=== PATIENT | male | born 1975 | race Caucasian/White ===

== ENCOUNTER → 2018-08-18 | Outpatient (CLI) | payer OTHER, SELFPAY ==
[2018-08-18 10:22] LABS: Erythrocyte Sedimentation Rate 2 mm/hr (0-15)
== END | disposition home or self-care (01) ==
LOC: LABSPEC 10:08
PROVIDERS: Family Provider Internal Medicine; PCP Internal Medicine; Visit Provider Internal Medicine
DX: R51 Headache (principal)
CPT/HCPCS: 85652

== ENCOUNTER 2022-12-17 05:20 | Day surgery (SDC) | payer BC, SELFPAY ==
[2022-12-17 05:46] VITALS: BP 144/98; PULSE 83; RESP 18; TEMP 36.3; O2SAT 98; BMI 32.2
[2022-12-17] MEDS: Lactated Ringers 1,000 ML 15 ML IV (05:55)
--- NOTE | 2022-12-17 06:30 | COLBX_PTH ---
PATIENT: MEHDI MARK LOC: EN U#:[id number] AGE/SX: 47/M ROOM: RE12/17/[address]: Dr. Leobardo Bowens DO : 1975 BED: DIS: 12/17/2022 SPEC #: [id number] RECD: 12/17/22 09:56 STATUS: CHRISTOPHER YANDEL #: [id number] JAZMYN: 12/17/22 06:[address]: Leobardo Bowens DEPT: SURGICAL PATHOLOGY RECD BY: Izabella Salmon ENTERED: 12/17/22 10:52 SP TYPE: COLON BX ZINA DR: Dr. Shauna Hargrove DO Tissues: A - Cecum, NOS B - Sigmoid colon biopsy Procedures: Surgery Specimen Level IV HEADER OPERATION: Colonoscopy - open access, biopsy PRE-OP DIAGNOSIS: Screening TISSUE SUBMITTED: A - Cecal polyp biopsy, B - Sigmoid polyp biopsy MICROSCOPIC DIAGNOSIS A. Cecal polyp, biopsy: Fragments of hyperplastic polyp. B. Sigmoid polyp, biopsy: Hyperplastic polyp. BRITANY:eugenia 12/18/2022 MICROSCOPIC DESCRIPTION Slides are reviewed. GROSS DESCRIPTION A - Received in fixative is one container labeled with the patient's name and designated cecal polyp biopsy. The specimen consists of two irregular fragments of light ho soft tissue that in aggregate measure 0.5 x 0.3 x 0.1 cm. The specimen is totally submitted in one cassette. B - Received in fixative is one container labeled with the patient's name and designated sigmoid polyp biopsy. The specimen consists of one irregular fragment of light ho soft tissue that measures 0.2 x 0.2 x 0.1 cm. The specimen is totally submitted in one cassette. / BRITANY:eugenia 12/17/2022 TC:1 CPT: 35056 x2
--- NOTE | 2022-12-17 06:31 | HP.PCM_ITS ---
[facility] - General General Date of Admission: 12/17/22 Date of Service: 12/17/22 Chief Complaint: Screening colonoscopy HPI Narrative MEHDI MARK, is a 47 M who presents today for screening colonoscopy. He has a family history of colon polyps in his mother and his sister. There is no family still colon cancer. He he has a past medical history of mild hypertension and seasonal allergies. He has no chest pain no shortness of breath. He denies abdominal pain. Denies any cramping. Denies any change in bowel habits such as lower GI bleeding, constipation or diarrhea. PFSH Medical History Alcohol use Gout Heartburn HTN (hypertension) Hypercholesteremia Non-smoker Home Medications allopurinol 100 mg tablet 100 mg PO BID 10/15/22 [History Last Taken Unknown] lisinopril 20 mg tablet 20 mg PO BID 10/15/22 [History Last Taken 12/17/22 05:00] loratadine 10 mg tablet (Claritin) 10 mg PO DAILY 10/15/22 [History Last Taken Unknown] Allergy/AdvReac Type Severity Reaction Status Date / Time No Known Allergies Allergy Verified 12/17/22 05:42 Family History (Updated 10/15/22 @ 13:29 by Yesi Perales) Mother Colon polyps Sister Colon polyps Father Hypertension Gout Kidney stones Surgical History (Updated 12/15/22 @ 13:30 by Leora Blakely) Hx of adenoidectomy Social History (Updated 10/15/22 @ 13:30 by Yesi Perales) current occupational status: employed current occupation: [employer], Educator Smoking Status: Never smoker ROS Review of Systems ROS Unobtainable: other Constitutional Constitutional: Denies fatigue, fever(s), poor appetite, weight gain or weight loss ENT HEENT: Denies mouth lesions Cardiovascular Cardiovascular: Denies abdominal bloating, abdominal edema or abdominal pain Respiratory/Chest Respiratory/Chest: Denies change in mental status, change in phlegm color, chest congestion or chest tightness Gastrointestinal Gastrointestinal: Denies belching, bloating, change in bowel habits, change in stool character, chewing difficulty, coffee ground emesis, constipation, cramping, diarrhea, dyspepsia, dysphagia, early satiety, excessive flatus, fecal incontinence, heartburn, hematemesis, hematochezia, hemorrhoids, loose stools, melena, nausea, odynophagia, rectal bleeding, tenesmus, vomiting or weight changes Genitourinary Genitourinary: Denies abdominal discomfort, burning urination or itching Musculoskeletal Musculoskeletal: Reports as per HPI; Denies muscle weakness or myalgias Integumentary Integumentary: Denies jaundice Neurologic Neurologic: Denies lack of coordination or weakness Psychiatric Psychiatric: Denies confusion, depression, memory loss, mood swings, paranoia or suicidal ideation Endocrine Endocrinology: Denies systems reviewed and no addt'l complaints, except as documented Hematologic/Lymphatic Hematologic/Lymphatic: Denies anemia, easy bleeding, easy bruising or lymphadenopathy Allergic/Immunologic Allergic/Immunologic: Denies systems reviewed and no addt'l complaints, except as documented Vital Signs Vital Signs Vital Signs: 12/17/22 05:45 12/17/22 05:46 Temperature 97.4 F L Temperature Source Temporal Pulse Rate 83 Respiratory Rate 18 Respiratory Pattern Normal Blood Pressure 144/98 H Blood Pressure Mean 113 Blood Pressure Source Monitor Blood Pressure Position Semi-Fowlers Blood Pressure Location Left Arm Pulse Ox 98 Oxygen Delivery Method Room Air Weight Weight: 212 lb Body Mass Index (BMI) 32.2 Physical Exam Const alert General Appearance: cooperative Orientation / Consciousness: oriented to person HEENT hearing grossly normal bilaterally Head and Scalp: normal to inspection Face and Sinus: face symmetric Nose: external nose normal Mouth: oral and palatal mucosa normal Eyes conjunctivae normal General Eye: normal appearance of both eyes Neck full ROM General: normal visual inspection Lymph Lymphatic: no lymphadenopathy noted Chest inspection of chest normal and palpation of chest normal Chest: symmetrical chest wall rise Resp normal respiratory effort Effort and Inspection: able to speak in complete sentences Cardio regular rate GI non-distended Percussion: normal to percussion Rectal Exam: deferred Neuro Speech: speech normal Gait (Neuro): normal gait Assessment & Plan Assessment/Plan (1) Encounter for screening for malignant neoplasm of colon: PLAN: He was explained alternatives, risk, benefits including outstanding bleeding, infection, sepsis, perforation, need for discharge and . He will have an ASA of 3.
--- NOTE | 2022-12-17 06:54 | OP.CCLET_ITS ---
12/17/2022 Shauna Hargrove [address] [place] [address] Re : Colonoscopy procedure for [place] Dear Dr. Hargorve This procedure was performed on December. My impressions and recommendations are as follows: Impressions : - Diverticulosis in the recto-sigmoid colon and in the sigmoid colon. - Two 1 to 2 mm polyps in the sigmoid colon and in the cecum, removed with a cold snare. Resected and retrieved. Recommendations : - Repeat colonoscopy in 5 years for surveillance. - Continue present medications. My findings are described in the full procedure note, which is enclosed. If I can be of further assistance, please feel free to contact me at . Sincerely, Leobardo Bowens, 12/17/2022 6:53:45 AM This report has been signed electronically.
--- NOTE | 2022-12-17 06:54 | OP.COLON_ITS ---
Patient Name: Woody Stuart Procedure Date: 12/17/2022 6:21 AM Date of : 1975 Age: 47 Procedure: Colonoscopy Indications: Screening for colorectal malignant neoplasm Providers: Leobardo Bowens DO Medicines: Monitored Anesthesia Care Patient Profile: This is a 47 year old male. Refer to note in patient chart for documentation of history and physical. Last Colonoscopy: none. The patient's first colonoscopy is today. Complications: No immediate complications. Procedure: Pre-Anesthesia Assessment: - Prior to the procedure, a History and Physical was performed, and patient medications and allergies were reviewed. The risks and benefits of the procedure and the sedation options and risks were discussed with the patient. All questions were answered and informed consent was obtained. Patient identification and proposed procedure were verified by the physician. Mental Status Examination: normal. Prophylactic Antibiotics: The patient does not require prophylactic antibiotics. Prior Anticoagulants: The patient has taken no anticoagulant or antiplatelet agents. After reviewing the risks and benefits, the patient was deemed in satisfactory condition to undergo the procedure. The anesthesia plan was to use monitored anesthesia care (MAC). Immediately prior to administration of medications, the patient was re-assessed for adequacy to receive sedatives. The heart rate, respiratory rate, oxygen saturations, blood pressure, adequacy of pulmonary ventilation, and response to care were monitored throughout the procedure. The physical status of the patient was re-assessed after the procedure. After I obtained informed consent, the scope was passed under direct vision. Throughout the procedure, the patient's blood pressure, pulse, and oxygen saturations were monitored continuously. The Colonoscope was introduced through the anus and advanced to the cecum, identified by appendiceal orifice and ileocecal valve. The colonoscopy was performed without difficulty. The patient tolerated the procedure well. The quality of the bowel preparation was adequate. The ileocecal valve, appendiceal orifice, and rectum were photographed. Scope In: 6:37:22 AM Scope Withdrawal Time 0 hours 9 minutes 51 seconds Scope Out: 6:49:08 AM Total Procedure Duration Time 0 hours 11 minutes 46 seconds Findings: The perianal and digital rectal examinations were normal. A few small-mouthed diverticula were found in the recto-sigmoid colon and sigmoid colon. Two sessile polyps were found in the sigmoid colon and cecum. The polyps were 1 to 2 mm in size. These polyps were removed with a cold snare. Resection and retrieval were complete. Verification of patient identification for the specimen was done. Estimated blood loss was minimal. Impression: - Diverticulosis in the recto-sigmoid colon and in the sigmoid colon. - Two 1 to 2 mm polyps in the sigmoid colon and in the cecum, removed with a cold snare. Resected and retrieved. Recommendation: - Repeat colonoscopy in 5 years for surveillance. - Continue present medications. Procedure Code(s): --- Professional --- 20638, Colonoscopy, flexible; with removal of tumor(s), polyp(s), or other lesion(s) by snare technique CPT copyright 2021 [employer]. All rights reserved. The codes documented in this report are preliminary and upon card reader review may be revised to meet current compliance requirements. Leobardo Bowens DO 12/17/2022 6:53:45 AM This report has been signed electronically. Number of Addenda: 0 Note Initiated On: 12/17/2022 6:21 AM
[2022-12-17 06:55] VITALS: BP 144/98; BP 90/70; PULSE 76; RESP 16; TEMP 36.3; O2SAT 97
[2022-12-17 07:00] VITALS: BP 144/98; BP 96/62; PULSE 70; RESP 16; O2SAT 96
[2022-12-17 07:05] VITALS: BP 102/72; BP 144/98; PULSE 62; RESP 18; O2SAT 97
[2022-12-17 07:10] VITALS: BP 106/80; BP 144/98; PULSE 63; RESP 18; TEMP 36.4; O2SAT 98
[2022-12-17 07:26] VITALS: BP 144/98
== END 2022-12-17 07:40 | disposition home or self-care (01) ==
LOC: EN 05:21 → AC 05:23
PROVIDERS: PCP Internal Medicine; Referring Provider Internal Medicine; Visit Provider Internal Medicine Gastroenterology
PROC: 0DJD8ZZ Inspection of Lower Intestinal Tract, Via Natural or Artificial Opening Endoscopic (ICD-10-PCS; CPT 45378; principal; 2022-12-17 06:25)
DX: Z12.11 Encounter for screening for malignant neoplasm of colon (principal); K63.5 Polyp of colon; K57.30 Diverticulosis of large intestine without perforation or abscess without bleeding; I10 Essential (primary) hypertension; E78.00 Pure hypercholesterolemia, unspecified; Z83.719 Family history of colon polyps, unspecified; Z79.899 Other long term (current) drug therapy
CPT/HCPCS: 45385; 88305; J7120; J2405

== ENCOUNTER → 2024-04-12 | Outpatient (CLI) | payer BC, SELFPAY ==
--- NOTE | 2024-04-12 12:56 | CT_ITS ---
PROCEDURE: CHEST WITH CONTRAST REASON FOR EXAM: Nodule seen on previous CT scan, January 2024. TECHNIQUE: Chest CT with intravenous contrast and sagittal and coronal reconstructions. CONTRAST: Isovue-300, 91 mL. COMPARISON: None. FINDINGS: CHEST: Lines and tubes: None. Mediastinum: No evidence of mediastinal hemorrhage. Heart: Normal heart size. No pericardial effusion. Thoracic Aorta: No aneurysm. No evidence of acute traumatic injury. Lungs and Airways: The lungs are normally expanded and clear. Pleura: No pleural effusion. No pneumothorax. Bones: Multilevel spondylosis Upper abdomen: Low-attenuation of the hepatic parenchyma. A few small lymph nodes in the arlene hepatis, largest measuring 2.0 x 1.4 cm on axial image 104. Small 0.8 cm splenule, axial image 89. Contracted gallbladder. Diverticulosis. CT/Chest WITH Contrast IMPRESSION: No significant abnormalities are demonstrated in the chest. Steatosis. Diverticulosis. Other nonacute findings detailed above. One or more dose reduction techniques were used (e.g., Automated exposure contr ol, adjustment of the mA and/or kV according to patient size, use of iterative reconstruction technique). Reading Location: [facility]
== END | disposition home or self-care (01) ==
PROVIDERS: PCP Internal Medicine; Referring Provider Internal Medicine; Visit Provider Internal Medicine
DX: R93.89 Abnormal findings on diagnostic imaging of other specified body structures (principal)
CPT/HCPCS: 71260; Q9967

== ENCOUNTER → 2025-02-22 | Outpatient (CLI) | payer BC, SELFPAY ==
[2025-02-22 07:21] LABS: Mucous, Urine 0 SEEN /hpf (<or=2+); Red Blood Cells-Urine 0 SEEN /hpf (0-5); Squamous Epithelial Cells - UA 0 SEEN /hpf (0-5)
--- OUTSIDE RECORDS SUMMARY | 2025-02-22 07:28 | XMS RPT_ITS | CCD ---
Author Organization [facility] Care Team Providers Care Sustainability Purchasing Agent Name Role Phone Shauna Yen Unavailable Jorge Cheri Unavailable Unavailable Unavailable Unavailable Shauna Yen Attending Unavailable Shauna Yen Consulting Unavailable Gravius, Sophia Unavailable Unavailable Gravius, Sophia Unavailable Unavailable Shauna Yen DO Unavailable [phone] Gravius SUPERVISOR DATA PROCESSING, Sophia Unavailable Unavailable Clyde BOOKERN, Michelle Unavailable Unavailable Josephine Head RN Unavailable Unavailable Unavailable Unavailable Nati Braun MA Unavailable Unavailable Slarb MANAGER NEWS, Carleen Unavailable Unavailable Shauna Yen DO Unavailable Robotham, Yuliana Unavailable Hari MANAGER NEWS, Danie Unavailable Unavailable Janet Rico MA Unavailable Unavailable Dr. Shauna Yen Primary Care Provider Yesi Perales Attending Provider Unavailable Dr. Shauna Yen Referring Provider Friend, Dr. Booth Attending Provider FriendDr. Booth Other Provider Shauna Yen DO Primary Care Provider SHAUNA YEN Referring Unavailable SHAUNA YEN Primary Care Unavailable Shauna Yen Referring Unavailable Shauna Yen Attending Unavailable Shauna Yen Primary Care Unavailable Allergies Allergy Classification Reported Allergen(s) Allergy Type Date of Onset Reaction(s) Facility (1 source) ALLERGIES NOT ON FILE; Translations: [ALLERGIES NOT ON FILE] Propensity to adverse reactions (disorder) [facility] 2 Repository Medications Current Medications Medication Drug Class(es) Dates Sig (Normalized) Sig (Original) loratadine 10 mg oral tablet (20 sources) Start: 10-15-2022 take 1 tablet by mouth once daily Loratadine (Claritin) 10 mg tablet Active 10 MG PO DAILY October 15, 2022 12:00am Completed/Discontinued Medications Medication Drug Class(es) Dates Sig (Normalized) Sig (Original) allopurinol 100 mg oral tablet (20 sources) Xanthine Oxidase Inhibitor Start: 10-14-2022 take 1 tablet by mouth twice daily allopurinoL 100 mg oral tablet 1 (one) Tablet BID for 90 days Quantity: 180 {Tablet} Refills: 3 Ordered: 14-Oct-2022 Beena DO, Shauna Beena DO, Shauna Start : 14-Oct-2022 Active Comments: Mail order. Start: 07-15-2022 take 1 tablet by scott twice daily allopurinoL 100 mg oral tablet 1 (one) Tablet BID for 90 days Quantity: 180 {Tablet} Refills: 0 Ordered: 15-Jul-2022 Beena DO, Shauna Beena DO, Shauna Start : 15-Jul-2022 Active Comments: Mail order. will need appt for further refills Start: 08-07-2021 take 1 tablet by scott twice daily Allopurinol 100 MG Oral Tablet 1 (one) Tablet BID for 90 days Quantity: 180 {Tablet} Refills: 3 Ordered: 07-Aug-2021 Beena DO, Shauna Beena DO, Shauna Start : 07-Aug-2021 Active Comments: Mail order. Start: 08-04-2021 take 1 tablet by scott twice daily Allopurinol 100 MG Oral Tablet 1 (one) Tablet BID for 90 days Quantity: 180 {Tablet} Refills: 3 Ordered: 04-Aug-2021 Beena DO, Shauna Beena DO, Shauna Start : 04-Aug-2021 Active Comments: Mail order. Start: 08-01-2020 take 1 tablet by scott twice daily Allopurinol 100 MG Oral Tablet 1 (one) Tablet BID for 90 days Quantity: 180 {Tablet} Refills: 3 Ordered: 01-Aug-2020 Beena DO, Shauna Beena DO, Shauna Start : 01-Aug-2020 Active Comments: Mail order. Start: 08-09-2018 take 1 tablet by scott th twice daily Allopurinol 100 MG Oral Tablet 1 (one) Tablet BID for 90 days Quantity: 180 {Tablet} Refills: 3 Ordered: 09-Aug-2018 Shauna Yen DO, DO, Kathleen Start : 09-Aug-2018 Active Comments: Mail order. Start: 04-29-2017 End: 05-23-2018 take 1 tablet by mouth twice daily Allopurinol 100 MG Oral Tablet 1 (one) Tablet BID for 90 days Quantity: 180 {Tablet} Refills: 0 Ordered: 23-May-2018 Cheri Patel RN Start : 10-May-2018 End : 23-May-2018 Inactive Comments: Mail order. Comment on above: Mail order. Mail order. muna junior appt for further refills amoxicillin 875 mg / clavulanate 125 mg oral tablet (20 sources) Penicillin-class Antibacterial Start: 9 End: 0 take 1 tablet by mouth twice daily Augmentin 875-125 MG Oral Tablet 1 (one) Tablet bid for 0 days Quantity: 20 {Tablet} Refills: 0 Ordered: 18-Aug-2018 Josephine Head RN Start : 18-Aug-2018 End : 03-Jul-2019 Discontinued Comments: This order discontinued per -. Start: 07-17-2009 End: 05-16-2010 take 1 tablet by mouth twice daily AUGMENTIN, 875-125MG (Oral Tablet) 1 (one) Tablet bid for 0 days Quantity: 20 {Tablet} Refills: 0 Ordered: 16-May-2010 Cheri Patel LPN Start : 17-Jul-2009 End : 16-May-2010 Inactive Comment on above: This order discontin ued per -Span. fluticasone furoate 0.0275 mg/actuat metered dose nasal spray (20 sources) Corticosteroid Start: 0 End: 0 VERAMYST, 27.5MCG/SPRAY (Nasal Suspension) 2 (two) Suspension qd for 30 days Quantity: 1 {Suspension} Refills: 0 Ordered: 16-May-2010 Shauna Yen DO, DO, Kathleen Start : 17-Jul-2009 End : 16-Aug-2009 Inactive lisinopril 20 mg oral tablet (20 sources) Angiotensin Converting Enzyme Inhibitor Start: take 1 tablet by mouth twice daily lisinopriL 20 mg oral tablet 1 Tablet BID for 90 days Quantity: 180 {Tablet} Refills: 3 Ordered: 14-Oct-2022 Beena OCONNOR, Shauna Delgado DO Start : 14-Oct-2022 Active Comments: Mail order. Start: 07-15-2022 take 1 tablet by scott th twice daily lisinopriL 20 mg oral tablet 1 Tablet BID for 90 days Quantity: 180 {Tablet} Refills: 0 Ordered: 15-Jul-2022 Beena DO, Ilda Delgado DOhleen Start : 15-Jul-2022 Active Comments: Mail order. Start: 08-07-2021 take 1 tablet by scott th twice daily Lisinopril 20 MG Oral Tablet 1 Tablet BID for 90 days Quantity: 180 {Tablet} Refills: 3 Ordered: 07-Aug-2021 Beena OCONNOR, Shauna Delgado DO Start : 07-Aug-2021 Active Comments: Mail order. Start: 08-04-2021 take 1 tablet by scott th twice daily Lisinopril 20 MG Oral Tablet 1 Tablet BID for 90 days Quantity: 180 {Tablet} Refills: 3 Ordered: 04-Aug-2021 Beena OCONNOR, Shauna Delgado DO Start : 04-Aug-2021 Active Comments: Mail order. Start: 08-01-2020 take 1 tablet by scott th twice daily Lisinopril 20 MG Oral Tablet 1 Tablet BID for 90 days Quantity: 180 {Tablet} Refills: 3 Ordered: 01-Aug-2020 Beena OCONNOR, Shauna eDlgado DO Start : 01-Aug-2020 Active Comments: Mail order. Start: 01-09-2019 take 1 tablet by scott th twice daily Lisinopril 20 MG Oral Tablet 1 Tablet BID for 90 days Quantity: 180 {Tablet} Refills: 0 Ordered: 09-Jan-2019 Jackie Aguiar DO Start : 09-Jan-2019 Active Comments: Mail order. Start: 10-19-2018 take 1 tablet by scott th twice daily Lisinopril 20 MG Oral Tablet 1 Tablet BID for 90 days Quantity: 180 {Tablet} Refills: 0 Ordered: 19-Oct-2018 Shauna Yen DO, DO, Kathleen Start : 19-Oct-2018 Active Comments: Mail order. Start: 08-09-2018 take 1 tablet by scott th twice daily Lisinopril 20 MG Oral Tablet 1 Tablet BID for 90 days Quantity: 180 {Tablet} Refills: 0 Ordered: 09-Aug-2018 Shauna Yen DO, DO, Kathleen Start : 09-Aug-2018 Active Comments: Mail order. Start: 04-29-2017 End: 05-23-2018 take 1 tablet by mouth twice daily Lisinopril 20 MG Oral Tablet 1 Tablet BID for 90 days Quantity: 180 {Tablet} Refills: 3 Ordered: 23-May-2018 Cheri Patel RN Start : 29-Apr-2017 End : 23-May-2018 Inactive Comments: Mail order. Comment on above: Mail order. Problems Active Problems Problem Classification Problem Date Documented Date Episodic/Chronic Administrative/socia l admission (20 sources) Administrative reason for encounter; Translations: [Other general medical examination for administrative purposes] 04-29-2017 Episodic Disorders of lipid metabolism (20 sources) Hypercholesterolemia; Translations: [Hypercholesteremia] Onset: 4 04-29-2017 Chronic Essential hypertension (20 sources) Hypertensive disorder; Translations: [Benign hypertension] Resolved: 1 04-29-2017 Chronic Gout and other crystal arthropathies (20 sources) Gout; Translations: [Gout] 04-29-2017 Chronic Comment on above: stable Headache; including migraine (20 sources) Headache; Translations: [Headache] Resolved: 2 08-18-2018 Episodic Immunizations and screening for infectious disease (20 sources) Need for prophylactic vaccination and inoculation against influenza; Translations: [Encounter for screening for respiratory tuberculosis] 04-29-2017 Episodic Nutritional deficiencies (20 sources) Vitamin D deficiency; Translations: [Vitamin D deficiency] 08-01-2020 Chronic Other ear and sense organ disorders (20 sources) Unspecified hearing loss; Translations: [Hearing loss, unspecified laterality] Resolved: 1 02-01-2015 Chronic Other ear and sense organ disorders (20 sources) Otitis externa; Translations: [Otitis externa] Resolved: 1 05-05-2012 Chronic Other ear and sense organ disorders (20 sources) Otitis externa; Translations: [Otitis externa] Resolved: 1 05-05-2012 Episodic Other ear and sense organ disorders (20 sources) Otalgia; Translations: [Otalgia, unspecified ear] Resolved: 1 01-29-2015 Episodic Other ear and sense organ disorders (16 sources) Pain of ear structure; Translations: [Otalgia, unspecified ear] Resolved: 1 01-29-2015 Episodic Other eye disorders (2 sources) Periorbital and/or eye pain; Translations: [Headache around the eyes] 08-18-2018 Episodic Other nutritional; endocrine; and metabolic disorders (20 sources) Body mass index 30+ - obesity; Translations: [BMI 30.0-30.9,adult] Resolved: 9 05-23-2018 Chronic Other nutritional; endocrine; and metabolic disorders (18 sources) Overweight in adulthood with body mass index of 25 or more but less than 30; Translations: [BMI 28.0-28.9,adult] Resolved: 9 05-30-2018 Episodic Other screening for suspected conditions (not mental disorders or infectious disease) (1 source) Abnormal findings on diagnostic imaging of other specified body structures; Translations: [Abnormal findings on diagnostic imaging of other specified body structures] Onset: 5 Chronic Other screening for suspected conditions (not mental disorders or infectious disease) (20 sources) Screening status; Translations: [Encounter for screening for malignant neoplasm of prostate (Renamed from Screening for prostate cancer)] 08-01-2020 Episodic Other upper respiratory infections (20 sources) Acute sinusitis, unspecified; Translations: [Acute sinusitis] 04-29-2017 Episodic Otitis media and related conditions (20 sources) Serous otitis media; Translations: [Otitis media] Resolved: 1 05-05-2012 Episodic Residual codes; unclassified (20 sources) Family history of diabetes mellitus; Translations: [Family history of diabetes mellitus] Episodic Residual codes; unclassified (11 sources) Needs influenza immunization; Translations: [Need for prophylactic vaccination and inoculation against influenza (Renamed from Need for immunization against influenza)] 04-29-2017 Episodic Residual codes; unclassified (20 sources) FH: Diabetes mellitus; Translations: [Family history of diabetes mellitus] 04-29-2017 Episodic Residual codes; unclassified (20 sources) Non-smoker; Translations: [Non-smoker] 08-01-2020 Episodic Tuberculosis (20 sources) Tuberculosis Unclassified (20 sources) Unclassified (20 sources) Non-smoker; Translations: [Non-smoker] 04-29-2017 Unclassified (20 sources) Hearing loss, unspecified (389.9) Unclassified (20 sources) Otalgia, unspecified (388.70) Unclassified (20 sources) Hypercholesteremia (272.0) Unclassified (20 sources) BMI 28.0-28.9,adult Unclassified (20 sources) Hypertension, benign Unclassified (20 sources) Hypercholesteremia Unclassified (20 sources) BMI 31.0-31.9,adult Unclassified (10 sources) Encounter for screening for malignant neoplasm of prostate (Renamed from Screening for prostate cancer) Unclassified (20 sources) BMI 30.0-30.9,adult Past or Other Problems Problem Classification Problem Date Documented Date Episodic/Chronic Headache; including migraine (20 sources) Headache; including migraine Other nutritional; endocrine; and metabolic disorders (11 sources) Body mass index 25-29 - overweight; Translations: [BMI 28.0-28.9,adult] Resolved: 05-30-2018 04-29-2017 Chronic Other nutritional; endocrine; and metabolic disorders (10 sources) Body mass index 25-29 - overweight; Translations: [BMI 28.0-28.9,adult] Resolved: 05-30-2018 05-30-2018 Episodic Unclassified (20 sources) Other general medical examination for administrative purposes (V70.3) Unclassified (3 sources) Tuberculosis screening status; Translations: [Screening examination for pulmonary tuberculosis] 08-18-2018 Unclassified (10 sources) Sinusitis, acute Unclassified (6 sources) Encntr for general adult medical exam w/o abnormal findings Results Test Name Value Interpretation Reference Range Facility Chest WITH Contraston 2024 Chest WITH Contrast [facility] Imaging Services [address], [place] [id number] Chest WITH Contrast MR#: [id number] Acct: [id number] Name: MEHDI MARK Rep #: [id number] : 1975 M 48 From: Enoch Raza MD PCP: Dr. Shauna Yen DO Status: REG CLI Study: Chest WITH Contrast Date of Exam: 04/12/24 Exam# [id number] Ordering Dr: Shauna Yen DO PROCEDURE: CHEST WITH CONTRAST REASON FOR EXAM: Nodule seen on previous CT scan, January 2024. TECHNIQUE: Chest CT with intravenous contrast and sagittal and coronal reconstructions. CONTRAST: Isovue-300, 91 mL. COMPARISON: None. FINDINGS: CHEST: Lines and tubes: None. Mediastinum: No evidence of mediastinal hemorrhage. Heart: Normal heart size. No pericardial effusion. Thoracic Aorta: No aneurysm. No evidence of acute traumatic injury. Lungs and Airways: The lungs are normally expanded and clear. Pleura: No pleural effusion. No pneumothorax. Bones: Multilevel spondylosis Upper abdomen: Low-attenuation of the hepatic parenchyma. A few small lymph nodes in the arlene hepatis, largest measuring 2.0 x 1.4 cm on axial image 104. Small 0.8 cm splenule, axial image 89. Contracted gallbladder. Diverticulosis. CT/Chest WITH Contrast IMPRESSION: No significant abnormalities are demonstrated in the chest. Steatosis. Diverticulosis. Other nonacute findings detailed above. One or more dose reduction techniques were used (e.g., Automated exposure control, adjustment of the mA and/or kV according to patient size, use of iterative reconstruction technique). Reading Location: [facility] CC: Dr. Shauna Yen DO Paperhanger Apprentice: Signed Normal [facility] CT CARDIAC SCORING WO IV CON TRASTon 01-15-2024 CT CARDIAC SCORING WO IV CONTRAST Interpreted By: Preston Faye, STUDY: CT CARDIAC SCORING WO IV CONTRAST; 01/15/2024 8:20 am INDICATION: Signs/Symptoms:CAD SCREENING HYPERCHOLESTEREMIA. ,E78.00 Pure hypercholesterolemia, unspecified COMPARISON: None. ACCESSION NUMBER(S): [id number] ORDERING CLINICIAN: SHAUNA YEN TECHNIQUE: Using prospective ECG gating, CT scan of the coronary arteries was performed without intravenous contrast. Coronary calcium scoring was performed according to the method of Agatston. FINDINGS: The score and distribution of calcium in the coronary arteries is as follows: LM 0 LAD 0 LCx 0 RCA 0 Total 0 The visualized mid/lower ascending thoracic aorta measures 3.4 cm in diameter. The heart is normal in size. No pericardial effusion is present. No gross evidence of mediastinal or hilar lymphadenopathy or masses is identified. An ill-defined lobulated mass density is seen, right lower lobe in a para spinal location at image 38/44. This is not completely visualized. Follow-up chest CT with contrast is recommended. Decreased density is seen throughout the liver consistent with fatty change. IMPRESSION: 1. Coronary artery calcium score of 0*. *Coronary artery calcium scoring may be helpful in predicting the risk for future coronary heart disease events. According to the [place] [employer] Clinical Expert Consensus Task Force, such testing provides important prognostic information in patients with more than one coronary heart disease risk factor. The coronary artery calcium score correlates with the annual risk of a non-fatal myocardial infarction or coronary heart disease . Coronary artery score Annual Risk 0-99 0.4% 100-399 1.3% >400 2.4% These three breakpoints correspond to lower, intermediate and high risk states for future coronary events. Such information should be used, along with appropriate clinical judgment, to make decisions regarding the intensity of risk factor management strategies to treat blood lipids and to modify other non-lipid coronary risk factors. Reference: [place] P et al. Circulation. 2007; 115:402-426 2. Mass right lower lobe. Incompletely visualized. Follow-up with chest CT with contrast recommended. 3. Hepatic steatosis. MACRO: Critical Finding: See findings. Notification was initiated on 01/18/2024 at 3:01 pm by Preston Faye. (-YCF-) Instructions: Signed by: Preston Faye 01/18/2024 3:03 PM Dictation workstation: [id number] [facility] CALCIFIDIOL ([id number]) VIT D 25 Ordered By: Fil[employer] W[employer] Fabricator on 10-14-2022 25-hydroxyvitamin D [Mass/Vol] 20.6 ng/mL Abnormal 30.0-100.0 [facility]; [facility] Work Phone: Comment on above: Vitamin D deficiency has been defined by the [employer] of[employer] and an Endocrine Society practice guideline as alevel of serum 25-OH vitamin D less than 20 ng/mL (1,2).The Endocrine Society went on to further define vitamin Dinsufficiency as a level between 21 and 29 ng/mL (2).1. IOM ([employer]). 2010. Dietary reference intakes for calcium and D. [place]: The National Academies Press.2. Ericka MF, Margareth BARTHOLOMEW, Bob BORGES, et al. Evaluation, treatment, and prevention of vitamin D deficiency: an Endocrine Society clinical practice guideline. JCEM. 2010; 96(7):1911-30. PATIENT WAS FASTINGP ERFORMED BY: [facility] [id number] [place]ellarD[place] [id number] CBC W/AUTO DIFF WBC ([id number])O rdered By: [employer] Fabricator on 10-14-2022 Basophils (Bld) [#/Vol] 0.1 10*3/uL Normal 0.0-0.2 [facility]; [facility] Work Phone: Comment on above: PATIENT WAS FASTINGP ERFORMED BY: [facility] [address] [place] [id number] Basophils/100 WBC (Bld) 2 % Normal [facility]; [facility] Work Phone: Comment on above: PATIENT WAS FASTINGP ERFORMED BY: [facility] LabCloverhill Enterprisesrp [address] [place] [id number] Eosinophils (Bld) [#/Vol] 0.8 10*3/uL Abnormal 0.0-0.4 [facility]; [facility] Work Phone: Comment on above: PATIENT WAS FASTINGP ERFORMED BY: [facility] [address] [place] [id number] Eosinophils/100 WBC (Bld) 12 % Normal [facility]; [facility] Work Phone: Comment on above: PATIENT WAS FASTINGP ERFORMED BY: [facility] LabMedical Envelope [id number] [place] [id number] Erythrocyte distribution width (RBC) [Ratio] 13.0 % Normal 11.6-15.4 [facility]; [facility] Work Phone: Comment on above: PATIENT WAS FASTINGP ERFORMED BY: [facility] LabBeaumont Hospital6370 [facility] [id number] Hematocrit (Bld) [Volume fraction] 49.5 % Normal 37.5-51.0 [facility]; [facility] Work Phone: Comment on above: PATIENT WAS FASTINGP ERFORMED BY: [facility] Rlromn6045 [facility] [id number] Hemoglobin (Bld) [Mass/Vol] 16.8 g/dL Normal 13.0-17.7 [facility]; [facility] Work Phone: Comment on above: PATIENT WAS FASTINGP ERFORMED BY: [place] [id number] [facility] [id number] Immature granulocytes (Bld) [#/Vol] 0.0 10*3/uL Normal 0.0-0.1 [facility]; [facility] Work Phone: Comment on above: PATIENT WAS FASTINGP ERFORMED BY: [place] [id number] [facility] [id number] Immature granulocytes/100 WBC (Bld) 0 % Normal [facility]; [facility] Work Phone: Comment on above: PATIENT WAS FASTINGP ERFORMED BY: [facility] Fetmcc4472 [facility] [id number] Lymphocytes (Bld) [#/Vol] 2.2 10*3/uL Normal 0.7-3.1 [facility]; [facility] Work Phone: Comment on above: PATIENT WAS FASTINGP ERFORMED BY: [place] [id number] [facility] [id number] Lymphocytes/100 WBC (Bld) 36 % Normal [facility]; [facility] Work Phone: Comment on above: PATIENT WAS FASTINGP ERFORMED BY: [facility] Ukibhy3544 [facility] [id number] MCH (RBC) [Entitic mass] 30.2 pg Normal 26.6-33.0 [facility]; [facility] Work Phone: Comment on above: PATIENT WAS FASTINGP ERFORMED BY: ZITA Chamorro Wahhvg[address] [facility] [place] [id number] MCHC (RBC) [Mass/Vol] 33.9 g/dL Normal 31.5-35.7 [facility]; [facility] Work Phone: Comment on above: PATIENT WAS FASTINGP ERFORMED BY: [facility] [id number] [facility] Hospital[facility] [place] [id number] MCV (RBC) [Entitic vol] 89 fL Normal 79-97 [facility]; [facility] Work Phone: Comment on above: PATIENT WAS FASTINGP ERFORMED BY: [facility] Zcjzlf7110 Loo RoadECU [facility] [id number] Monocytes (Bld) [#/Vol] 0.5 10*3/uL Normal 0.1-0.9 [facility]; [facility] Work Phone: Comment on above: PATIENT WAS FASTINGP ERFORMED BY: [facility] Pczmrs[address] [facility] [place] [id number] Monocytes/100 WBC (Bld) 9 % Normal [facility]; [facility] Work Phone: Comment on above: PATIENT WAS FASTINGP ERFORMED BY: Oriana Ffafwc[address] [facility] [place] [id number] Neutrophils (Bld) [#/Vol] 2.6 10*3/uL Normal 1.4-7.0 [facility]; [facility] Work Phone: Comment on above: PATIENT WAS FASTINGP ERFORMED BY: [facility] Yozika[address]in [place] [id number] Neutrophils/100 WBC (Bld) 41 % Normal [facility]; [facility] Work Phone: Comment on above: PATIENT WAS FASTINGP ERFORMED BY: Lab[facility] Sbewrr76[address] RoadDublin [place] [id number] Platelets (Bld) [#/Vol] 147 10*3/uL Abnormal 150-450 [facility]; [facility] Work Phone: Comment on above: PATIENT WAS FASTINGP ERFORMED BY: ZITA [facility] Usputv7[address]oo RoadDublin [place] [id number] RBC (Bld) [#/Vol] 5.57 10*6/uL Normal 4.14-5.80 [facility]; [facility] Work Phone: Comment on above: PATIENT WAS FASTINGP ERFORMED BY: ZITA [facility] Kiemvf[address] RoadDublin [place] [id number] WBC (Bld) [#/Vol] 6.2 10*3/uL Normal 3.4-10.8 [facility]; [facility] Work Phone: Comment on above: PATIENT WAS FASTINGP ERFORMED BY: ZITA Labaidan HopperGjgkto1753 Loo RoadDublin [place] [id number] LIPID PANEL ([id number])Ordered B y: [employer] Fabricator on 10-14-2022 Cholesterol [Mass/Vol] 238 mg/dL Abnormal 100-199 [facility]; [facility] Work Phone: Comment on above: PATIENT WAS FASTINGP ERFORMED BY: ZITA [facility] Wykgsj01[address] RoadDublin [place] [id number] Cholesterol in HDL [Mass/Vol] 58 mg/dL Normal [facility]; [facility] Work Phone: Comment on above: PATIENT WAS FASTINGP ERFORMED BY: ZITA Labaidan HopperRtltpx9166 [address] RoadDublin [place] [id number] Triglyceride [Mass/Vol] 80 mg/dL Normal 0-149 [facility]; [facility] Work Phone: Comment on above: PATIENT WAS FASTINGP ERFORMED BY: ZITA [facility] Bwnrup[address] RoadDublin [place] [id number] LIPID PANEL (19851) 14 mg/dL Normal 5-40 [facility]; [facility] Work Phone: Comment on above: PATIENT WAS FASTINGP ERFORMED BY: ZITA [facility] Zslnqf4565 [address]oo RoadDublin [place] [id number] LIPID PANEL (35837) 166 mg/dL Abnormal 0-99 Compr ehensive Internal Medicine; [facility] Work Phone: Comment on above: PATIENT WAS FASTINGP ERFORMED BY: ZITA [facility] Ppdmsw9844 [address] RoadDublin [place] [id number] LIPID PANEL (82445) 2.9 {ratio} Normal 0.0-3.6 [facility] Internal Medicine; [facility] Work Phone: Comment on above: LDL/HDL Ratio Men Wo men 1/2 Avg.Risk 1.0 1.5 Avg.Risk 3.6 3.2 2X Avg.Risk 6.2 5.0 3X Avg.Risk 8.0 6.1 PATIENT WAS FASTINGP ERFORMED BY: ZITA [facility] Dbvyis2412 [address] RoadDublin [place] [id number] METABOLIC PANEL, COMPREHENSI VE (36624)Ordered By: [employer] Fabricator on 10-14-2022 Albumin [Mass/Vol] 4.7 g/dL Normal 4.1-5.1 [facility] Internal Medicine; [facility] Work Phone: Comment on above: PATIENT WAS FASTINGP ERFORMED BY: ZITA [facility] Uyjoxi5333 [address] RoadDublin [place] [id number] Albumin/Globulin [Mass ratio] 2.0 {ratio} Normal 1.2-2.2 [facility]; [facility] Work Phone: Comment on above: PATIENT WAS FASTINGP ERFORMED BY: ZITA [facility] Hvxtyr0162 [address] RoadDublin [place] [id number] ALP [Catalytic activity/Vol] 78 U/L Normal 44-121 [facility]; [facility] Work Phone: Comment on above: PATIENT WAS FASTINGP ERFORMED BY: CB [facility] Yfxefr7302 [address] RoadDublin [place] [id number] ALT [Catalytic activity/Vol] 46 U/L Abnormal 0-44 [facility]; [facility] Work Phone: Comment on above: PATIENT WAS FASTINGP ERFORMED BY: CB [facility] Jadncm6963 [address] RoadDublin [place] [id number] AST [Catalytic activity/Vol] 24 U/L Normal 0-40 [facility]; [facility] Work Phone: Comment on above: PATIENT WAS FASTINGP ERFORMED BY: ZITA [facility] Qjccnj4667 [address] RoadDublin [place] [id number] Bilirubin [Mass/Vol] 0.7 mg/dL Normal 0.0-1.2 Comp rehensive Internal Medicine; [facility] Work Phone: Comment on above: PATIENT WAS FASTINGP ERFORMED BY: ZITA [facility] Yboftv1726 [address] RoadDublin [place] [id number] Calcium [Mass/Vol] 9.3 mg/dL Normal 8.7-10.2 [facility]; [facility] Work Phone: Comment on above: PATIENT WAS FASTINGP ERFORMED BY: ZITA [facility] Nimfwp6518 [address] RoadDublin [place] [id number] Chloride [Moles/Vol] 102 mmol/L Normal 96-106 Comp rehensive Internal Medicine; [facility] Work Phone: Comment on above: PATIENT WAS FASTINGP ERFORMED BY: ZITA [facility] Lujagg7178 [address] RoadDublin [place] [id number] CO2 [Moles/Vol] 23 mmol/L Normal 20-[address] [facility]; [facility] Work Phone: Comment on above: PATIENT WAS FASTINGP ERFORMED BY: ZITA [facility] Xqayxy9910 [address] RoadDublin [place] [id number] Creatinine [Mass/Vol] 0.96 mg/dL Normal 0.76-1.27 [facility]; [facility] Work Phone: Comment on above: PATIENT WAS FASTINGP ERFORMED BY: [facility] Srjbet7842 [address] RoadDublin [place] [id number] GFR/1.73 sq M.predicted among non-blacks MDRD (S/P/Bld) [Vol rate/Area] 99 mL/min/{1.73_m2} Normal Comprehensiv e Internal Medicine; [facility] Work Phone: Comment on above: PATIENT WAS FASTINGP ERFORMED BY: [facility]6370 [facility] [id number] Globulin (S) [Mass/Vol] 2.3 g/dL Normal 1.5-4.5 [facility]; [facility] Work Phone: Comment on above: PATIENT WAS FASTINGP ERFORMED BY: ZITA [facility] Srwjix4517 [facility] [id number] Glucose [Mass/Vol] 94 mg/dL Normal 70-99 [facility]; [facility] Work Phone: Comment on above: PATIENT WAS FASTINGP ERFORMED BY: [facility] Euqcpz8872 [facility] [id number] Potassium [Moles/Vol] 4.6 mmol/L Normal 3.5-5.2 [facility]; [facility] Work Phone: Comment on above: PATIENT WAS FASTINGP ERFORMED BY: ZITA [facility] Trtwtm9224 [facility] [id number] Protein [Mass/Vol] 7.0 g/dL Normal 6.0-8.5 [facility]; [facility] Work Phone: Comment on above: PATIENT WAS FASTINGP ERFORMED BY: ZITA [facility] Iggnlh3920 [facility] [id number] Sodium [Moles/Vol] 139 mmol/L Normal 134-144 [facility]; [facility] Work Phone: Comment on above: PATIENT WAS FASTINGP ERFORMED BY: [facility] Tpkino5500 [facility] [id number] Urea nitrogen [Mass/Vol] 14 mg/dL Normal 6-24 [facility]; [facility] Work Phone: Comment on above: PATIENT WAS FASTINGP ERFORMED BY: [facility] Fjwdnz3775 [facility] [id number] Urea nitrogen/Creatinine [Mass ratio] 15 mg/mg Normal 9-20 [facility]; [facility] Work Phone: Comment on above: PATIENT WAS FASTINGP ERFORMED BY: ZITA [facility] Lzpskh3386 [address] RoadDublin [place] [id number] MICROALBUMINOrdered By: [place] Disability Hearing Officer on 10-14-2022 Albumin DL <= 20 mg/L (U) [Mass/Vol] 5.4 ug/mL Normal Comprehensiv e Internal Medicine; [facility] Work Phone: Comment on above: PATIENT WAS FASTINGP ERFORMED BY: ZITA [facility] Cfbgrk5133 [address] RoadDublin [place] [id number] Albumin/Creatinine (U) [Mass ratio] 4 {mg/g_creat} Normal 0-29 [facility]; [facility] Work Phone: Comment on above: Normal: 0 - 29 Moder ately increased: 30 - 300 Severely increased: >300 PATIENT WAS FASTINGP ERFORMED BY: ZITA [facility] Fumuny2526 [address] RoadDublin [place] [id number] Creatinine (U) [Mass/Vol] 137.6 mg/dL Normal [facility]; [facility] Work Phone: Comment on above: PATIENT WAS FASTINGP ERFORMED BY: ZITA [facility] Bkcwwf4858 [address] RoadDublin [place] [id number] TSH ([id number])Ordered By: [place] Disability Hearing Officer on 10-14-2022 TSH Qn 1.990 {uIU/mL} Normal 0.450-4.50 0 [facility]; [facility] Work Phone: Comment on above: PATIENT WAS FASTINGP ERFORMED BY: ZITA [facility] Rcjetv8665 [address] RoadDublin [place] [id number] URINALYSIS, W/ MICRO ([id number]) Ordered By: [employer] Fabricator on 10-14-2022 Appearance (U) Clear Normal Comprehens jeremy Internal Medicine; [facility] Work Phone: Comment on above: PATIENT WAS FASTINGP ERFORMED BY: ZITA [facility] Mdimcc4346 [address] RoadDublin [place] [id number] Bilirubin Ql (U) Negative Normal Comprehe nsive Internal Medicine; [facility] Work Phone: Comment on above: PATIENT WAS FASTINGP ERFORMED BY: ZITA [employer]anksco Puqrtv3732 [address] RoadDublin [place] [id number] Color (U) Yellow Normal [facility]; [facility] Work Phone: Comment on above: PATIENT WAS FASTINGP ERFORMED BY: Lab[facility] Sgffko4706 [address]Dublin [place] [id number] Glucose Ql (U) Negative Normal Comprehens jeremy Internal Medicine; [facility] Work Phone: Comment on above: PATIENT WAS FASTINGP ERFORMED BY: [facility] Rcaseg5819 [address] RoadDublin [place] [id number] Hemoglobin Ql (U) Negative Normal Compreh ensive Internal Medicine; [facility] Work Phone: Comment on above: PATIENT WAS FASTINGP ERFORMED BY: [facility] Hkurbd6020 [address] RoadDublin [place] [id number] Ketones Ql (U) Negative Normal Comprehens jeremy Internal Medicine; [facility] Work Phone: Comment on above: PATIENT WAS FASTINGP ERFORMED BY: [facility] Uvngys6998 [address] RoadDublin [place] [id number] Leukocyte esterase Test strip Ql (U) Negative Normal [facility]; [facility] Work Phone: Comment on above: PATIENT WAS FASTINGP ERFORMED BY: [facility] Ctpbgi6783 L[address] RoadDublin [place] [id number] Microscopic observation LM Nom (Urine sed) MICRON Normal [facility]; [facility] Work Phone: Comment on above: Microscopic follows if indicated. PATIENT WAS FASTINGP ERFORMED BY: [facility] Zqselp3656 [address] RoadDublin [place] [id number] Microscopic observation LM Nom (Urine sed) See below: Normal [facility]; [facility] Work Phone: Comment on above: Microscopic was viviana cated and was performed. PATIENT WAS FASTINGP ERFORMED BY: [facility] Gkjwsc9717 [address] RoadDublin [place] [id number] Nitrite Ql (U) Negative Normal Comprehens jeremy Internal Medicine; [facility] Work Phone: Comment on above: PATIENT WAS FASTINGP ERFORMED BY: ZITA [facility] Lqkcfn5055 [address] RoadDublin [place] [id number] pH (U) 6.0 [pH] Normal 5.0-7.5 [facility]; [facility] Work Phone: Comment on above: PATIENT WAS FASTINGP ERFORMED BY: CB [facility] Ydhuoq9844 [address] RoadDublin [place] [id number] Protein Ql (U) Negative Normal Comprehens jeremy Internal Medicine; [facility] Work Phone: Comment on above: PATIENT WAS FASTINGP ERFORMED BY: ZITA [facility] Zpylpe2987 [address] RoadDublin [place] [id number] Specific gravity (U) [Rel density] 1.021 1 Normal 1.005-1.03 0 [facility]; [facility] Work Phone: Comment on above: PATIENT WAS FASTINGP ERFORMED BY: CB [facility] Mhkkmo4780 [address] RoadDublin [place] [id number] Urobilinogen (U) [Mass/Vol] 0.2 mg/dL Normal 0.2-1.0 [facility]; [facility] Work Phone: Comment on above: PATIENT WAS FASTINGP ERFORMED BY: CB [facility] Iwmghc4073 [address] RoadDublin [place] [id number] CALCIFIDIOL (24831) VIT D 25 Ordered By: [employer] Fabricator on 08-22-2021 25-hydroxyvitamin D [Mass/Vol] 23.0 ng/mL Abnormal 30.0-100.0 [facility]; [facility] Work Phone: Comment on above: Vitamin D deficiency has been defined by the Victor ofMedicine and an Endocrine Society practice guideline as alevel of serum 25-OH vitamin D less than 20 ng/mL (1,2).The Endocrine Society went on to further define vitamin Dinsufficiency as a level between 21 and 29 ng/mL (2).1. IOM (Victor of Medicine). 2010. Dietary reference intakes for calcium and D. [place]: The National Academies Press.2. Ericka MF, Margareth BARTHOLOMEW, Bob BORGES, et al. Evaluation, treatment, and prevention of vitamin D deficiency: an Endocrine Society clinical practice guideline. JCEM. 2010; 96(7):1911-30. PATIENT WAS FASTINGP ERFORMED BY: [facility] Yizdib5044 [address] RoadDublin [place] [id number] CBC W/AUTO DIFF WBC (60279)O rdered By: [employer] Fabricator on 08-22-2021 Basophils (Bld) [#/Vol] 0.1 10*3/uL Normal 0.0-0.2 [facility]; [facility] Work Phone: Comment on above: PATIENT WAS FASTINGP ERFORMED BY: [facility] Wmwckx7290 [address] RoadDublin [place] [id number] Basophils/100 WBC (Bld) 1 % Normal [facility]; [facility] Work Phone: Comment on above: PATIENT WAS FASTINGP ERFORMED BY: [facility] Gpagjp9642 [address] RoadDublin [place] [id number] Eosinophils (Bld) [#/Vol] 0.4 10*3/uL Normal 0.0-0.4 [facility]; [facility] Work Phone: Comment on above: PATIENT WAS FASTINGP ERFORMED BY: [facility] Fdpdos3378 [address] RoadDublin [place] [id number] Eosinophils/100 WBC (Bld) 8 % Normal [facility]; [facility] Work Phone: Comment on above: PATIENT WAS FASTINGP ERFORMED BY: [facility] Ftjulr4024 [address] NanostellarDublin [place] [id number] Erythrocyte distribution width (RBC) [Ratio] 12.8 % Normal 11.6-15.4 [facility]; [facility] Work Phone: Comment on above: PATIENT WAS FASTINGP ERFORMED BY: [facility] Qvbhbg3121 [address] RoadDublin [place] [id number] Hematocrit (Bld) [Volume fraction] 47.2 % Normal 37.5-51.0 [facility]; [facility] Work Phone: Comment on above: PATIENT WAS FASTINGP ERFORMED BY: [facility] Clvoaz9727 Loo RoadAtrium Health [facility] Centerin [place] [id number] Hemoglobin (Bld) [Mass/Vol] 16.5 g/dL Normal 13.0-17.7 [facility]; [facility] Work Phone: Comment on above: PATIENT WAS FASTINGP ERFORMED BY: [facility] Lxcbcy2329 L[address] RoadDublin [place] [id number] Immature granulocytes (Bld) [#/Vol] 0.0 10*3/uL Normal 0.0-0.1 [facility]; [facility] Work Phone: Comment on above: PATIENT WAS FASTINGP ERFORMED BY: [facility] Qhmvjx1992 [address] Roadblin [place] [id number] Immature granulocytes/100 WBC (Bld) 0 % Normal [facility]; [facility] Work Phone: Comment on above: PATIENT WAS FASTINGP ERFORMED BY: [facility]coEng[facility]wood Hospital and Medical CenterAaehcq6061 L[address] [facility]in [place] [id number] Lymphocytes (Bld) [#/Vol] 2.1 10*3/uL Normal 0.7-3.1 [facility]; [facility] Work Phone: Comment on above: PATIENT WAS FASTINGP ERFORMED BY: [facility] Ctzsbc6097 L[address] [facility]in [place] [id number] Lymphocytes/100 WBC (Bld) 37 % Normal [facility]; [facility] Work Phone: Comment on above: PATIENT WAS FASTINGP ERFORMED BY: [facility] Ehdcea0893 [address] [facility]in [place] [id number] MCH (RBC) [Entitic mass] 30.2 pg Normal 26.6-33.0 [facility]; [facility] Work Phone: Comment on above: PATIENT WAS FASTINGP ERFORMED BY: [facility] Fcppjx6862 [address] RoadDublin [place] [id number] MCHC (RBC) [Mass/Vol] 35.0 g/dL Normal 31.5-35.7 [facility]; [facility] Work Phone: Comment on above: PATIENT WAS FASTINGP ERFORMED BY: CB [facility] Syvdal5869 [address] RoadDublin [place] [id number] MCV (RBC) [Entitic vol] 86 fL Normal 79-97 [facility]; [facility] Work Phone: Comment on above: PATIENT WAS FASTINGP ERFORMED BY: CB [facility] Fermml1857 [address] RoadDublin [place] [id number] Monocytes (Bld) [#/Vol] 0.4 10*3/uL Normal 0.1-0.9 [facility]; [facility] Work Phone: Comment on above: PATIENT WAS FASTINGP ERFORMED BY: CB [facility] Maylny7883 [address] RoadDublin [place] [id number] Monocytes/100 WBC (Bld) 8 % Normal [facility]; [facility] Work Phone: Comment on above: PATIENT WAS FASTINGP ERFORMED BY: CB [facility] Qsviwu5399 [address] RoadDublin [place] [id number] Neutrophils (Bld) [#/Vol] 2.6 10*3/uL Normal 1.4-7.0 [facility]; [facility] Work Phone: Comment on above: PATIENT WAS FASTINGP ERFORMED BY: CB [facility] Sviubg2001 [address] RoadDublin [place] [id number] Neutrophils/100 WBC (Bld) 46 % Normal [facility]; [facility] Work Phone: Comment on above: PATIENT WAS FASTINGP ERFORMED BY: CB [facility] Edcpjo6871 [address] RoadDublin [place] [id number] Platelets (Bld) [#/Vol] 170 10*3/uL Normal 150-450 [facility]; [facility] Work Phone: Comment on above: PATIENT WAS FASTINGP ERFORMED BY: CB [facility] Ukckuv8169 [address] RoadDublin [place] [id number] RBC (Bld) [#/Vol] 5.46 10*6/uL Normal 4.14-5.80 [facility]; [facility] Work Phone: Comment on above: PATIENT WAS FASTINGP ERFORMED BY: ZITA Labaidan Overton6370 [address] RoadDublin [place] [id number] WBC (Bld) [#/Vol] 5.6 10*3/uL Normal 3.4-10.8 [facility] Internal Medicine; [facility] Work Phone: Comment on above: PATIENT WAS FASTINGP ERFORMED BY: ZITA Labdariusshrutih Kzzwkq1787 L[address] RoadDublin [place] [id number] LIPID PANEL (21491)Ordered B y: [employer] Fabricator on 08-22-2021 Cholesterol [Mass/Vol] 229 mg/dL Abnormal 100-199 [facility]; [facility] Work Phone: Comment on above: PATIENT WAS FASTINGP ERFORMED BY: ZITA Hopperlin6370 [address] RoadDublin [place] [id number] Cholesterol in HDL [Mass/Vol] 51 mg/dL Normal [facility]; [facility] Work Phone: Comment on above: PATIENT WAS FASTINGP ERFORMED BY: ZITA Hopperlin6370 [address] RoadDublin [place] [id number] Triglyceride [Mass/Vol] 115 mg/dL Normal 0-149 [facility]; [facility] Work Phone: Comment on above: PATIENT WAS FASTINGP ERFORMED BY: ZITA Labaidan HopperHghfla8087 L[address] RoadDublin [place] [id number] LIPID PANEL (20805) 21 mg/dL Normal 5-40 [facility]; [facility] Work Phone: Comment on above: PATIENT WAS FASTINGP ERFORMED BY: ZITA Labaidan Njapyq5526 [address] RoadDublin [place] [id number] LIPID PANEL (40666) 157 mg/dL Abnormal 0-99 [facility]; [facility] Work Phone: Comment on above: PATIENT WAS FASTINGP ERFORMED BY: ZITA Labcoshruthi Equnvi4358 [address] RoadDublin [place] [id number] LIPID PANEL (08579) 3.1 {ratio} Normal 0.0-3.6 [facility] Internal Medicine; [facility] Work Phone: Comment on above: LDL/HDL Ratio Men Wo men 1/2 Avg.Risk 1.0 1.5 Avg.Risk 3.6 3.2 2X Avg.Risk 6.2 5.0 3X Avg.Risk 8.0 6.1 PATIENT WAS FASTINGP ERFORMED BY: ZITA Labaidan HopperCjchqg5465 L[address] [facility] Hospitalbl[facility] [place] [id number] METABOLIC PANEL, COMPREHENSI VE (36071)Ordered By: [employer] Fabricator on 08-22-2021 Albumin [Mass/Vol] 4.4 g/dL Normal 4.0-5.0 [facility] Internal Medicine; [facility] Work Phone: Comment on above: PATIENT WAS FASTINGP ERFORMED BY: ZITA Labaidan HopperVrguhx7046 Loo RoadAtrium Health [facility] Centerin [place] [id number] Albumin/Globulin [Mass ratio] 1.8 {ratio} Normal 1.2-2.2 [facility]; [facility] Work Phone: Comment on above: PATIENT WAS FASTINGP ERFORMED BY: ZITA Labaidan HopperLybndl5041 [address] [facility]in [place] [id number] ALP [Catalytic activity/Vol] 86 U/L Normal 44-121 [facility]; [facility] Work Phone: Comment on above: PATIENT WAS FASTINGP ERFORMED BY: ZITA Labaidan HopperIdsvmi0994 [address] [facility]in [place] [id number] ALT [Catalytic activity/Vol] 26 U/L Normal 0-44 [facility]; [facility] Work Phone: Comment on above: PATIENT WAS FASTINGP ERFORMED BY: ZITA Labcoshruthi Lzjzrh6810 [address] [facility]in [place] [id number] AST [Catalytic activity/Vol] 26 U/L Normal 0-40 [facility]; [facility] Work Phone: Comment on above: PATIENT WAS FASTINGP ERFORMED BY: ZITA Labcoshruthi Edqzyn8355 L[address] [facility] [id number] Bilirubin [Mass/Vol] 0.8 mg/dL Normal 0.0-1.2 Comp rehensive Internal Medicine; [facility] Work Phone: Comment on above: PATIENT WAS FASTINGP ERFORMED BY: ZITA [facility] Ucgnet5447 [address] RoadDublin [place] [id number] Calcium [Mass/Vol] 9.4 mg/dL Normal 8.7-10.2 [facility] Internal Medicine; [facility] Work Phone: Comment on above: PATIENT WAS FASTINGP ERFORMED BY: [facility] Mzwdkq7082 [address] RoadDublin [place] [id number] Chloride [Moles/Vol] 99 mmol/L Normal 96-106 Comp [facility]; [facility] Work Phone: Comment on above: PATIENT WAS FASTINGP ERFORMED BY: [facility] Bxrwxg2592 [address] RoadDublin [place] [id number] CO2 [Moles/Vol] 24 mmol/L Normal 20-[address] [facility]; [facility] Work Phone: Comment on above: PATIENT WAS FASTINGP ERFORMED BY: ZITA [facility] Uvxqqf9660 [address] RoadDublin [place] [id number] Creatinine [Mass/Vol] 0.98 mg/dL Normal 0.76-1.27 [facility]; [facility] Work Phone: Comment on above: PATIENT WAS FASTINGP ERFORMED BY: [facility] Wataej3771 [address] Roadblin [place] [id number] GFR/1.73 sq M.predicted among non-blacks MDRD (S/P/Bld) [Vol rate/Area] 98 mL/min/{1.73_m2} Normal Comprehensiv e Internal Medicine; [facility] Work Phone: Comment on above: PATIENT WAS FASTINGP ERFORMED BY: [facility] Ovidtl3117 [address] RoadDublin [place] [id number] Globulin (S) [Mass/Vol] 2.5 g/dL Normal 1.5-4.5 [facility]; [facility] Work Phone: Comment on above: PATIENT WAS FASTINGP ERFORMED BY: ZITA [facility] Xzcmnd7358 [address] RoadDublin [place] [id number] Glucose [Mass/Vol] 88 mg/dL Normal 65-99 [facility] Internal Medicine; [facility] Work Phone: Comment on above: PATIENT WAS FASTINGP ERFORMED BY: ZITA [facility] Kdtely5602 [address] RoadDublin [place] [id number] Potassium [Moles/Vol] 4.8 mmol/L Normal 3.5-5.2 [facility]; [facility] Work Phone: Comment on above: PATIENT WAS FASTINGP ERFORMED BY: ZITA [facility] Ehqzcx0905 [address] RoadDublin [place] [id number] Protein [Mass/Vol] 6.9 g/dL Normal 6.0-8.5 [facility] Internal [facility]; [facility] Work Phone: Comment on above: PATIENT WAS FASTINGP ERFORMED BY: ZITA [facility] Hdmrtn7151 [address] RoadDublin [place] [id number] Sodium [Moles/Vol] 137 mmol/L Normal 134-144 [facility] Internal [facility]; [facility] Work Phone: Comment on above: PATIENT WAS FASTINGP ERFORMED BY: [facility] Agbqlh4330 [address] RoadDublin [place] [id number] Urea nitrogen [Mass/Vol] 11 mg/dL Normal 6-24 [facility]; [facility] Work Phone: Comment on above: PATIENT WAS FASTINGP ERFORMED BY: [facility] Dtjazv0325 [address] RoadDublin [place] [id number] Urea nitrogen/Creatinine [Mass ratio] 11 mg/mg Normal 9-20 [facility]; [facility] Work Phone: Comment on above: PATIENT WAS FASTINGP ERFORMED BY: CB [facility] Alebbt9674 [address] RoadDublin [place] [id number] MICROALBUMINOrdered By: Syst em Disability Hearing Officer on 08-22-2021 Albumin DL <= 20 mg/L (U) [Mass/Vol] 5.7 ug/mL Normal Comprehensiv e Internal Medicine; [facility] Work Phone: Comment on above: PATIENT WAS FASTINGP ERFORMED BY: Qloo Tfeerg0834 [facility] [id number] Albumin/Creatinine (U) [Mass ratio] 4 {mg/g_creat} Normal 0-29 [facility]; [facility] Work Phone: Comment on above: Normal: 0 - 29 Moder ately increased: 30 - 300 Severely increased: >300 PATIENT WAS FASTINGP ERFORMED BY: QlooEnglewood Hospital and Medical CenterGtfgco2211 [facility] [id number] Creatinine (U) [Mass/Vol] 128.2 mg/dL Normal [facility]; [facility] Work Phone: Comment on above: PATIENT WAS FASTINGP ERFORMED BY: QlooEnglewood Hospital and Medical CenterVrsxby9044 [facility] [id number] TSH ([id number])Ordered By: [employer] Disability Hearing Officer on 08-22-2021 TSH Qn 1.890 {uIU/mL} Normal 0.450-4.50 0 [facility]; [facility] Work Phone: Comment on above: PATIENT WAS FASTINGP ERFORMED BY: Qloo Btylhr0195 [facility] [id number] MUMPS ANTIBODY, IgG [id number] ([id number] 5360)Ordered By: [employer] Fabricator on 11-15-2020 MuV IgG IA Qn (S) 11.6 AU/mL Normal Compreh ensive Internal Medicine; [facility] Work Phone: Comment on above: Negative <9.0 Equivo millicent 9.0 - 10.9 Positive >10.9 A positive result generally indicates past exposure to Mumps virus or previous vaccination. PATIENT WAS FASTINGP ERFORMED BY: MysterioEnglewood Hospital and Medical CenterBdoack8692 [facility] [id number] QuantiFERON-TB Gold Plus (QF T-Plus) (80100)Ordered By: [employer] Fabricator on 11-15-2020 Gamma interferon background IA Qn (Bld) 0.06 {IU/mL} Normal [facility]; [facility] Work Phone: Comment on above: PATIENT WAS FASTINGP ERFORMED BY: ZITA Overton6370 [facility] [id number] M. tuberculosis stim IFN-g by CD4+ CD8+ T-cells corrected for background Qn (Bld) 0.07 {IU/mL} Normal [facility]; [facility] Work Phone: Comment on above: PATIENT WAS FASTINGP ERFORMED BY: ZITA Chamorro Onjvtb2901 [facility] [id number] M. tuberculosis stim IFN-g by CD4+ T-cells corrected for background Qn (Bld) 0.07 [IU]/mL Normal [facility]; [facility] Work Phone: Comment on above: PATIENT WAS FASTINGP ERFORMED BY: [facility] Ybegaw6354 [facility] [id number] M. tuberculosis stim IFN-g Ql (Bld) [Interp] Negative Normal [facility] Internal Medicine; [facility] Work Phone: Comment on above: Chemiluminescence im munoassay methodology PATIENT WAS FASTINGP ERFORMED BY: ZITA Chamorro Qftoel1388 [facility] [id number] Mitogen stimulated gamma interferon Qn (Bld) >10.00 Normal [facility] Internal Medicine; [facility] Work Phone: Comment on above: PATIENT WAS FASTINGP ERFORMED BY: [facility]Barn[facility] Mwbxwu2761 [facility] [id number] Service comment (Unsp spec) [Interp] SPRCS Normal Comprehensi Internal Medicine; [facility] Work Phone: Comment on above: The QuantiFERON-TB G old Plus result is determined by subtractingthe Nil value from either TB antigen (Ag) tube. The mitogen tubeserves as a control for the test. PATIENT WAS FASTINGP ERFORMED BY: [facility]6370 [facility] [id number] QuantiFERON-TB Gold Plus (QFT-Plus) (09889) Incubation performed. Normal Comprehens jeremy Internal Medicine; [facility] Work Phone: Comment on above: PATIENT WAS FASTINGP ERFORMED BY: [employer]70 gaytravel.comECU Health [facility] [id number] RUBELLA IgG (29858)Ordered B y: [employer] Fabricator on 11-15-2020 Rubella virus IgG Qn (S) 8.61 {index} Normal [facility]; [facility] Work Phone: Comment on above: Non-immune <0.90 Equ ivocal 0.90 - 0.99 Immune >0.99 PATIENT WAS FASTINGP ERFORMED BY: [employer] [facility] GlobalSelect [facility] [id number] RUBEOLA IgG (00670)Ordered B y: [employer] Fabricator on 11-15-2020 MeV IgG IA Qn (S) {index_val} Abnormal Compre hensive Internal Medicine; [facility] Work Phone: Comment on above: Negative <13.5 Equiv ocal 13.5 - 16.4 Positive >16.4 Presence of antibodies to Rubeola is presumptive evidence of immunity except when acute infection is suspected. PATIENT WAS FASTINGP ERFORMED BY: [employer] Loo NanostellarECU Health Roanoke-Chowan Hospital [id number] VARICELLA-ZOSTER ANTBODY (90 047)Ordered By: [employer] Fabricator on 11-15-2020 VZV IgG IA Qn (S) 279 {index} Normal Compre [facility] m[facility]ive [facility]; [facility] Work Phone: Comment on above: Negative <135 Equivo millicent 135 - 165 Positive >165 A positive result generally indicates exposure to the pathogen or administration of specific immunoglobulins, but it is not indication of active infection or stage of disease. PATIENT WAS FASTINGP ERFORMED BY: Scanntech6370 Loo NanostellarECU Health Roanoke-Chow[facility] Hospital [id number] CALCIFEDIOL (55551)Ordered B y: [employer] Fabricator on 08-01-2020 25-hydroxyvitamin D [Mass/Vol] 15.6 ng/mL Abnormal 30.0-100.0 [facility]; [facility] Work Phone: Comment on above: Vitamin D deficiency has been defined by the Victor ofMedicine and an Endocrine Society practice guideline as alevel of serum 25-OH vitamin D less than 20 ng/mL (1,2).The Endocrine Society went on to further define vitamin Dinsufficiency as a level between 21 and 29 ng/mL (2).1. IOM (Victor of Medicine). 2010. Dietary reference intakes for calcium and D. [place]: The National Academies Press.2. Ericka MF, Margareth BARTHOLOMEW, Bob BORGES, et al. Evaluation, treatment, and prevention of vitamin D deficiency: an Endocrine Society clinical practice guideline. JCEM. 2010; 96(7):1911-30. PATIENT WAS FASTINGP ERFORMED BY: CB [facility] Plyxer5427 [address]oo RoadDublin [place] [id number] CBC W/AUTO DIFF WBC (43893)O rdered By: [employer] Fabricator on 08-01-2020 Basophils (Bld) [#/Vol] 0.1 10*3/uL Normal 0.0-0.2 [facility]; [facility] Work Phone: Comment on above: PATIENT WAS FASTINGP ERFORMED BY: CB [facility] Mrfiwt6406 [address] RoadDublin [place] [id number] Basophils/100 WBC (Bld) 1 % Normal [facility]; [facility] Work Phone: Comment on above: PATIENT WAS FASTINGP ERFORMED BY: CB [facility] Llajik1898 [address] RoadDublin [place] [id number] Eosinophils (Bld) [#/Vol] 0.4 10*3/uL Normal 0.0-0.4 [facility]; [facility] Work Phone: Comment on above: PATIENT WAS FASTINGP ERFORMED BY: CB [facility] Mzejfu2048 [address] RoadDublin [place] [id number] Eosinophils/100 WBC (Bld) 8 % Normal [facility]; [facility] Work Phone: Comment on above: PATIENT WAS FASTINGP ERFORMED BY: CB [facility] Vechbm6493 [address] RoadDublin [place] [id number] Erythrocyte distribution width (RBC) [Ratio] 12.9 % Normal 11.6-15.4 [facility]; [facility] Work Phone: Comment on above: PATIENT WAS FASTINGP ERFORMED BY: ZITA Overton6[address]in [place] [id number] Hematocrit (Bld) [Volume fraction] 47.1 % Normal 37.5-51.0 [facility]; [facility] Work Phone: Comment on above: PATIENT WAS FASTINGP ERFORMED BY: ZITA EubanksCoshruthi HopperMtgych8518 Loo RoadAtrium Health Wake Forest Baptist Dav[facility] Medical Centerin [place] [id number] Hemoglobin (Bld) [Mass/Vol] 16.3 g/dL Normal 13.0-17.7 [facility]; [facility] Work Phone: Comment on above: PATIENT WAS FASTINGP ERFORMED BY: ZITA Jame Hopperlin6[address] RoadDuin [place] [id number] Immature granulocytes (Bld) [#/Vol] 0.0 10*3/uL Normal 0.0-0.1 [facility]; [facility] Work Phone: Comment on above: PATIENT WAS FASTINGP ERFORMED BY: ZITA Jame Hopperlin6[address]Dublin [place] [id number] Immature granulocytes/100 WBC (Bld) 0 % Normal [facility]; [facility] Work Phone: Comment on above: PATIENT WAS FASTINGP ERFORMED BY: ZITA Lab[facility] Gondel1901 [address] [facility] Hospitalblin [place] [id number] Lymphocytes (Bld) [#/Vol] 1.8 10*3/uL Normal 0.7-3.1 [facility]; [facility] Work Phone: Comment on above: PATIENT WAS FASTINGP ERFORMED BY: ZITA [facility] Bnfkre2557 [address] RoadDublin [place] [id number] Lymphocytes/100 WBC (Bld) 36 % Normal [facility]; [facility] Work Phone: Comment on above: PATIENT WAS FASTINGP ERFORMED BY: ZITA [facility] Jeocke7258 [address] RoadDublin [place] [id number] MCH (RBC) [Entitic mass] 30.4 pg Normal 26.6-33.0 [facility]; [facility] Work Phone: Comment on above: PATIENT WAS FASTINGP ERFORMED BY: ZITA Jame Overton6[address]Dublin [place] [id number] MCHC (RBC) [Mass/Vol] 34.6 g/dL Normal 31.5-35.7 [facility]; [facility] Work Phone: Comment on above: PATIENT WAS FASTINGP ERFORMED BY: ZITA ChaAidan HopperOcelit0381 [address] RoadDublin [place] [id number] MCV (RBC) [Entitic vol] 88 fL Normal 79-97 [facility]; [facility] Work Phone: Comment on above: PATIENT WAS FASTINGP ERFORMED BY: ZITA Hopperlin6370 [address]blin [place] [id number] Monocytes (Bld) [#/Vol] 0.4 10*3/uL Normal 0.1-0.9 [facility]; [facility] Work Phone: Comment on above: PATIENT WAS FASTINGP ERFORMED BY: ZITA Hopperlin6370 [address]Dublin [place] [id number] Monocytes/100 WBC (Bld) 8 % Normal [facility]; [facility] Work Phone: Comment on above: PATIENT WAS FASTINGP ERFORMED BY: ZITA LabDarius Hrwhfo6239 [address] RoadDublin [place] [id number] Neutrophils (Bld) [#/Vol] 2.3 10*3/uL Normal 1.4-7.0 [facility]; [facility] Work Phone: Comment on above: PATIENT WAS FASTINGP ERFORMED BY: ZITA LabCoshruthi Hiiika3382 [address] RoadDublin [place] [id number] Neutrophils/100 WBC (Bld) 47 % Normal [facility]; [facility] Work Phone: Comment on above: PATIENT WAS FASTINGP ERFORMED BY: ZITA [facility] Xqzjua6344 [address] RoadDublin [place] [id number] Platelets (Bld) [#/Vol] 157 10*3/uL Normal 150-450 [facility]; [facility] Work Phone: Comment on above: PATIENT WAS FASTINGP ERFORMED BY: ZITA Jame Overton6370 [address] [facility] Hospitalblin [place] [id number] RBC (Bld) [#/Vol] 5.36 10*6/uL Normal 4.14-5.80 [facility] Internal Medicine; [facility] Work Phone: Comment on above: PATIENT WAS FASTINGP ERFORMED BY: ZITA LabBarnes-[facility] Yhpvin0338 [facility] Centerin [place] [id number] WBC (Bld) [#/Vol] 5.0 10*3/uL Normal 3.4-10.8 [facility] Internal Medicine; [facility] Work Phone: Comment on above: PATIENT WAS FASTINGP ERFORMED BY: ZITA EubanksBarnes-Jewish [facility] Lqaspt4400 [facility] Centerin [place] [id number] LIPID PANEL (60026)Ordered B y: [employer] Fabricator on 08-01-2020 Cholesterol [Mass/Vol] 235 mg/dL Abnormal 100-199 [facility]; [facility] Work Phone: Comment on above: PATIENT WAS FASTINGP ERFORMED BY: ZITA ChaAidan HopperHbigln8526 [facility] Hospitalblin [place] [id number] Cholesterol in HDL [Mass/Vol] 57 mg/dL Normal [facility]; [facility] Work Phone: Comment on above: PATIENT WAS FASTINGP ERFORMED BY: ZITA LabBarnes-[facility] Dezycg5533 [address] [facility] Hospitalblin [place] [id number] Triglyceride [Mass/Vol] 96 mg/dL Normal 0-149 [facility]; [facility] Work Phone: Comment on above: PATIENT WAS FASTINGP ERFORMED BY: ZITA LabBarnes-[facility] Jtkovf4503 [address] City Hospitalblin [place] [id number] LIPID PANEL (56097) 17 mg/dL Normal 5-40 [facility] Hospitalensive [facility]; [facility] Work Phone: Comment on above: PATIENT WAS FASTINGP ERFORMED BY: CB [facility] Zxzalj9700 [address] RoadDublin [place] [id number] LIPID PANEL (61247) 161 mg/dL Abnormal 0-99 [facility] Internal Medicine; [facility] Work Phone: Comment on above: PATIENT WAS FASTINGP ERFORMED BY: CB [facility] Zfifzw0867 [address] RoadDublin [place] [id number] LIPID PANEL (08816) 2.8 {ratio} Normal 0.0-3.6 [facility] Internal Medicine; [facility] Work Phone: Comment on above: LDL/HDL Ratio Men Wo men 1/2 Avg.Risk 1.0 1.5 Avg.Risk 3.6 3.2 2X Avg.Risk 6.2 5.0 3X Avg.Risk 8.0 6.1 PATIENT WAS FASTINGP ERFORMED BY: CB [facility] Knweek7562 [address] RoadDublin [place] [id number] METABOLIC PANEL, COMPREHENSI VE (93417)Ordered By: [employer] Fabricator on 08-01-2020 Albumin [Mass/Vol] 4.6 g/dL Normal 4.0-5.0 [facility] Internal Medicine; [facility] Work Phone: Comment on above: PATIENT WAS FASTINGP ERFORMED BY: CB [facility] Ipjwik6467 [address] RoadDublin [place] [id number] Albumin/Globulin [Mass ratio] 1.9 {ratio} Normal 1.2-2.2 [facility]; [facility] Work Phone: Comment on above: PATIENT WAS FASTINGP ERFORMED BY: CB [facility] Oqxgtj1724 [address] RoadDublin [place] [id number] ALP [Catalytic activity/Vol] 81 U/L Normal 48-121 [facility]; [facility] Work Phone: Comment on above: Please note refere nce interval change PATIENT WAS FASTINGP ERFORMED BY: CB [facility] Fbpeay6106 [address] RoadDublin [place] [id number] ALT [Catalytic activity/Vol] 29 U/L Normal 0-44 [facility]; [facility] Work Phone: Comment on above: PATIENT WAS FASTINGP ERFORMED BY: CB [facility] Hwpezm4023 [address] RoadDublin [place] [id number] AST [Catalytic activity/Vol] 33 U/L Normal 0-40 [facility]; [facility] Work Phone: Comment on above: PATIENT WAS FASTINGP ERFORMED BY: CB [facility] Etvjvm2708 [address] RoadDublin [place] [id number] Bilirubin [Mass/Vol] 0.8 mg/dL Normal 0.0-1.2 [facility]ensive [facility]; [facility] Work Phone: Comment on above: PATIENT WAS FASTINGP ERFORMED BY: CB [facility] Ptdhgn3666 [address] RoadDublin [place] [id number] Calcium [Mass/Vol] 9.2 mg/dL Normal 8.7-10.2 [facility] Internal Medicine; [facility] Work Phone: Comment on above: PATIENT WAS FASTINGP ERFORMED BY: [facility] Xbqmls7053 [address] RoadDublin [place] [id number] Chloride [Moles/Vol] 101 mmol/L Normal 96-106 Comp [facility]ensive [facility]; [facility] Work Phone: Comment on above: PATIENT WAS FASTINGP ERFORMED BY: CB [facility] Aooxzc0022 [address] RoadDublin [place] [id number] CO2 [Moles/Vol] 24 mmol/L Normal 20-29 [facility] Internal Medicine; [facility] Work Phone: Comment on above: PATIENT WAS FASTINGP ERFORMED BY: CB [facility] Ruuolf2351 [address] RoadDublin [place] [id number] Creatinine [Mass/Vol] 0.99 mg/dL Normal 0.76-1.27 [facility]; [facility] Work Phone: Comment on above: PATIENT WAS FASTINGP ERFORMED BY: CB [facility] Duxask9644 [address] RoadDublin [place] [id number] GFR/1.73 sq M.predicted among blacks CKD-EPI (S/P/Bld) [Vol rate/Area] 107 mL/min/1.73 Normal [facility]; [facility] Work Phone: Comment on above: [facility] currently reports eGFR in compliance with the current recommendations of the National Kidney Foundation. [facility] will update reporting as new guidelines are published from the NKF-ASN Task force. PATIENT WAS FASTINGP ERFORMED BY: [facility]6370 [address] RoadAtrium Health [facility] Medical Centerin [place] [id number] GFR/1.73 sq M.predicted among non-blacks CKD-EPI (S/P/Bld) [Vol rate/Area] 93 mL/min/1.73 Normal [facility]; [facility] Work Phone: Comment on above: PATIENT WAS FASTINGP ERFORMED BY: [facility]6370 [facility]in [place] [id number] Globulin (S) [Mass/Vol] 2.4 g/dL Normal 1.5-4.5 [facility]; [facility] Work Phone: Comment on above: PATIENT WAS FASTINGP ERFORMED BY: [facility]6[address] [facility]in [place] [id number] Glucose [Mass/Vol] 94 mg/dL Normal 65-99 [facility] Internal Medicine; [facility] Work Phone: Comment on above: PATIENT WAS FASTINGP ERFORMED BY: [facility] Hospitallin6[address] [facility]in [place] [id number] Potassium [Moles/Vol] 4.5 mmol/L Normal 3.5-5.2 [facility]; [facility] Work Phone: Comment on above: PATIENT WAS FASTINGP ERFORMED BY: [facility] Ekuolv0790 [address] [facility] River HospitalDublin [place] [id number] Protein [Mass/Vol] 7.0 g/dL Normal 6.0-8.5 [facility] Internal Medicine; [facility] Work Phone: Comment on above: PATIENT WAS FASTINGP ERFORMED BY: [facility] [facility]in [place] [id number] Sodium [Moles/Vol] 138 mmol/L Normal 134-144 [facility] Internal Medicine; [facility] Work Phone: Comment on above: PATIENT WAS FASTINGP ERFORMED BY: ZITA LabCoshruthi Wgplww1816 [address] RoadDublin [place] [id number] Urea nitrogen [Mass/Vol] 12 mg/dL Normal 6-24 [facility]; [facility] Work Phone: Comment on above: PATIENT WAS FASTINGP ERFORMED BY: ZITA [facility] Swdtyd9312 [address] RoadDublin [place] [id number] Urea nitrogen/Creatinine [Mass ratio] 12 mg/mg Normal 9-20 [facility]; [facility] Work Phone: Comment on above: PATIENT WAS FASTINGP ERFORMED BY: ZITA [facility] Evzmlc5931 [address] RoadDublin [place] [id number] MICROALBUMINOrdered By: Syst em Disability Hearing Officer on 08-01-2020 Albumin DL <= 20 mg/L (U) [Mass/Vol] 5.6 ug/mL Normal Comprehensiv e Internal Medicine; [facility] Work Phone: Comment on above: PATIENT WAS FASTINGP ERFORMED BY: ZITA LabBarnes-[facility] Evwqux9042 [address] Roadblin [place] [id number] Albumin/Creatinine (U) [Mass ratio] 4 {mg/g_creat} Normal 0-29 [facility]; [facility] Work Phone: Comment on above: Normal: 0 - 29 Moder ately increased: 30 - 300 Severely increased: >300 PATIENT WAS FASTINGP ERFORMED BY: [facility] Elmgru0426 [address] RoadDublin [place] [id number] Creatinine (U) [Mass/Vol] 130.1 mg/dL Normal [facility]; [facility] Work Phone: Comment on above: PATIENT WAS FASTINGP ERFORMED BY: [facility] Wzdwyj0128 [address] RoadDublin [place] [id number] PSA (PROSTATE SPECIFIC ANTIG EN) (V76.44)Ordered By: [employer] Fabricator on 08-01-2020 Prostate specific Ag [Mass/Vol] 0.6 ng/mL Normal 0.0-4.0 [facility]; [facility] Work Phone: Comment on above: [place] ECLIA methodol ogmallory. .According to the [place] [employer], Serum PSA shoulddecrease and remain at undetectable levels after radicalprostatectomy. The AUA defines biochemical recurrence as an initialPSA value 0.2 ng/mL or greater followed by a subsequent confirmatoryPSA value 0.2 ng/mL or greater.Values obtained with different assay methods or kits cannot be usedinterchangeably. Results cannot be interpreted as absolute evidenceof the presence or absence of malignant disease. PATIENT WAS FASTINGP ERFORMED BY: [employer]in [place] [id number] TSH ([id number])Ordered By: [employer] Disability Hearing Officer on 08-01-2020 TSH Qn 1.370 {uIU/mL} Normal 0.450-4.50 0 [facility]; [facility] Work Phone: Comment on above: PATIENT WAS FASTINGP ERFORMED BY: [employer]6370 Cir[employer]ight Globalin [place] [id number] URIC ACID BLOOD ([id number])Order ed By: [employer] Fabricator on 08-01-2020 Urate [Mass/Vol] 4.4 mg/dL Normal 3.8-8.4 Comprehe nsive Internal Medicine; [facility] Work Phone: Comment on above: Therapeutic target f or gout patients: <6.0 PATIENT WAS FASTINGP ERFORMED BY: [employer]tech6370 Ciralight Globalin [place] [id number] URINALYSIS, W/ MICRO (21324) Ordered By: [employer] Fabricator on 08-01-2020 Appearance (U) Clear Normal Comprehens jeremy Internal Medicine; [facility] Work Phone: Comment on above: PATIENT WAS FASTINGP ERFORMED BY: Jovie Lqhufa0690 Ciralight Globalblin [place] [id number] Bilirubin Ql (U) Negative Normal Comprehe nsive Internal Medicine; [facility] Work Phone: Comment on above: PATIENT WAS FASTINGP ERFORMED BY: [employer] TherapeuticsCo Tvcgcg1156 [address] RoadDublin [place] [id number] Color (U) Yellow Normal [facility]; [facility] Work Phone: Comment on above: PATIENT WAS FASTINGP ERFORMED BY: LabDarius Hxusvz5297 [address] RoadDublin [place] [id number] Glucose Ql (U) Negative Normal Comprehens jeremy Internal Medicine; [facility] Work Phone: Comment on above: PATIENT WAS FASTINGP ERFORMED BY: LabBarnes-[facility] Swqrzy0070 [address] RoadDublin [place] [id number] Hemoglobin Ql (U) Negative Normal Compreh ensive Internal Medicine; [facility] Work Phone: Comment on above: PATIENT WAS FASTINGP ERFORMED BY: ChaBarn[facility] Qjvsfw6507 [address] RoadDublin [place] [id number] Ketones Ql (U) Negative Normal Comprehens jeremy Internal Medicine; [facility] Work Phone: Comment on above: PATIENT WAS FASTINGP ERFORMED BY: ChaBarn[facility] Jkpacr0820 [address] RoadDublin [place] [id number] Leukocyte esterase Test strip Ql (U) Negative Normal [facility]; [facility] Work Phone: Comment on above: PATIENT WAS FASTINGP ERFORMED BY: ChaBarn[facility] Ogrkjl9420 [address] RoadDublin [place] [id number] Microscopic observation LM Nom (Urine sed) MICRON Normal [facility]; [facility] Work Phone: Comment on above: Microscopic follows if indicated. PATIENT WAS FASTINGP ERFORMED BY: [facility] Zddusd7414 [address] RoadDublin [place] [id number] Microscopic observation LM Nom (Urine sed) See below: Normal [facility]; [facility] Work Phone: Comment on above: Microscopic was viviana cated and was performed. PATIENT WAS FASTINGP ERFORMED BY: [facility] Nylufl7241 [address] RoadDublin [place] [id number] Nitrite Ql (U) Negative Normal Comprehens jeremy Internal Medicine; [facility] Work Phone: Comment on above: PATIENT WAS FASTINGP ERFORMED BY: ZITA [facility] Kfdrpo3222 [address] RoadDublin [place] [id number] pH (U) 8.0 [pH] Abnormal 5.0-7.5 [facility]; [facility] Work Phone: Comment on above: PATIENT WAS FASTINGP ERFORMED BY: CB [facility] Dfdsnq6687 [address] RoadDublin [place] [id number] Protein Ql (U) Negative Normal Comprehens [facility] Internal Medicine; [facility] Work Phone: Comment on above: PATIENT WAS FASTINGP ERFORMED BY: ZITA [facility] Fewiag9538 [address] RoadDublin [place] [id number] Specific gravity (U) [Rel density] 1.020 1 Normal 1.005-1.03 0 [facility]; [facility] Work Phone: Comment on above: PATIENT WAS FASTINGP ERFORMED BY: CB [facility] Ylnlnp5581 [address] RoadDublin [place] [id number] Urobilinogen (U) [Mass/Vol] 0.2 mg/dL Normal 0.2-1.0 [facility]; [facility] Work Phone: Comment on above: PATIENT WAS FASTINGP ERFORMED BY: ZITA [facility] Xkhfyk[address] [facility]in [place] [id number] Jeff 01-24-2019 ELLIS [facility] Office Visit (UCWSTR ) -- MEHDI MARK ([id number]) 1975 M Date Time Provider Department 01/24/19 1:15 PM CATHI KOHLI [facility] During your visit today, we recorded the following information about you: Temperature Pulse Respiration Blood pressure 98 degrees 80/minute 16/minute 160/100 Weight 90.4 kg Cathi Kohli APRN.[employer] 01/24/2019 1:56 PM Signed SPRAINS / STRAINS GENERAL INFORMATION: A sprain is when the ligaments of a joint are stretched and injured. A strain is when a muscle is overstretched and some fibers are torn. These injuries can take several weeks to heal. INSTRUCTIONS: 1. To minimize swelling, keep the injured limb above the level of your heart as much as possible. If it is your leg that is injured, elevate it on some pillows whenever you are sitting or lying down. 2. Apply ice to the injury for 15 minutes each hour for the first two days. Put the ice in a plastic bag and place a thin towel between the bag of ice and your skin. 3. After the first 1 to 2 days, you may apply heat to the injury to help relieve pain. You may use a warm heating pad, whirlpool bath, or warm moist towels for 15-20 minutes every hour (while awake) for 48 hours. 4. You may use medicines for pain such as acetaminophen, ibuprofen or aspirin (unless otherwise instructed by your physician). 5. If you were given a brace, splint, or elastic bandage, wear it until otherwise instructed by your health care provider. Adjust elastic bandage for comfort. It should be tight enough for support, but not so tight that it causes numbness or tingling. Take it off and rewrap it at least once a day. 6. If you have been told to use crutches, do not bear weight until your health care provider instructs you otherwise. 7. When you are allowed to return to normal activity, warm up before exercise to avoid future muscle strains. CONTACT YOUR DOCTOR OR RETURN TO THE ED IF: 1. You have increased pain or swelling of the affected area. 2. You notice coldness or blue discoloration of the fingers or toes (depending on site of injury). Cathi Kohli APRN.[employer] 01/24/2019 3:38 PM Signed Subjective HPI Pt presents with c/o left wrist pain x several hours. States fell while walking on crosswalk this am d/t snow. Wrist developed swelling within 20 minutes of injury. Has not taken any OTC medications. Applied ice. Denies limited ROM, sensory changes. Review of Systems Constitutional: Negative for chills and fever. Musculoskeletal: Positive for falls and joint pain. Negative for back pain, myalgias and neck pain. Objective Physical Exam Constitutional: He is oriented to person, place, and time and well-developed, well-nourished, and in no distress. No distress. Musculoskeletal: Comments: Full active ROM against resistance. Muscle strength 4/5 Soft, nontender mass to scaphoid area. Moderate edema and faint ecchymosis to general wrist. Sensory intact. Cap refill 2 sec. radial pulses 2+. Neurological: He is alert and oriented to person, place, and time. Skin: Skin is warm and dry. He is not diaphoretic. BP 160/100 Pulse 80 Temp 36.7 ?C (98 ?F) (Axillary) Resp 16 Wt 90.4 kg (199 lb 6.4 oz) .Patient presents with: left wrist pain: fell walking in to work this am No past medical history on file. No past surgical history on file. ALLERGIES Patient has no known allergies. MEDICATIONS allopurinol (ZYLOPRIM) 100 mg tablet Take 100 mg by mouth twice daily. lisinopril (ZESTRIL, PRINIVIL) 20 mg tablet Take 20 mg by mouth twice daily. diclofenac, EC, (VOLTAREN) 50 mg EC tablet Take 1 tablet by mouth three times daily as needed for up to 7 days. No family history on file. Social History Tobacco Use - Smoking status: Never Smoker - Smokeless tobacco: Never Used Substance Use Topics - Alcohol use: Not on file - Drug use: Not on file ASSESSMENT/PLAN: 1. Fall, initial encounter - ICD9: E888.9, ICD10: W19.XXXA (primary diagnosis) - XR WRIST INJURY 4V PA/LAT/OBL/SCAPH LT Encouraged RICE. Wrist splint applied. 2. Left wrist pain - ICD9: 719.43, ICD10: M25.532 - DICLOFENAC SODIUM 50 MG TABLET,DELAYED RELEASE The patient is instructed to return or seek emergency treatment if symptoms become worse or with any acute change in condition. The patient verbalizes understanding and is in agreement with plan of care. Cathi Kohli CNP Referring Provider: SELF [[id number]] Allergies As of Date: 01/24/2019 (No Known Allergies) Date Reviewed: 01/24/2019 Reviewed by: Nancy Han LPN - Fully Assessed Reason for Visit: left wrist pain [Other] Cmt: fell walking in to work this am Primary Visit Diagnosis:Fall, initial encounter [W19.XXXA] Other Visit Diagnosis:Left wrist pain [M25.532] Order(s):XR WRIST INJURY 4V PA/LAT/OBL/SCAPH LT [[id number]] Order #: [id number] FUTURE diclofenac, EC, (VOLTAREN) 50 mg EC tabletTake 1 tablet by mouth three times daily as needed for up to 7 days.Disp: 21 tabletRfl: 0 Prescriptions as of 01/24/2019 Sig: ALLOPURINOL 100 MG TABLET Take 100 mg by mouth twice da* LISINOPRIL 20 MG TABLET Take 20 mg by mouth twice manny* DICLOFENAC SODIUM 50 MG TABLE* Take 1 tablet by mouth three * Problem List As Of Date: 01/24/2019 (None) Other instructions from your clinician: SPRAINS / STRAINS GENERAL INFORMATION: A sprain is when the ligaments of a joint are stretched and injured. A strain is when a muscle is overstretched and some fibers are torn. These injuries can take several weeks to heal. INSTRUCTIONS: 1. To minimize swelling, keep the injured limb above the level of your heart as much as possible. If it is your leg that is injured, elevate it on some pillows whenever you are sitting or lying down. 2. Apply ice to the injury for 15 minutes each hour for the first two days. Put the ice in a plastic bag and place a thin towel between the bag of ice and your skin. 3. After the first 1 to 2 days, you may apply heat to the injury to help relieve pain. You may use a warm heating pad, whirlpool bath, or warm moist towels for 15-20 minutes every hour (while awake) for 48 hours. 4. You may use medicines for pain such as acetaminophen, ibuprofen or aspirin (unless otherwise instructed by your physician). 5. If you were given a brace, splint, or elastic bandage, wear it until otherwise instructed by your health care provider. Adjust elastic bandage for comfort. It should be tight enough for support, but not so tight that it causes numbness or tingling. Take it off and rewrap it at least once a day. 6. If you have been told to use crutches, do not bear weight until your health care provider instructs you otherwise. 7. When you are allowed to return to normal activity, warm up before exercise to avoid future muscle strains. CONTACT YOUR DOCTOR OR RETURN TO THE ED IF: 1. You have increased pain or swelling of the affected area. 2. You notice coldness or blue discoloration of the fingers or toes (depending on site of injury). Prescriptions ordered this encounter Disp Refills Start End DICLOFENAC SODIUM 50 MG TABLET,DELAY* 21 t* 0 01/24/2019 01/31/2019 Route: ORAL Sig: Take 1 tablet by mouth three times daily as needed for up to 7 days. Letter Text Encounter Status:Closed by CATHI KOHLI CNP on 01/24/19 Normal [facility] PROGRESSon 01-24-2019 PROGRESS HNO ID: [id number] Author: Cathi Kohli Service: ? Author Type: Nurse Practitioner Type: Progress Notes Filed: 01/24/2019 3:38 PM Note Text: Subjective HPI Pt presents with c/o left wrist pain x several hours. States fell while walking on crosswalk this am d/t snow. Wrist developed swelling within 20 minutes of injury. Has not taken any OTC medications. Applied ice. Denies limited ROM, sensory changes. Review of Systems Constitutional: Negative for chills and fever. Musculoskeletal: Positive for falls and joint pain. Negative for back pain, myalgias and neck pain. Objective Physical Exam Constitutional: He is oriented to person, place, and time and well-developed, well-nourished, and in no distress. No distress. Musculoskeletal: Comments: Full active ROM against resistance. Muscle strength 4/5 Soft, nontender mass to scaphoid area. Moderate edema and faint ecchymosis to general wrist. Sensory intact. Cap refill 2 sec. radial pulses 2+. Neurological: He is alert and oriented to person, place, and time. Skin: Skin is warm and dry. He is not diaphoretic. BP 160/100 Pulse 80 Temp 36.7 ?C (98 ?F) (Axillary) Resp 16 Wt 90.4 kg (199 lb 6.4 oz) .Patient presents with: left wrist pain: fell walking in to work this am No past medical history on file. No past surgical history on file. ALLERGIES Patient has no known allergies. MEDICATIONS allopurinol (ZYLOPRIM) 100 mg tablet Take 100 mg by mouth twice daily. lisinopril (ZESTRIL, PRINIVIL) 20 mg tablet Take 20 mg by mouth twice daily. diclofenac, EC, (VOLTAREN) 50 mg EC tablet Take 1 tablet by mouth three times daily as needed for up to 7 days. No family history on file. Social History Tobacco Use - Smoking status: Never Smoker - Smokeless tobacco: Never Used Substance Use Topics - Alcohol use: Not on file - Drug use: Not on file ASSESSMENT/PLAN: 1. Fall, initial encounter - ICD9: E888.9, ICD10: W19.XXXA (primary diagnosis) - XR WRIST INJURY 4V PA/LAT/OBL/SCAPH LT Encouraged RICE. Wrist splint applied. 2. Left wrist pain - ICD9: 719.43, ICD10: M25.532 - DICLOFENAC SODIUM 50 MG TABLET,DELAYED RELEASE The patient is instructed to return or seek emergency treatment if symptoms become worse or with any acute change in condition. The patient verbalizes understanding and is in agreement with plan of care. Cathi Kohli CNP Normal [facility] PROGRESS HNO ID: [id number] Author: Musa Rodarte () Staci Lopez Service: ? Author Type: Cardiology Physician Assistant Type: Progress Notes Filed: 01/24/2019 1:29 PM Note Text: Radiology Service Progress Note PATIENT NAME: Mehdi Mark DATE OF SERVICE: January 24, 2019 TIME: 1:21 PM PATIENT IDENTITY VERIFICATION COMPLETED USING TWO (2) METHODS: Name and Date of confirmed by patient verbally. PATIENT GENDER DATA: Male PATIENT RELEVANT IMPLANT DATA REVIEWED: Not Applicable RADIOLOGY DEPARTMENT: General X-ray: Exam(s) Completed: Upper Extremity X-Ray(s): Wrist, left : PERIPHERAL IV DATA: Not applicable SIGNED BY: RT Isak January 24, 2019 1:21 PM [facility] XR WRIST 4V PA/LAT/OBL/SCAPH LTon 01-24-2019 XR WRIST 4V PA/LAT/OBL/SCAPH LT * * *Final Report* * * DATE OF EXAM: Jan 24 2019 1:29PM WOX 5272 - XR WRIST 4V PA/LAT/OBL/SCAPH LT / PROCEDURE REASON: multiple diagnoses * * * * Physician Interpretation * * * * HISTORY: Fall, initial encounter Left wrist pain Pt. states he fell today. Pain posterior Lt wrist. TECHNIQUE: 4 views COMPARISON: None RESULT: There is a small cystic area in the midportion of the scaphoid bone which perhaps is congenital. No acute fracture or dislocation. 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 IMPRESSION: No acute fracture as detailed Paperhanger Apprentice: PSCB Transcribe Date/Time: Jan 24 2019 1:37P Dictated by : ROSENDO REY MD This examination was interpreted and the report reviewed and electronically signed by: ROSENDO REY MD on Jan 24 2019 1:47PM EST [id number] Normal [facility] NMR Profile ([id number])Ordered B y: [employer]ator on 10-06-2018 Cholesterol [Mass/Vol] 218 mg/dL Abnormal 100-199 [facility] Work Phone: Comment on above: do in 09/30; PATIENT WAS FASTINGPERFORMED BY: [facility] [id number] Lipoprotein.alpha [Moles/Vol] 32.7 umol/L Normal [facility] Work Phone: Comment on above: do in 09/30; PATIENT WAS FASTINGPERFORMED BY: [facility] CenterHexagoEssentia Health [id number] Lipoprotein.beta.sub particle [Entitic length] 20.8 nm Normal [facility] Work Phone: Comment on above: INTERPRETATIVE INFORMATION PARTICLE CONCENTRATION AND SIZE <--Lower CVD Risk Higher CVD Risk--> LDL AND HDL PARTICLES Percentile in Reference Population HDL-P (total) High 75th 50th 25th Low >34.9 34.9 30.5 26.7 <26.7 . Small LDL-P Low 25th 50th 75th High <117 117 527 839 >839 . LDL Size <-Large (Pattern A)-> <-Small (Pattern B)-> 23.0 20.6 20.5 19.0 Small LDL-P and LDL Size are associated with CVD risk, but not afterLDL-P is taken into account. .These assays were developed and their performance characteristicsdetermined by [employer]. These assays have not been cleared by [employer] Food and Drug Administration. The clinical utility of theselaboratory values have not been fully established. do in 09/30; PATIENT WAS FASTINGPERFORMED BY: [facility] CenterBolongaro TrevorEssentia Health [id number] Lipoprotein.beta.sub particle [Moles/Vol] 1789 nmol/L Abnormal [facility] Internal Medicine Work Phone: Comment on above: Low < 1000 Moderate 1000 - 1299 Borderline-High 1300 - 1599 High 1600 - 2000 Very High > 2000 do in 09/30; PATIENT WAS FASTINGPERFORMED BY: [facility] [id number] Lipoprotein.beta.sub particle.small [Moles/Vol] 1028 nmol/L Abnormal [facility] Internal Medicine Work Phone: Comment on above: do in 09/30; PATIENT WAS FASTINGPERFORMED BY: [facility] CenterApportableWellmont Health System [id number] Triglyceride [Mass/Vol] 103 mg/dL Normal 0-149 [facility] Work Phone: Comment on above: do in 09/30; PATIENT WAS FASTINGPERFORMED BY: [facility] [place] IndianRootsWell[facility] [id number] NMR Profile ([id number]) 55 mg/dL Normal [facility] Internal Medicine Work Phone: Comment on above: do in 09/30; PATIENT WAS FASTINGPERFORMED BY: [facility] [id number] NMR Profile ([id number]) 142 mg/dL Abnormal 0-99 Compr ehensive Internal Medicine Work Phone: Comment on above: . Optimal < 100 Abov e optimal 100 - 129 Borderline 130 - 159 High 160 - 189 Very high > 189 .LDL-C is inaccurate if patient is non-fasting. do in 09/30; PATIENT WAS FASTINGPERFORMED BY: Mysterio[address] [id number] CBC W/AUTO DIFF WBC ([id number])O rdered By: [employer] Fabricator on 05-23-2018 Basophils #/vol (Bld) 0.0 {x10E3/uL} Normal 0.0-0.2 [facility] Work Phone: Comment on above: PATIENT WAS FASTINGP ERFORMED BY: [address]ster[address] [id number] BY: LabLookStatEnglewood Hospital and Medical CenterXybdyt[address] [place] [address] [id number] Basophils (Bld) [#/Vol] 0.0 10*3/uL Normal 0.0-0.2 [facility]; [facility] Work Phone: Comment on above: PATIENT WAS FASTINGP ERFORMED BY: [address]ster[address] [id number] BY: MysterioEnglewood Hospital and Medical CenterWvvwbx0981 [facility] [id number] Basophils/100 WBC (Bld) 1 % Normal [facility] Work Phone: Comment on above: PATIENT WAS FASTINGP ERFORMED BY: [address]ster[address] [id number] BY: LabLookStatDorothy V[place] [id number] [facility] [id number] Eosinophils #/vol (Bld) 0.3 {x10E3/uL} Normal 0.0-0.4 [facility] Work Phone: Comment on above: PATIENT WAS FASTINGP ERFORMED BY: [address]sterio[address] [id number] BY: OB10[place] [id number] [facility] [place] [id number] Eosinophils (Bld) [#/Vol] 0.3 10*3/uL Normal 0.0-0.4 [facility]; [facility] Work Phone: Comment on above: PATIENT WAS FASTINGP ERFORMED BY: [address] [id number] BY: LabCoEnglewood Hospital and Medical CenterYbqcqd9786 [address] [facility] [id number] Eosinophils/100 WBC (Bld) 6 % Normal [facility] Work Phone: Comment on above: PATIENT WAS FASTINGP ERFORMED BY: Lab[address] [id number] BY: LabJohnny V[place] 0437670 [facility] [id number] Erythrocyte distribution width Ratio (RBC) 13.5 % Normal 12.3-15.4 [facility] Work Phone: Comment on above: PATIENT WAS FASTINGP ERFORMED BY: [address] [id number] BY: LabCoEnglewood Hospital and Medical CenterCotbiv3486 [facility] [id number] Hematocrit Volume Fraction (Bld) 46.6 % Normal 37.5-51.0 [facility] Work Phone: Comment on above: PATIENT WAS FASTINGP ERFORMED BY: Lab[address] [id number] BY: LabJohn[place] 0437670 [facility] [id number] Hemoglobin mass conc (Bld) 15.7 g/dL Normal 13.0-17.7 [facility] Work Phone: Comment on above: PATIENT WAS FASTINGP ERFORMED BY: Lab[address] [id number] BY: LabCoEnglewood Hospital and Medical CenterOqdbrx0058 [address] [facility] [id number] Immature granulocytes #/vol (Bld) 0.0 {x10E3/uL} Normal 0.0-0.1 [facility] Work Phone: Comment on above: PATIENT WAS FASTINGP ERFORMED BY: [address] [id number] BY: LabCo Eueeov4795 Loo RoadDublin [place] [id number] Immature granulocytes (Bld) [#/Vol] 0.0 10*3/uL Normal 0.0-0.1 [facility]; [facility] Work Phone: Comment on above: PATIENT WAS FASTINGP ERFORMED BY: [address] [id number] BY: LabJohnny [place] 0437670 [address]oo RoadAtrium Health Wake Forest Baptist [facility] Medical Centerin [place] [id number] Immature granulocytes/100 WBC (Bld) 0 % Normal [facility] Work Phone: Comment on above: PATIENT WAS FASTINGP ERFORMED BY: [address] [id number] BY: LabJohnny [place] 0437670 Loo RoadECU [facility] [id number] Lymphocytes #/vol (Bld) 2.2 {x10E3/uL} Normal 0.7-3.1 [facility] Work Phone: Comment on above: PATIENT WAS FASTINGP ERFORMED BY: [address] [id number] BY: LabJohn[place] 0437670 [address] [facility] [id number] Lymphocytes (Bld) [#/Vol] 2.2 10*3/uL Normal 0.7-3.1 [facility]; [facility] Work Phone: Comment on above: PATIENT WAS FASTINGP ERFORMED BY: [address] [id number] BY: LabCo Ugjcnj2023 L[address] RoadDublin [place] [id number] Lymphocytes/100 WBC (Bld) 36 % Normal [facility] Work Phone: Comment on above: PATIENT WAS FASTINGP ERFORMED BY: [address] [id number] BY: LabCoEnglewood Hospital and Medical CenterTbcofa0067 [facility] [id number] MCH Entitic mass (RBC) 30.1 pg Normal 26.6-33.0 [facility] Work Phone: Comment on above: PATIENT WAS FASTINGP ERFORMED BY: Lab[address] [id number] BY: LabCoEnglewood Hospital and Medical CenterQqsavc6090 [facility] [id number] MCHC mass conc (RBC) 33.7 g/dL Normal 31.5-35.7 [facility] Internal Medicine Work Phone: Comment on above: PATIENT WAS FASTINGP ERFORMED BY: [address] [id number] BY: LabJohn[place] 0437670 [facility] [id number] MCV Entitic volume (RBC) 89 fL Normal 79-97 [facility] Work Phone: Comment on above: PATIENT WAS FASTINGP ERFORMED BY: [address] [id number] BY: LabOsf Healthcare St. Francis Hospital6370 [facility] [id number] Monocytes #/vol (Bld) 0.5 {x10E3/uL} Normal 0.1-0.9 [facility] Work Phone: Comment on above: PATIENT WAS FASTINGP ERFORMED BY: [address] [id number] BY: LabOsf Healthcare St. Francis Hospital6370 [facility] [id number] Monocytes (Bld) [#/Vol] 0.5 10*3/uL Normal 0.1-0.9 [facility]; [facility] Work Phone: Comment on above: PATIENT WAS FASTINGP ERFORMED BY: Lab[address] [id number] BY: LabCo Gtkmdb6930 Loo RoadDublin [place] [id number] Monocytes/100 WBC (Bld) 8 % Normal [facility] Work Phone: Comment on above: PATIENT WAS FASTINGP ERFORMED BY: Lab[address] [id number] BY: LabCo Rmcobj8730 L[address] RoadDublin [place] [id number] Neutrophils #/vol (Bld) 3.0 {x10E3/uL} Normal 1.4-7.0 [facility] Work Phone: Comment on above: PATIENT WAS FASTINGP ERFORMED BY: [address] [id number] BY: LabBarnes-[facility] Ekwrlb4950 Loo RoadDublin [place] [id number] Neutrophils (Bld) [#/Vol] 3.0 10*3/uL Normal 1.4-7.0 [facility]; [facility] Work Phone: Comment on above: PATIENT WAS FASTINGP ERFORMED BY: [address] [id number] BY: LabCo Iougce9271 Loo RoadDuin [place] [id number] Neutrophils/100 WBC (Bld) 49 % Normal [facility] Work Phone: Comment on above: PATIENT WAS FASTINGP ERFORMED BY: [address] [id number] BY: LabCo Hxahce1938 L[address] RoadDublin [place] [id number] Platelets #/vol (Bld) 157 {x10E3/uL} Normal 150-379 [facility] Work Phone: Comment on above: PATIENT WAS FASTINGP ERFORMED BY: [address] [id number] BY: LabCoEnglewood Hospital and Medical CenterNchajh7996 [address] [facility] [id number] Platelets (Bld) [#/Vol] 157 10*3/uL Normal 150-379 [facility]; [facility] Work Phone: Comment on above: PATIENT WAS FASTINGP ERFORMED BY: [address] [id number] BY: LabJohnny [place] 0437670 [facility] [id number] RBC #/vol (Bld) 5.21 {x10E6/uL} Normal 4.14-5.80 Comp [facility] hospitalensive Internal [facility] Work Phone: Comment on above: PATIENT WAS FASTINGP ERFORMED BY: [address] [id number] BY: [place] [id number] [facility] [id number] RBC (Bld) [#/Vol] 5.21 10*6/uL Normal 4.14-5.80 Compr ensive Internal Medicine; [facility] Work Phone: Comment on above: PATIENT WAS FASTINGP ERFORMED BY: [address] [id number] BY: [facility] CenterCoEnglewood Hospital and Medical CenterMxfjxv0965 [facility] [id number] WBC #/vol (Bld) 6.1 {x10E3/uL} Normal 3.4-10.8 Compr ensive Internal Medicine Work Phone: Comment on above: PATIENT WAS FASTINGP ERFORMED BY: [address] [id number] BY: LabOsf Healthcare St. [facility] Hospital6370 [facility] [id number] WBC (Bld) [#/Vol] 6.1 10*3/uL Normal 3.4-10.[address] [facility] Internal Medicine; [facility] Work Phone: Comment on above: PATIENT WAS FASTINGP ERFORMED BY: BN [facility] Hqhg[address] [id number] BY: CB [facility] Tlrlmx2375 Loo RoadDuin [place] [id number] HgA1C , Office ([id number])Ordere d By: Cheri Patel on 05-23-2018 Hemoglobin A1c/Hemoglobin.total mass fraction (Bld) 5.3 % Normal 4.6 - 7.1 Comprehensiv e Internal Medicine Work Phone: METABOLIC PANEL, COMPREHENSI VE ([id number])Ordered By: [employer] Fabricator on 05-23-2018 Albumin mass conc 4.4 g/dL Normal 3.5-5.5 Compreh ensive Internal Medicine Work Phone: Comment on above: PATIENT WAS FASTINGP ERFORMED BY: BN [facility] [address] [id number] BY: CB [facility] Nxfkpy7614 Loo RoadECU Health Ro[facility] [id number] Albumin/Globulin mass ratio 1.8 {ratio} Normal 1.2-2.2 [facility] Work Phone: Comment on above: PATIENT WAS FASTINGP ERFORMED BY: BN [facility] [address] [id number] BY: CB [facility] Ivckov80[address] [facility] [id number] ALP [Catalytic activity/Vol] 74 U/L Normal 39-117 [facility]; [facility] Work Phone: Comment on above: PATIENT WAS FASTINGP ERFORMED BY: BN [facility] [address] [id number] BY: CB [facility] Mgzlqx7081 Loo RoadDuin [place] [id number] ALP enzyme act/vol 74 [iU]/L Normal 39-117 [facility] Work Phone: Comment on above: PATIENT WAS FASTINGP ERFORMED BY: BN [facility] [address] [id number] BY: CB [facility] Ldzngx7501 Loo Roadblin [place] [id number] ALT [Catalytic activity/Vol] 36 U/L Normal 0-44 [facility]; [facility] Internal Medicine Work Phone: Comment on above: PATIENT WAS FASTINGP ERFORMED BY: Lab[address] [id number] BY: [facility] Xrymop4834 Loo RoadDublin [place] [id number] ALT enzyme act/vol 36 [iU]/L Normal 0-44 [facility] Internal Medicine Work Phone: Comment on above: PATIENT WAS FASTINGP ERFORMED BY: [address] [id number] BY: [facility] Uelnui0841 L[address] RoadDublin [place] [id number] AST [Catalytic activity/Vol] 28 U/L Normal 0-40 [facility] Internal Medicine; [facility] Internal Medicine Work Phone: Comment on above: PATIENT WAS FASTINGP ERFORMED BY: [address] [id number] BY: [facility] Mzjumd4776 Loo RoadDublin [place] [id number] AST enzyme act/vol 28 [iU]/L Normal 0-40 [facility] Internal Medicine Work Phone: Comment on above: PATIENT WAS FASTINGP ERFORMED BY: Lab[address] [id number] BY: [facility] Riehvq0826 L[address] RoadDublin [place] [id number] Bilirubin mass conc 0.8 mg/dL Normal 0.0-1.2 [facility] Internal Medicine Work Phone: Comment on above: PATIENT WAS FASTINGP ERFORMED BY: Lab[address] [id number] BY: [facility] Tzaktv0183 Loo RoadDublin [place] [id number] Calcium mass conc 9.0 mg/dL Normal 8.7-10.2 Compreh ensive Internal Medicine Work Phone: Comment on above: PATIENT WAS FASTINGP ERFORMED BY: BN [facility] [address] [id number] BY: CB [facility] Qjqcji1885 [address] [facility] [id number] Chloride molar conc 101 mmol/L Normal 96-106 Compr ehensive Internal Medicine Work Phone: Comment on above: PATIENT WAS FASTINGP ERFORMED BY: BN [facility] [address] [id number] BY: CB [facility] Potgmh7993 Loo RoadECU [facility] [id number] CO2 molar conc 24 mmol/L Normal 20-29 Comprehens jeremy Internal Medicine Work Phone: Comment on above: PATIENT WAS FASTINGP ERFORMED BY: [facility] [address] [id number] BY: CB [facility] Ydnpuh0538 [facility] [id number] Creatinine mass conc 0.87 mg/dL Normal 0.76-1.27 Comp rehensive Internal Medicine Work Phone: Comment on above: PATIENT WAS FASTINGP ERFORMED BY: [facility] [address] [id number] BY: CB [facility] Raaoui9389 [address] [facility] [id number] GFR/1.73 sq M predicted among blacks CKD-EPI vol rate/area (S/P/Bld) 124 mL/min/1.73 Normal Comprehensiv e Internal Medicine Work Phone: Comment on above: PATIENT WAS FASTINGP ERFORMED BY: [facility] [address] [id number] BY: CB [facility] Wjmush7682 [address] [facility] [id number] GFR/1.73 sq M predicted among non-blacks CKD-EPI vol rate/area (S/P/Bld) 107 mL/min/1.73 Normal [facility] Work Phone: Comment on above: PATIENT WAS FASTINGP ERFORMED BY: Lab[address] [id number] BY: ZITA [facility] Dgtquz9661 [address] [facility] [id number] Globulin mass conc (S) 2.5 g/dL Normal 1.5-4.5 [facility] Work Phone: Comment on above: PATIENT WAS FASTINGP ERFORMED BY: [facility] [address] [id number] BY: ZITA [facility] Zwbfwq2517 [address] [facility] [id number] Glucose mass conc 91 mg/dL Normal 65-99 Compreh ensive Internal Medicine Work Phone: Comment on above: PATIENT WAS FASTINGP ERFORMED BY: Lab[address] [id number] BY: ZITA [facility] Xgqehf3389 [facility] [id number] Potassium molar conc 4.9 mmol/L Normal 3.5-5.2 Comp rehensive Internal Medicine Work Phone: Comment on above: PATIENT WAS FASTINGP ERFORMED BY: Lab[address] [id number] BY: [facility] Hludvq5004 [facility] [id number] Protein mass conc 6.9 g/dL Normal 6.0-8.5 Compreh ensive Internal Medicine Work Phone: Comment on above: PATIENT WAS FASTINGP ERFORMED BY: Lab[address] [id number] BY: [facility] Ismenl7537 [facility] [id number] Sodium molar conc 140 mmol/L Normal 134-144 Compreh ensive Internal Medicine Work Phone: Comment on above: PATIENT WAS FASTINGP ERFORMED BY: Lab[address] [id number] BY: ZITA [facility] Ptahkn2339 Loo RoadAtrium Health [facility] Centerin [place] [id number] Urea nitrogen mass conc 13 mg/dL Normal 6-24 [facility] Work Phone: Comment on above: PATIENT WAS FASTINGP ERFORMED BY: [facility] [address] [id number] BY: ZITA [facility] Azugfo3509 [address] [facility] [id number] Urea nitrogen/Creatinine mass ratio 15 mg/mg Normal 9-20 [facility] Work Phone: Comment on above: PATIENT WAS FASTINGP ERFORMED BY: LabLookStat[address] [id number] BY: ZITA [facility] Kuoqqu5027 [facility] [id number] MICROALBUMINOrdered By: Syst em Disability Hearing Officer on 05-23-2018 Albumin DL <= 20 mg/L mass conc (U) 3.5 ug/mL Normal [facility] Work Phone: Comment on above: PATIENT WAS FASTINGP ERFORMED BY: Mysterio[address] [id number] BY: [facility] Istvwc0069 [facility] [id number] Albumin/Creatinine mass ratio (U) 2.6 {mg/g_creat} Normal 0.0-30.0 [facility] Work Phone: Comment on above: Normal: 0.0 - 30.0 A lbuminuria: 31.0 - 300.0 Clinical albuminuria: >300.0 PATIENT WAS FASTINGP ERFORMED BY: Mysterio[address] [id number] BY: [facility] Oehyoy0455 [facility] [id number] Creatinine mass conc (U) 134.6 mg/dL Normal [facility] Work Phone: Comment on above: PATIENT WAS FASTINGP ERFORMED BY: Mysterio[address] [id number] BY: ZITA [facility] Gxrvel9915 L[address] RoadDublin [place] [id number] Microscopic ExaminationOrder ed By: [employer] Fabricator on 05-23-2018 Bacteria LM.HPF #/area (Urine sed) None seen Normal [facility] Work Phone: Comment on above: PATIENT WAS FASTINGP ERFORMED BY: LabCo[address] [id number] BY: [facility] Sdvonv2502 L[address] RoadDublin [place] [id number] Epithelial cells LM.HPF #/area (Urine sed) None seen Normal 0 - 10 [facility] Work Phone: Comment on above: PATIENT WAS FASTINGP ERFORMED BY: LabCo[address] [id number] BY: ZITA [facility] Kuynpf4357 L[address] RoadDublin [place] [id number] RBC LM.HPF #/area (Urine sed) 0-2 Normal 0 - 2 [facility] Work Phone: Comment on above: PATIENT WAS FASTINGP ERFORMED BY: Lab[address] [id number] BY: ZITA [facility] Oxutvw2042 [address] RoadDublin [place] [id number] WBC LM.HPF #/area (Urine sed) 0-5 Normal 0 - 5 [facility] Work Phone: Comment on above: PATIENT WAS FASTINGP ERFORMED BY: Lab[address] [id number] BY: [facility] Nkxwba1032 L[address] [facility] Hospitalblin [place] [id number] NMR Profile ([id number])Ordered B y: [employer] Fabricator on 05-23-2018 Cholesterol mass conc 236 mg/dL Abnormal 100-199 [facility] Work Phone: Comment on above: PATIENT WAS FASTINGP ERFORMED BY: Lab[address] [id number] BY: Bee WareEnglewood Hospital and Medical CenterXivtyz4267 [facility] [id number] Lipoprotein.alpha molar conc 35.5 umol/L Normal [facility] Work Phone: Comment on above: PATIENT WAS FASTINGP ERFORMED BY: [employer] [address] [id number] BY: Mysterio Odtyes2745 [facility] [id number] Lipoprotein.beta.sub particle Entitic length 21.1 nm Normal [facility] Work Phone: Comment on above: INTERPRETATIVE INFORMATION PARTICLE CONCENTRATION AND SIZE <--Lower CVD Risk Higher CVD Risk--> LDL AND HDL PARTICLES Percentile in Reference Population HDL-P (total) High 75th 50th 25th Low >34.9 34.9 30.5 26.7 <26.7 . Small LDL-P Low 25th 50th 75th High <117 117 527 839 >839 . LDL Size <-Large (Pattern A)-> <-Small (Pattern B)-> 23.0 20.6 20.5 19.0 Small LDL-P and LDL Size are associated with CVD risk, but not afterLDL-P is taken into account. .These assays were developed and their performance characteristicsdetermined by [employer]. These assays have not been cleared by [employer] Food and Drug Administration. The clinical utility of theselaboratory values have not been fully established. PATIENT WAS FASTINGP ERFORMED BY: [employer] [id number] BY: Mysterio Vhymnc6032 [facility] [id number] Lipoprotein.beta.sub particle molar conc 1790 nmol/L Abnormal Comprehensiv e Internal Medicine Work Phone: Comment on above: Low < 1000 Moderate 1000 - 1299 Borderline-High 1300 - 1599 High 1600 - 2000 Very High > 2000 PATIENT WAS FASTINGP ERFORMED BY: Mysteriorp [address] [id number] BY: [facility] Fvofrq9693 [address] Roadblin [place] [id number] Lipoprotein.beta.sub particle.small molar conc 820 nmol/L Abnormal [facility] Work Phone: Comment on above: PATIENT WAS FASTINGP ERFORMED BY: CoreDialrp [address] [id number] BY: [facility] Qjutos5787 Loo RoadECU Health [facility] [id number] Triglyceride mass conc 129 mg/dL Normal 0-149 [facility] Work Phone: Comment on above: PATIENT WAS FASTINGP ERFORMED BY: Mysterio[address] [id number] BY: [facility] Tirzdu5872 [address] [facility] [id number] NMR Profile (85094) 158 mg/dL Abnormal 0-99 Compr ensive Internal Medicine Work Phone: Comment on above: . Optimal < 100 Abov e optimal 100 - 129 Borderline 130 - 159 High 160 - 189 Very high > 189 .LDL-C is inaccurate if patient is non-fasting. PATIENT WAS FASTINGP ERFORMED BY: Mysterio[address] [id number] BY: [facility] Weibdl4087 [address] [facility] [id number] NMR Profile (85451) 52 mg/dL Normal Compr ensive Internal Medicine Work Phone: Comment on above: PATIENT WAS FASTINGP ERFORMED BY: Mysterio[address] [id number] BY: [facility] Gfonox6534 L[address] RoadDublin [place] [id number] TSH ([id number])Ordered By: Ajungoe m Disability Hearing Officer on 05-23-2018 Thyrotropin Qn 2.160 {uIU/mL} Normal 0.450-4.50 0 [facility] Work Phone: Comment on above: PATIENT WAS FASTINGP ERFORMED BY: [address] [id number] BY: [facility] Mfwbrp3963 L[address] RoadDublin [place] [id number] URINALYSIS, W/ MICRO ([id number]) Ordered By: [employer] Fabricator on 05-23-2018 Appearance Nom (U) Clear Normal Compre hensive Internal Medicine Work Phone: Comment on above: PATIENT WAS FASTINGP ERFORMED BY: [address] [id number] BY: ZITA [facility] Faysua7216 [address] RoadDublin [place] [id number] Bilirubin Ql (U) Negative Normal Comprehe nsive Internal Medicine Work Phone: Comment on above: PATIENT WAS FASTINGP ERFORMED BY: [address] [id number] BY: [facility] Qikfln6258 [address] RoadDublin [place] [id number] Bilirubin Ql (U) Negative Normal Comprehe nsive Internal Medicine; [facility] Work Phone: Comment on above: PATIENT WAS FASTINGP ERFORMED BY: Lab[address] [id number] BY: [facility] Shcnuu5020 [address] RoadDublin [place] [id number] Color Nom (U) Yellow Normal Comprehensi ve Internal Medicine Work Phone: Comment on above: PATIENT WAS FASTINGP ERFORMED BY: [address] [id number] BY: [facility] Fdsbwd7323 [address] RoadDublin [place] [id number] Glucose Ql (U) Negative Normal Comprehens jeremy Internal Medicine Work Phone: Comment on above: PATIENT WAS FASTINGP ERFORMED BY: [facility] [address] [id number] BY: ZITA [facility] Xasvpi9833 [address] RoadDublin [place] [id number] Glucose Ql (U) Negative Normal Comprehens jeremy Internal Medicine; [facility] Work Phone: Comment on above: PATIENT WAS FASTINGP ERFORMED BY: [facility] [address] [id number] BY: CB [facility] Itjseq5099 [address] RoadDublin [place] [id number] Hemoglobin Ql (U) Negative Normal Compreh ensive Internal Medicine Work Phone: Comment on above: PATIENT WAS FASTINGP ERFORMED BY: [facility] [address] [id number] BY: ZITA [facility] Lzzcmk2414 [address] RoadDublin [place] [id number] Hemoglobin Ql (U) Negative Normal Compreh ensive Internal Medicine; [facility] Work Phone: Comment on above: PATIENT WAS FASTINGP ERFORMED BY: [facility] [address] [id number] BY: ZITA [facility] Dspurx8596 [address] RoadDublin [place] [id number] Ketones Ql (U) Negative Normal Comprehens jeremy Internal Medicine Work Phone: Comment on above: PATIENT WAS FASTINGP ERFORMED BY: [facility] [address] [id number] BY: CB [facility] Dnbjan6860 [address] RoadDublin [place] [id number] Ketones Ql (U) Negative Normal Comprehens jeremy Internal Medicine; [facility] Work Phone: Comment on above: PATIENT WAS FASTINGP ERFORMED BY: [facility] [address] [id number] BY: CB [facility] Mnhvon4130 [address] RoadDublin [place] [id number] Leukocyte esterase Test strip Ql (U) Negative Normal [facility] Work Phone: Comment on above: PATIENT WAS FASTINGP ERFORMED BY: [address] [id number] BY: [facility] Jhtmtj9379 [address] RoadDublin [place] [id number] Leukocyte esterase Test strip Ql (U) Negative Normal [facility]; [facility] Work Phone: Comment on above: PATIENT WAS FASTINGP ERFORMED BY: [address] [id number] BY: [facility] Iobkdg0504 [address] [facility] [id number] Microscopic observation LM Nom (Urine sed) MICRON Normal [facility] Work Phone: Comment on above: Microscopic follows if indicated. PATIENT WAS FASTINGP ERFORMED BY: [address] [id number] BY: [facility]6[address] [facility] [id number] Microscopic observation LM Nom (Urine sed) See below: Normal [facility] Work Phone: Comment on above: Microscopic was viviana cated and was performed. PATIENT WAS FASTINGP ERFORMED BY: [address] [id number] BY: Lab[facility] Pjoxmh3353 Loo RoadAtrium Health [facility] Centerin [place] [id number] Nitrite Ql (U) Negative Normal Comprehens jeremy Internal Medicine Work Phone: Comment on above: PATIENT WAS FASTINGP ERFORMED BY: [address] [id number] BY: [facility] Ajyzgo7575 [address] RoadDublin [place] [id number] Nitrite Ql (U) Negative Normal Comprehens jeremy Internal Medicine; [facility] Work Phone: Comment on above: PATIENT WAS FASTINGP ERFORMED BY: [address] [id number] BY: ZITA [facility] Szumqr3377 [address] RoadDublin [place] [id number] pH (U) 6.5 [pH] Normal 5.0-7.5 [facility] Work Phone: Comment on above: PATIENT WAS FASTINGP ERFORMED BY: [address] [id number] BY: ZITA [facility] Yymggk0917 [address] RoadDublin [place] [id number] Protein Ql (U) Negative Normal Comprehens jeremy Internal Medicine Work Phone: Comment on above: PATIENT WAS FASTINGP ERFORMED BY: [address] [id number] BY: ZITA [facility] Dhhfmk6719 L[address] RoadDublin [place] [id number] Protein Ql (U) Negative Normal Comprehens jeremy Internal Medicine; [facility] Work Phone: Comment on above: PATIENT WAS FASTINGP ERFORMED BY: [address] [id number] BY: [facility] Psflss4369 [address]oo [facility]in [place] [id number] Specific gravity Relative Density (U) 1.022 1 Normal 1.005-1.03 0 [facility] Work Phone: Comment on above: PATIENT WAS FASTINGP ERFORMED BY: [address] [id number] BY: [facility] Tinpon6668 [address] RoadDublin [place] [id number] Urobilinogen (U) [Mass/Vol] 0.2 mg/dL Normal 0.2-1.0 [facility]; [facility] Work Phone: Comment on above: PATIENT WAS FASTINGP ERFORMED BY: [address] [id number] BY: LabCoEnglewood Hospital and Medical CenterSazmtl4007 [facility] [id number] Urobilinogen Test strip mass conc (U) 0.2 mg/dL Normal 0.2-1.0 Comprehensiv e Internal Medicine Work Phone: Comment on above: PATIENT WAS FASTINGP ERFORMED BY: [place] 252247 [facility] [id number] BY: [place] [id number] [facility] [id number] CBC W/AUTO DIFF WBC ([id number])O rdered By: [employer] Fabricator on 04-29-2017 Basophils #/vol (Bld) 0.1 {x10E3/uL} Normal 0.0-0.2 [facility] Work Phone: Comment on above: PATIENT WAS FASTINGP ERFORMED BY: [place] [id number] [facility] [id number] Basophils (Bld) [#/Vol] 0.1 10*3/uL Normal 0.0-0.2 [facility]; [facility] Work Phone: Comment on above: PATIENT WAS FASTINGP ERFORMED BY: [place] [id number] [facility] [id number] Basophils/100 WBC (Bld) 1 % Normal [facility] Work Phone: Comment on above: PATIENT WAS FASTINGP ERFORMED BY: [facility]6370 [facility] [id number] Eosinophils #/vol (Bld) 0.3 {x10E3/uL} Normal 0.0-0.4 [facility] Work Phone: Comment on above: PATIENT WAS FASTINGP ERFORMED BY: [facility]6370 [facility] [id number] Eosinophils (Bld) [#/Vol] 0.3 10*3/uL Normal 0.0-0.4 [facility]; [facility] Work Phone: Comment on above: PATIENT WAS FASTINGP ERFORMED BY: [place] [id number] [facility] [id number] Eosinophils/100 WBC (Bld) 5 % Normal [facility] Work Phone: Comment on above: PATIENT WAS FASTINGP ERFORMED BY: ZITA [place]6370 [facility] [id number] Erythrocyte distribution width Ratio (RBC) 13.9 % Normal 12.3-15.4 [facility] Work Phone: Comment on above: PATIENT WAS FASTINGP ERFORMED BY: [place] [id number] [facility] [id number] Hematocrit Volume Fraction (Bld) 44.5 % Normal 37.5-51.0 [facility] Work Phone: Comment on above: PATIENT WAS FASTINGP ERFORMED BY: Cha[address] [id number] Hemoglobin mass conc (Bld) 14.9 g/dL Normal 13.0-17.7 [facility] Work Phone: Comment on above: PATIENT WAS FASTINGP ERFORMED BY: [place] [id number] [facility] [id number] Immature granulocytes #/vol (Bld) 0.0 {x10E3/uL} Normal 0.0-0.1 [facility] Work Phone: Comment on above: PATIENT WAS FASTINGP ERFORMED BY: [address] [id number] Immature granulocytes (Bld) [#/Vol] 0.0 10*3/uL Normal 0.0-0.1 [facility]; [facility] Work Phone: Comment on above: PATIENT WAS FASTINGP ERFORMED BY: [place] [id number] [facility] [id number] Immature granulocytes/100 WBC (Bld) 0 % Normal [facility] Work Phone: Comment on above: PATIENT WAS FASTINGP ERFORMED BY: [place] [id number] [facility] [id number] Lymphocytes #/vol (Bld) 2.2 {x10E3/uL} Normal 0.7-3.1 [facility] Work Phone: Comment on above: PATIENT WAS FASTINGP ERFORMED BY: [facility] Nbnvwz9126 [address] RoadDublin [place] [id number] Lymphocytes (Bld) [#/Vol] 2.2 10*3/uL Normal 0.7-3.1 [facility]; [facility] Work Phone: Comment on above: PATIENT WAS FASTINGP ERFORMED BY: [facility] Naauzc6501 [address] Roadblin [place] [id number] Lymphocytes/100 WBC (Bld) 39 % Normal [facility] Work Phone: Comment on above: PATIENT WAS FASTINGP ERFORMED BY: [facility] Ibmctj3967 [address] RoadDublin [place] [id number] MCH Entitic mass (RBC) 29.8 pg Normal 26.6-33.0 [facility] Work Phone: Comment on above: PATIENT WAS FASTINGP ERFORMED BY: [facility] Yjlijt2648 [address] Roadblin [place] [id number] MCHC mass conc (RBC) 33.5 g/dL Normal 31.5-35.7 [facility] Internal Medicine Work Phone: Comment on above: PATIENT WAS FASTINGP ERFORMED BY: [facility] Jphzna7072 [address] RoadDublin [place] [id number] MCV Entitic volume (RBC) 89 fL Normal 79-97 [facility] Work Phone: Comment on above: PATIENT WAS FASTINGP ERFORMED BY: [facility] Fsotcd5972 [address] RoadDublin [place] [id number] Monocytes #/vol (Bld) 0.4 {x10E3/uL} Normal 0.1-0.9 [facility] Work Phone: Comment on above: PATIENT WAS FASTINGP ERFORMED BY: [facility] Rlkyie3519 [address] RoadDublin [place] [id number] Monocytes (Bld) [#/Vol] 0.4 10*3/uL Normal 0.1-0.9 [facility]; [facility] Work Phone: Comment on above: PATIENT WAS FASTINGP ERFORMED BY: ZTIA LabCoshruthi OvertonFzoehq8566 L[address] RoadDublin [place] [id number] Monocytes/100 WBC (Bld) 8 % Normal [facility] Work Phone: Comment on above: PATIENT WAS FASTINGP ERFORMED BY: ZITA [facility] Jdaxzy4191 [address] RoadDublin [place] [id number] Neutrophils #/vol (Bld) 2.5 {x10E3/uL} Normal 1.4-7.0 [facility] Work Phone: Comment on above: PATIENT WAS FASTINGP ERFORMED BY: ZITA LabCoshruthi HopperMjxkin8723 [address] RoadDublin [place] [id number] Neutrophils (Bld) [#/Vol] 2.5 10*3/uL Normal 1.4-7.0 [facility]; [facility] Work Phone: Comment on above: PATIENT WAS FASTINGP ERFORMED BY: ZITA LabCoshruthi HopperEkpirk1739 [address] RoadDublin [place] [id number] Neutrophils/100 WBC (Bld) 47 % Normal [facility] Work Phone: Comment on above: PATIENT WAS FASTINGP ERFORMED BY: ZITA LabCoshruthi HopperIcjhuu2216 [address] RoadDublin [place] [id number] Platelets #/vol (Bld) 160 {x10E3/uL} Normal 150-379 [facility] Work Phone: Comment on above: PATIENT WAS FASTINGP ERFORMED BY: ZITA [facility] Xwqcqc0298 [address] RoadDublin [place] [id number] Platelets (Bld) [#/Vol] 160 10*3/uL Normal 150-379 [facility]; [facility] Work Phone: Comment on above: PATIENT WAS FASTINGP ERFORMED BY: ZITA [facility] Euelwk2847 [address] RoadDublin [place] [id number] RBC #/vol (Bld) 5.00 {x10E6/uL} Normal 4.14-5.80 [facility] Work Phone: Comment on above: PATIENT WAS FASTINGP ERFORMED BY: ZITA [facility] Pcywcs8996 [address] [facility] HospitalDublin [place] [id number] RBC (Bld) [#/Vol] 5.00 10*6/uL Normal 4.14-5.80 [facility] Internal Medicine; [facility] Work Phone: Comment on above: PATIENT WAS FASTINGP ERFORMED BY: CB [facility] Unmzrv9094 [address] [facility] Hospitalblin [place] [id number] WBC #/vol (Bld) 5.5 {x10E3/uL} Normal 3.4-10.8 [facility] Internal Medicine Work Phone: Comment on above: PATIENT WAS FASTINGP ERFORMED BY: CB [facility] Icoosx7511 [address]oo RoadDublin [place] [id number] WBC (Bld) [#/Vol] 5.5 10*3/uL Normal 3.4-10.8 [facility]; [facility] Work Phone: Comment on above: PATIENT WAS FASTINGP ERFORMED BY: ZITA [facility] Ytiaig6978 [address] [facility] [place] [id number] LIPID PANEL ([id number])Ordered B y: [employer] Fabricator on 04-29-2017 Cholesterol in HDL mass conc 57 mg/dL Normal [facility] Work Phone: Comment on above: PATIENT WAS FASTINGP ERFORMED BY: CB [facility] Acdhox7390 [address] [facility] [place] [id number] Cholesterol in LDL mass conc 133 mg/dL Abnormal 0-99 [facility] Work Phone: Comment on above: PATIENT WAS FASTINGP ERFORMED BY: CB [facility] Cfytoo1127 [address] [facility] [place] [id number] Cholesterol in LDL/Cholesterol in HDL mass ratio 2.3 {ratio_units} Normal 0.0-3.6 [facility] Work Phone: Comment on above: LDL/HDL Ratio Men Wo men 1/2 Avg.Risk 1.0 1.5 Avg.Risk 3.6 3.2 2X Avg.Risk 6.2 5.0 3X Avg.Risk 8.0 6.1 PATIENT WAS FASTINGP ERFORMED BY: ZITA ChaAidan HopperRxsprk60[address] Nanostellarblin [place] [id number] Cholesterol in VLDL mass conc 18 mg/dL Normal 5-40 [facility] Work Phone: Comment on above: PATIENT WAS FASTINGP ERFORMED BY: ZITA Hopperlin6[address]ostellarbl[address] [place] [id number] Cholesterol mass conc 208 mg/dL Abnormal 100-199 [facility] Work Phone: Comment on above: PATIENT WAS FASTINGP ERFORMED BY: ZITA Hopperlin6370 [address] [facility]ostellarAtrium [facility] Centerin [place] [id number] Triglyceride mass conc 89 mg/dL Normal 0-149 [facility] Work Phone: Comment on above: PATIENT WAS FASTINGP ERFORMED BY: ZITA Hopperlin6370 [facility] [id number] METABOLIC PANEL, COMPREHENSI VE ([id number])Ordered By: [employer] Fabricator on 04-29-2017 Albumin mass conc 4.5 g/dL Normal 3.5-5.5 Compreh ensive Internal Medicine Work Phone: Comment on above: PATIENT WAS FASTINGP ERFORMED BY: ZITA ChaAdian HopperXtslkm3949 [address] [facility] Hospitalbl[facility] [place] [id number] Albumin/Globulin mass ratio 2.0 {ratio} Normal 1.2-2.2 [facility] Work Phone: Comment on above: PATIENT WAS FASTINGP ERFORMED BY: ZITA ChaAidan HopperEylljk4089 [address] [facility] Hospitalblin [place] [id number] ALP [Catalytic activity/Vol] 64 U/L Normal 39-117 [facility]; [facility] Work Phone: Comment on above: PATIENT WAS FASTINGP ERFORMED BY: ZITA Hopperlin6370 [address] [facility] HospitalDublin [place] [id number] ALP enzyme act/vol 64 [iU]/L Normal 39-117 Compre hensive Internal Medicine Work Phone: Comment on above: PATIENT WAS FASTINGP ERFORMED BY: ZITA [facility] Vesonx2406 [address] RoadDublin [place] [id number] ALT [Catalytic activity/Vol] 17 U/L Normal 0-44 [facility]; [facility] Work Phone: Comment on above: PATIENT WAS FASTINGP ERFORMED BY: ZITA [facility] Gcxhxn6751 [address] RoadDublin [place] [id number] ALT enzyme act/vol 17 [iU]/L Normal 0-44 [facility] Internal Medicine Work Phone: Comment on above: PATIENT WAS FASTINGP ERFORMED BY: ZITA [facility] Kqhjxu9348 L[address] RoadDublin [place] [id number] AST [Catalytic activity/Vol] 24 U/L Normal 0-40 [facility]; [facility] Internal Medicine Work Phone: Comment on above: PATIENT WAS FASTINGP ERFORMED BY: ZITA Hopperlin6370 [address] RoadDublin [place] [id number] AST enzyme act/vol 24 [iU]/L Normal 0-40 [facility] Internal Medicine Work Phone: Comment on above: PATIENT WAS FASTINGP ERFORMED BY: ZITA LabAidan HopperBtkvnl5453 Loo RoadDublin [place] [id number] Bilirubin mass conc 0.9 mg/dL Normal 0.0-1.2 [facility] Internal Medicine Work Phone: Comment on above: PATIENT WAS FASTINGP ERFORMED BY: ZITA LabCoshruthi HopperZracgo4319 L[address] RoadDublin [place] [id number] Calcium mass conc 8.9 mg/dL Normal 8.7-10.2 [facility] Internal Medicine Work Phone: Comment on above: PATIENT WAS FASTINGP ERFORMED BY: ZITA [facility] Widhlt6598 [address] RoadDublin [place] [id number] Chloride molar conc 100 mmol/L Normal 96-106 [facility] Internal Medicine Work Phone: Comment on above: PATIENT WAS FASTINGP ERFORMED BY: ZITA [facility] Swgetd9339 [address] RoadDublin [place] [id number] CO2 molar conc 24 mmol/L Normal 18-29 Comprehens jeremy Internal Medicine Work Phone: Comment on above: PATIENT WAS FASTINGP ERFORMED BY: ZITA ChaAidan HopperXjbcpn5532 [address] [facility] [id number] Creatinine mass conc 0.86 mg/dL Normal 0.76-1.27 Comp rehensive Internal Medicine Work Phone: Comment on above: PATIENT WAS FASTINGP ERFORMED BY: ZITA Overton6370 [address] [facility] [id number] GFR/1.73 sq M predicted among blacks CKD-EPI vol rate/area (S/P/Bld) 125 mL/min/1.73 Normal Comprehensiv e Internal Medicine Work Phone: Comment on above: PATIENT WAS FASTINGP ERFORMED BY: ZITA Overton6370 [address] [facility] [id number] GFR/1.73 sq M predicted among non-blacks CKD-EPI vol rate/area (S/P/Bld) 108 mL/min/1.73 Normal [facility] Work Phone: Comment on above: PATIENT WAS FASTINGP ERFORMED BY: ZITA Hopperlin6370 [address] [facility] [id number] Globulin mass conc (S) 2.3 g/dL Normal 1.5-4.5 [facility] Work Phone: Comment on above: PATIENT WAS FASTINGP ERFORMED BY: ZITA Hopperlin6370 [address] [facility] [id number] Glucose mass conc 87 mg/dL Normal 65-99 Compreh ensive Internal Medicine Work Phone: Comment on above: PATIENT WAS FASTINGP ERFORMED BY: ZITA LabAidan HopperCwpwtq8448 [address] [facility] [id number] Potassium molar conc 4.4 mmol/L Normal 3.5-5.2 Comp rehensive Internal Medicine Work Phone: Comment on above: PATIENT WAS FASTINGP ERFORMED BY: ZITA Hopperlin6370 [address] [facility] [id number] Protein mass conc 6.8 g/dL Normal 6.0-8.5 Compreh ensive Internal Medicine Work Phone: Comment on above: PATIENT WAS FASTINGP ERFORMED BY: ZITA LabAidan HopperAroqsf9129 [facility] [id number] Sodium molar conc 139 mmol/L Normal 134-144 Compreh ensive Internal Medicine Work Phone: Comment on above: PATIENT WAS FASTINGP ERFORMED BY: ZITA LabAidan HopperGgzsjm2614 [facility] [id number] Urea nitrogen mass conc 13 mg/dL Normal 6-24 [facility] Work Phone: Comment on above: PATIENT WAS FASTINGP ERFORMED BY: ZITA Hopperlin6370 [facility] [id number] Urea nitrogen/Creatinine mass ratio 15 mg/mg Normal 9-20 [facility] Work Phone: Comment on above: PATIENT WAS FASTINGP ERFORMED BY: ZITA Hopperlin6370 [facility] [id number] MICROALBUMINOrdered By: Syst em Disability Hearing Officer on 04-29-2017 Albumin DL <= 20 mg/L mass conc (U) 4.0 ug/mL Normal [facility] Work Phone: Comment on above: PATIENT WAS FASTINGP ERFORMED BY: ZITA LabAidan HopperRdamde8622 [facility] [id number] Albumin/Creatinine mass ratio (U) 2.6 {mg/g_creat} Normal 0.0-30.0 [facility] Work Phone: Comment on above: PATIENT WAS FASTINGP ERFORMED BY: ZITA LabCoshruthi Kivpxk1041 [facility] [id number] Creatinine mass conc (U) 152.8 mg/dL Normal [facility] Work Phone: Comment on above: PATIENT WAS FASTINGP ERFORMED BY: ZITA LabAidan Vqdamz3862 [facility] [id number] Microscopic ExaminationOrder ed By: [employer] Fabricator on 04-29-2017 Bacteria LM.HPF #/area (Urine sed) Few Normal [facility] Work Phone: Comment on above: PATIENT WAS FASTINGP ERFORMED BY: ZITA [facility] Gcctcx7252 [address] [facility]in [place] [id number] Crystals LM Nom (Urine sed) Amorphous Sediment Normal [facility] Work Phone: Comment on above: PATIENT WAS FASTINGP ERFORMED BY: ZITA [facility] Zmoatx5905 [facility] [id number] Epithelial cells LM.HPF #/area (Urine sed) None seen Normal 0 - 10 [facility] Work Phone: Comment on above: PATIENT WAS FASTINGP ERFORMED BY: ZITA LabCoshruthi HopperJghwce1926 [address] [facility] [id number] Mucus Ql (Urine sed) Present Normal Comp rehensive Internal Medicine Work Phone: Comment on above: PATIENT WAS FASTINGP ERFORMED BY: ZITA [facility] Kzreqw4387 [facility] [id number] RBC LM.HPF #/area (Urine sed) 0-2 Normal 0 - 2 [facility] Work Phone: Comment on above: PATIENT WAS FASTINGP ERFORMED BY: ZITA LabCoshruthi HopperQzkant4986 [facility] [place] [id number] Unidentified crystals LM Ql (Urine sed) Present Abnormal [facility] Work Phone: Comment on above: PATIENT WAS FASTINGP ERFORMED BY: ZITA [facility] Vpwymm9042 [facility] [id number] WBC LM.HPF #/area (Urine sed) 0-5 Normal 0 - 5 [facility] Work Phone: Comment on above: PATIENT WAS FASTINGP ERFORMED BY: ZITA [facility] Xavloz3750 [facility] [id number] TSH ([id number])Ordered By: Darwin vega Disability Hearing Officer on 04-29-2017 Thyrotropin Qn 1.800 {uIU/mL} Normal 0.450-4.50 0 [facility] Work Phone: Comment on above: PATIENT WAS FASTINGP ERFORMED BY: CB [facility] Qfmjwg4784 [address] RoadDublin [place] [id number] URINALYSIS, W/ MICRO (00123) Ordered By: [employer] Fabricator on 04-29-2017 Appearance Nom (U) Cloudy Abnormal Compre hensive Internal Medicine Work Phone: Comment on above: PATIENT WAS FASTINGP ERFORMED BY: ZITA [facility] Eyhpfn4298 [address] RoadDublin [place] [id number] Bilirubin Ql (U) Negative Normal Comprehe nsive Internal Medicine Work Phone: Comment on above: PATIENT WAS FASTINGP ERFORMED BY: ZITA [facility] Pktijl4347 [address] RoadDublin [place] [id number] Bilirubin Ql (U) Negative Normal Comprehe nsive Internal Medicine; [facility] Work Phone: Comment on above: PATIENT WAS FASTINGP ERFORMED BY: ZITA [facility] Jcdmel6689 [address] RoadDublin [place] [id number] Color Nom (U) Yellow Normal Comprehensi ve Internal Medicine Work Phone: Comment on above: PATIENT WAS FASTINGP ERFORMED BY: ZITA [facility] Zzppwi0791 [address] RoadDublin [place] [id number] Glucose Ql (U) Negative Normal Comprehens jeremy Internal Medicine Work Phone: Comment on above: PATIENT WAS FASTINGP ERFORMED BY: ZITA [facility] Jedwqe2114 [address] RoadDublin [place] [id number] Glucose Ql (U) Negative Normal Comprehens jeremy Internal Medicine; [facility] Work Phone: Comment on above: PATIENT WAS FASTINGP ERFORMED BY: [facility] Csptxf3229 [address] RoadDublin [place] [id number] Hemoglobin Ql (U) Negative Normal Compreh ensive Internal Medicine Work Phone: Comment on above: PATIENT WAS FASTINGP ERFORMED BY: [facility] Zxdfxp9858 [address] RoadDublin [place] [id number] Hemoglobin Ql (U) Negative Normal Compreh ensive Internal Medicine; [facility] Work Phone: Comment on above: PATIENT WAS FASTINGP ERFORMED BY: ZITA [facility] Itjzzh6086 [address] RoadDublin [place] [id number] Ketones Ql (U) Negative Normal Comprehens jeremy Internal Medicine Work Phone: Comment on above: PATIENT WAS FASTINGP ERFORMED BY: [facility] Khwnge8564 [address] RoadDublin [place] [id number] Ketones Ql (U) Negative Normal Comprehens jeremy Internal Medicine; [facility] Work Phone: Comment on above: PATIENT WAS FASTINGP ERFORMED BY: [facility] Grfmhs8604 [address] RoadDublin [place] [id number] Leukocyte esterase Test strip Ql (U) Negative Normal [facility] Work Phone: Comment on above: PATIENT WAS FASTINGP ERFORMED BY: [facility] Hpsbdx7701 [address] RoadDublin [place] [id number] Leukocyte esterase Test strip Ql (U) Negative Normal [facility]; [facility] Work Phone: Comment on above: PATIENT WAS FASTINGP ERFORMED BY: [facility] Kkpdex1007 [address] RoadDublin [place] [id number] Microscopic observation LM Nom (Urine sed) See below: Normal [facility] Work Phone: Comment on above: Microscopic was viviana cated and was performed. PATIENT WAS FASTINGP ERFORMED BY: [facility] Goutva3450 [address] RoadDublin [place] [id number] Microscopic observation LM Nom (Urine sed) MICRON Normal [facility] Work Phone: Comment on above: Microscopic follows if indicated. PATIENT WAS FASTINGP ERFORMED BY: [facility] Yncjmb8945 [address] RoadDublin [place] [id number] Nitrite Ql (U) Negative Normal Comprehens jeremy Internal Medicine Work Phone: Comment on above: PATIENT WAS FASTINGP ERFORMED BY: [facility] Moegrx0111 [address] RoadDublin [place] [id number] Nitrite Ql (U) Negative Normal Comprehens jeremy Internal Medicine; [facility] Work Phone: Comment on above: PATIENT WAS FASTINGP ERFORMED BY: ZITA [facility] Vecxrc9601 [address] [facility] [place] [id number] pH (U) 8.0 [pH] Abnormal 5.0-7.5 [facility] Work Phone: Comment on above: PATIENT WAS FASTINGP ERFORMED BY: ZITA LabDarius Kauomy4767 [address] [facility] [place] [id number] Protein Ql (U) Trace Normal Comprehens jeremy Internal Medicine Work Phone: Comment on above: PATIENT WAS FASTINGP ERFORMED BY: ZITA [facility]Barn[facility] Jceojb3869 [facility] [id number] Specific gravity Relative Density (U) 1.023 1 Normal 1.005-1.03 0 [facility] Work Phone: Comment on above: PATIENT WAS FASTINGP ERFORMED BY: ZITA [facility] Iaektr1988 [facility] [id number] Urobilinogen (U) [Mass/Vol] 1.0 mg/dL Normal 0.2-1.0 [facility]; [facility] Work Phone: Comment on above: PATIENT WAS FASTINGP ERFORMED BY: ZITA [facility]Barn[facility] Xrchcm1303 [facility] [id number] Urobilinogen Test strip mass conc (U) 1.0 mg/dL Normal 0.2-1.0 Comprehensiv e Internal Medicine Work Phone: Comment on above: PATIENT WAS FASTINGP ERFORMED BY: [facility]Barn[facility] Xgrlzd3715 [address] [facility]in [place] [id number] CBC, Platelets & Auto Diff ( [id number])Ordered By: [employer] Fabricator on 05-10-2015 Basophils #/vol (Bld) 0.1 {x10E3/uL} Normal 0.0-0.2 [facility] Work Phone: Comment on above: PATIENT WAS FASTINGP ERFORMED BY: ZITA LabCo Huldaf6257 [address] [facility] [id number] Information: [id number] Basophils (Bld) [#/Vol] 0.1 10*3/uL Normal 0.0-0.2 [facility]; [facility] Work Phone: Comment on above: PATIENT WAS FASTINGP ERFORMED BY: ZITA Overton6370 [facility] [id number] Information: [id number] Basophils/100 WBC (Bld) 1 % Normal [facility] Work Phone: Comment on above: PATIENT WAS FASTINGP ERFORMED BY: [address] [id number] Information: [id number] Eosinophils #/vol (Bld) 0.2 {x10E3/uL} Normal 0.0-0.4 [facility] Work Phone: Comment on above: PATIENT WAS FASTINGP ERFORMED BY: [address] [id number] Information: [id number] Eosinophils (Bld) [#/Vol] 0.2 10*3/uL Normal 0.0-0.4 [facility]; [facility] Work Phone: Comment on above: PATIENT WAS FASTINGP ERFORMED BY: [facility] Yjtvdq15[address] [id number] Information: [id number] Eosinophils/100 WBC (Bld) 4 % Normal [facility] Work Phone: Comment on above: PATIENT WAS FASTINGP ERFORMED BY: [address] [id number] Information: [id number] Erythrocyte distribution width Ratio (RBC) 13.3 % Normal 12.3-15.4 [facility] Work Phone: Comment on above: PATIENT WAS FASTINGP ERFORMED BY: [address] [id number] Information: [id number] Hematocrit Volume Fraction (Bld) 44.2 % Normal 37.5-51.0 [facility] Work Phone: Comment on above: PATIENT WAS FASTINGP ERFORMED BY: [place] [id number] [facility] [id number] Information: [id number] Hemoglobin mass conc (Bld) 14.9 g/dL Normal 12.6-17.7 [facility] Work Phone: Comment on above: PATIENT WAS FASTINGP ERFORMED BY: [address] [id number] Information: [id number] Immature granulocytes #/vol (Bld) 0.0 {x10E3/uL} Normal 0.0-0.1 [facility] Work Phone: Comment on above: PATIENT WAS FASTINGP ERFORMED BY: [address] [id number] Information: [id number] Immature granulocytes (Bld) [#/Vol] 0.0 10*3/uL Normal 0.0-0.1 [facility]; [facility] Work Phone: Comment on above: PATIENT WAS FASTINGP ERFORMED BY: [address] [id number] Information: [id number] Immature granulocytes/100 WBC (Bld) 0 % Normal [facility] Work Phone: Comment on above: PATIENT WAS FASTINGP ERFORMED BY: [address] [id number] Information: [id number] Lymphocytes #/vol (Bld) 1.7 {x10E3/uL} Normal 0.7-3.1 [facility] Work Phone: Comment on above: PATIENT WAS FASTINGP ERFORMED BY: [place] [id number] [facility] [id number] Information: [id number] Lymphocytes (Bld) [#/Vol] 1.7 10*3/uL Normal 0.7-3.1 [facility]; [facility] Work Phone: Comment on above: PATIENT WAS FASTINGP ERFORMED BY: ZITA Eubanks[address] [id number] Information: [id number] Lymphocytes/100 WBC (Bld) 24 % Normal [facility] Work Phone: Comment on above: PATIENT WAS FASTINGP ERFORMED BY: [address] [id number] Information: [id number],[id number] MCH Entitic mass (RBC) 29.9 pg Normal 26.6-33.0 [facility] Work Phone: Comment on above: PATIENT WAS FASTINGP ERFORMED BY: [address] [id number] Information: [id number] MCHC mass conc (RBC) 33.7 g/dL Normal 31.5-35.7 [facility] Internal Medicine Work Phone: Comment on above: PATIENT WAS FASTINGP ERFORMED BY: [address] [id number] Information: [id number] MCV Entitic volume (RBC) 89 fL Normal 79-97 [facility] Work Phone: Comment on above: PATIENT WAS FASTINGP ERFORMED BY: [address] [id number] Information: [id number] Monocytes #/vol (Bld) 0.7 {x10E3/uL} Normal 0.1-0.9 [facility] Work Phone: Comment on above: PATIENT WAS FASTINGP ERFORMED BY: [address] [id number] Information: [id number] Monocytes (Bld) [#/Vol] 0.7 10*3/uL Normal 0.1-0.9 [facility]; [facility] Work Phone: Comment on above: PATIENT WAS FASTINGP ERFORMED BY: ZITA [facility] [id number] Information: [id number] Monocytes/100 WBC (Bld) 10 % Normal [facility] Work Phone: Comment on above: PATIENT WAS FASTINGP ERFORMED BY: ZITA Howe [facility] [id number] Information: [id number] Neutrophils #/vol (Bld) 4.2 {x10E3/uL} Normal 1.4-7.0 [facility] Work Phone: Comment on above: PATIENT WAS FASTINGP ERFORMED BY: ZITA Overton6370 [facility] [id number] Information: [id number] Neutrophils (Bld) [#/Vol] 4.2 10*3/uL Normal 1.4-7.0 [facility]; [facility] Work Phone: Comment on above: PATIENT WAS FASTINGP ERFORMED BY: ZITA Howe [facility] [id number] Information: [id number] Neutrophils/100 WBC (Bld) 61 % Normal [facility] Work Phone: Comment on above: PATIENT WAS FASTINGP ERFORMED BY: ZITA Hopperlin6370 [facility] [id number] Information: [id number] Platelets #/vol (Bld) 179 {x10E3/uL} Normal 150-379 [facility] Work Phone: Comment on above: PATIENT WAS FASTINGP ERFORMED BY: ZITA Hopperlin6370 [facility] [id number] Information: [id number] Platelets (Bld) [#/Vol] 179 10*3/uL Normal 150-379 [facility]; [facility] Work Phone: Comment on above: PATIENT WAS FASTINGP ERFORMED BY: ZITA Chamorro Nutqua9726 [facility] [id number] Information: [id number] RBC #/vol (Bld) 4.99 {x10E6/uL} Normal 4.14-5.80 [facility] Internal Medicine Work Phone: Comment on above: PATIENT WAS FASTINGP ERFORMED BY: [facility] Vxxfyn118[address] [id number] Information: [id number] RBC (Bld) [#/Vol] 4.99 10*6/uL Normal 4.14-5.80 Compr [facility] Internal Medicine; [facility] Work Phone: Comment on above: PATIENT WAS FASTINGP ERFORMED BY: [facility] Vwxomp9[address] [id number] Information: [id number] WBC #/vol (Bld) 6.8 {x10E3/uL} Normal 3.4-10.8 [facility] Internal Medicine Work Phone: Comment on above: PATIENT WAS FASTINGP ERFORMED BY: ZITA [facility] Oaxqjo5217 [facility] [id number] Information: [id number] WBC (Bld) [#/Vol] 6.8 10*3/uL Normal 3.4-10.8 [facility]; [facility] Work Phone: Comment on above: PATIENT WAS FASTINGP ERFORMED BY: [facility]6370 [facility] [id number] Information: [id number] Lipid Panel (14195)Ordered B y: [employer] Fabricator on 05-10-2015 Cholesterol in HDL mass conc 51 mg/dL Normal [facility] Work Phone: Comment on above: According to ATP-III Guidelines, HDL-C >59 mg/dL is considered anegative risk factor for CHD. PATIENT WAS FASTINGP ERFORMED BY: [facility] [facility] [place] [id number] Cholesterol in LDL mass conc 127 mg/dL Abnormal 0-99 [facility] Work Phone: Comment on above: PATIENT WAS FASTINGP ERFORMED BY: ZITA Oriana Exxwtx9064 [facility] [place] [id number] Cholesterol in LDL/Cholesterol in HDL mass ratio 2.5 {ratio_units} Normal 0.0-3.6 [facility] Work Phone: Comment on above: LDL/HDL Ratio Men Wo men 1/2 Avg.Risk 1.0 1.5 Avg.Risk 3.6 3.2 2X Avg.Risk 6.2 5.0 3X Avg.Risk 8.0 6.1 PATIENT WAS FASTINGP ERFORMED BY: ZITA [facility] Qqrcfs5305 [facility] [id number] Cholesterol in VLDL mass conc 16 mg/dL Normal 5-40 [facility] Work Phone: Comment on above: PATIENT WAS FASTINGP ERFORMED BY: ZITA [facility]6370 [facility] [id number] Cholesterol mass conc 194 mg/dL Normal 100-199 [facility] Work Phone: Comment on above: PATIENT WAS FASTINGP ERFORMED BY: ZITA [facility]6370 [facility] [id number] Triglyceride mass conc 80 mg/dL Normal 0-149 [facility] Work Phone: Comment on above: PATIENT WAS FASTINGP ERFORMED BY: [facility]6370 [facility] [id number] MICROALBUMINOrdered By: Syst em Disability Hearing Officer on 05-10-2015 Albumin DL <= 20 mg/L mass conc (U) 11.3 ug/mL Normal 0.0-17.0 [facility] Work Phone: Comment on above: PATIENT WAS FASTINGP ERFORMED BY: ZITA [facility] Tahokx5[address] [facility] [id number] Albumin/Creatinine mass ratio (U) 4.1 {mg/g_creat} Normal 0.0-30.0 [facility] Work Phone: Comment on above: PATIENT WAS FASTINGP ERFORMED BY: ZITA Oriana Cqbjqa9133 [facility] [id number] Creatinine mass conc (U) 272.3 mg/dL Normal 24.0-392.0 [facility] Work Phone: Comment on above: PATIENT WAS FASTINGP ERFORMED BY: ZITA Mysterio Pudwly3792 [facility] [id number] MUMPS IgG ([id number])Ordered By: [employer] Fabricator on 05-10-2015 MuV IgG IA Qn (S) <9.0 Abnormal Compreh ensive Internal Medicine Work Phone: Comment on above: Negative <9.0 Equivo millicent 9.0 - 10.9 Positive >10.9 A positive result generally indicates past exposure to Mumps virus or previous vaccination. PATIENT WAS FASTINGP ERFORMED BY: ZITA Mysterio Samppa4594 [facility] [id number] Metabolic Panel, Comprehensi ve ([id number])Ordered By: [employer] Fabricator on 05-10-2015 Albumin mass conc 4.4 g/dL Normal 3.5-5.5 Compreh ensive Internal Medicine Work Phone: Comment on above: PATIENT WAS FASTINGP ERFORMED BY: ZITA Mysterio Zxknkj8330 [facility] [id number] Albumin/Globulin mass ratio 1.6 {ratio} Normal 1.1-2.5 [facility] Work Phone: Comment on above: PATIENT WAS FASTINGP ERFORMED BY: MysterioEnglewood Hospital and Medical CenterBmqbta4231 [facility] [id number] ALP [Catalytic activity/Vol] 76 U/L Normal 39-117 [facility]; [facility] Work Phone: Comment on above: PATIENT WAS FASTINGP ERFORMED BY: ZITA Mysterio Xuhkdk2277 [facility] [id number] ALP enzyme act/vol 76 [iU]/L Normal 39-117 Compre hensive Internal Medicine Work Phone: Comment on above: PATIENT WAS FASTINGP ERFORMED BY: ZITA [facility] Fqkxqm5106 Loo RoadDublin [place] [id number] ALT [Catalytic activity/Vol] 9 U/L Normal 0-44 [facility]; [facility] Internal Medicine Work Phone: Comment on above: PATIENT WAS FASTINGP ERFORMED BY: ZITA [facility] Zdfnto0324 Loo RoadDublin [place] [id number] ALT enzyme act/vol 9 [iU]/L Normal 0-44 [facility] Internal Medicine Work Phone: Comment on above: PATIENT WAS FASTINGP ERFORMED BY: ZITA LabCoshruthi HopperIskrjl6213 Loo RoadDublin [place] [id number] AST [Catalytic activity/Vol] 14 U/L Normal 0-40 [facility]; [facility] Internal Medicine Work Phone: Comment on above: PATIENT WAS FASTINGP ERFORMED BY: ZITA LabAidan HopperSkbsdt9157 Loo RoadDublin [place] [id number] AST enzyme act/vol 14 [iU]/L Normal 0-40 [facility] Internal Medicine Work Phone: Comment on above: PATIENT WAS FASTINGP ERFORMED BY: ZITA LabCoshruthi HopperXeqtbx3668 L[address] RoadDublin [place] [id number] Bilirubin mass conc 0.4 mg/dL Normal 0.0-1.2 [facility] Internal Medicine Work Phone: Comment on above: PATIENT WAS FASTINGP ERFORMED BY: ZITA [facility] Steqqf7591 Loo RoadDublin [place] [id number] Calcium mass conc 9.3 mg/dL Normal 8.7-10.2 [facility] Internal Medicine Work Phone: Comment on above: PATIENT WAS FASTINGP ERFORMED BY: ZITA [facility] Tnkyfr9774 Loo RoadDublin [place] [id number] Chloride molar conc 99 mmol/L Normal 97-108 [facility] Internal Medicine Work Phone: Comment on above: PATIENT WAS FASTINGP ERFORMED BY: ZITA LabCoshruthi Gkbbtv4003 [address] RoadDublin [place] [id number] CO2 molar conc 24 mmol/L Normal 18-29 Comprehens jeremy Internal Medicine Work Phone: Comment on above: PATIENT WAS FASTINGP ERFORMED BY: ZITA ChaAidan HopperYskfpm8844 [facility] [id number] Creatinine mass conc 0.80 mg/dL Normal 0.76-1.27 Comp rehensive Internal Medicine Work Phone: Comment on above: PATIENT WAS FASTINGP ERFORMED BY: ZITA Hopperlin6370 [facility] [id number] GFR/1.73 sq M predicted among blacks CKD-EPI vol rate/area (S/P/Bld) 131 mL/min/1.73 Normal Comprehensiv e Internal Medicine Work Phone: Comment on above: PATIENT WAS FASTINGP ERFORMED BY: ZITA Hopperlin6370 [facility] [id number] GFR/1.73 sq M predicted among non-blacks CKD-EPI vol rate/area (S/P/Bld) 113 mL/min/1.73 Normal [facility] Work Phone: Comment on above: PATIENT WAS FASTINGP ERFORMED BY: ZITA Hopperlin6370 [facility] [id number] Globulin mass conc (S) 2.7 g/dL Normal 1.5-4.5 [facility] Work Phone: Comment on above: PATIENT WAS FASTINGP ERFORMED BY: ZITA Overton6370 [facility] [id number] Glucose mass conc 89 mg/dL Normal 65-99 Compreh ensive Internal Medicine Work Phone: Comment on above: PATIENT WAS FASTINGP ERFORMED BY: ZITA ChaAidan HopperUirotm4834 [facility] [id number] Potassium molar conc 4.4 mmol/L Normal 3.5-5.2 Comp rehensive Internal Medicine Work Phone: Comment on above: PATIENT WAS FASTINGP ERFORMED BY: ZITA Hopperlin6370 [facility] [id number] Protein mass conc 7.1 g/dL Normal 6.0-8.5 Compreh ensive Internal Medicine Work Phone: Comment on above: PATIENT WAS FASTINGP ERFORMED BY: LabCo Rzvufp5216 [facility] [id number] Sodium molar conc 141 mmol/L Normal 134-144 Compreh ensive Internal Medicine Work Phone: Comment on above: PATIENT WAS FASTINGP ERFORMED BY: LabCoEnglewood Hospital and Medical CenterBoxwth8482 [facility] [id number] Urea nitrogen mass conc 10 mg/dL Normal 6-20 [facility] Work Phone: Comment on above: PATIENT WAS FASTINGP ERFORMED BY: [facility]6370 [facility] [id number] Urea nitrogen/Creatinine mass ratio 13 mg/mg Normal 8-19 [facility] Work Phone: Comment on above: PATIENT WAS FASTINGP ERFORMED BY: LabO[facility]6370 [facility] [id number] Microscopic ExaminationOrder ed By: [employer] Fabricator on 05-10-2015 Bacteria LM.HPF #/area (Urine sed) Few Normal [facility] Work Phone: Comment on above: PATIENT WAS FASTINGP ERFORMED BY: [facility] Zsxoki8257 [facility] [id number] Epithelial cells LM.HPF #/area (Urine sed) 0-10 Normal 0 - 10 [facility] Work Phone: Comment on above: PATIENT WAS FASTINGP ERFORMED BY: LabCo Jcwtsm6970 [facility] [id number] Mucus Ql (Urine sed) Present Normal Comp rehensive Internal Medicine Work Phone: Comment on above: PATIENT WAS FASTINGP ERFORMED BY: [facility] Stfvha4784 [facility] [id number] RBC LM.HPF #/area (Urine sed) None seen Normal 0 - 2 [facility] Work Phone: Comment on above: PATIENT WAS FASTINGP ERFORMED BY: OB10[facility]6370 [facility] [id number] WBC LM.HPF #/area (Urine sed) 0-5 Normal 0 - 5 [facility] Work Phone: Comment on above: PATIENT WAS FASTINGP ERFORMED BY: [facility]6370 [facility] [id number] RUBELLA IgG ([id number])Ordered B y: [employer] Fabricator on 05-10-2015 Rubella virus IgG Qn (S) 1.85 {index} Normal [facility] Work Phone: Comment on above: Non-immune <0.90 Equ ivocal 0.90 - 0.99 Immune >0.99 PATIENT WAS FASTINGP ERFORMED BY: OB10[facility]6370 [facility] [id number] RUBEOLA IgG ([id number])Ordered B y: [employer] Fabricator on 05-10-2015 MeV IgG IA Qn (S) {index_val} Abnormal [facility] Internal Medicine Work Phone: Comment on above: Negative <25.0 Equiv ocal 25.0 - 29.9 Positive >29.9 Presence of antibodies to Rubeola is presumptive evidence of immunity except when acute infection is suspected. PATIENT WAS FASTINGP ERFORMED BY: OB10[facility]6370 [facility] [id number] MeV IgG IA Qn (S) {index_val} Abnormal [facility]ere [facility] Internal Medicine; [facility] Work Phone: Comment on above: Negative <25.0 Equiv ocal 25.0 - 29.9 Positive >29.9 Presence of antibodies to Rubeola is presumptive evidence of immunity except when acute infection is suspected. PATIENT WAS FASTINGP ERFORMED BY: [place] [id number] [facility] [id number] TSH ([id number])Ordered By: Ajungoe m Disability Hearing Officer on 05-10-2015 Thyrotropin Qn 1.680 {uIU/mL} Normal 0.450-4.50 0 [facility] Work Phone: Comment on above: PATIENT WAS FASTINGP ERFORMED BY: ZITA [facility] Xglerj9825 L[address] RoadDublin [place] [id number] URINALYSIS ([id number])Ordered By : [employer] Fabricator on 05-10-2015 Appearance Nom (U) Clear Normal Compre hensive Internal Medicine Work Phone: Comment on above: PATIENT WAS FASTINGP ERFORMED BY: ZITA [facility] Qwcslh1304 Loo RoadDublin [place] [id number] Bilirubin Ql (U) Negative Normal Comprehe nsive Internal Medicine Work Phone: Comment on above: PATIENT WAS FASTINGP ERFORMED BY: ZITA [facility] Tyjblt1514 [address] RoadDublin [place] [id number] Bilirubin Ql (U) Negative Normal Comprehe nsive Internal Medicine; [facility] Work Phone: Comment on above: PATIENT WAS FASTINGP ERFORMED BY: ZITA [facility] Zceyte2943 [address] RoadDublin [place] [id number] Color Nom (U) Yellow Normal Comprehensi ve Internal Medicine Work Phone: Comment on above: PATIENT WAS FASTINGP ERFORMED BY: ZITA [facility] Wjcexs0025 [address] RoadDublin [place] [id number] Glucose Ql (U) Negative Normal Comprehens jeremy Internal Medicine Work Phone: Comment on above: PATIENT WAS FASTINGP ERFORMED BY: ZITA [facility] Qicvdi6630 [address] RoadDublin [place] [id number] Glucose Ql (U) Negative Normal Comprehens jeremy Internal Medicine; [facility] Work Phone: Comment on above: PATIENT WAS FASTINGP ERFORMED BY: ZITA [facility] Oeadmw4146 [address] RoadDublin [place] [id number] Hemoglobin Ql (U) Negative Normal Compreh ensive Internal Medicine Work Phone: Comment on above: PATIENT WAS FASTINGP ERFORMED BY: ZITA [facility] Qfllef0745 [address] RoadDublin [place] [id number] Hemoglobin Ql (U) Negative Normal Compreh ensive Internal Medicine; [facility] Work Phone: Comment on above: PATIENT WAS FASTINGP ERFORMED BY: ZITA [facility] Ussctz0210 [address] RoadDublin [place] [id number] Ketones Ql (U) Negative Normal Comprehens jeremy Internal Medicine Work Phone: Comment on above: PATIENT WAS FASTINGP ERFORMED BY: ZITA [facility] Ijjpio8235 [address] RoadDublin [place] [id number] Ketones Ql (U) Negative Normal Comprehens jeremy Internal Medicine; [facility] Work Phone: Comment on above: PATIENT WAS FASTINGP ERFORMED BY: ZITA [facility] Cjiczt3435 [address] RoadDublin [place] [id number] Leukocyte esterase Test strip Ql (U) Negative Normal [facility] Work Phone: Comment on above: PATIENT WAS FASTINGP ERFORMED BY: ZITA [facility] Kteluo0928 [address] RoadDublin [place] [id number] Leukocyte esterase Test strip Ql (U) Negative Normal [facility]; [facility] Work Phone: Comment on above: PATIENT WAS FASTINGP ERFORMED BY: ZITA [facility] Nrlgdx2401 [address] RoadDublin [place] [id number] Microscopic observation LM Nom (Urine sed) See below: Normal [facility] Work Phone: Comment on above: Microscopic was viviana cated and was performed. PATIENT WAS FASTINGP ERFORMED BY: ZITA [facility] Woxfbq2899 [address] RoadDublin [place] [id number] Nitrite Ql (U) Negative Normal Comprehens jeremy Internal Medicine Work Phone: Comment on above: PATIENT WAS FASTINGP ERFORMED BY: ZITA [facility] Bpmkxd5134 [address] RoadDublin [place] [id number] Nitrite Ql (U) Negative Normal Comprehens jeremy Internal Medicine; [facility] Work Phone: Comment on above: PATIENT WAS FASTINGP ERFORMED BY: ZITA [facility] Pczpcu0500 [address] RoadDublin [place] [id number] pH (U) 7.0 [pH] Normal 5.0-7.5 [facility] Work Phone: Comment on above: PATIENT WAS FASTINGP ERFORMED BY: OB10[facility] Toqorx2751 [address] [facility] [id number] Protein Ql (U) 1+ Abnormal Comprehens jeremy Internal Medicine Work Phone: Comment on above: PATIENT WAS FASTINGP ERFORMED BY: OB10[facility] Abbzbo0268 [facility] [id number] Specific gravity Relative Density (U) 1.028 1 Normal 1.005-1.03 0 [facility] Work Phone: Comment on above: PATIENT WAS FASTINGP ERFORMED BY: LabBarnes-[facility] Njjxrs6609 [facility] [id number] Urobilinogen (U) [Mass/Vol] 0.2 mg/dL Normal 0.2-1.0 [facility]; [facility] Work Phone: Comment on above: PATIENT WAS FASTINGP ERFORMED BY: OB10[facility] Fjmquk9461 [address] [facility] [id number] Urobilinogen Test strip mass conc (U) 0.2 mg/dL Normal 0.2-1.0 Comprehensiv e Internal Medicine Work Phone: Comment on above: PATIENT WAS FASTINGP ERFORMED BY: OB10[facility] Rbhrpb9230 [facility]in [place] [id number] VARICELLA-ZOSTER ANTBODY ([id number] [id number])Ordered By: [employer] Fabricator on 05-10-2015 VZV IgG IA Qn (S) 310 {index} Normal Compre [facility]st. [facility] Internal Medicine Work Phone: Comment on above: Negative <135 Equivo millicent 135 - 165 Positive >165 A positive result generally indicates exposure to the pathogen or administration of specific immunoglobulins, but it is not indication of active infection or stage of disease. PATIENT WAS FASTINGP ERFORMED BY: LabCo Ifznwp5308 [address] [facility] Hospitalblin [place] [id number] PPD (62304)Ordered By: Josephine Head on 05-07-2015 PPD (43702) Negative Normal [facility] Work Phone: Comment on above: Lot:[id number]:Dose:0.1mgRoute:idSite:l forearmGiven By:CHI signed PPD (11614) Negative Normal [facility]; [facility] Work Phone: Comment on above: Lot:[id number]:Dose:0.1mgRoute:idSite:casi forearmGiven By:CHI signed CBC with auto diff ([id number])Or dered By: [employer] Fabricator on 05-23-2014 Basophils #/vol (Bld) 0.1 {x10E3/uL} Normal 0.0-0.2 [facility] Work Phone: Comment on above: PATIENT WAS FASTINGP ERFORMED BY: [facility] Tvpmzw5612 [facility] [id number] Information: [id number] Basophils (Bld) [#/Vol] 0.1 10*3/uL Normal 0.0-0.2 [facility]; [facility] Work Phone: Comment on above: PATIENT WAS FASTINGP ERFORMED BY: CB [facility] Wcudrp9291 [address] [facility]ostellarECU [facility] [id number] Information: [id number] Basophils/100 WBC (Bld) 1 % Normal [facility] Work Phone: Comment on above: PATIENT WAS FASTINGP ERFORMED BY: [facility] Nynxoj8590 [facility] [id number] Information: [id number] Eosinophils #/vol (Bld) 0.3 {x10E3/uL} Normal 0.0-0.4 [facility] Work Phone: Comment on above: PATIENT WAS FASTINGP ERFORMED BY: [facility] Uiwhtm1188 [facility] [id number] Information: [id number] Eosinophils (Bld) [#/Vol] 0.3 10*3/uL Normal 0.0-0.4 [facility]; [facility] Work Phone: Comment on above: PATIENT WAS FASTINGP ERFORMED BY: [facility]6370 [facility] [id number] Information: [id number] Eosinophils/100 WBC (Bld) 5 % Normal [facility] Work Phone: Comment on above: PATIENT WAS FASTINGP ERFORMED BY: [address] [id number] Information: [id number] Erythrocyte distribution width Ratio (RBC) 13.6 % Normal 12.3-15.4 [facility] Work Phone: Comment on above: PATIENT WAS FASTINGP ERFORMED BY: [address] [id number] Information: [id number] Hematocrit Volume Fraction (Bld) 43.9 % Normal 37.5-51.0 [facility] Work Phone: Comment on above: PATIENT WAS FASTINGP ERFORMED BY: [address] [id number] Information: [id number] Hemoglobin mass conc (Bld) 14.8 g/dL Normal 12.6-17.7 [facility] Work Phone: Comment on above: PATIENT WAS FASTINGP ERFORMED BY: [address] [id number] Information: [id number] Immature granulocytes #/vol (Bld) 0.0 {x10E3/uL} Normal 0.0-0.1 [facility] Work Phone: Comment on above: PATIENT WAS FASTINGP ERFORMED BY: [address] [id number] Information: [id number] Immature granulocytes (Bld) [#/Vol] 0.0 10*3/uL Normal 0.0-0.1 [facility]; [facility] Work Phone: Comment on above: PATIENT WAS FASTINGP ERFORMED BY: ZITA LabBarnes[facility] Jrrpnn9513 [facility] [id number] Information: [id number] Immature granulocytes/100 WBC (Bld) 0 % Normal [facility] Work Phone: Comment on above: PATIENT WAS FASTINGP ERFORMED BY: ZITA [facility]6370 [facility] [id number] Information: [id number] Lymphocytes #/vol (Bld) 1.9 {x10E3/uL} Normal 0.7-3.1 [facility] Work Phone: Comment on above: PATIENT WAS FASTINGP ERFORMED BY: ZITA [facility]6370 [facility] [id number] Information: [id number] Lymphocytes (Bld) [#/Vol] 1.9 10*3/uL Normal 0.7-3.1 [facility]; [facility] Work Phone: Comment on above: PATIENT WAS FASTINGP ERFORMED BY: ZITA [facility]ubanksOsf [facility]6370 [facility] [id number] Information: [id number] Lymphocytes/100 WBC (Bld) 38 % Normal [facility] Work Phone: Comment on above: PATIENT WAS FASTINGP ERFORMED BY: ZITA [facility]6370 [facility] [id number] Information: [id number] MCH Entitic mass (RBC) 29.4 pg Normal 26.6-33.0 [facility] Work Phone: Comment on above: PATIENT WAS FASTINGP ERFORMED BY: ZITA [facility]6370 [facility] [id number] Information: [id number] MCHC mass conc (RBC) 33.7 g/dL Normal 31.5-35.7 Comp [facility] Internal Medicine Work Phone: Comment on above: PATIENT WAS FASTINGP ERFORMED BY: LabJohnny Ville 0437670 [facility] [id number] Information: [id number] MCV Entitic volume (RBC) 87 fL Normal 79-97 [facility] Work Phone: Comment on above: PATIENT WAS FASTINGP ERFORMED BY: [address] [id number] Information: [id number] Monocytes #/vol (Bld) 0.3 {x10E3/uL} Normal 0.1-0.9 [facility] Work Phone: Comment on above: PATIENT WAS FASTINGP ERFORMED BY: [address] [id number] Information: [id number] Monocytes (Bld) [#/Vol] 0.3 10*3/uL Normal 0.1-0.9 [facility]; [facility] Work Phone: Comment on above: PATIENT WAS FASTINGP ERFORMED BY: [place] [id number] [facility] [id number] Information: [id number] Monocytes/100 WBC (Bld) 7 % Normal [facility] Work Phone: Comment on above: PATIENT WAS FASTINGP ERFORMED BY: [address] [id number] Information: [id number] Neutrophils #/vol (Bld) 2.5 {x10E3/uL} Normal 1.4-7.0 [facility] Work Phone: Comment on above: PATIENT WAS FASTINGP ERFORMED BY: [facility]6370 [facility] [id number] Information: [id number] Neutrophils (Bld) [#/Vol] 2.5 10*3/uL Normal 1.4-7.0 [facility]; [facility] Work Phone: Comment on above: PATIENT WAS FASTINGP ERFORMED BY: [address] [place] [id number] Information: [id number] Neutrophils/100 WBC (Bld) 49 % Normal [facility] Work Phone: Comment on above: PATIENT WAS FASTINGP ERFORMED BY: ZITA Oriana Excdfe4565 [facility] [id number] Information: [id number] Platelets #/vol (Bld) 166 {x10E3/uL} Normal 150-379 [facility] Work Phone: Comment on above: PATIENT WAS FASTINGP ERFORMED BY: [address] [id number] Information: [id number] Platelets (Bld) [#/Vol] 166 10*3/uL Normal 150-379 [facility]; [facility] Work Phone: Comment on above: PATIENT WAS FASTINGP ERFORMED BY: ZITA ChaBarn[facility] Ahhxff2833 [facility] [id number] Information: [id number] RBC #/vol (Bld) 5.04 {x10E6/uL} Normal 4.14-5.80 Comp [facility] Internal [facility] Work Phone: Comment on above: PATIENT WAS FASTINGP ERFORMED BY: ZITA EubanksBarnes-[facility] Mxgmkn0232 [facility] [id number] Information: [id number] RBC (Bld) [#/Vol] 5.04 10*6/uL Normal 4.14-5.80 Compr ensive Internal Medicine; [facility] Work Phone: Comment on above: PATIENT WAS FASTINGP ERFORMED BY: ChaBarn[facility] Bustkw6412 [facility] [id number] Information: [id number] WBC #/vol (Bld) 5.0 {x10E3/uL} Normal 3.4-10.8 Compr ensive Internal Medicine Work Phone: Comment on above: PATIENT WAS FASTINGP ERFORMED BY: ZITA EubanksCo Zipxrs3682 [facility] [id number] Information: [id number] WBC (Bld) [#/Vol] 5.0 10*3/uL Normal 3.4-10.8 [facility] Internal Medicine; [facility] Work Phone: Comment on above: PATIENT WAS FASTINGP ERFORMED BY: ZITA Oriana Kjplva0996 [facility] [id number] Information: [id number] LIPID PANEL ([id number])Ordered B y: [employer] Fabricator on 05-23-2014 Cholesterol in HDL mass conc 49 mg/dL Normal [facility] Work Phone: Comment on above: According to ATP-III Guidelines, HDL-C >59 mg/dL is considered anegative risk factor for CHD. PATIENT WAS FASTINGP ERFORMED BY: ZITA ChaBarn[facility] Vfzwgm2914 [facility] [id number] Cholesterol in LDL mass conc 130 mg/dL Abnormal 0-99 [facility] Work Phone: Comment on above: PATIENT WAS FASTINGP ERFORMED BY: ZITA [facility] Mwcyze8874 [facility] [id number] Cholesterol in LDL/Cholesterol in HDL mass ratio 2.7 {ratio_units} Normal 0.0-3.6 [facility] Work Phone: Comment on above: LDL/HDL Ratio Men Wo men 1/2 Avg.Risk 1.0 1.5 Avg.Risk 3.6 3.2 2X Avg.Risk 6.2 5.0 3X Avg.Risk 8.0 6.1 PATIENT WAS FASTINGP ERFORMED BY: ZITA [facility]6370 [facility] [id number] Cholesterol in VLDL mass conc 20 mg/dL Normal 5-40 [facility] Internal Medicine Work Phone: Comment on above: PATIENT WAS FASTINGP ERFORMED BY: ZITA [facility] Xsvmwr6681 [facility] [id number] Cholesterol mass conc 199 mg/dL Normal 100-199 [facility] Work Phone: Comment on above: PATIENT WAS FASTINGP ERFORMED BY: ZITA [facility] Lrswxo8337 [address]oo RoadDublin [place] [id number] Triglyceride mass conc 101 mg/dL Normal 0-149 [facility] Work Phone: Comment on above: PATIENT WAS FASTINGP ERFORMED BY: CB [facility] Cokcev3599 [address] Roadblin [place] [id number] METABOLIC PANEL, COMPREHENSI VE ([id number])Ordered By: [employer] Fabricator on 05-23-2014 Albumin mass conc 4.5 g/dL Normal 3.5-5.5 Compreh ensive Internal Medicine Work Phone: Comment on above: PATIENT WAS FASTINGP ERFORMED BY: ZITA [facility] Ogwgas22[address] Roadblin [place] [id number] Albumin/Globulin mass ratio 2.1 {ratio} Normal 1.1-2.5 [facility] Work Phone: Comment on above: PATIENT WAS FASTINGP ERFORMED BY: [facility] Ptcuzm7200 [address] [facility] [place] [id number] ALP [Catalytic activity/Vol] 61 U/L Normal 39-117 [facility]; [facility] Work Phone: Comment on above: PATIENT WAS FASTINGP ERFORMED BY: [facility] Puddek9727 [address] [facility] Hospitalbl[facility] [place] [id number] ALP enzyme act/vol 61 [iU]/L Normal 39-117 [facility] Internal Medicine Work Phone: Comment on above: PATIENT WAS FASTINGP ERFORMED BY: [facility] Xpzgas3703 [address] RoadDublin [place] [id number] ALT [Catalytic activity/Vol] 16 U/L Normal 0-44 [facility]; [facility] Work Phone: Comment on above: PATIENT WAS FASTINGP ERFORMED BY: [facility] Srmbub1784 [address] RoadDublin [place] [id number] ALT enzyme act/vol 16 [iU]/L Normal 0-44 [facility] Internal Medicine Work Phone: Comment on above: PATIENT WAS FASTINGP ERFORMED BY: ZITA [facility] Khlyvp3133 [address] RoadDublin [place] [id number] AST [Catalytic activity/Vol] 22 U/L Normal 0-40 [facility]; [facility] Work Phone: Comment on above: PATIENT WAS FASTINGP ERFORMED BY: ZITA LabDariusrp Jzdzfh2435 [address] RoadDublin [place] [id number] AST enzyme act/vol 22 [iU]/L Normal 0-[address] [facility] Internal Medicine Work Phone: Comment on above: PATIENT WAS FASTINGP ERFORMED BY: ZITA [facility] Hoaayo3705 [address] RoadDublin [place] [id number] Bilirubin mass conc 0.6 mg/dL Normal 0.0-1.2 Compr ensive Internal Medicine Work Phone: Comment on above: PATIENT WAS FASTINGP ERFORMED BY: ZITA Overton[address]Dublin [place] [id number] Calcium mass conc 9.2 mg/dL Normal 8.7-10.2 Compreh [facility] Work Phone: Comment on above: PATIENT WAS FASTINGP ERFORMED BY: IZTA Overton[address]ublin [place] [id number] Chloride molar conc 99 mmol/L Normal 97-108 Compr [facility] Internal Medicine Work Phone: Comment on above: PATIENT WAS FASTINGP ERFORMED BY: ZITA LabAidan HopperWasegm6818 [address] RoadDublin [place] [id number] CO2 molar conc 23 mmol/L Normal 18-29 Comprehens jeremy Internal Medicine Work Phone: Comment on above: PATIENT WAS FASTINGP ERFORMED BY: ZITA LabCoshruthi HopperBjlppt8293 [address] RoadDublin [place] [id number] Creatinine mass conc 0.86 mg/dL Normal 0.76-1.27 Comp [facility]ensive [facility] Medicine Work Phone: Comment on above: PATIENT WAS FASTINGP ERFORMED BY: ZITA LabAidan HopperDjgebf0159 [address] RoadDublin [place] [id number] GFR/1.73 sq M predicted among blacks CKD-EPI vol rate/area (S/P/Bld) 128 mL/min/1.73 Normal Comprehensiv e Internal Medicine Work Phone: Comment on above: PATIENT WAS FASTINGP ERFORMED BY: ZITA LabCoshruthi HopperEncjpr7945 [address] [facility] Hospitalblin [place] [id number] GFR/1.73 sq M predicted among non-blacks CKD-EPI vol rate/area (S/P/Bld) 111 mL/min/1.73 Normal [facility] Work Phone: Comment on above: PATIENT WAS FASTINGP ERFORMED BY: ZITA [facility] Oftfgp5231 L[address] RoadAtrium Health [facility] Centerin [place] [id number] Globulin mass conc (S) 2.1 g/dL Normal 1.5-4.5 [facility] Work Phone: Comment on above: PATIENT WAS FASTINGP ERFORMED BY: ZITA LabCoshruthi HopperLlhnwf8208 [address] [facility] [id number] Glucose mass conc 91 mg/dL Normal 65-99 Compreh ensive Internal Medicine Work Phone: Comment on above: PATIENT WAS FASTINGP ERFORMED BY: ZITA LabCoshruthi Enwfta[address]22 [address] [facility]in [place] [id number] Potassium molar conc 4.5 mmol/L Normal 3.5-5.2 Comp rehensive Internal Medicine Work Phone: Comment on above: PATIENT WAS FASTINGP ERFORMED BY: ZITA [facility] Qdiiny5183 [address] [facility] [id number] Protein mass conc 6.6 g/dL Normal 6.0-8.5 Compreh ensive Internal Medicine Work Phone: Comment on above: PATIENT WAS FASTINGP ERFORMED BY: ZITA [facility] Ecbvfd9307 [address] [facility]in [place] [id number] Sodium molar conc 138 mmol/L Normal 134-144 Compreh ensive Internal Medicine Work Phone: Comment on above: PATIENT WAS FASTINGP ERFORMED BY: ZITA [facility] Ejgwhr9051 [address] [facility] [id number] Urea nitrogen mass conc 10 mg/dL Normal 6-20 [facility] Work Phone: Comment on above: PATIENT WAS FASTINGP ERFORMED BY: ZITA Overton[address]Dublin [place] [id number] Urea nitrogen/Creatinine mass ratio 12 mg/mg Normal 8-19 [facility] Work Phone: Comment on above: PATIENT WAS FASTINGP ERFORMED BY: ZITA Overton[address]Dublin [place] [id number] MICROALBUMINOrdered By: Syst em Disability Hearing Officer on 05-23-2014 Albumin DL <= 20 mg/L (U) [Mass/Vol] mg/dL Normal 0.0-17.0 Comprehensiv e Internal Medicine; [facility] Work Phone: Comment on above: PATIENT WAS FASTINGP ERFORMED BY: ZITA Hopperlin6370 [address] RoadDublin [place] [id number] Albumin DL <= 20 mg/L mass conc (U) mg/dL Normal 0.0-17.0 [facility] Work Phone: Comment on above: PATIENT WAS FASTINGP ERFORMED BY: ZITA Hopperlin6[address]Dublin [place] [id number] Albumin/Creatinine mass ratio (U) <2.9 Normal 0.0-30.0 [facility] Work Phone: Comment on above: PATIENT WAS FASTINGP ERFORMED BY: ZITA Hopperlin6370 [address]Dublin [place] [id number] Creatinine mass conc (U) 102.3 mg/dL Normal 24.0-392.0 [facility] Work Phone: Comment on above: PATIENT WAS FASTINGP ERFORMED BY: ZITA Hopperlin6[address]Dublin [place] [id number] Microscopic ExaminationOrder ed By: [employer] Fabricator on 05-23-2014 Bacteria LM.HPF #/area (Urine sed) None seen Normal [facility] Work Phone: Comment on above: PATIENT WAS FASTINGP ERFORMED BY: ZITA LabAidan HopperPdwfbm7251 [address] RoadDublin [place] [id number] Epithelial cells LM.HPF #/area (Urine sed) None seen Normal 0 - 10 [facility] Work Phone: Comment on above: PATIENT WAS FASTINGP ERFORMED BY: ZITA [facility] Xpvdek9781 [address] RoadDublin [place] [id number] Mucus Ql (Urine sed) Present Normal Comp rehensive Internal Medicine Work Phone: Comment on above: PATIENT WAS FASTINGP ERFORMED BY: ZITA [facility] Iyobqj8143 [address] RoadDublin [place] [id number] RBC LM.HPF #/area (Urine sed) None seen Normal 0 - 2 [facility] Work Phone: Comment on above: PATIENT WAS FASTINGP ERFORMED BY: ZITA [facility] Heyhsr5878 [address] RoadDublin [place] [id number] WBC LM.HPF #/area (Urine sed) 0-5 Normal 0 - 5 [facility] Work Phone: Comment on above: PATIENT WAS FASTINGP ERFORMED BY: [facility]Barn[facility] Tjxnbq3053 [address] [facility] Hospitalblin [place] [id number] TSH ([id number])Ordered By: Ajungoe m Disability Hearing Officer on 05-23-2014 Thyrotropin Qn 2.000 {uIU/mL} Normal 0.450-4.50 0 [facility] Work Phone: Comment on above: PATIENT WAS FASTINGP ERFORMED BY: [facility] Jnscgf7896 [address] [facility] Hospitalblin [place] [id number] URINALYSIS, W/ MICRO ([id number]) Ordered By: [employer] Fabricator on 05-23-2014 Appearance Nom (U) Clear Normal Compre hensive Internal Medicine Work Phone: Comment on above: PATIENT WAS FASTINGP ERFORMED BY: [facility] Elcwbu4063 [address] RoadDublin [place] [id number] Bilirubin Ql (U) Negative Normal Comprehe nsive Internal Medicine Work Phone: Comment on above: PATIENT WAS FASTINGP ERFORMED BY: [facility] Jsvhcg2512 [address] RoadDublin [place] [id number] Bilirubin Ql (U) Negative Normal Comprehe nsive Internal Medicine; [facility] Work Phone: Comment on above: PATIENT WAS FASTINGP ERFORMED BY: ZITA Overton[address]Dublin [place] [id number] Color Nom (U) Yellow Normal Comprehensi ve Internal Medicine Work Phone: Comment on above: PATIENT WAS FASTINGP ERFORMED BY: ZITA Overton6[address]Dublin [place] [id number] Glucose Ql (U) Negative Normal Comprehens jeremy Internal Medicine Work Phone: Comment on above: PATIENT WAS FASTINGP ERFORMED BY: ZITA Overton[address]Dublin [place] [id number] Glucose Ql (U) Negative Normal Comprehens jeremy Internal Medicine; [facility] Work Phone: Comment on above: PATIENT WAS FASTINGP ERFORMED BY: ZITA Overton[address]Dublin [place] [id number] Hemoglobin Ql (U) Negative Normal Compreh ensive Internal Medicine Work Phone: Comment on above: PATIENT WAS FASTINGP ERFORMED BY: ZITA Overton[address] [place] [id number] Hemoglobin Ql (U) Negative Normal Compreh ensive Internal Medicine; [facility] Work Phone: Comment on above: PATIENT WAS FASTINGP ERFORMED BY: ZITA Overton6[address] [place] [id number] Ketones Ql (U) Negative Normal Comprehens jeremy Internal Medicine Work Phone: Comment on above: PATIENT WAS FASTINGP ERFORMED BY: ZITA LabAidan HopperEehews0935 [address] RoadDublin [place] [id number] Ketones Ql (U) Negative Normal Comprehens jeremy Internal Medicine; [facility] Work Phone: Comment on above: PATIENT WAS FASTINGP ERFORMED BY: ZITA Hopperlin6[address]Dublin [place] [id number] Leukocyte esterase Test strip Ql (U) Negative Normal [facility] Work Phone: Comment on above: PATIENT WAS FASTINGP ERFORMED BY: ZITA LabAidan HopperSpfjai7397 [address] RoadDublin [place] [id number] Leukocyte esterase Test strip Ql (U) Negative Normal [facility]; [facility] Work Phone: Comment on above: PATIENT WAS FASTINGP ERFORMED BY: ZITA Overton[address]Dublin [place] [id number] Microscopic observation LM Nom (Urine sed) MICRON Normal [facility] Work Phone: Comment on above: Microscopic follows if indicated. PATIENT WAS FASTINGP ERFORMED BY: ZITA LabAidan HopperZnshhm5802 [address] RoadDublin [place] [id number] Microscopic observation LM Nom (Urine sed) See below: Normal [facility] Work Phone: Comment on above: Microscopic was viviana cated and was performed. PATIENT WAS FASTINGP ERFORMED BY: ZITA Hopperlin6[address]Dublin [place] [id number] Nitrite Ql (U) Negative Normal Comprehens jeremy Internal Medicine Work Phone: Comment on above: PATIENT WAS FASTINGP ERFORMED BY: ZITA Hopperlin6[address]Dublin [place] [id number] Nitrite Ql (U) Negative Normal Comprehens jeremy Internal Medicine; [facility] Work Phone: Comment on above: PATIENT WAS FASTINGP ERFORMED BY: ZITA Hopperlin6[address] [place] [id number] pH (U) 8.0 [pH] Abnormal 5.0-7.5 [facility] Work Phone: Comment on above: PATIENT WAS FASTINGP ERFORMED BY: ZITA LabCoshruthi HopperBkiwai7567 [address] RoadDublin [place] [id number] Protein Ql (U) Trace Normal Comprehens jeremy Internal Medicine Work Phone: Comment on above: PATIENT WAS FASTINGP ERFORMED BY: ZITA LabCoshruthi HopperEomuea0926 [address]Dublin [place] [id number] Specific gravity Relative Density (U) 1.019 1 Normal 1.005-1.03 0 [facility] Work Phone: Comment on above: PATIENT WAS FASTINGP ERFORMED BY: ZITA [facility] Khiyjf1702 [address] [facility]in [place] [id number] Urobilinogen (U) [Mass/Vol] 0.2 mg/dL Normal 0.0-1.9 [facility]; [facility] Work Phone: Comment on above: PATIENT WAS FASTINGP ERFORMED BY: ZITA [facility] Vhztxu0815 [address] Roadblin [place] [id number] Urobilinogen Test strip mass conc (U) 0.2 mg/dL Normal 0.0-1.9 Comprehens e Internal Medicine Work Phone: Comment on above: PATIENT WAS FASTINGP ERFORMED BY: ZIAT [facility] Dfxvff9239 LooCoxHealth [id number] CBC WITH MANUAL DIFF (03078) Ordered By: [employer] Fabricator on 05-02-2012 Basophils #/vol (Bld) 0.0 {x10E3/uL} Normal 0.0-0.2 [facility] Work Phone: Comment on above: PATIENT WAS FASTINGP ERFORMED BY: S7 [employer] Orc4398 [facility] [id number] BY: ZITA [facility] Rpceiv5739 [facility] [id number] Basophils (Bld) [#/Vol] 0.0 10*3/uL Normal 0.0-0.2 [facility]; [facility] Work Phone: Comment on above: PATIENT WAS FASTINGP ERFORMED BY: S7 [employer] Xeh6591 [facility] [id number] BY: [facility] Sztakj1107 [facility] [id number] Basophils/100 WBC (Bld) 1 % Normal 0-3 [facility] Work Phone: Comment on above: PATIENT WAS FASTINGP ERFORMED BY: S7 [employer] Ygc0906 [facility] [id number] BY: ZITA LabAidan HopperNjedav5874 [address] RoadDublin [place] [id number] Eosinophils #/vol (Bld) 0.2 {x10E3/uL} Normal 0.0-0.4 [facility] Work Phone: Comment on above: PATIENT WAS FASTINGP ERFORMED BY: S7 [employer] Lii6050 [facility] [id number] BY: ZITA LabCoshruthi HopperAjhnlc[address]Dublin [place] [id number] Eosinophils (Bld) [#/Vol] 0.2 10*3/uL Normal 0.0-0.4 [facility]; [facility] Work Phone: Comment on above: PATIENT WAS FASTINGP ERFORMED BY: S7 [employer] Vcl9409 [facility] [id number] BY: ZITA LabAidan HopperYojegd2888 [address] RoadDublin [place] [id number] Eosinophils/100 WBC (Bld) 4 % Normal 0-7 [facility] Work Phone: Comment on above: PATIENT WAS FASTINGP ERFORMED BY: S7 [employer] Jve3622 [facility] [id number] BY: ZITA LabAidan HopperNcumqe0593 [address] RoadDuin [place] [id number] Erythrocyte distribution width Ratio (RBC) 13.8 % Normal 12.3-15.4 [facility] Work Phone: Comment on above: PATIENT WAS FASTINGP ERFORMED BY: S7 [employer] Uxh8382 [facility] [id number] BY: ZITA [facility] Jrzbon4978 [address] RoadDublin [place] [id number] Hematocrit Volume Fraction (Bld) 42.2 % Normal 37.5-51.0 [facility] Work Phone: Comment on above: PATIENT WAS FASTINGP ERFORMED BY: [employer] Sva9557 [facility] [id number] BY: ZITA LabCoshruthi HopperAcxkfd9243 [address] [facility] [id number] Hemoglobin mass conc (Bld) 14.8 g/dL Normal 12.6-17.7 [facility] Work Phone: Comment on above: PATIENT WAS FASTINGP ERFORMED BY: [employer] Zfb2148 [facility] [id number] BY: ZITA Overton6[address]Duin [place] [id number] Immature granulocytes #/vol (Bld) 0.0 {x10E3/uL} Normal 0.0-0.1 [facility] Work Phone: Comment on above: PATIENT WAS FASTINGP ERFORMED BY: [employer] Tip0860 [facility] [id number] BY: ZITA LabAidan HopperMuezda0595 [address] [facility] [id number] Immature granulocytes (Bld) [#/Vol] 0.0 10*3/uL Normal 0.0-0.1 [facility]; [facility] Work Phone: Comment on above: PATIENT WAS FASTINGP ERFORMED BY: [employer] Ehs9005 [facility] [id number] BY: ZITA Hopperlin[address] [facility] [id number] Immature granulocytes/100 WBC (Bld) 0 % Normal 0-2 [facility] Work Phone: Comment on above: PATIENT WAS FASTINGP ERFORMED BY: [employer] Get5040 [facility] [id number] BY: ZITA LabCoshruthi HopperWcdofr2581 [address] [facility] [id number] Lymphocytes #/vol (Bld) 1.7 {x10E3/uL} Normal 0.7-4.5 [facility] Work Phone: Comment on above: PATIENT WAS FASTINGP ERFORMED BY: [employer] Wbe1190 [facility] [id number] BY: ZITA Hopperlin6[address] RoadAtrium [facility] Centerin [place] [id number] Lymphocytes (Bld) [#/Vol] 1.7 10*3/uL Normal 0.7-4.5 [facility]; [facility] Work Phone: Comment on above: PATIENT WAS FASTINGP ERFORMED BY: S7 [employer] Lru5613 [facility] [id number] BY: ZITA [facility] Kbzvso9096 [address] [facility]in [place] [id number] Lymphocytes/100 WBC (Bld) 33 % Normal 14-46 [facility] Work Phone: Comment on above: PATIENT WAS FASTINGP ERFORMED BY: S7 [employer] Nar3172 [facility] [id number] BY: ZITA LabCoshruthi HopperMzqsmo4388 [address] RoadAtrium Health [facility] Centerin [place] [id number] MCH Entitic mass (RBC) 30.0 pg Normal 26.6-33.0 [facility] Work Phone: Comment on above: PATIENT WAS FASTINGP ERFORMED BY: S7 [employer] Ail5464 [facility] [id number] BY: ZITA LabCoshruthi HopperXknyew2930 [facility] [id number] MCHC mass conc (RBC) 35.1 g/dL Normal 31.5-35.7 [facility] Internal Medicine Work Phone: Comment on above: PATIENT WAS FASTINGP ERFORMED BY: S7 [employer] Vna9450 [facility] [id number] BY: ZITA [facility] Htwywk0262 [facility]oo[facility] [id number] MCV Entitic volume (RBC) 86 fL Normal 79-97 [facility] Work Phone: Comment on above: PATIENT WAS FASTINGP ERFORMED BY: [employer] Tpo4854 [facility] [id number] BY: ZITA LabAidan HopperBegjxj3004 [address] [facility] HospitalDuin [place] [id number] Monocytes #/vol (Bld) 0.4 {x10E3/uL} Normal 0.1-1.0 [facility] Work Phone: Comment on above: PATIENT WAS FASTINGP ERFORMED BY: [employer] Oef9690 [facility] [id number] BY: ZITA LabCoshruthi Zwiptl8773 [address] RoadDublin [place] [id number] Monocytes (Bld) [#/Vol] 0.4 10*3/uL Normal 0.1-1.0 [facility]; [facility] Work Phone: Comment on above: PATIENT WAS FASTINGP ERFORMED BY: [employer] Ffe4444 [facility] [id number] BY: ZITA LabCoshruthi HopperNuimgp0589 [address] RoadDublin [place] [id number] Monocytes/100 WBC (Bld) 8 % Normal 4-13 [facility] Work Phone: Comment on above: PATIENT WAS FASTINGP ERFORMED BY: [employer] Cqu2457 [facility] [id number] BY: IZTA LabCoshruthi HopperGmqmii5320 [address] RoadDublin [place] [id number] Neutrophils #/vol (Bld) 2.8 {x10E3/uL} Normal 1.8-7.8 [facility] Work Phone: Comment on above: PATIENT WAS FASTINGP ERFORMED BY: [employer] Jru0044 [facility] [id number] BY: ZITA [facility] Qbwmtc7102 [address] RoadDublin [place] [id number] Neutrophils (Bld) [#/Vol] 2.8 10*3/uL Normal 1.8-7.8 [facility]; [facility] Work Phone: Comment on above: PATIENT WAS FASTINGP ERFORMED BY: [employer] Esy3375 [facility] [id number] BY: ZITA [facility] Bsydpt5597 [address] RoadDublin [place] [id number] Neutrophils/100 WBC (Bld) 54 % Normal 40-74 [facility] Work Phone: Comment on above: PATIENT WAS FASTINGP ERFORMED BY: S7 [employer] Sdx3335 [facility] CenternettieRoane [facility] Hospital [id number] BY: ZITA [facility] Uztine7790 [address] RoadDublin [place] [id number] Platelets #/vol (Bld) 155 {x10E3/uL} Normal 140-415 [facility] Work Phone: Comment on above: PATIENT WAS FASTINGP ERFORMED BY: S7 [employer] Mwp6742 [facility] [id number] BY: ZITA [facility] Ulyokn3550 [address] RoadDublin [place] [id number] Platelets (Bld) [#/Vol] 155 10*3/uL Normal 140-415 [facility]; [facility] Work Phone: Comment on above: PATIENT WAS FASTINGP ERFORMED BY: S7 [employer] Zto6187 [facility] [id number] BY: ZITA [facility] Pxgrzh1984 [address] RoadDublin [place] [id number] RBC #/vol (Bld) 4.93 {x10E6/uL} Normal 4.14-5.80 [facility] Internal Medicine Work Phone: Comment on above: PATIENT WAS FASTINGP ERFORMED BY: S7 [employer] Ldk5168 [facility] [id number] BY: ZITA [facility] Mdzbyl3333 [address] RoadDublin [place] [id number] RBC (Bld) [#/Vol] 4.93 10*6/uL Normal 4.14-5.80 [facility]; [facility] Internal Medicine Work Phone: Comment on above: PATIENT WAS FASTINGP ERFORMED BY: S7 [employer] Ujk3025 [facility] [id number] BY: CB [facility] Zazwft2259 [address] RoadDublin [place] [id number] WBC #/vol (Bld) 5.3 {x10E3/uL} Normal 4.0-10.5 Compr [facility] Internal Medicine Work Phone: Comment on above: PATIENT WAS FASTINGP ERFORMED BY: S7 [employer] Lvx5400 [place] [facility]tieRo[facility] [id number] BY: ZITA [facility] Gwwgjx2742 [facility]in [place] [id number] WBC (Bld) [#/Vol] 5.3 10*3/uL Normal 4.0-10.5 [facility]; [facility] Work Phone: Comment on above: PATIENT WAS FASTINGP ERFORMED BY: S7 [employer] Lhd2955 [facility] [id number] BY: ZITA LabCoshruthi HopperGwuzrl0302 [facility] [id number] LIPOPROTEIN, BLD, BY NMR (72 814)Ordered By: Fil[employer] W[employer] Parts Fabricator on 05-02-2012 Cholesterol in HDL mass conc 62 mg/dL Normal [facility] Work Phone: Comment on above: PATIENT WAS FASTINGP ERFORMED BY: S7 [employer] Wxn4300 [facility] [id number] BY: ZITA [facility] Syntog6366 [facility] [id number] Information: [id number] Cholesterol in LDL mass conc 105 mg/dL Abnormal [facility] Work Phone: Comment on above: . Optimal < 100 Abov e optimal 100 - 129 Borderline 130 - 159 High 160 - 189 Very high > 189 . PATIENT WAS FASTINGP ERFORMED BY: S7 [employer] Eac1785 [facility] [id number] BY: ZITA [facility] Jgqptd3195 [facility] [id number] Information: [id number] Cholesterol mass conc 182 mg/dL Normal [facility] Work Phone: Comment on above: PATIENT WAS FASTINGP ERFORMED BY: S7 [employer] Arj3463 [facility] Hospitalgh [place] [id number] BY: [facility] CenterLookStatRoosevelt General HospitalRvornq4022 [facility] [id number] Information: [id number] Lipoprotein.alpha molar conc 38.9 umol/L Normal [facility] Work Phone: Comment on above: PATIENT WAS FASTINGP ERFORMED BY: S7 [facility] [address] [place] [address] [id number] BY: [facility] Medical CenterLookStat Hgajyg1443 [facility] [id number] Information: [id number],L64582 Lipoprotein.beta.sub particle Entitic length 21.1 nm Normal [facility] Work Phone: Comment on above: INTERPRETATIVE INFORMATION PARTICLE CONCENTRATION AND SIZE <--Lower CVD Risk Higher CVD Risk--> LDL AND HDL PARTICLES Percentile in Reference Population HDL-P (total) High 75th 50th 25th Low >34.9 34.9 30.5 26.7 <26.7 . Small LDL-P Low 25th 50th 75th High <117 117 527 839 >839 . LDL Size <-Large (Pattern A)-> <-Small (Pattern B)-> 23.0 20.6 20.5 19.0 PATIENT WAS FASTINGP ERFORMED BY: S[address] [id number] BY: [facility]6370 [facility] [id number] Information: 308945,E85502 Lipoprotein.beta.sub particle molar conc 1476 nmol/L Abnormal Comprehensiv e Internal Medicine Work Phone: Comment on above: Low < 1000 Moderate 1000 - 1299 Borderline-High 1300 - 1599 High 1600 - 2000 Very High > 2000 PATIENT WAS FASTINGP ERFORMED BY: S7 [employer] Hvw2669 [facility] [id number] BY: ZITA [facility] Ljpggl9000 [address] [facility]in [place] [id number] Information: 862585,T25236 Lipoprotein.beta.sub particle.small molar conc 495 nmol/L Normal [facility] Work Phone: Comment on above: PATIENT WAS FASTINGP ERFORMED BY: Uma [employer] Eat5076 [facility] [id number] BY: ZITA [facility] Rkatkn1170 [facility] [id number] Information: 805725,E17973 Triglyceride mass conc 74 mg/dL Normal [facility] Work Phone: Comment on above: PATIENT WAS FASTINGP ERFORMED BY: S7 [employer] Wsz7975 [facility] [id number] BY: ZITA LabAidan Kofstl9570 [facility] [id number] Information: 845634,P46903 METABOLIC PANEL, COMPREHENSI VE (28151)Ordered By: [employer] Fabricator on 05-02-2012 Albumin mass conc 4.5 g/dL Normal 3.5-5.5 Compreh ensive Internal Medicine Work Phone: Comment on above: PATIENT WAS FASTINGP ERFORMED BY: S7 [employer] Mad2071 [facility] [id number] BY: ZITA [facility] Dihpqa8263 [facility] [id number] Albumin/Globulin mass ratio 2.0 {ratio} Normal 1.1-2.5 [facility] Work Phone: Comment on above: PATIENT WAS FASTINGP ERFORMED BY: S7 [employer] Axw2183 [facility] [id number] BY: ZITA Hopperlin6370 [address] RoadDublin [place] [id number] ALP [Catalytic activity/Vol] 57 U/L Normal 25-150 [facility] Internal Medicine; [facility] Internal Medicine Work Phone: Comment on above: PATIENT WAS FASTINGP ERFORMED BY: S7 [employer] Xxt8305 [facility] [id number] BY: ZITA Hopperlin6[address] RoadDublin [place] [id number] ALP enzyme act/vol 57 [iU]/L Normal 25-150 [facility] Internal Medicine Work Phone: Comment on above: PATIENT WAS FASTINGP ERFORMED BY: [employer] Cjr8038 [facility] [id number] BY: ZITA Hopperlin6[address] RoadDublin [place] [id number] ALT [Catalytic activity/Vol] 10 U/L Normal 0-44 [facility] Internal Medicine; [facility] Internal Medicine Work Phone: Comment on above: PATIENT WAS FASTINGP ERFORMED BY: [employer] Afb4758 [facility] [id number] BY: ZITA Overton6[address] RoadDublin [place] [id number] ALT enzyme act/vol 10 [iU]/L Normal 0-44 [facility] Internal Medicine Work Phone: Comment on above: PATIENT WAS FASTINGP ERFORMED BY: [employer] Uec2115 [facility] [id number] BY: ZITA LabCoshruthi HopperVuczqb8854 L[address] RoadDublin [place] [id number] AST [Catalytic activity/Vol] 17 U/L Normal 0-40 [facility] MedicineUn[facility] Work Phone: Comment on above: PATIENT WAS FASTINGP ERFORMED BY: [employer] Wdi4436 [facility] [id number] BY: ZITA LabAidan HopperVtuduh01[address] RoadDublin [place] [id number] AST enzyme act/vol 17 [iU]/L Normal 0-40 Compre hensive Internal Medicine Work Phone: Comment on above: PATIENT WAS FASTINGP ERFORMED BY: S7 [employer] Maj0006 [facility]ernettieRo[facility] [id number] BY: ZITA [facility] Qkzbyw8455 [address] RoadDublin [place] [id number] Bilirubin mass conc 1.0 mg/dL Normal 0.0-1.2 Compr ehensive Internal Medicine Work Phone: Comment on above: PATIENT WAS FASTINGP ERFORMED BY: S7 [employer] Jth9894 [facility] [id number] BY: ZITA [facility] Vzqicy2976 [address] RoadDublin [place] [id number] Calcium mass conc 9.2 mg/dL Normal 8.7-10.2 Compreh [facility] hospitalive Internal Medicine Work Phone: Comment on above: PATIENT WAS FASTINGP ERFORMED BY: S7 [employer] Zhh8890 [facility] [id number] BY: ZITA [facility] Rmuoag4068 [address] RoadDublin [place] [id number] Chloride molar conc 102 mmol/L Normal 97-108 Compr ensive Internal Medicine Work Phone: Comment on above: PATIENT WAS FASTINGP ERFORMED BY: S7 [employer] Tao3599 [facility] [id number] BY: ZITA [facility] Wzyndu4403 [address] RoadDublin [place] [id number] CO2 molar conc 23 mmol/L Normal 20-32 Comprehens jeremy Internal Medicine Work Phone: Comment on above: PATIENT WAS FASTINGP ERFORMED BY: S7 [employer] Hvl1386 [facility] [id number] BY: ZITA [facility] Rekoah2276 [address] RoadDublin [place] [id number] Creatinine mass conc 0.81 mg/dL Normal 0.76-1.27 Comp [facility] hospitalensive Internal Medicine Work Phone: Comment on above: PATIENT WAS FASTINGP ERFORMED BY: S7 [employer] Rao2413 [facility] [id number] BY: ZITA [facility] Pueyzd6424 [address] RoadAtrium Health [facility] Centerin [place] [id number] GFR/1.73 sq M predicted among blacks CKD-EPI vol rate/area (S/P/Bld) 133 mL/min/1.73 Normal Comprehensiv e Internal Medicine Work Phone: Comment on above: PATIENT WAS FASTINGP ERFORMED BY: S7 [employer] Lxi9472 [facility] [id number] BY: ZITA [facility] Vszqfm0162 [address] [facility]in [place] [id number] GFR/1.73 sq M predicted among non-blacks CKD-EPI vol rate/area (S/P/Bld) 115 mL/min/1.73 Normal [facility] Work Phone: Comment on above: PATIENT WAS FASTINGP ERFORMED BY: S7 [employer] Eod8861 [facility] [id number] BY: ZITA [facility] Seclmt1403 [address] [facility] [id number] Globulin mass conc (S) 2.2 g/dL Normal 1.5-4.5 [facility] Work Phone: Comment on above: PATIENT WAS FASTINGP ERFORMED BY: S7 [employer] Eva3578 [facility] [id number] BY: ZITA [facility] Otlfvm8377 [address] [facility]in [place] [id number] Glucose mass conc 97 mg/dL Normal 65-99 Compreh ensive Internal Medicine Work Phone: Comment on above: PATIENT WAS FASTINGP ERFORMED BY: S7 [employer] Ckw7282 [facility] [id number] BY: ZITA [facility] Mlxsas4831 [address] [facility]in [place] [id number] Potassium molar conc 4.6 mmol/L Normal 3.5-5.2 Comp rehensive Internal Medicine Work Phone: Comment on above: PATIENT WAS FASTINGP ERFORMED BY: S7 [employer] Ibj4701 [facility] [id number] BY: ZITA [facility] Nkwxoe2470 [address] RoadDublin [place] [id number] Protein mass conc 6.7 g/dL Normal 6.0-8.5 Compreh ensive Internal Medicine Work Phone: Comment on above: PATIENT WAS FASTINGP ERFORMED BY: S7 [employer] Imz3564 [facility] [id number] BY: ZITA [facility] Hygsyo9647 [address] RoadDublin [place] [id number] Sodium molar conc 137 mmol/L Normal 134-144 Compreh ensive Internal Medicine Work Phone: Comment on above: PATIENT WAS FASTINGP ERFORMED BY: S7 [employer] Gii1767 [facility] [id number] BY: ZITA [facility] Brsgjt3995 [address] RoadDublin [place] [id number] Urea nitrogen mass conc 14 mg/dL Normal 6-20 [facility] Work Phone: Comment on above: PATIENT WAS FASTINGP ERFORMED BY: S7 [employer] Lpt0018 [facility] [id number] BY: ZITA [facility] Cxvmai8001 [address] RoadDublin [place] [id number] Urea nitrogen/Creatinine mass ratio 17 mg/mg Normal 8-19 [facility] Work Phone: Comment on above: PATIENT WAS FASTINGP ERFORMED BY: S7 [employer] Ulj2655 [facility] [id number] BY: ZITA [facility] Zvmfem9942 [address] RoadDublin [place] [id number] MICROALBUMIN URINE QUANT (82 043)Ordered By: [employer] Fabricator on 05-02-2012 Albumin DL <= 20 mg/L mass conc (U) 1.1 ug/mL Normal 0.0-17.0 [facility] Work Phone: Comment on above: PATIENT WAS FASTINGP ERFORMED BY: S7 [employer] Yuo2237 [facility] [id number] BY: ZITA [facility] Qlfsmn4492 [address] RoadDublin [place] [id number] Albumin/Creatinine mass ratio (U) 2.1 {mg/g_creat} Normal 0.0-30.0 [facility] Work Phone: Comment on above: PATIENT WAS FASTINGP ERFORMED BY: S7 [employer] Gll4115 [facility] [id number] BY: ZITA [facility] Eochws6[address] RoadDublin [place] [id number] Creatinine mass conc (U) 51.5 mg/dL Normal 24.0-392.0 [facility] Work Phone: Comment on above: PATIENT WAS FASTINGP ERFORMED BY: S7 [employer] Rgr6800 [facility] [id number] BY: ZITA [facility] Ormhua0404 [address] RoadAtrium Health [facility] Centerin [place] [id number] Microscopic ExaminationOrder ed By: [employer] Fabricator on 05-02-2012 Bacteria LM.HPF #/area (Urine sed) None seen Normal [facility] Work Phone: Comment on above: PATIENT WAS FASTINGP ERFORMED BY: S7 [employer] Vnp8131 [facility] [id number] BY: ZITA [facility] Ccxtog9121 [address] RoadDublin [place] [id number] Epithelial cells LM.HPF #/area (Urine sed) None seen Normal 0 - 10 [facility] Work Phone: Comment on above: PATIENT WAS FASTINGP ERFORMED BY: S7 [employer] Wrb8599 [facility] [id number] BY: ZITA [facility] Hwwgrh9465 [address] RoadDublin [place] [id number] RBC LM.HPF #/area (Urine sed) None seen Normal 0 - 3 [facility] Work Phone: Comment on above: PATIENT WAS FASTINGP ERFORMED BY: [employer] Qcf0624 [facility] [id number] BY: ZITA LabBarn[facility] Lnpjwb1410 [facility] [id number] WBC LM.HPF #/area (Urine sed) 0-5 Normal 0 - 5 [facility] Work Phone: Comment on above: PATIENT WAS FASTINGP ERFORMED BY: S7 [employer] Mxq7607 [facility] [id number] BY: LabBarn[facility] Ijpjem6854 [facility] [id number] TSH (55413)Ordered By: Ajungoe m Disability Hearing Officer on 05-02-2012 Thyrotropin Qn 1.840 {uIU/mL} Normal 0.450-4.50 0 [facility] Work Phone: Comment on above: PATIENT WAS FASTINGP ERFORMED BY: S7 [employer] Jsf2900 [facility] [id number] BY: LabMissouri Baptist Medical CenterLrajvh9327 [facility] [id number] URINALYSIS, W/ MICRO (13722) Ordered By: [employer] Fabricator on 05-02-2012 Appearance Nom (U) Clear Normal Compre hensive Internal Medicine Work Phone: Comment on above: PATIENT WAS FASTINGP ERFORMED BY: S7 [employer] Htm8754 [facility] [id number] BY: ZITA LabBarn[facility] Lfyqpy7859 [address] [facility] [id number] Bilirubin Ql (U) Negative Normal Comprehe nsive Internal Medicine Work Phone: Comment on above: PATIENT WAS FASTINGP ERFORMED BY: S7 [employer] Ksi0063 [facility] [id number] BY: LabBarn[facility] Lzovuy3530 [address] [facility] [id number] Bilirubin Ql (U) Negative Normal Comprehe nsive Internal Medicine; [facility] Work Phone: Comment on above: PATIENT WAS FASTINGP ERFORMED BY: S7 [employer] Wpa5872 [facility] [id number] BY: ZITA EubanksCoshruthi HopperYjssvg5047 [address] RoadDublin [place] [id number] Color Nom (U) Yellow Normal Comprehensi ve Internal Medicine Work Phone: Comment on above: PATIENT WAS FASTINGP ERFORMED BY: S7 [employer] Eta5581 [facility] [id number] BY: ZITA LabAidan HopperRpnhlq3450 [address] RoadDublin [place] [id number] Glucose Ql (U) Negative Normal Comprehens jeremy Internal Medicine Work Phone: Comment on above: PATIENT WAS FASTINGP ERFORMED BY: [employer] Yub1200 [facility] [id number] BY: ZITA [facility] Tuzfpw7711 [address] RoadDublin [place] [id number] Glucose Ql (U) Negative Normal Comprehens jeremy Internal Medicine; [facility] Work Phone: Comment on above: PATIENT WAS FASTINGP ERFORMED BY: [employer] Apu0245 [facility] [id number] BY: ZITA LabAidan HopperAzmmyj4363 [address] RoadDublin [place] [id number] Hemoglobin Ql (U) Negative Normal Compreh ensive Internal Medicine Work Phone: Comment on above: PATIENT WAS FASTINGP ERFORMED BY: [employer] Mia4669 [facility] [id number] BY: ZITA LabAidan HopperLeivbr4176 [address] RoadDublin [place] [id number] Hemoglobin Ql (U) Negative Normal Compreh ensive Internal Medicine; [facility] Work Phone: Comment on above: PATIENT WAS FASTINGP ERFORMED BY: [employer] Ucf0952 [facility] [id number] BY: ZITA LabCoshruthi HopperOukmrh1242 L[address] RoadDublin [place] [id number] Ketones Ql (U) Negative Normal Comprehens jeremy Internal Medicine Work Phone: Comment on above: PATIENT WAS FASTINGP ERFORMED BY: S7 [employer] Ghn5063 [facility] [id number] BY: ZITA [facility] Fsyvgr3126 [address] RoadDublin [place] [id number] Ketones Ql (U) Negative Normal Comprehens jeremy Internal Medicine; [facility] Work Phone: Comment on above: PATIENT WAS FASTINGP ERFORMED BY: S7 [employer] Owo7076 [facility] [id number] BY: CB [facility] Zaojod5775 [address] RoadDublin [place] [id number] Leukocyte esterase Test strip Ql (U) Negative Normal [facility] Work Phone: Comment on above: PATIENT WAS FASTINGP ERFORMED BY: S7 [employer] Yix0201 [facility] [id number] BY: ZITA [facility] Tdogux2063 [address] RoadDublin [place] [id number] Leukocyte esterase Test strip Ql (U) Negative Normal [facility]; [facility] Work Phone: Comment on above: PATIENT WAS FASTINGP ERFORMED BY: S7 [employer] Won6830 [facility] [id number] BY: ZITA [facility] Kcjilq5792 [address] RoadDublin [place] [id number] Microscopic observation LM Nom (Urine sed) See below: Normal [facility] Work Phone: Comment on above: PATIENT WAS FASTINGP ERFORMED BY: S7 [employer] Gmf3952 [facility] [id number] BY: CB [facility] Bspmuq2760 [address] RoadDublin [place] [id number] Microscopic observation LM Nom (Urine sed) MICRON Normal [facility] Work Phone: Comment on above: Microscopic follows if indicated. PATIENT WAS FASTINGP ERFORMED BY: S7 [employer] Gro6961 [facility] [id number] BY: CB [facility] Wmwfun5902 [address] RoadDublin [place] [id number] Nitrite Ql (U) Negative Normal Comprehens jeremy Internal Medicine Work Phone: Comment on above: PATIENT WAS FASTINGP ERFORMED BY: S7 [employer] Hgz5442 [facility] [id number] BY: ZITA [facility] Bkbdxr8195 [address] RoadDublin [place] [id number] Nitrite Ql (U) Negative Normal Comprehens jeremy Internal Medicine; [facility] Work Phone: Comment on above: PATIENT WAS FASTINGP ERFORMED BY: S7 [employer] Qjv5169 [facility] [id number] BY: ZITA LabAidan Overton6[address] RoadDublin [place] [id number] pH (U) 7.0 [pH] Normal 5.0-7.5 [facility] Work Phone: Comment on above: PATIENT WAS FASTINGP ERFORMED BY: S7 [employer] Xof8849 [facility] [id number] BY: ZITA LabAidan HopperDytkuy9108 [address] RoadDublin [place] [id number] Protein Ql (U) Negative Normal Comprehens jeremy Internal Medicine Work Phone: Comment on above: PATIENT WAS FASTINGP ERFORMED BY: S7 [employer] Sdk6861 [facility] [id number] BY: ZITA LabAidan HopperPdsctl3032 [address] RoadDublin [place] [id number] Protein Ql (U) Negative Normal Comprehens jeremy Internal Medicine; [facility] Work Phone: Comment on above: PATIENT WAS FASTINGP ERFORMED BY: [employer] Ynr8186 [facility] [id number] BY: ZITA [facility] Bdakbh2652 [address] RoadDublin [place] [id number] Specific gravity Relative Density (U) 1.012 1 Normal 1.005-1.03 0 [facility] Work Phone: Comment on above: PATIENT WAS FASTINGP ERFORMED BY: S7 [employer] Mid5587 [facility] [id number] BY: ZITA LabCo Aiftzv7095 [facility] [id number] Urobilinogen (U) [Mass/Vol] 0.2 mg/dL Normal 0.0-1.9 [facility]; [facility] Work Phone: Comment on above: PATIENT WAS FASTINGP ERFORMED BY: [employer] Fgd0596 [facility] [id number] BY: ZITA LabCoRoosevelt General HospitalVzcdoe1639 [facility] [id number] Urobilinogen Test strip mass conc (U) 0.2 mg/dL Normal 0.0-1.[address] [facility] Internal [facility] Work Phone: Comment on above: PATIENT WAS FASTINGP ERFORMED BY: [employer] Jjw3692 [facility] [id number] BY: ZITA EubanksBarnes-[facility] Asiles8827 [facility] [id number] Uric Acid Blood (31671)Order ed By: [employer] Fabricator on 05-02-2012 Urate mass conc 4.5 mg/dL Normal 3.7-8.6 [facility] Internal Medicine Work Phone: Comment on above: Therapeutic target f or gout patients: <6.0 PATIENT WAS FASTINGP ERFORMED BY: [employer] Nfa3883 [facility] [id number] BY: ZITA LabBarnes[facility] Iohkvi9569 [facility] [id number] CBC WITH MANUAL DIFF (93353) Ordered By: [employer] Fabricator on 10-27-2010 Basophils #/vol (Bld) 0.1 {x10E3/uL} Normal 0.0-0.2 [facility] Work Phone: Comment on above: PATIENT WAS FASTINGP ERFORMED BY: ZITA LabDarius Fsunap0691 [facility] [id number] Information: [id number],X12875 Basophils (Bld) [#/Vol] 0.1 10*3/uL Normal 0.0-0.2 [facility]; [facility] Work Phone: Comment on above: PATIENT WAS FASTINGP ERFORMED BY: ZITA Overton6370 [facility] [id number] Information: 218252,B78574 Basophils/100 WBC (Bld) 1 % Normal 0-3 [facility] Work Phone: Comment on above: PATIENT WAS FASTINGP ERFORMED BY: Oriana[address] [id number] Information: 532547,B80479 Eosinophils #/vol (Bld) 0.3 {x10E3/uL} Normal 0.0-0.4 [facility] Work Phone: Comment on above: PATIENT WAS FASTINGP ERFORMED BY: [address] [id number] Information: 035747,K59838 Eosinophils (Bld) [#/Vol] 0.3 10*3/uL Normal 0.0-0.4 [facility]; [facility] Work Phone: Comment on above: PATIENT WAS FASTINGP ERFORMED BY: ZITA Chamorro Rfdrdk3850 [facility] [id number] Information: 263791,A89116 Eosinophils/100 WBC (Bld) 5 % Normal 0-7 [facility] Work Phone: Comment on above: PATIENT WAS FASTINGP ERFORMED BY: [address] [id number] Information: 976879,G94076 Erythrocyte distribution width Ratio (RBC) 13.2 % Normal 11.7-15.0 [facility] Work Phone: Comment on above: PATIENT WAS FASTINGP ERFORMED BY: [place] 6960770 [facility] [id number] Information: 818743,J16768 Hematocrit Volume Fraction (Bld) 44.4 % Normal 36.0-50.0 [facility] Work Phone: Comment on above: PATIENT WAS FASTINGP ERFORMED BY: ZITA EubanksBarnes-Jewish [facility] Jdysxy5636 [facility] [id number] Information: 145764,J25381 Hemoglobin mass conc (Bld) 15.3 g/dL Normal 12.5-17.0 [facility] Work Phone: Comment on above: PATIENT WAS FASTINGP ERFORMED BY: [address] [id number] Information: 692720,Q15796 Immature granulocytes #/vol (Bld) 0.0 {x10E3/uL} Normal 0.0-0.1 [facility] Work Phone: Comment on above: PATIENT WAS FASTINGP ERFORMED BY: [address] [id number] Information: 889063,K83502 Immature granulocytes (Bld) [#/Vol] 0.0 10*3/uL Normal 0.0-0.1 [facility]; [facility] Work Phone: Comment on above: PATIENT WAS FASTINGP ERFORMED BY: ChaJohnny [place] 0437670 [facility] [id number] Information: 004369,D22335 Immature granulocytes/100 WBC (Bld) 0 % Normal 0-2 [facility] Work Phone: Comment on above: Please note refere nce interval change PATIENT WAS FASTINGP ERFORMED BY: [facility]6370 [facility] [id number] Information: 104412,K22941 Lymphocytes #/vol (Bld) 1.7 {x10E3/uL} Normal 0.7-4.5 [facility] Work Phone: Comment on above: PATIENT WAS FASTINGP ERFORMED BY: [place] [id number] [facility] [id number] Information: 256579,L61529 Lymphocytes (Bld) [#/Vol] 1.7 10*3/uL Normal 0.7-4.5 [facility]; [facility] Work Phone: Comment on above: PATIENT WAS FASTINGP ERFORMED BY: [facility]6370 [facility] [id number] Information: 534368,J82151 Lymphocytes/100 WBC (Bld) 33 % Normal 14-46 [facility] Work Phone: Comment on above: PATIENT WAS FASTINGP ERFORMED BY: Lab[address] [id number] Information: 711603,E22528 MCH Entitic mass (RBC) 30.4 pg Normal 27.0-34.0 [facility] Work Phone: Comment on above: PATIENT WAS FASTINGP ERFORMED BY: [address] [id number] Information: 701468,Z69349 MCHC mass conc (RBC) 34.5 g/dL Normal 32.0-36.0 [facility] Internal Medicine Work Phone: Comment on above: PATIENT WAS FASTINGP ERFORMED BY: [facility]6370 [facility] [id number] Information: [id number] MCV Entitic volume (RBC) 88 fL Normal 80-98 [facility] Work Phone: Comment on above: PATIENT WAS FASTINGP ERFORMED BY: LabJohnny Ville [id number] [facility] [id number] Information: [id number] Monocytes #/vol (Bld) 0.4 {x10E3/uL} Normal 0.1-1.0 [facility] Work Phone: Comment on above: PATIENT WAS FASTINGP ERFORMED BY: [facility]6370 [facility] [id number] Information: [id number] Monocytes (Bld) [#/Vol] 0.4 10*3/uL Normal 0.1-1.0 [facility]; [facility] Work Phone: Comment on above: PATIENT WAS FASTINGP ERFORMED BY: ZITA [place]6370 [facility] [id number] Information: [id number] Monocytes/100 WBC (Bld) 8 % Normal 4-13 [facility] Work Phone: Comment on above: PATIENT WAS FASTINGP ERFORMED BY: LabCoDorothy Ville [id number] [facility] [id number] Information: [id number] Neutrophils #/vol (Bld) 2.6 {x10E3/uL} Normal 1.8-7.8 [facility] Work Phone: Comment on above: PATIENT WAS FASTINGP ERFORMED BY: [facility] Sdjcza4946 [facility] [id number] Information: [id number] Neutrophils (Bld) [#/Vol] 2.6 10*3/uL Normal 1.8-7.8 [facility]; [facility] Work Phone: Comment on above: PATIENT WAS FASTINGP ERFORMED BY: ZITA Chamorro Ajgymr7407 [facility] [id number] Information: [id number] Neutrophils/100 WBC (Bld) 53 % Normal 40-74 [facility] Work Phone: Comment on above: PATIENT WAS FASTINGP ERFORMED BY: LabCoEnglewood Hospital and Medical CenterLpracd9034 [facility] [id number] Information: [id number] Platelets #/vol (Bld) 156 {x10E3/uL} Normal 140-415 [facility] Work Phone: Comment on above: PATIENT WAS FASTINGP ERFORMED BY: [facility]6370 [facility] [id number] Information: [id number] Platelets (Bld) [#/Vol] 156 10*3/uL Normal 140-415 [facility]; [facility] Work Phone: Comment on above: PATIENT WAS FASTINGP ERFORMED BY: ZITA Jame [place]6370 [facility] [id number] Information: [id number] RBC #/vol (Bld) 5.04 {x10E6/uL} Normal 4.10-5.60 Comp [facility] Work Phone: Comment on above: PATIENT WAS FASTINGP ERFORMED BY: ZITA LabCo Jclrrq9672 [facility] [id number] Information: [id number] RBC (Bld) [#/Vol] 5.04 10*6/uL Normal 4.10-5.60 Compr [facility] Internal Medicine; [facility] Work Phone: Comment on above: PATIENT WAS FASTINGP ERFORMED BY: ZITA [facility]Barn[facility] Nfvtje8272 [facility] [id number] Information: [id number] WBC #/vol (Bld) 5.0 {x10E3/uL} Normal 4.0-10.5 [facility] Internal Medicine Work Phone: Comment on above: PATIENT WAS FASTINGP ERFORMED BY: ZITA ChaBarn[facility] Otmqup3963 [facility] [id number] Information: [id number] WBC (Bld) [#/Vol] 5.0 10*3/uL Normal 4.0-10.5 [facility]; [facility] Work Phone: Comment on above: PATIENT WAS FASTINGP ERFORMED BY: ZITA [facility]6370 [facility] [id number] Information: [id number] LIPID PANEL ([id number])Ordered B y: [employer] Fabricator on 10-27-2010 Cholesterol in HDL mass conc 52 mg/dL Normal [facility] Work Phone: Comment on above: According to ATP-III Guidelines, HDL-C >59 mg/dL is considered anegative risk factor for CHD. PATIENT WAS FASTINGP ERFORMED BY: CB [facility] Ekddmk8543 [address]oo RoadDublin [place] [id number]; appt 10/29/10 Cholesterol in LDL mass conc 122 mg/dL Abnormal 0-99 [facility] Work Phone: Comment on above: PATIENT WAS FASTINGP ERFORMED BY: CB [facility] Xgyurj9507 [address] RoadDublin [place] [id number]; appt 10/29/10 Cholesterol in LDL/Cholesterol in HDL mass ratio 2.3 {ratio_units} Normal 0.0-3.6 [facility] Work Phone: Comment on above: PATIENT WAS FASTINGP ERFORMED BY: CB [facility] Qdbhjj8562 [address] RoadDublin [place] [id number]; appt 10/29/10 Cholesterol in VLDL mass conc 18 mg/dL Normal 5-40 [facility] Work Phone: Comment on above: PATIENT WAS FASTINGP ERFORMED BY: CB [facility] Vzdrft6331 [address] RoadDublin [place] [id number]; appt 10/29/10 Cholesterol mass conc 192 mg/dL Normal 100-199 [facility] Work Phone: Comment on above: PATIENT WAS FASTINGP ERFORMED BY: CB [facility] Jedcxp[address] [facility] [place] [id number]; appt 10/29/10 Triglyceride mass conc 88 mg/dL Normal 0-149 [facility] Work Phone: Comment on above: PATIENT WAS FASTINGP ERFORMED BY: CB [facility] Qqmsxd4[address] [facility] [place] [id number]; appt 10/29/10 METABOLIC PANEL, COMPREHENSI VE ([id number])Ordered By: [employer] Fabricator on 10-27-2010 Albumin mass conc 4.6 g/dL Normal 3.5-5.5 Compreh ensive Internal Medicine Work Phone: Comment on above: PATIENT WAS FASTINGP ERFORMED BY: CB [facility] Ipnehn0633 [address] RoadDublin [place] [id number] Albumin/Globulin mass ratio 2.0 {ratio} Normal 1.1-2.5 [facility] Internal Medicine Work Phone: Comment on above: PATIENT WAS FASTINGP ERFORMED BY: CB [facility] Yijtsg6372 [address] RoadDublin [place] [id number] ALP [Catalytic activity/Vol] 65 U/L Normal 25-150 [facility] Internal Medicine; [facility] Internal Medicine Work Phone: Comment on above: PATIENT WAS FASTINGP ERFORMED BY: CB [facility] Zrjaph2165 [address] RoadDublin [place] [id number] ALP enzyme act/vol 65 [iU]/L Normal 25-150 [facility] Internal Medicine Work Phone: Comment on above: PATIENT WAS FASTINGP ERFORMED BY: CB [facility] Btpptt9578 [address] RoadDublin [place] [id number] ALT [Catalytic activity/Vol] 13 U/L Normal 0-55 [facility] Internal Medicine; [facility] Internal Medicine Work Phone: Comment on above: PATIENT WAS FASTINGP ERFORMED BY: [facility] Krqikr5743 [address] RoadDublin [place] [id number] ALT enzyme act/vol 13 [iU]/L Normal 0-55 [facility] Internal Medicine Work Phone: Comment on above: PATIENT WAS FASTINGP ERFORMED BY: [facility] Vmiano3168 [address] RoadDublin [place] [id number] AST [Catalytic activity/Vol] 21 U/L Normal 0-40 [facility] Internal Medicine; [facility] Internal Medicine Work Phone: Comment on above: PATIENT WAS FASTINGP ERFORMED BY: CB [facility] Wvfsjq9210 [address] RoadDublin [place] [id number] AST enzyme act/vol 21 [iU]/L Normal 0-40 [facility] Internal Medicine Work Phone: Comment on above: PATIENT WAS FASTINGP ERFORMED BY: CB [facility] Xxvoci6036 [address] RoadDublin [place] [id number] Bilirubin mass conc 1.0 mg/dL Normal 0.0-1.2 Compr ehensive Internal Medicine Work Phone: Comment on above: PATIENT WAS FASTINGP ERFORMED BY: CB [facility] Ybkfvg[address] [facility] [place] [id number] Calcium mass conc 9.2 mg/dL Normal 8.7-10.2 Compreh ensive Internal Medicine Work Phone: Comment on above: PATIENT WAS FASTINGP ERFORMED BY: CB [facility] Rokehb[address] [facility] [id number] Chloride molar conc 101 mmol/L Normal 97-108 Compr ensive Internal Medicine Work Phone: Comment on above: PATIENT WAS FASTINGP ERFORMED BY: CB [facility] Crnzsi2605 [address] [facility] [id number] CO2 molar conc 25 mmol/L Normal 20-32 Comprehens jeremy Internal Medicine Work Phone: Comment on above: PATIENT WAS FASTINGP ERFORMED BY: CB [facility] Jafrav3055 [facility] [id number] Creatinine mass conc 0.78 mg/dL Normal 0.76-1.27 Comp [facility] Internal Medicine Work Phone: Comment on above: PATIENT WAS FASTINGP ERFORMED BY: CB [facility] Qlfcra3566 [facility] [id number] GFR/1.73 sq M predicted among blacks MDRD vol rate/area (S/P/Bld) 137 mL/min/{1.73_m2} Normal Compreh [facility] Work Phone: Comment on above: Note: A persistent e GFR <60 mL/min/1.73 m2 (3 months or more) mayindicate chronic kidney disease. An eGFR >59 mL/min/1.73 m2 with anelevated urine protein also may indicate chronic kidney disease.Calculated using CKD-EPI formula. PATIENT WAS FASTINGP ERFORMED BY: CB [facility] Zbleka[address] [facility] [id number] GFR/1.73 sq M predicted among non-blacks CKD-EPI vol rate/area (S/P/Bld) 119 mL/min/1.73 Normal [facility] Work Phone: Comment on above: PATIENT WAS FASTINGP ERFORMED BY: ZITA [facility] Pvipnn7456 [address] RoadDublin [place] [id number] Globulin mass conc (S) 2.3 g/dL Normal 1.5-4.5 [facility] Work Phone: Comment on above: PATIENT WAS FASTINGP ERFORMED BY: ZITA [facility] Athkze3329 [address] RoadDublin [place] [id number] Glucose mass conc 85 mg/dL Normal 65-99 Compreh ensive Internal Medicine Work Phone: Comment on above: PATIENT WAS FASTINGP ERFORMED BY: ZITA [facility] Sqkytk1219 [address] RoadDublin [place] [id number] Potassium molar conc 4.4 mmol/L Normal 3.5-5.2 Comp rehensive Internal Medicine Work Phone: Comment on above: PATIENT WAS FASTINGP ERFORMED BY: ZITA LabCoshruthi HopperOcppxm6796 L[address] Roadblin [place] [id number] Protein mass conc 6.9 g/dL Normal 6.0-8.5 Compreh ensive Internal Medicine Work Phone: Comment on above: PATIENT WAS FASTINGP ERFORMED BY: ZITA LabCoshruthi Ijvzpp40[address] [facility]in [place] [id number] Sodium molar conc 139 mmol/L Normal 135-145 Compreh ensive Internal Medicine Work Phone: Comment on above: PATIENT WAS FASTINGP ERFORMED BY: ZITA [facility] Zujcyj[address] [facility] [id number] Urea nitrogen mass conc 10 mg/dL Normal 6-20 [facility] Work Phone: Comment on above: PATIENT WAS FASTINGP ERFORMED BY: ZITA [facility] Rfwrgj1035 [address] RoadDublin [place] [id number] Urea nitrogen/Creatinine mass ratio 13 mg/mg Normal 8-19 [facility] Work Phone: Comment on above: PATIENT WAS FASTINGP ERFORMED BY: ZITA [facility] Qbvtaq8738 [address] RoadDublin [place] [id number] MICROALBUMINOrdered By: Syst em Disability Hearing Officer on 10-27-2010 Albumin DL <= 20 mg/L mass conc (U) 1.1 ug/mL Normal 0.0-17.0 [facility] Work Phone: Comment on above: PATIENT WAS FASTINGP ERFORMED BY: ZITA Mysterio Aauykw5549 [facility] [id number] Albumin/Creatinine mass ratio (U) 0.9 {mg/g_creat} Normal 0.0-30.0 [facility] Work Phone: Comment on above: PATIENT WAS FASTINGP ERFORMED BY: ZITA LabCo Ehvgap0098 [address] [facility] [id number] Creatinine mass conc (U) 124.6 mg/dL Normal 24.0-392.0 [facility] Work Phone: Comment on above: PATIENT WAS FASTINGP ERFORMED BY: ZITA LabCo Ofmkmr9631 [facility] [id number] TSH ([id number])Ordered By: Darwin vega Disability Hearing Officer on 10-27-2010 Thyrotropin Qn 2.130 {uIU/mL} Normal 0.450-4.50 0 [facility] Work Phone: Comment on above: PATIENT WAS FASTINGP ERFORMED BY: ZITA LabCoshruthi Nwtxak2276 [facility] [id number] PPD ([id number])Ordered By: Cheri Patel on 07-17-2010 PPD ([id number]) Negative Normal [facility] Work Phone: Comment on above: Lot #[id number] ite- l forearmDose 0.1mlgiven by:YENNY PPD ([id number]) Negative Normal [facility]; [facility] Work Phone: Comment on above: Lot #[id number] ite- l forearmDose 0.1mlgiven by:YENNY CBCD,SMEAR DIFFOrdered By: Cady ystem Disability Hearing Officer on 07-17-2009 Eosinophils/100 WBC (Bld) 3 % Normal 0-5 [facility] Work Phone: Erythrocyte distribution width Ratio (RBC) 12.8 % Normal 11.6-14.6 [facility] Work Phone: Hematocrit Volume Fraction (Bld) 45.1 % Normal 40-54 [facility] Work Phone: Hemoglobin mass conc (Bld) 15.2 g/dL Normal 14.0-18.0 [facility] Work Phone: Lymphocytes/100 WBC (Bld) 21 % Normal 19-41 [facility] Work Phone: MCH Entitic mass (RBC) 29.7 pg Normal 27.0-32.0 [facility] Work Phone: MCHC mass conc (RBC) 33.7 g/dL Normal 32-36 Comp rehensive Internal Medicine Work Phone: MCV Entitic volume (RBC) 88.2 fL Normal 80-94 [facility] Internal Medicine Work Phone: Monocytes/100 WBC (Bld) 4 % Normal 0-10 [facility] Work Phone: Neutrophils #/vol (Bld) 5.5 3/uL Normal 2.0-7.7 [facility] Work Phone: Platelets #/vol (Bld) 218 10*3/uL Normal 150-450 [facility] Internal Medicine Work Phone: Platelets #/vol (Bld) SeeNote Normal [facility] Internal Medicine Work Phone: Comment on above: Result: ADEQUATE RBC #/vol (Bld) 5.11 {M/mm3} Normal 4.6-6.2 Compreh ensive Internal Medicine Work Phone: WBC #/vol (Bld) 8.0 10*3/uL Normal 4.4-11.0 Comprehe nsive Internal Medicine Work Phone: CBCD,SMEAR DIFF 100 1 Normal Comprehen [facility] Internal Medicine Work Phone: CBCD,SMEAR DIFF 72 % Abnormal 47-70 Comprehen [facility] Internal Medicine Work Phone: COMP METABOLICOrdered By: Richard stem Disability Hearing Officer on 07-17-2009 Albumin mass conc 4.1 g/dL Normal 3.4-5.0 [facility] Internal Medicine Work Phone: Albumin/Globulin mass ratio 1.1 {RATIO} Normal 0.9-2.4 [facility] Internal Medicine Work Phone: ALP enzyme act/vol 79 U/L Normal 50-136 [facility] Internal Medicine Work Phone: ALT enzyme act/vol 32 U/L Normal 12-78 [facility] Internal Medicine Work Phone: Anion gap molar conc 9 mmol/L Normal 5-15 [facility] Internal Medicine Work Phone: AST enzyme act/vol 26 U/L Normal 15-37 [facility] Internal Medicine Work Phone: Bilirubin mass conc 0.60 mg/dL Normal 0.00-1.00 [facility] Internal Medicine Work Phone: Calcium mass conc 8.9 mg/dL Normal 8.5-10.1 [facility] Internal Medicine Work Phone: Chloride molar conc 101 mmol/L Normal 98-107 [facility] Internal Medicine Work Phone: CO2 molar conc 29.0 mmol/L Normal 21.0-32.0 [facility] Internal Medicine Work Phone: Creatinine mass conc 0.8 mg/dL Normal 0.8-1.3 [facility] Internal Medicine Work Phone: GFR/1.73 sq M predicted among blacks MDRD vol rate/area (S/P/Bld) 144 mL/min/{1.73_m2} Normal [facility] Work Phone: GFR/1.73 sq M.predicted MDRD (S/P/Bld) [Vol rate/Area] 119 mL/min/{1.73_m2} Normal [facility] ve Internal Medicine Work Phone: GFR/1.73 sq M.predicted MDRD vol rate/area 119 mL/min/{1.73_m2} Normal [facility] ve Internal Medicine Work Phone: Globulin mass conc (S) 3.6 g/dL Normal 2.7-4.2 [facility] Work Phone: Glucose mass conc 82 mg/dL Normal 70-110 Compreh ensive Internal Medicine Work Phone: Potassium molar conc 4.7 mmol/L Normal 3.5-5.1 Comp rehensive Internal Medicine Work Phone: Protein mass conc 7.7 g/dL Normal 6.4-8.2 Compreh ensive Internal Medicine Work Phone: Sodium molar conc 139 mmol/L Normal 136-145 Compreh ensive Internal Medicine Work Phone: Urea nitrogen mass conc 13 mg/dL Normal 7-18 [facility] Work Phone: Urea nitrogen/Creatinine mass ratio 16.3 {RATIO} Normal 10-20 [facility] Work Phone: COMPLETE UAOrdered By: Darwin vega Disability Hearing Officer on 07-17-2009 Bacteria LM.HPF #/area (Urine sed) 0 SEEN Normal [facility] Work Phone: Clarity Nom (U) CLEAR Normal Comprehen sive Internal Medicine Work Phone: Color Nom (U) YELLOW Normal Comprehensi ve Internal Medicine Work Phone: Glucose mass conc SeeNote Normal Compreh ensive Internal Medicine Work Phone: Comment on above: Result: NEGATIVE Protein mass conc SeeNote Normal Compreh ensive Internal Medicine Work Phone: Comment on above: Result: NEGATIVE RBC #/vol (U) 0 SEEN Normal 0-5 Comprehensi ve Internal Medicine Work Phone: WBC #/vol (Bld) 0 SEEN Normal 0-5 Comprehen sive Internal Medicine Work Phone: COMPLETE UA 0.2 EU/dl Normal 0.2 - 1.0 [facility] Work Phone: COMPLETE UA SeeNote Normal [facility] Work Phone: Comment on above: Result: NEGATIVE Result: NORM C+C COMPLETE UA 0 SEEN Normal 0-5 [facility] Work Phone: COMPLETE UA 1.010 1 Normal 1.002-1.03 0 [facility] Work Phone: COMPLETE UA 6.0 1 Normal 5.0-8.0 [facility] Work Phone: LIPIDOrdered By: La quinonez on 07-17-2009 Cholesterol in HDL mass conc 49 mg/dL Normal [facility] Work Phone: Comment on above: Reference RangeHDL < 40 mg/dL Low HDL CholesterolHDL >or= 60 mg/dL High HDL Cholesterol Cholesterol in LDL mass conc 134 mg/dL Abnormal 0-130 [facility] Work Phone: Cholesterol in VLDL mass conc 19 mg/dL Normal 5-40 [facility] Work Phone: Cholesterol mass conc 202 mg/dL Abnormal [facility] Work Phone: Comment on above: <200 mg/dL Desirable 200-240 mg/dL Borderline>240 mg/dL High Risk Triglyceride mass conc 96 mg/dL Normal [facility] Work Phone: Comment on above: Serum Triglycerides Reference IntervalNormal <150 mg/dLBorderline high 150 - 199 mg/dLHigh 200 - 499 mg/dLVery High > or = 500 mg/dL MICROALBOrdered By: La rai on 07-17-2009 Creatinine mass conc 4.5 {mg/g_CRE} Normal [facility] Work Phone: Creatinine mass conc 115.6 mg/dL Normal Com prehensive Internal Medicine Work Phone: MICROALB 5.3 mg/L Normal [facility] Work Phone: TSHOrdered By: System Manage r on 07-17-2009 Thyrotropin Qn 1.06 {uIU/mL} Normal 0.358-3.74 Compreh ensive Internal Medicine Work Phone: Glucose, Two-Hour Postprandi alOrdered By: [employer] Fabricator on 05-24-2008 Glucose 2 hours p meal mass conc 90 mg/dL Normal 65-139 [facility] Work Phone: Comment on above: PERFORMED BY: Qurater Ivziku8025 [facility] [id number] CBC WITH MANUAL DIFF ([id number]) Ordered By: Shauna Yen on 05-22-2008 Basophils #/vol (Bld) 0.0 {x10E3/uL} Normal 0.0-0.2 [facility] Work Phone: Comment on above: PATIENT WAS FASTINGC linical Information: ADD DRAW FEE [id number] ADD J [id number] PERFORMED BY: LabCoEnglewood Hospital and Medical CenterIijprw5661 [facility] [id number] Basophils (Bld) [#/Vol] 0.0 10*3/uL Normal 0.0-0.2 [facility]; [facility] Work Phone: Comment on above: PATIENT WAS FASTINGC linical Information: ADD DRAW FEE [id number] ADD J 58516 PERFORMED BY: [facility]6370 [facility] [id number] Basophils/100 WBC (Bld) 1 % Normal 0-3 [facility] Work Phone: Comment on above: PATIENT WAS FASTINGC linical Information: ADD DRAW FEE [id number] ADD J 14054 PERFORMED BY: LabCo Vhnzam8127 [facility] [id number] Eosinophils #/vol (Bld) 0.2 {x10E3/uL} Normal 0.0-0.4 [facility] Work Phone: Comment on above: PATIENT WAS FASTINGC linical Information: ADD DRAW FEE [id number] [place] 62002 PERFORMED BY: Lab[address] [id number] Eosinophils (Bld) [#/Vol] 0.2 10*3/uL Normal 0.0-0.4 [facility]; [facility] Work Phone: Comment on above: PATIENT WAS FASTINGC linical Information: ADD DRAW FEE [id number] ADD J 03602 PERFORMED BY: LabJohnny V[place] [id number] [facility] [id number] Eosinophils/100 WBC (Bld) 6 % Normal 0-7 [facility] Work Phone: Comment on above: PATIENT WAS FASTINGC linical Information: ADD DRAW FEE [id number] ADD J 19532 PERFORMED BY: [place] [id number] [facility] [id number] Erythrocyte distribution width Ratio (RBC) 12.9 % Normal 11.7-15.0 [facility] Work Phone: Comment on above: PATIENT WAS FASTINGC linical Information: ADD DRAW FEE [id number] ADD J PERFORMED BY: ZITA [address] [id number] Hematocrit Volume Fraction (Bld) 41.4 % Normal 36.0-50.0 [facility] Work Phone: Comment on above: PATIENT WAS FASTINGC linical Information: ADD DRAW FEE [id number] ADD J PERFORMED BY: ZITA [address] [id number] Hemoglobin mass conc (Bld) 14.4 g/dL Normal 12.5-17.0 [facility] Work Phone: Comment on above: PATIENT WAS FASTINGC linical Information: ADD DRAW FEE [id number] ADD J PERFORMED BY: ZITA [address] [id number] Lymphocytes #/vol (Bld) 1.5 {x10E3/uL} Normal 0.7-4.5 [facility] Work Phone: Comment on above: PATIENT WAS FASTINGC linical Information: ADD DRAW FEE [id number] ADD J 96356 PERFORMED BY: [address] [id number] Lymphocytes (Bld) [#/Vol] 1.5 10*3/uL Normal 0.7-4.5 [facility]; [facility] Work Phone: Comment on above: PATIENT WAS FASTINGC linical Information: ADD DRAW FEE [id number] ADD J 95404 PERFORMED BY: [address] [id number] Lymphocytes/100 WBC (Bld) 35 % Normal 14-46 [facility] Work Phone: Comment on above: PATIENT WAS FASTINGC linical Information: ADD DRAW FEE 088868 ADD J 12605 PERFORMED BY: ZITA [facility]6370 [facility] [id number] MCH Entitic mass (RBC) 29.9 pg Normal 27.0-34.0 [facility] Work Phone: Comment on above: PATIENT WAS FASTINGC linical Information: ADD DRAW FEE [id number] ADD J 44439 PERFORMED BY: [address] [id number] MCHC mass conc (RBC) 34.8 g/dL Normal 32.0-36.0 [facility] Internal Medicine Work Phone: Comment on above: PATIENT WAS FASTINGC linical Information: ADD DRAW FEE [id number] ADD J PERFORMED BY: [address] [id number] MCV Entitic volume (RBC) 86 fL Normal 80-98 [facility] Work Phone: Comment on above: PATIENT WAS FASTINGC linical Information: ADD DRAW FEE [id number] ADD J 53754 PERFORMED BY: ZITA [place] [id number] [facility] [id number] Monocytes #/vol (Bld) 0.3 {x10E3/uL} Normal 0.1-1.0 [facility] Work Phone: Comment on above: PATIENT WAS FASTINGC linical Information: ADD DRAW FEE 855212 ADD J 89513 PERFORMED BY: [address] [id number] Monocytes (Bld) [#/Vol] 0.3 10*3/uL Normal 0.1-1.0 [facility]; [facility] Work Phone: Comment on above: PATIENT WAS FASTINGC linical Information: ADD DRAW FEE 141529 ADD J 56005 PERFORMED BY: [place] [id number] [facility] [id number] Monocytes/100 WBC (Bld) 7 % Normal 4-13 [facility] Work Phone: Comment on above: PATIENT WAS FASTINGC linical Information: ADD DRAW FEE [id number] ADD J 77195 PERFORMED BY: ZITA LabBarn[facility] Tqohuw9181 [facility] [id number] Neutrophils #/vol (Bld) 2.2 {x10E3/uL} Normal 1.8-7.8 [facility] Work Phone: Comment on above: PATIENT WAS FASTINGC linical Information: ADD DRAW FEE 207815 ADD J PERFORMED BY: ZITA LabBarn[facility] Rslfpg24[address] [id number] Neutrophils (Bld) [#/Vol] 2.2 10*3/uL Normal 1.8-7.8 [facility]; [facility] Work Phone: Comment on above: PATIENT WAS FASTINGC linical Information: ADD DRAW FEE [id number] ADD J PERFORMED BY: ZITA [address] [id number] Neutrophils/100 WBC (Bld) 51 % Normal 40-74 [facility] Work Phone: Comment on above: PATIENT WAS FASTINGC linical Information: ADD DRAW FEE [id number] ADD J PERFORMED BY: ZITA EubanksWvshruthi HopperArwsot2489 [facility] [id number] Platelets #/vol (Bld) 144 {x10E3/uL} Normal 140-415 [facility] Work Phone: Comment on above: PATIENT WAS FASTINGC linical Information: ADD DRAW FEE [id number] ADD J PERFORMED BY: ZITA Lab[facility] Ymcgzu[address] [id number] Platelets (Bld) [#/Vol] 144 10*3/uL Normal 140-415 [facility]; [facility] Work Phone: Comment on above: PATIENT WAS FASTINGC linical Information: ADD DRAW FEE [id number] ADD J PERFORMED BY: ZITA LabCo Ribaww8997 [facility] [id number] RBC #/vol (Bld) 4.83 {x10E6/uL} Normal 4.10-5.60 Comp [facility] Internal Medicine Work Phone: Comment on above: PATIENT WAS FASTINGC linical Information: ADD DRAW FEE [id number] ADD J [id number] PERFORMED BY: ZITA LabBarn[facility] Dryorf2655 [facility] [id number] RBC (Bld) [#/Vol] 4.83 10*6/uL Normal 4.10-5.60 Compr ensive [facility]; [facility] Work Phone: Comment on above: PATIENT WAS FASTINGC linical Information: ADD DRAW FEE [id number] ADD J [id number] PERFORMED BY: LabO[facility]6370 [facility] [id number] WBC #/vol (Bld) 4.2 {x10E3/uL} Normal 4.0-10.5 Compr [facility] Internal Medicine Work Phone: Comment on above: PATIENT WAS FASTINGC linical Information: ADD DRAW FEE [id number] ADD J [id number] PERFORMED BY: ZITA [facility] Lwpvxu2865 [facility] [id number] WBC (Bld) [#/Vol] 4.2 10*3/uL Normal 4.0-10.[address] [facility] Internal Medicine; [facility] Work Phone: Comment on above: PATIENT WAS FASTINGC linical Information: ADD DRAW FEE [id number] ADD J [id number] PERFORMED BY: ZITA OB10[facility]6370 [facility] [id number] LIPID PANEL ([id number])Ordered B y: Shauna Yen on 05-22-2008 Cholesterol in HDL mass conc 52 mg/dL Normal [facility] Work Phone: Comment on above: According to ATP-III Guidelines, HDL-C >59 mg/dL is considered anegative risk factor for CHD. PATIENT WAS FASTINGP ERFORMED BY: LabCoEnglewood Hospital and Medical CenterQltqvy4553 [facility] [id number] Cholesterol in LDL mass conc 119 mg/dL Abnormal 0-99 [facility] Work Phone: Comment on above: PATIENT WAS FASTINGP ERFORMED BY: ZITA [facility]6370 [facility] [id number] Cholesterol in LDL/Cholesterol in HDL mass ratio SPRCS Normal [facility] Work Phone: Comment on above: If initial LDL-bhupinder sterol result is >100 mg/dL, assess forrisk factors. PATIENT WAS FASTINGP ERFORMED BY: ZITA [facility] Axacxk3605 [address] RoadDublin [place] [id number] Cholesterol in LDL/Cholesterol in HDL mass ratio 2.3 {ratio_units} Normal 0.0-3.6 [facility] Work Phone: Comment on above: PATIENT WAS FASTINGP ERFORMED BY: CB [facility] Wasdke7368 [address]oo RoadDublin [place] [id number] Cholesterol in VLDL mass conc 15 mg/dL Normal 5-40 [facility] Work Phone: Comment on above: PATIENT WAS FASTINGP ERFORMED BY: ZITA [facility] Vaknhq1558 [address] RoadDuin [place] [id number] Cholesterol mass conc 186 mg/dL Normal 100-199 [facility] Work Phone: Comment on above: PATIENT WAS FASTINGP ERFORMED BY: CB [facility] Zdlbju5[address] [facility] [place] [id number] Triglyceride mass conc 73 mg/dL Normal 0-149 [facility] Work Phone: Comment on above: PATIENT WAS FASTINGP ERFORMED BY: ZITA [facility] Ilojvz9506 [address] [facility]in [place] [id number] METABOLIC PANEL, COMPREHENSI VE ([id number])Ordered By: Shauna Yen on 05-22-2008 Albumin mass conc 4.3 g/dL Normal 3.5-5.5 Compreh ensive Internal Medicine Work Phone: Comment on above: PATIENT WAS FASTINGP ERFORMED BY: CB [facility] Ukgyey7894 [address] RoadDublin [place] [id number] Albumin/Globulin mass ratio 1.7 {ratio} Normal 1.1-2.5 [facility] Work Phone: Comment on above: PATIENT WAS FASTINGP ERFORMED BY: CB [facility] Mggtrf3944 [address] RoadDublin [place] [id number] ALP [Catalytic activity/Vol] 76 U/L Normal 25-150 [facility]; [facility] Internal Medicine Work Phone: Comment on above: PATIENT WAS FASTINGP ERFORMED BY: [facility] Cfuvkh3500 [address]blin [place] [id number] ALP enzyme act/vol 76 [iU]/L Normal 25-150 [facility] Internal Medicine Work Phone: Comment on above: PATIENT WAS FASTINGP ERFORMED BY: LabCoEnglewood Hospital and Medical CenterKwhful2034 [address] RoadAtrium Health [facility] Centerin [place] [id number] ALT [Catalytic activity/Vol] 11 U/L Normal 0-55 [facility]; [facility] Internal Medicine Work Phone: Comment on above: PATIENT WAS FASTINGP ERFORMED BY: LabOsf [facility] RoadAtrium Health [facility] Centerin [place] [id number] ALT enzyme act/vol 11 [iU]/L Normal 0-55 [facility] Internal Medicine Work Phone: Comment on above: PATIENT WAS FASTINGP ERFORMED BY: LabO[facility]6[address] RoadECU [facility] [id number] AST [Catalytic activity/Vol] 18 U/L Normal 0-40 [facility] Internal Medicine; [facility] Internal Medicine Work Phone: Comment on above: PATIENT WAS FASTINGP ERFORMED BY: LabCoEnglewood Hospital and Medical CenterSpkujf9[address] [facility] [id number] AST enzyme act/vol 18 [iU]/L Normal 0-40 [facility] Internal Medicine Work Phone: Comment on above: PATIENT WAS FASTINGP ERFORMED BY: LabCo Bttqlp0946 [address] [facility] [id number] Bilirubin mass conc 0.9 mg/dL Normal 0.1-1.2 [facility] Internal Medicine Work Phone: Comment on above: PATIENT WAS FASTINGP ERFORMED BY: [facility] Tupfyv7573 [address] RoadAtrium Health [facility] Centerin [place] [id number] Calcium mass conc 9.1 mg/dL Normal 8.5-10.6 [facility] Internal Medicine Work Phone: Comment on above: PATIENT WAS FASTINGP ERFORMED BY: CB [facility] Cufoys[address] [facility]in [place] [id number] Chloride molar conc 104 mmol/L Normal 97-108 Compr ehensive Internal Medicine Work Phone: Comment on above: PATIENT WAS FASTINGP ERFORMED BY: CB [facility] Fohqeo7841 [address] RoadAtrium Health [facility] Centerin [place] [id number] CO2 molar conc 25 mmol/L Normal 20-32 Comprehens jeremy Internal Medicine Work Phone: Comment on above: PATIENT WAS FASTINGP ERFORMED BY: CB [facility] Eqdojc7[address] [facility] [id number] Creatinine mass conc 0.85 mg/dL Normal 0.76-1.27 Comp [facility] hospitalensive Internal Medicine Work Phone: Comment on above: PATIENT WAS FASTINGP ERFORMED BY: LabCo Csymea0382 [address] [facility] [id number] GFR/1.73 sq M predicted among blacks MDRD vol rate/area (S/P/Bld) mL/min/{1.73_m2} Normal Comprehensi Internal Medicine Work Phone: Comment on above: Note: Persistent red uction for 3 months or more in an eGFR<60 mL/min/1.73 m2 defines CKD. Patients with eGFR values>/=60 mL/min/1.73 m2 may also have CKD if evidence of persistentproteinuria is present. Additional information may be found [email or web address]. PATIENT WAS FASTINGP ERFORMED BY: CB [facility] Mlqboy9486 [address] [facility] [id number] GFR/1.73 sq M.predicted MDRD (S/P/Bld) [Vol rate/Area] mL/min/{1.73_m2} Normal [facility] Work Phone: Comment on above: PATIENT WAS FASTINGP ERFORMED BY: CB [facility] Rpxofc8146 [address] [facility] [id number] GFR/1.73 sq M.predicted MDRD vol rate/area mL/min/{1.73_m2} Normal [facility] Work Phone: Comment on above: PATIENT WAS FASTINGP ERFORMED BY: ZITA Jame Overton6370 [facility] [id number] Globulin mass conc (S) 2.6 g/dL Normal 1.5-4.5 [facility] Work Phone: Comment on above: PATIENT WAS FASTINGP ERFORMED BY: ZITA Jame Overton6370 [facility] [id number] Glucose mass conc 92 mg/dL Normal 65-99 Compreh ensive Internal Medicine Work Phone: Comment on above: PATIENT WAS FASTINGP ERFORMED BY: ZITA Jame Overton6370 [facility] [id number] Potassium molar conc 4.2 mmol/L Normal 3.5-5.2 Comp rehensive Internal Medicine Work Phone: Comment on above: PATIENT WAS FASTINGP ERFORMED BY: ZITA Orianashruthi HopperIynnlj4659 [facility] [id number] Protein mass conc 6.9 g/dL Normal 6.0-8.5 Compreh ensive Internal Medicine Work Phone: Comment on above: PATIENT WAS FASTINGP ERFORMED BY: ZITA Jame Overton6370 [facility] [id number] Sodium molar conc 141 mmol/L Normal 135-145 Compreh ensive Internal Medicine Work Phone: Comment on above: PATIENT WAS FASTINGP ERFORMED BY: ZITA Orianashruthi HopperEdnpwp1411 [facility] [id number] Urea nitrogen mass conc 14 mg/dL Normal 5-26 [facility] Work Phone: Comment on above: PATIENT WAS FASTINGP ERFORMED BY: ZITA Jame Overton6370 [facility] [id number] Urea nitrogen/Creatinine mass ratio 16 mg/mg Normal 8-27 [facility] Work Phone: Comment on above: PATIENT WAS FASTINGP ERFORMED BY: ZITA Jame Hopperlin6370 [facility] [id number] MICROALBUMINOrdered By: Hui Yen on 05-22-2008 Albumin DL <= 20 mg/L mass conc (U) 2.7 ug/mL Normal 0.0-17.0 [facility] Work Phone: Comment on above: PATIENT WAS FASTINGP ERFORMED BY: CB [facility] Ivkqbi9800 [address] RoadAtrium Health [facility] Centerin [place] [id number] Albumin/Creatinine DL <= 20 mg/L mass ratio (U) 1.7 {ug/mg_creat} Normal 0.0-30.0 [facility] Work Phone: Comment on above: PATIENT WAS FASTINGP ERFORMED BY: CB [facility] Fxzphi2708 Loo RoadECU [facility] [id number] Creatinine mass conc (U) 161.3 mg/dL Normal 24.0-392.0 [facility] Work Phone: Comment on above: PATIENT WAS FASTINGP ERFORMED BY: CB [facility] Hontnq4697 [address] [facility] [id number] TSH ([id number])Ordered By: Pallavi Yen on 05-22-2008 Thyrotropin Qn 1.426 {uIU/mL} Normal 0.450-4.50 0 [facility] Work Phone: Comment on above: PATIENT WAS FASTINGP ERFORMED BY: CB [facility] Hbnuih2883 [address] [facility] [id number] URINALYSIS W/O MICRO ([id number]) Ordered By: Shauna Yen on 05-22-2008 Appearance Nom (U) Clear Normal Compre hensive Internal Medicine Work Phone: Comment on above: PATIENT WAS FASTINGP ERFORMED BY: CB [facility] Tjzqxl4584 [address] Roadblin [place] [id number] Bilirubin Ql (U) Negative Normal Comprehe nsive Internal Medicine Work Phone: Comment on above: PATIENT WAS FASTINGP ERFORMED BY: CB [facility] Kmager1601 [address] RoadDublin [place] [id number] Bilirubin Ql (U) Negative Normal Comprehe nsive Internal Medicine; [facility] Work Phone: Comment on above: PATIENT WAS FASTINGP ERFORMED BY: ZITA [facility] Ldoovz9449 [address] RoadDublin [place] [id number] Color Nom (U) Yellow Normal Comprehensi ve Internal Medicine Work Phone: Comment on above: PATIENT WAS FASTINGP ERFORMED BY: ZITA LabCoshruthi HopperFkktep6736 Loo RoadDublin [place] [id number] Glucose Ql (U) Negative Normal Comprehens jeremy Internal Medicine Work Phone: Comment on above: PATIENT WAS FASTINGP ERFORMED BY: ZITA [facility] Hyegjd6539 [address] RoadDublin [place] [id number] Glucose Ql (U) Negative Normal Comprehens jeremy Internal Medicine; [facility] Work Phone: Comment on above: PATIENT WAS FASTINGP ERFORMED BY: ZITA Hopperlin6370 [address] RoadDuin [place] [id number] Hemoglobin Ql (U) Negative Normal Compreh ensive Internal Medicine Work Phone: Comment on above: PATIENT WAS FASTINGP ERFORMED BY: ZITA LabCoshruthi HopeprOkhave4746 [address] RoadDublin [place] [id number] Hemoglobin Ql (U) Negative Normal Compreh ensive Internal Medicine; [facility] Work Phone: Comment on above: PATIENT WAS FASTINGP ERFORMED BY: ZITA Hopperlin6370 [address] RoadDuin [place] [id number] Ketones Ql (U) Negative Normal Comprehens jeremy Internal Medicine Work Phone: Comment on above: PATIENT WAS FASTINGP ERFORMED BY: ZITA [facility] Tlvloh9402 [address] RoadDublin [place] [id number] Ketones Ql (U) Negative Normal Comprehens jeremy Internal Medicine; [facility] Work Phone: Comment on above: PATIENT WAS FASTINGP ERFORMED BY: ZITA [facility] Adasui8535 [address] RoadDublin [place] [id number] Leukocyte esterase Test strip Ql (U) Negative Normal [facility] Work Phone: Comment on above: PATIENT WAS FASTINGP ERFORMED BY: ZITA [facility] Ajqgji8993 [address] RoadDublin [place] [id number] Leukocyte esterase Test strip Ql (U) Negative Normal [facility]; [facility] Work Phone: Comment on above: PATIENT WAS FASTINGP ERFORMED BY: ZITA LabAidan HopperOvsqnf1351 [address] RoadDublin [place] [id number] Microscopic observation LM Nom (Urine sed) MICRON Normal [facility] Work Phone: Comment on above: Microscopic follows if indicated. PATIENT WAS FASTINGP ERFORMED BY: ZITA LabCoshruthi HopperClbvmr2297 L[address] RoadDublin [place] [id number] Nitrite Ql (U) Negative Normal Comprehens jeremy Internal Medicine Work Phone: Comment on above: PATIENT WAS FASTINGP ERFORMED BY: ZITA Hopperlin6370 [address] RoadDublin [place] [id number] Nitrite Ql (U) Negative Normal Comprehens jeremy Internal Medicine; [facility] Work Phone: Comment on above: PATIENT WAS FASTINGP ERFORMED BY: ZITA LabCoshruthi HopperSkimuh7665 [address] RoadDublin [place] [id number] pH (U) 7.5 [pH] Normal 5.0-7.5 [facility] Work Phone: Comment on above: PATIENT WAS FASTINGP ERFORMED BY: ZITA EubanksCoshruthi HopperQzhhtf8039 [address] RoadDublin [place] [id number] Protein Ql (U) Negative Normal Comprehens jeremy Internal Medicine Work Phone: Comment on above: PATIENT WAS FASTINGP ERFORMED BY: ZITA [facility] Cunzsa6799 [address] RoadDublin [place] [id number] Protein Ql (U) Negative Normal Comprehens jeremy Internal Medicine; [facility] Work Phone: Comment on above: PATIENT WAS FASTINGP ERFORMED BY: ZITA LabDariusrp Bvzpqg0889 [address] RoadDublin [place] [id number] Specific gravity Relative Density (U) 1.018 1 Normal 1.005-1.03 0 [facility] Work Phone: Comment on above: PATIENT WAS FASTINGP ERFORMED BY: [facility] Gbfetm4758 [address] RoadDublin [place] [id number] Urobilinogen (U) [Mass/Vol] 0.2 mg/dL Normal 0.0-1.9 [facility]; [facility] Work Phone: Comment on above: PATIENT WAS FASTINGP ERFORMED BY: CB [facility] Wqpkcd8209 [address] RoadDublin [place] [id number] Urobilinogen Test strip mass conc (U) 0.2 mg/dL Normal 0.0-1.9 Comprehensiv e Internal Medicine Work Phone: Comment on above: PATIENT WAS FASTINGP ERFORMED BY: [facility] Txkyaz[address]ackupbl[address] [place] [id number] Vital Signs Date Time Vital Sign Value Performing Clinician Facility 12-17-2022 07:10-0400 Body temperature 97.5 [degF] Dr. Shauna Yen Work Phone: [facility] 12-17-2022 07:10-0400 Diastolic blood pressure 80 mm[Hg] Dr. Shauna Yen Work Phone: [facility] 12-17-2022 07:10-0400 Heart rate 63 /min Dr. Shauna Yen Work Phone: [facility] 12-17-2022 07:10-0400 Respiratory rate 18 /min Dr. Shauna Yen Work Phone: [facility] 12-17-2022 07:10-0400 SaO2% (BldA) [Mass fraction] 98 % Dr. Shauna Yen Work Phone: [facility] 12-17-2022 07:10-0400 Systolic blood pressure 106 mm[Hg] Dr. Shauna Yen Work Phone: [facility] 12-17-2022 05:46-0400 Body height 172.[address] Shauna Yen Work Phone: [facility] 12-17-2022 05:46-0400 Body mass index (BMI) [Ratio] 32.2 kg/m2 Dr. Shauna Yen Work Phone: [facility] 12-17-2022 05:46-0400 Body weight 96.[address] Shauna Yen Work Phone: [facility] 10-15-2022 13:34-0400 Body mass index (BMI) [Ratio] 31.1 kg/m2 Dr. Shauna Yen Work Phone: [facility] 10-15-2022 13:34-0400 Body weight 92.[address] Shauna Yen Work Phone: [facility] 10-14-2022 08:17-0400 Body height 172.72 cm Janet Rico MA [facility]; [facility] Work Phone: 10-14-2022 08:17-0400 Body mass index (BMI) [Ratio] 31.32 kg/m2 Janet Rico MA [facility]; [facility] Work Phone: 10-14-2022 08:17-0400 Body surface area Derived from formula 2.07 m2 Janet Rico MA [facility]; [facility] Work Phone: 10-14-2022 08:17-0400 Body temperature 95.8 [degF] Janet Rico MA [facility]; [facility] Work Phone: 10-14-2022 08:17-0400 Body weight 93.44 kg Janet Rico MA [facility]; [facility] Work Phone: 10-14-2022 08:17-0400 Diastolic blood pressure 70 mm[Hg] Janet Rico MA [facility]; [facility] Work Phone: Comment on above: Patient Position: Sitting; Cuff Location : Left Arm; Cuff Size: Standard 10-14-2022 08:17-0400 Heart rate 73 /min Janet Rico MA [facility]; [facility] Work Phone: Comment on above: Pattern: Regular 10-14-2022 08:17-0400 SaO2% (BldA) [Mass fraction] 97 % Janet Rico MA [facility]; [facility] Work Phone: Comment on above: Room air 10-14-2022 08:17-0400 Systolic blood pressure 100 mm[Hg] Janet Rico MA [facility]; [facility] Work Phone: Comment on above: Patient Position: Sitting; Cuff Location : Left Arm; Cuff Size: Standard 08-22-2021 08:06-0400 Body height 172.72 cm Sophia Godwin [facility]; [facility] Work Phone: 08-22-2021 08:06-0400 Body mass index (BMI) [Ratio] 31.32 kg/m2 Sophia Godwin [facility]; [facility] Work Phone: 08-22-2021 08:06-0400 Body surface area Derived from formula 2.07 m2 Sophia Godwin [facility]; [facility] Work Phone: 08-22-2021 08:06-0400 Body temperature 97.3 [degF] Sophia Godwin [facility]; [facility] Work Phone: Comment on above: Method: Infrared 08-22-2021 08:06-0400 Body weight 93.44 kg Sophia Godwin [facility]; [facility] Work Phone: 08-22-2021 08:06-0400 Diastolic blood pressure 82 mm[Hg] Sophia Godwin [facility]; [facility] Work Phone: Comment on above: Patient Position: Sitting; Cuff Location : Left Arm; Cuff Size: Standard 08-22-2021 08:06-0400 Heart rate 76 /min Sophia Bowieius [facility]; [facility] Work Phone: Comment on above: Pattern: Regular 08-22-2021 08:06-0400 Respiratory rate 16 /min Sophia Jamirius [facility]; [facility] Work Phone: Comment on above: Pattern: Unlabored 08-22-2021 08:06-0400 SaO2% (BldA) [Mass fraction] 98 % Sophia Godwin [employer] [facility]; [facility] Work Phone: Comment on above: Room air 08-22-2021 08:06-0400 Systolic blood pressure 126 mm[Hg] Sophia Godwin CMA [facility]; [facility] Work Phone: Comment on above: Patient Position: Sitting; Cuff Location : Left Arm; Cuff Size: Standard 11-15-2020 08:51-0400 Body height 172.72 cm Nati Braun MA [facility]; [facility] Work Phone: 11-15-2020 08:51-0400 Body mass index (BMI) [Ratio] 31.47 kg/m2 Nati Braun MA [facility]; [facility] Work Phone: 11-15-2020 08:51-0400 Body surface area Derived from formula 2.07 m2 Nati Braun MA [facility]; [facility] Work Phone: 11-15-2020 08:51-0400 Body temperature 97.1 [degF] Nati Braun MA [facility]; [facility] Work Phone: 11-15-2020 08:51-0400 Body weight 93.9 kg Nati Braun MA [facility]; [facility] Work Phone: 11-15-2020 08:51-0400 Diastolic blood pressure 82 mm[Hg] Nati Braun MA [facility]; [facility] Work Phone: Comment on above: Patient Position: Sitting; Cuff Location : Left Arm; Cuff Size: Standard 11-15-2020 08:51-0400 Heart rate 78 /min Nati Braun MA [facility]; [facility] Work Phone: Comment on above: Pattern: Regular 11-15-2020 08:51-0400 SaO2% (BldA) [Mass fraction] 98 % Nati Braun MA [facility]; [facility] Work Phone: Comment on above: Room air 11-15-2020 08:51-0400 Systolic blood pressure 132 mm[Hg] Nati Braun MA [facility]; [facility] Work Phone: Comment on above: Patient Position: Sitting; Cuff Location : Left Arm; Cuff Size: Standard 08-01-2020 07:16-0400 Body height 172.72 cm [facility]; [facility] Work Phone: 08-01-2020 07:16-0400 Body mass index (BMI) [Ratio] 31.32 kg/m2 [facility]; [facility] Work Phone: 08-01-2020 07:16-0400 Body surface area Derived from formula 2.[address] [facility]; [facility] Work Phone: 08-01-2020 07:16-0400 Body temperature 97.2 [degF] [facility]; [facility] Work Phone: Comment on above: Method: Thermal Scan 08-01-2020 07:16-0400 Body weight 93.[address] [facility]; [facility] Work Phone: 08-01-2020 07:16-0400 Diastolic blood pressure 94 mm[Hg] [facility]; [facility] Work Phone: Comment on above: Patient Position: Sitting; Cuff Location : Left Arm; Cuff Size: Standard 08-01-2020 07:16-0400 Heart rate 97 /min [facility]; [facility] Work Phone: Comment on above: Pattern: Regular 08-01-2020 07:16-0400 Respiratory rate 16 /min [facility]; [facility] Work Phone: Comment on above: Pattern: Unlabored 08-01-2020 07:16-0400 SaO2% (BldA) [Mass fraction] 97 % [facility]; [facility] Work Phone: Comment on above: Room air 08-01-2020 07:16-0400 Systolic blood pressure 138 mm[Hg] Michelle Tang LPN [facility]; [facility] Work Phone: Comment on above: Patient Position: Sitting; Cuff Location : Left Arm; Cuff Size: Standard 07-03-2019 10:23-0400 Body height 172.72 cm Shauna Beena DO Work Phone: [facility] Work Phone: Comment on above: pt just ordered cuff from [employer]-- so wi ll call with reading 07-03-2019 10:23-0400 Body mass index (BMI) [Ratio] 30.56 kg/m2 Shauna Beena DO Work Phone: [facility]; [facility] Work Phone: Comment on above: pt just ordered cuff from [employer]-- so wi ll call with reading 07-03-2019 10:23-0400 Body surface area Derived from formula 2.05 m2 Shauna Beena DO Work Phone: [facility]; [facility] Work Phone: Comment on above: pt just ordered cuff from [employer]-- so wi ll call with reading 07-03-2019 10:23-0400 Body temperature 98.6 [degF] Shauna Beena DO Work Phone: [facility]; [facility] Work Phone: Comment on above: Method: Temporal pt just ordered cuff from [employer]-- so will call with reading 07-03-2019 10:23-0400 Body weight 91.17 kg Shauna Beena DO Work Phone: [facility]; [facility] Work Phone: Comment on above: pt just ordered cuff from [employer]-- so wi ll call with reading 08-18-2018 08:37-0400 BMI (Body Mass Index) 30.56 kg/m2 Sophia Godwin [facility] Work Phone: 08-18-2018 08:37-0400 Body Temperature 96 [degF] Sophia Gravius [facility] Work Phone: Comment on above: Method: Temporal 08-18-2018 08:37-0400 Body weight 91.17 kg Sophia Godwin [facility] Work Phone: 08-18-2018 08:37-0400 BP Diastolic 78 mm[Hg] Sophia Godwin [facility] Work Phone: Comment on above: Patient Position: Sitting; Cuff Location : Left Arm; Cuff Size: Standard 08-18-2018 08:37-0400 BP Systolic 118 mm[Hg] Sophia Godwin [facility] Work Phone: Comment on above: Patient Position: Sitting; Cuff Location : Left Arm; Cuff Size: Standard 08-18-2018 08:37-0400 BSA (Body Surface Area) 2.05 m2 Sophia Godwin [facility] Internal Medicine Work Phone: 08-18-2018 08:37-0400 Height 172.72 cm Sophia Godwin [facility] Work Phone: 08-18-2018 08:37-0400 Pulse (Heart Rate) 92 /min Sophia Godwin [facility] Work Phone: Comment on above: Pattern: Regular 08-18-2018 08:37-0400 Pulse Oximetry 96 % Shauna Yen [facility] Internal Medicine Work Phone: Comment on above: Room air 08-18-2018 08:37-0400 SaO2% (BldA) [Mass fraction] 96 % Sophia Godwin [facility]; [facility] Work Phone: Comment on above: Room air 08-18-2018 08:37-0400 Weight 91.17 kg Shauna Yen [facility] Work Phone: 05-30-2018 12:11-0400 BMI (Body Mass Index) 31.02 kg/m2 Cheri Patel RN [facility] Work Phone: 05-30-2018 12:11-0400 Body weight 92.53 kg Cheri Patel RN [facility] Work Phone: 05-30-2018 12:11-0400 BP Diastolic 80 mm[Hg] Cheri Patel RN [facility] Work Phone: Comment on above: Patient Position: Sitting; Cuff Location : Left Arm; Cuff Size: Standard 05-30-2018 12:11-0400 BP Systolic 120 mm[Hg] Cheri Patel RN [facility] Work Phone: Comment on above: Patient Position: Sitting; Cuff Location : Left Arm; Cuff Size: Standard 05-30-2018 12:11-0400 BSA (Body Surface Area) 2.06 m2 Cheri Patel RN [facility] Work Phone: 05-30-2018 12:11-0400 Height 172.72 cm Cheri Patel RN [facility] Work Phone: 05-30-2018 12:11-0400 Pulse (Heart Rate) 77 /min Cheri Patel RN [facility] Work Phone: Comment on above: Pattern: Regular 05-30-2018 12:11-0400 Pulse Oximetry 96 % Shauna Yen [facility] Work Phone: Comment on above: Room air 05-30-2018 12:11-0400 Respiratory Rate 18 /min Cheri Patel RN [facility] Work Phone: Comment on above: Pattern: Unlabored 05-30-2018 12:11-0400 SaO2% (BldA) [Mass fraction] 96 % Cheri Patel RN [facility]; [facility] Work Phone: Comment on above: Room air 05-30-2018 12:11-0400 Weight 92.53 kg Shauna Yen [facility] Work Phone: 05-23-2018 07:34-0400 BMI (Body Mass Index) 31.02 kg/m2 Cheri Patel RN [facility] Work Phone: 05-23-2018 07:34-0400 Body Temperature 96.7 [degF] Cheri Patel RN [facility] Work Phone: Comment on above: Method: Temporal 05-23-2018 07:34-0400 Body weight 92.53 kg Cheri Patel RN [facility] Work Phone: 05-23-2018 07:34-0400 BP Diastolic 79 mm[Hg] Cheri Patel RN [facility] Work Phone: Comment on above: Patient Position: Sitting; Cuff Location : Left Arm; Cuff Size: Large 05-23-2018 07:34-0400 BP Systolic 118 mm[Hg] Cheri Patel RN [facility] Work Phone: Comment on above: Patient Position: Sitting; Cuff Location : Left Arm; Cuff Size: Large 05-23-2018 07:34-0400 BSA (Body Surface Area) 2.06 m2 Cheri Patel RN [facility] Work Phone: 05-23-2018 07:34-0400 Height 172.72 cm Cheri Patel RN [facility] Work Phone: 05-23-2018 07:34-0400 Pulse (Heart Rate) 76 /min Cheri Patel RN [facility] Work Phone: Comment on above: Pattern: Regular 05-23-2018 07:34-0400 Pulse Oximetry 97 % Shauna Yen [facility] Work Phone: Comment on above: Room air 05-23-2018 07:34-0400 Respiratory Rate 18 /min Cheri Patel RN [facility] Work Phone: Comment on above: Pattern: Unlabored 05-23-2018 07:34-0400 SaO2% (BldA) [Mass fraction] 97 % Cheri Patel RN [facility]; [facility] Work Phone: Comment on above: Room air 05-23-2018 07:34-0400 Weight 92.53 kg Shauna Yen [facility] Work Phone: 04-29-2017 07:17-0500 BMI (Body Mass Index) 28.97 kg/m2 Cheri Patel RN [facility] Work Phone: 04-29-2017 07:17-0500 Body weight 86.41 kg Cheri Patel RN [facility] Work Phone: 04-29-2017 07:17-0500 BP Diastolic 78 mm[Hg] Cheri Patel RN [facility] Work Phone: Comment on above: Patient Position: Sitting; Cuff Location : Left Arm; Cuff Size: Large 04-29-2017 07:17-0500 BP Systolic 120 mm[Hg] Cheri Patel RN [facility] Work Phone: Comment on above: Patient Position: Sitting; Cuff Location : Left Arm; Cuff Size: Large 04-29-2017 07:17-0500 BSA (Body Surface Area) 2 m2 Cheri Patel RN [facility] Work Phone: 04-29-2017 07:17-0500 Height 172.72 cm Cheri Patel RN [facility] Work Phone: 04-29-2017 07:17-0500 Pulse (Heart Rate) 67 /min Cheri Patel RN [facility] Work Phone: Comment on above: Pattern: Regular 04-29-2017 07:17-0500 Pulse Oximetry 98 % Shauna Yen [facility] Work Phone: Comment on above: Room air 04-29-2017 07:17-0500 Respiratory Rate 18 /min Cheri Patel RN [facility] Work Phone: Comment on above: Pattern: Unlabored 04-29-2017 07:17-0500 SaO2% (BldA) [Mass fraction] 98 % Cheri Patel RN [facility]; [facility] Work Phone: Comment on above: Room air 04-29-2017 07:17-0500 Weight 86.41 kg Shauna Yen [facility] Work Phone: 05-07-2015 15:30-0500 BMI (Body Mass Index) 29.08 kg/m2 Craleen Slarb AIDAN [facility] Work Phone: 05-07-2015 15:30-0500 Body Temperature 97.8 [degF] Carleen Slarb AIDAN [facility] Work Phone: 05-07-2015 15:30-0500 Body weight 86.75 kg Carleen Slarb AIDAN [facility] Work Phone: 05-07-2015 15:30-0500 BP Diastolic 72 mm[Hg] Carleen Slarb MANAGER NEWS [facility] Work Phone: Comment on above: Patient Position: Sitting; Cuff Location : Left Arm; Cuff Size: Standard 05-07-2015 15:30-0500 BP Systolic 116 mm[Hg] Carleen Slarb MANAGER NEWS [facility] Work Phone: Comment on above: Patient Position: Sitting; Cuff Location : Left Arm; Cuff Size: Standard 05-07-2015 15:30-0500 BSA (Body Surface Area) 2.01 m2 Carleen Slarb MANAGER NEWS [facility] Work Phone: 05-07-2015 15:30-0500 Height 172.72 cm Carleen Slarb MANAGER NEWS [facility] Work Phone: 05-07-2015 15:30-0500 Pulse (Heart Rate) 94 /min Carleen Shanarb MANAGER NEWS [facility] Work Phone: Comment on above: Pattern: Regular 05-07-2015 15:30-0500 Pulse Oximetry 98 % Shauna Yen [facility] Work Phone: Comment on above: Room air 05-07-2015 15:30-0500 Respiratory Rate 16 /min Carleen Shanarb MANAGER NEWS [facility] Work Phone: Comment on above: Pattern: Unlabored 05-07-2015 15:30-0500 SaO2% (BldA) [Mass fraction] 98 % Carleen Slarb MANAGER NEWS [facility]; [facility] Work Phone: Comment on above: Room air 05-07-2015 15:30-0500 Weight 86.75 kg Shauna Milleron [facility] Work Phone: 05-21-2014 14:50-0400 BMI (Body Mass Index) 28.66 kg/m2 Cheri Patel RN [facility] Work Phone: 05-21-2014 14:50-0400 Body weight 85.5 kg Cheri Patel RN [facility] Work Phone: 05-21-2014 14:50-0400 BP Diastolic 78 mm[Hg] Cheri Patel RN [facility] Work Phone: Comment on above: Patient Position: Sitting; Cuff Location : Left Arm; Cuff Size: Large 05-21-2014 14:50-0400 BP Systolic 118 mm[Hg] Cheri Patel RN [facility] Work Phone: Comment on above: Patient Position: Sitting; Cuff Location : Left Arm; Cuff Size: Large 05-21-2014 14:50-0400 BSA (Body Surface Area) 1.99 m2 Cheri Patel RN [facility] Work Phone: 05-21-2014 14:50-0400 Height 172.72 cm Cheri Patel RN [facility] Work Phone: 05-21-2014 14:50-0400 Pulse (Heart Rate) 73 /min Cheri Patel RN [facility] Work Phone: Comment on above: Pattern: Regular 05-21-2014 14:50-0400 Pulse Oximetry 98 % Shauna Yen [facility] Work Phone: Comment on above: Room air 05-21-2014 14:50-0400 Respiratory Rate 18 /min Cheri Patel RN [facility] Work Phone: Comment on above: Pattern: Unlabored 05-21-2014 14:50-0400 SaO2% (BldA) [Mass fraction] 98 % Cheri Patel RN [facility]; [facility] Work Phone: Comment on above: Room air 05-21-2014 14:50-0400 Weight 85.5 kg Shauna Yen [facility] Work Phone: 05-01-2013 16:08-0500 BMI (Body Mass Index) 27.25 kg/m2 Lydia Soria LPN [facility] Work Phone: 05-01-2013 16:08-0500 Body Temperature 98.6 [degF] Lydia Soria LPN [facility] Work Phone: Comment on above: Method: Oral 05-01-2013 16:08-0500 Body weight 81.31 kg Lydia Soria LPN [facility] Work Phone: 05-01-2013 16:08-0500 BP Diastolic 70 mm[Hg] Lydia Soria LPN [facility] Work Phone: Comment on above: Patient Position: Sitting; Cuff Location : Left Arm; Cuff Size: Standard 05-01-2013 16:08-0500 BP Systolic 118 mm[Hg] Lydia Soria LPN [facility] Work Phone: Comment on above: Patient Position: Sitting; Cuff Location : Left Arm; Cuff Size: Standard 05-01-2013 16:08-0500 BSA (Body Surface Area) 1.95 m2 Lydia Soria LPN [facility] Work Phone: 05-01-2013 16:08-0500 Height 172.72 cm Lydia Soria LPN [facility] Work Phone: 05-01-2013 16:08-0500 Pulse (Heart Rate) 80 /min Lydia Soria LPN [facility] Work Phone: Comment on above: Pattern: Regular 05-01-2013 16:08-0500 Pulse Oximetry 98 % Shauna Yen [facility] Work Phone: Comment on above: Room air 05-01-2013 16:08-0500 Respiratory Rate 16 /min Lydia Soria LPN [facility] Work Phone: 05-01-2013 16:08-0500 SaO2% (BldA) [Mass fraction] 98 % Lydia Soria LPN [facility]; [facility] Work Phone: Comment on above: Room air 05-01-2013 16:08-0500 Weight 81.31 kg Shauna Yen [facility] Work Phone: 05-05-2012 11:03-0500 BMI (Body Mass Index) 27.25 kg/m2 Cheri Patel RN [facility] Work Phone: 05-05-2012 11:03-0500 Body Temperature 96.2 [degF] Cheri Patel RN [facility] Work Phone: Comment on above: Method: Oral 05-05-2012 11:03-0500 Body weight 81.31 kg Cheri Patel RN [facility] Work Phone: 05-05-2012 11:03-0500 BP Diastolic 70 mm[Hg] Cheri Patel RN [facility] Work Phone: Comment on above: Patient Position: Sitting; Cuff Location : Right Arm; Cuff Size: Large 05-05-2012 11:03-0500 BP Systolic 120 mm[Hg] Cheri Patel RN [facility] Work Phone: Comment on above: Patient Position: Sitting; Cuff Location : Right Arm; Cuff Size: Large 05-05-2012 11:03-0500 BSA (Body Surface Area) 1.95 m2 Cheri Patel RN [facility] Work Phone: 05-05-2012 11:03-0500 Height 172.72 cm Cheri Patel RN [facility] Work Phone: 05-05-2012 11:03-0500 Pulse (Heart Rate) 64 /min Cheri Patel RN [facility] Work Phone: Comment on above: Pattern: Regular 05-05-2012 11:03-0500 Respiratory Rate 18 /min Cheri Patel RN [facility] Work Phone: Comment on above: Pattern: Unlabored 05-05-2012 11:03-0500 Weight 81.31 kg Shauna Yen [facility] Work Phone: 04-28-2011 09:22-0500 BMI (Body Mass Index) 26.82 kg/m2 Lydia Soria LPN [facility] Work Phone: 04-28-2011 09:22-0500 Body Temperature 96.7 [degF] Lydia Soria LPN [facility] Work Phone: Comment on above: Method: Oral 04-28-2011 09:22-0500 Body weight 80 kg Lydia Yang BERMUDEZ [facility] Work Phone: 04-28-2011 09:22-0500 BP Diastolic 78 mm[Hg] Lydia Soria LPN [facility] Work Phone: Comment on above: Patient Position: Sitting; Cuff Location : Left Arm; Cuff Size: Standard 04-28-2011 09:22-0500 BP Systolic 134 mm[Hg] Lydia Soria LPN [facility] Work Phone: Comment on above: Patient Position: Sitting; Cuff Location : Left Arm; Cuff Size: Standard 04-28-2011 09:22-0500 BSA (Body Surface Area) 1.94 m2 Lydia Soria LPN [facility] Work Phone: 04-28-2011 09:22-0500 Height 172.72 cm Lydia Soria LPN [facility] Work Phone: 04-28-2011 09:22-0500 Pulse (Heart Rate) 68 /min Lydia Soria LPN [facility] Work Phone: Comment on above: Pattern: Regular 04-28-2011 09:22-0500 Weight 80 kg Shauna Yen [facility] Work Phone: 10-29-2010 10:27-0400 BMI (Body Mass Index) 26.83 kg/m2 Lydia Soria MANAGER NEWS [facility] Internal [facility] Work Phone: 10-29-2010 10:27-0400 Body Temperature 97.1 [degF] Lydia Soria LPN [facility] Work Phone: Comment on above: Method: Oral 10-29-2010 10:27-0400 Body weight 80.03 kg Lydia Soria MANAGER NEWS [facility] Work Phone: 10-29-2010 10:27-0400 BP Diastolic 74 mm[Hg] Lydia Soria LPN [facility] Work Phone: Comment on above: Patient Position: Sitting; Cuff Location : Left Arm; Cuff Size: Standard 10-29-2010 10:27-0400 BP Systolic 144 mm[Hg] Lydia Soria LPN [facility] Work Phone: Comment on above: Patient Position: Sitting; Cuff Location : Left Arm; Cuff Size: Standard 10-29-2010 10:27-0400 BSA (Body Surface Area) 1.94 m2 Lydai Soria MANAGER NEWS [facility] Internal [facility] Work Phone: 10-29-2010 10:27-0400 Height 172.72 cm Lydia Soria LPN [facility] Work Phone: 10-29-2010 10:27-0400 Pulse (Heart Rate) 62 /min Lydia Soria LPN [facility] Work Phone: Comment on above: Pattern: Regular 10-29-2010 10:27-0400 Respiratory Rate 17 /min Lydia Soria LPN [facility] Work Phone: Comment on above: Pattern: Unlabored 10-29-2010 10:27-0400 Weight 80.03 kg Shauna Yen [facility] Work Phone: 07-17-2010 08:42-0400 BMI (Body Mass Index) 27.61 kg/m2 Cheri Patel RN [facility] Work Phone: 07-17-2010 08:42-0400 Body weight 82.36 kg Cheri Patel RN [facility] Work Phone: 07-17-2010 08:42-0400 BP Diastolic 62 mm[Hg] Cheri Patel RN [facility] Work Phone: Comment on above: Patient Position: Sitting; Cuff Location : Left Arm; Cuff Size: Large 07-17-2010 08:42-0400 BP Systolic 122 mm[Hg] Cheri Patel RN [facility] Work Phone: Comment on above: Patient Position: Sitting; Cuff Location : Left Arm; Cuff Size: Large 07-17-2010 08:42-0400 BSA (Body Surface Area) 1.96 m2 Cheri Patel RN [facility] Work Phone: 07-17-2010 08:42-0400 Height 172.72 cm Cheri Patel RN [facility] Work Phone: 07-17-2010 08:42-0400 Pulse (Heart Rate) 60 /min Cheri Patel RN [facility] Work Phone: Comment on above: Pattern: Regular 07-17-2010 08:42-0400 Respiratory Rate 20 /min Cheri Patel RN [facility] Work Phone: Comment on above: Pattern: Unlabored 07-17-2010 08:42-0400 Weight 82.36 kg Shauna Yen [facility] Work Phone: 05-16-2010 09:40-0500 BMI (Body Mass Index) 27.7 kg/m2 Cheri Patel RN [facility] Work Phone: 05-16-2010 09:40-0500 Body Temperature 96.5 [degF] Cheri Patel RN [facility] Work Phone: Comment on above: Method: Oral 05-16-2010 09:40-0500 Body weight 82.64 kg Cheri Patel RN [facility] Work Phone: 05-16-2010 09:40-0500 BP Diastolic 82 mm[Hg] Cheri Patel RN [facility] Work Phone: Comment on above: Patient Position: Sitting; Cuff Location : Left Arm; Cuff Size: Large 05-16-2010 09:40-0500 BP Systolic 136 mm[Hg] Cheri Patel RN [facility] Work Phone: Comment on above: Patient Position: Sitting; Cuff Location : Left Arm; Cuff Size: Large 05-16-2010 09:40-0500 BSA (Body Surface Area) 1.96 m2 Cheri Patel RN [facility] Work Phone: 05-16-2010 09:40-0500 Height 172.72 cm hCeri Patel RN [facility] Work Phone: 05-16-2010 09:40-0500 Pulse (Heart Rate) 60 /min Cheri Patel RN [facility] Work Phone: Comment on above: Pattern: Regular 05-16-2010 09:40-0500 Respiratory Rate 18 /min Cheri Patel RN [facility] Work Phone: Comment on above: Pattern: Unlabored 05-16-2010 09:40-0500 Weight 82.64 kg Shauna Yen [facility] Work Phone: 07-17-2009 08:17-0400 BMI (Body Mass Index) 28.01 kg/m2 Cheri Patel RN [facility] Work Phone: 07-17-2009 08:17-0400 Body weight 83.58 kg Cheri Patel RN [facility] Work Phone: 07-17-2009 08:17-0400 BP Diastolic 84 mm[Hg] Cheri Patel RN [facility] Work Phone: Comment on above: Patient Position: Sitting; Cuff Location : Left Arm; Cuff Size: Large 07-17-2009 08:17-0400 BP Systolic 118 mm[Hg] Cheri Patel RN [facility] Work Phone: Comment on above: Patient Position: Sitting; Cuff Location : Left Arm; Cuff Size: Large 07-17-2009 08:17-0400 BSA (Body Surface Area) 1.97 m2 Cheri Patel RN [facility] Work Phone: 07-17-2009 08:17-0400 Height 172.72 cm Cheri Patel RN [facility] Work Phone: 07-17-2009 08:17-0400 Pulse (Heart Rate) 68 /min Cheri Patel RN [facility] Work Phone: Comment on above: Pattern: Regular 07-17-2009 08:17-0400 Respiratory Rate 20 /min Cheri Patel RN [facility] Work Phone: Comment on above: Pattern: Unlabored 07-17-2009 08:17-0400 Weight 83.58 kg Shauna Yen [facility] Work Phone: 01-04-2009 08:23-0400 BMI (Body Mass Index) 27.41 kg/m2 Cheri Patel RN [facility] Work Phone: 01-04-2009 08:23-0400 Body weight 81.76 kg Cheri Patel RN [facility] Work Phone: 01-04-2009 08:23-0400 BP Diastolic 82 mm[Hg] Cheri Patel RN [facility] Work Phone: Comment on above: Patient Position: Sitting; Cuff Location : Right Arm; Cuff Size: Standard 01-04-2009 08:23-0400 BP Systolic 140 mm[Hg] Cheri Patel RN [facility] Work Phone: Comment on above: Patient Position: Sitting; Cuff Location : Right Arm; Cuff Size: Standard 01-04-2009 08:23-0400 BSA (Body Surface Area) 1.96 m2 Cheri Patel RN [facility] Work Phone: 01-04-2009 08:23-0400 Head Circumference 0 cm Shauna Yen [facility] Work Phone: 01-04-2009 08:23-0400 Head Occipital-frontal circumference 0 cm Cheri Patel RN [facility]; [facility] Work Phone: 01-04-2009 08:23-0400 Height 172.72 cm Cheri Patel RN [facility] Work Phone: 01-04-2009 08:23-0400 Pulse (Heart Rate) 60 /min Cheri Patel RN [facility] Work Phone: Comment on above: Pattern: Regular 01-04-2009 08:23-0400 Respiratory Rate 16 /min Cheri Patel RN [facility] Work Phone: Comment on above: Pattern: Unlabored 01-04-2009 08:23-0400 Weight 81.76 kg Shauna Yen [facility] Work Phone: 06-29-2008 07:48-0400 BMI (Body Mass Index) 26.85 kg/m2 Cheri Patel RN [facility] Work Phone: 06-29-2008 07:48-0400 Body weight 80.09 kg Cheri Patel RN [facility] Work Phone: 06-29-2008 07:48-0400 BP Diastolic 68 mm[Hg] Cheri Patel RN [facility] Work Phone: Comment on above: Patient Position: Sitting; Cuff Location : Left Arm; Cuff Size: Large 06-29-2008 07:48-0400 BP Systolic 122 mm[Hg] Cheri Patel RN [facility] Work Phone: Comment on above: Patient Position: Sitting; Cuff Location : Left Arm; Cuff Size: Large 06-29-2008 07:48-0400 BSA (Body Surface Area) 1.94 m2 Cheri Patel RN [facility] Work Phone: 06-29-2008 07:48-0400 Head Circumference 0 cm Shauna Yen [facility] Work Phone: 06-29-2008 07:48-0400 Head Occipital-frontal circumference 0 cm Cheri Patel RN [facility]; [facility] Work Phone: 06-29-2008 07:48-0400 Height 172.72 cm Cheri Patel RN [facility] Work Phone: 06-29-2008 07:48-0400 Pulse (Heart Rate) 80 /min Cheri Patel RN [facility] Work Phone: Comment on above: Pattern: Regular 06-29-2008 07:48-0400 Respiratory Rate 20 /min Cheri Patel RN [facility] Work Phone: Comment on above: Pattern: Unlabored 06-29-2008 07:48-0400 Weight 80.09 kg Shauna Yen [facility] Work Phone: 12-29-2007 15:15-0400 BMI (Body Mass Index) 27.07 kg/m2 LINN Treviño LPN [facility] Work Phone: 12-29-2007 15:15-0400 Body Temperature 97.6 [degF] LINN Treviño LPN [facility] Work Phone: Comment on above: Method: Oral 12-29-2007 15:15-0400 Body weight 80.75 kg LINN Treviño LPN [facility] Work Phone: 12-29-2007 15:15-0400 BP Diastolic 78 mm[Hg] LINN Treviño LPN [facility] Work Phone: Comment on above: Patient Position: Sitting; Cuff Location : Left Arm; Cuff Size: Standard 12-29-2007 15:15-0400 BP Systolic 120 mm[Hg] LINN Treviño LPN [facility] Work Phone: Comment on above: Patient Position: Sitting; Cuff Location : Left Arm; Cuff Size: Standard 12-29-2007 15:15-0400 BSA (Body Surface Area) 1.95 m2 LINN Treviño LPN [facility] Work Phone: 12-29-2007 15:15-0400 Head Circumference 0 cm Shauna Yen [facility] Work Phone: 12-29-2007 15:15-0400 Head Occipital-frontal circumference 0 cm LINN Treviño AIDAN [facility]; [facility] Work Phone: 12-29-2007 15:15-0400 Height 172.72 cm LINN Treviño AIDAN [facility] Work Phone: 12-29-2007 15:15-0400 Pulse (Heart Rate) 64 /min LINN Treviño AIDAN [facility] Work Phone: Comment on above: Pattern: Regular 12-29-2007 15:15-0400 Respiratory Rate 16 /min LINN Treviño AIDAN [facility] Work Phone: Comment on above: Pattern: Unlabored 12-29-2007 15:15-0400 Weight 80.75 kg Shauna Yen [facility] Work Phone: Encounters Encounter Date Encounter Type Care Provider Facility Start: 04-12-2024 End: 04-12-2024 ambulatory Shauna Yen Facility:[facility] Start: 01-15-2024 End: 01-15-2024 Subsequent hospital visit by physician Jonathon Solares [facility] Comment on above: Pure hypercholestero lemia, unspecified Start: 01-15-2024 End: 01-15-2024 ambulatory SHAUNA YEN [facility] Start: 12-17-2022 End: 12-17-2022 Annotation/Addendum Shauna Yen DO Work Phone: [facility] Start: 12-17-2022 Non-patient / Non-visit Dr. Jonas Yen Work Phone: [facility] Start: 12-17-2022 End: 12-17-2022 Admission to same day surgery center Dr. Shauna Yen Work Phone: [facility] Work Phone: Start: 12-17-2022 End: 12-17-[address] Shauna Yen Work Phone: [facility] Work Phone: Start: 10-27-2022 End: 10-27-2022 Annotation/Addendum Shauna Beena DO Work Phone: [facility] Start: 10-15-2022 Non-patient / Non-visit Dr. Jonas Yen Work Phone: [facility] Work Phone: Start: 10-14-2022 End: 10-14-2022 Office outpatient visit 15 minutes Shauna Beena DO Work Phone: [facility] Start: 10-14-2022 Review Shauna Fearo n DO Work Phone: [facility] Start: 08-22-2021 End: 08-22-2021 Office outpatient visit 25 minutes Shuana Beena DO Work Phone: [facility] Start: 08-22-2021 Review Shauna Fearo n DO Work Phone: [facility] Start: 11-22-2020 End: 11-22-2020 Office outpatient visit 5 minutes Shauna Beena DO Work Phone: [facility] Start: 11-15-2020 End: 11-15-2020 Patient encounter status Shauna Beena DO Work Phone: [facility]; [facility] Work Phone: Start: 11-15-2020 End: 11-15-2020 Periodic preventive med est patient 40-64yrs Shauna Beena DO Work Phone: [facility] Start: 08-01-2020 End: 08-02-2020 Office outpatient visit 25 minutes Shauna Beena DO Work Phone: [facility] Start: 08-01-2020 Review Shauna Fearo n DO Work Phone: [facility] Start: 07-03-2019 End: 07-03-2019 Office outpatient visit 15 minutes Shauna Beena DO Work Phone: [facility] Start: 08-18-2018 End: 08-18-2018 Office outpatient visit 15 minutes Shauna Beena [facility] Start: 08-18-2018 Review Shauna [facility]on [facility] Start: 05-30-2018 End: 05-30-2018 Office outpatient visit 15 minutes Shauna Beena [facility] Start: 05-30-2018 Review Shauna Milleron [facility] Start: 05-26-2018 Patient encounter procedure Shauna Yen [facility] Start: 05-23-2018 End: 05-23-2018 Office outpatient visit 25 minutes Shauna [facility] Start: 05-23-2018 Review Shauna Milleron [facility] Start: 04-29-2017 End: 04-29-2017 Office outpatient visit 15 minutes Shauna Yen [facility] Start: 05-10-2015 End: 05-13-2015 Office outpatient visit 5 minutes Shauna Yen [facility] Start: 05-07-2015 End: 05-07-2015 Office outpatient visit 15 minutes Shauna Yen [facility] Start: 05-21-2014 End: 05-21-2014 Office outpatient visit 15 minutes Shauna Yen [facility] Start: 05-01-2013 End: 05-01-2013 Office outpatient visit 25 minutes Shauna Yen [facility] Start: 05-05-2012 End: 05-05-2012 Patient encounter procedure Shauna Yen [facility] Start: 04-28-2011 End: 04-28-2011 Office outpatient visit 25 minutes Shauna Yen [facility] Start: 10-29-2010 End: 10-29-2010 Office outpatient visit 25 minutes Shauna Yen [facility] Start: 07-17-2010 End: 07-17-2010 Patient encounter procedure Shauna [facility] Start: 05-16-2010 End: 05-19-2010 Patient encounter procedure Shauna Yen [facility] Start: 07-17-2009 End: 07-17-2009 Patient encounter procedure Shauna Yen [facility] Start: 01-04-2009 End: 01-04-2009 Patient encounter procedure Shauna Yen [facility] Start: 12-21-2008 End: 12-24-2008 Error Encounter Shauna Beena [facility] Start: 06-29-2008 End: 06-29-2008 Patient encounter procedure Shauna Yen [facility] Start: 12-29-2007 End: 12-29-2007 Patient encounter procedure Shauna Yen [facility] Patient encounter status Sophia Godwin CMA [facility]; [facility] Work Phone: Patient encounter status Janet Rico MA [facility]; [facility] Work Phone: Procedures Date Procedure Procedure Detail Performing Clinician Start: 12-17-2022 End: 12-17-2022 Colonoscopy Report Procedure Note: See Note; NOTES: [facility] Medical Records Department [address] [place] [id number] Colonoscopy Report MR#: [id number] Acct: [id number] Name: MEHDI MARK Rep #: [id number] : 1975 47 From: Leobardo Bowens DO PCP: Dr. Shauna Yen DO Status:[facility] Patient Name: Mehdi Mark Procedure Date: 12/17/2022 6:21 AM Date of : 1975 Age: 47 Procedure: Colonoscopy Indications: Screening for colorectal malignant neoplasm Providers: Leobardo Bowens DO Medicines: Monitored Anesthesia Care Patient Profile: This is a 47 year old male. Refer to note in patient chart for documentation of history and physical. Last Colonoscopy: none. The patient's first colonoscopy is today. Complications: No immediate complications. Procedure: Pre-Anesthesia Assessment: - Prior to the procedure, a History and Physical was performed, and patient medications and allergies were reviewed. The risks and benefits of the procedure and the sedation options and risks were discussed with the patient. All questions were answered and informed consent was obtained. Patient identification and proposed procedure were verified by the physician. Mental Status Examination: normal. Prophylactic Antibiotics: The patient does not require prophylactic antibiotics. Prior Anticoagulants: The patient has taken no anticoagulant or antiplatelet agents. After reviewing the risks and benefits, the patient was deemed in satisfactory condition to undergo the procedure. The anesthesia plan was to use monitored anesthesia care (MAC). Immediately prior to administration of medications, the patient was re-assessed for adequacy to receive sedatives. The heart rate, respiratory rate, oxygen saturations, blood pressure, adequacy of pulmonary ventilation, and response to care were monitored throughout the procedure. The physical status of the patient was re-assessed after the procedure. After I obtained informed consent, the scope was passed under direct vision. Throughout the procedure, the patient's blood pressure, pulse, and oxygen saturations were monitored continuously. The Colonoscope was introduced through the anus and advanced to the cecum, identified by appendiceal orifice and ileocecal valve. The colonoscopy was performed without difficulty. The patient tolerated the procedure well. The quality of the bowel preparation was adequate. The ileocecal valve, appendiceal orifice, and rectum were photographed. Scope In: 6:37:22 AM Scope Withdrawal Time 0 hours 9 minutes 51 seconds Scope Out: 6:49:08 AM Total Procedure Duration Time 0 hours 11 minutes 46 seconds Findings: The perianal and digital rectal examinations were normal. A few small-mouthed diverticula were found in the recto-sigmoid colon and sigmoid colon. Two sessile polyps were found in the sigmoid colon and cecum. The polyps were 1 to 2 mm in size. These polyps were removed with a cold snare. Resection and retrieval were complete. Verification of patient identification for the specimen was done. Estimated blood loss was minimal. Impression: - Diverticulosis in the recto-sigmoid colon and in the sigmoid colon. - Two 1 to 2 mm polyps in the sigmoid colon and in the cecum, removed with a cold snare. Resected and retrieved. Recommendation: - Repeat colonoscopy in 5 years for surveillance. - Continue present medications. Procedure Code(s): --- Professional --- 52341, Colonoscopy, flexible; with removal of tumor(s), polyp(s), or other lesion(s) by snare technique CPT copyright 2021 [employer]. All rights reserved. The codes documented in this report are preliminary and upon dealer account manager review may be revised to meet current compliance requirements. Leobardo Bowens DO 12/17/2022 6:53:45 AM This report has been signed electronically. Number of Addenda: 0 Note Initiated On: 12/17/2022 6:21 AM 12/17/22 0654 Date Leobardo Bowens DO Cosigner Signature: Date (if indicated) CC: Dr. Shauna Yen DO; Leobardo Bowens DO Date Dictated: 12/17/22620 Date Transcribed: Paperhanger Apprentice: SHAHBAZ Signed Shauna Yen DO Work Phone: Start: 12-17-2022 End: 12-17-2022 History and Physical Exam Procedure Note: See Note; NOTES: [facility] Medical Records Department [address] [place] [id number] History Physical Exam 12/17/22630 MR#: [id number] Acct: [id number] Name: MEHDI MARK Rep #: [id number] : 1975 47 From: Leobardo Bowesn DO PCP: Dr. Shauna Yen DO Status:[facility] Location: [place] [address] HPI - General General Date of Admission: 12/17/22 Date of Service: 12/17/22 Chief Complaint: Screening colonoscopy HPI Narrative MEHDI MARK, is a 47 M who presents today for screening colonoscopy. He has a family history of colon polyps in his mother and his sister. There is no family still colon cancer. He he has a past medical history of mild hypertension and seasonal allergies. He has no chest pain no shortness of breath. He denies abdominal pain. Denies any cramping. Denies any change in bowel habits such as lower GI bleeding, constipation or diarrhea. PFSH Medical History Alcohol use Gout Heartburn HTN (hypertension) Hypercholesteremia Non-smoker Home Medications allopurinol 100 mg tablet 100 mg PO BID 10/15/22 [History Last Taken Unknown] lisinopril 20 mg tablet 20 mg PO BID 10/15/22 [History Last Taken 12/17/22 05:00] loratadine 10 mg tablet (Claritin) 10 mg PO DAILY 10/15/22 [History Last Taken Unknown] Allergy/AdvReac Type Severity Reaction Status Date / Time No Known Allergies Allergy Verified 12/17/22 05:42 Family History (Updated 10/15/22 @ 13:29 by Yesi Diaz) Mother Colon polyps Sister Colon polyps Father Hypertension Gout Kidney stones Surgical History (Updated 12/15/22 @ 13:30 by Leora Blakely) Hx of adenoidectomy Social History (Updated 10/15/22 @ 13:30 by Yesi Perales) current occupational status: employed current occupation: [employer], Educator Smoking Status: Never smoker ROS Review of Systems ROS Unobtainable: other Constitutional Constitutional: Denies fatigue, fever(s), poor appetite, weight gain or weight loss ENT HEENT: Denies mouth lesions Cardiovascular Cardiovascular: Denies abdominal bloating, abdominal edema or abdominal pain Respiratory/Chest Respiratory/Chest: Denies change in mental status, change in phlegm color, chest congestion or chest tightness Gastrointestinal Gastrointestinal: Denies belching, bloating, change in bowel habits, change in stool character, chewing difficulty, coffee ground emesis, constipation, cramping, diarrhea, dyspepsia, dysphagia, early satiety, excessive flatus, fecal incontinence, heartburn, hematemesis, hematochezia, hemorrhoids, loose stools, melena, nausea, odynophagia, rectal bleeding, tenesmus, vomiting or weight changes Genitourinary Genitourinary: Denies abdominal discomfort, burning urination or itching Musculoskeletal Musculoskeletal: Reports as per HPI; Denies muscle weakness or myalgias Integumentary Integumentary: Denies jaundice Neurologic Neurologic: Denies lack of coordination or weakness Psychiatric Psychiatric: Denies confusion, depression, memory loss, mood swings, paranoia or suicidal ideation Endocrine Endocrinology: Denies systems reviewed and no addt'l complaints, except as documented Hematologic/Lymphatic Hematologic/Lymphatic: Denies anemia, easy bleeding, easy bruising or lymphadenopathy Allergic/Immunologic Allergic/Immunologic: Denies systems reviewed and no addt'l complaints, except as documented Vital Signs Vital Signs Vital Signs: 12/17/22 05:45 12/17/22 05:46 Temperature 97.4 F L Temperature Source Temporal Pulse Rate 83 Respiratory Rate 18 Respiratory Pattern Normal Blood Pressure 144/98 H Blood Pressure Mean 113 Blood Pressure Source Monitor Blood Pressure Position Semi-Fowlers Blood Pressure Location Left Arm Pulse Ox 98 Oxygen Delivery Method Room Air Weight Weight: 212 lb Body Mass Index (BMI) 32.2 Physical Exam Const alert General Appearance: cooperative Orientation / Consciousness: oriented to person HEENT hearing grossly normal bilaterally Head and Scalp: normal to inspection Face and Sinus: face symmetric Nose: external nose normal Mouth: oral and palatal mucosa normal Eyes conjunctivae normal General Eye: normal appearance of both eyes Neck full ROM General: normal visual inspection Lymph Lymphatic: no lymphadenopathy noted Chest inspection of chest normal and palpation of chest normal Chest: symmetrical chest wall rise Resp normal respiratory effort Effort and Inspection: able to speak in complete sentences Cardio regular rate GI non-distended Percussion: normal to percussion Rectal Exam: deferred Neuro Speech: speech normal Gait (Neuro): normal gait Assessment Plan Assessment/Plan (1) Encounter for screening for malignant neoplasm of colon: PLAN: He was explained alternatives, risk, benefits including outstanding bleeding, infection, sepsis, perforation, need for discharge and . He will have an ASA of 3. 12/17/22 0632 <Electronically signed by Leobardo Bowens DO> Cosigner Signature (if applicable): CC: Dr. Shauna Yen DO; Leobardo Bowens DO Signed Shauna Yen DO Work Phone: Start: 12-17-2022 End: 12-17-[address] Shauna Yen Work Phone: Plan of Treatment Date Care Activity Detail Author Start: 12-17-2032 Screening for malign ant neoplasm of colon [facility] Start: 11-15-2030 DTaP/Tdap/Td Vaccine s (2 - Td or Tdap) DTaP/Tdap/Td Vaccines (2 - Td or Tdap) [facility] Start: 2026 Zoster Vaccines (1 o f 2) Zoster Vaccines (1 of 2) [facility] Start: 11-14-2023 Influenza vaccination Influenza Vacc ine (#1) [facility] Start: 12-17-2022 Patient discharge [facility] Start: 10-27-2022 Lipid panel LIPID PANEL (31796) [facility]; [facility] Work Phone: Comment on above: recheck in 6m Start: 10-14-2022 Procedure Education Eprescribe d prescriptions (G8553) [facility]; [facility] Work Phone: Start: 10-14-2022 Provider Instruction s for Treatment [facility]; [facility] Work Phone: Start: 10-14-2022 25 hydroxy includes fractions if performed CALCIFIDIOL (23208) VIT D 25 [facility]; [facility] Work Phone: Start: 10-14-2022 Assay of thyroid stimulating hormone tsh TSH (12723) [facility]; [facility] Work Phone: Start: 10-14-2022 Urnls dip stick/tabl et reagent auto microscopy URINALYSIS, W/ MICRO (77331) [facility]; [facility] Work Phone: Start: 10-14-2022 Urine albumin quantitative MICROALBUMIN: CREATININE RATIO (81668) AND (22701) [facility]; [facility] Work Phone: Start: 10-14-2022 Comprehensive metabo lic panel METABOLIC PANEL, COMPREHENSIVE (36914) [facility]; [facility] Work Phone: Start: 10-14-2022 Lipid panel LIPID PANEL (53153) [facility]; [facility] Work Phone: Start: 10-14-2022 Blood count complete auto&auto difrntl wbc CBC W/AUTO DIFF WBC (42758) [facility]; [facility] Work Phone: Start: 08-22-2021 Procedure Education Eprescribe d prescriptions (G8553) [facility]; [facility] Work Phone: Start: 08-22-2021 Provider Instruction s for Treatment [facility]; [facility] Work Phone: Start: 08-22-2021 25 hydroxy includes fractions if performed CALCIFIDIOL (69059) VIT D 25 [facility]; [facility] Work Phone: Start: 08-22-2021 Lipid panel LIPID PANEL (03921) [facility]; [facility] Work Phone: Start: 08-22-2021 Assay of thyroid stimulating hormone tsh TSH (39946) [facility]; [facility] Work Phone: Start: 08-22-2021 Urine albumin quantitative MICROALBUMIN: CREATININE RATIO (55798) AND (28515) [facility]; [facility] Work Phone: Start: 08-22-2021 Comprehensive metabo lic panel METABOLIC PANEL, COMPREHENSIVE (20632) [facility]; [facility] Work Phone: Start: 08-22-2021 Blood count complete auto&auto difrntl wbc CBC W/AUTO DIFF WBC (30143) [facility]; [facility] Work Phone: Start: 11-15-2020 Procedure Education Eprescribe d prescriptions (G8553) [facility]; [facility] Work Phone: Start: 08-01-2020 Procedure Education Eprescribe d prescriptions (G8553) [facility]; [facility] Work Phone: Start: 08-01-2020 Provider Instruction s for Treatment [facility]; [facility] Work Phone: Start: 08-01-2020 25 hydroxy includes fractions if performed CALCIFEDIOL (39108) [facility]; [facility] Work Phone: Start: 08-01-2020 Assay of prostate specific antigen total PSA (PROSTATE SPECIFIC ANTIGEN) (V76.44) [facility]; [facility] Work Phone: Start: 08-01-2020 Assay of blood/uric acid URIC ACID BLOOD (30352) [facility]; [facility] Work Phone: Start: 08-01-2020 Assay of thyroid stimulating hormone tsh TSH (55830) [facility]; [facility] Work Phone: Start: 08-01-2020 Urnls dip stick/tabl et reagent auto microscopy URINALYSIS, W/ MICRO (25673) [facility]; [facility] Work Phone: Start: 08-01-2020 Urine albumin quantitative MICROALBUMIN: CREATININE RATIO (31337) AND (92579) [facility]; [facility] Work Phone: Start: 08-01-2020 Comprehensive metabo lic panel METABOLIC PANEL, COMPREHENSIVE (50650) [facility]; [facility] Work Phone: Start: 08-01-2020 Blood count complete auto&auto difrntl wbc CBC W/AUTO DIFF WBC (63141) [facility]; [facility] Work Phone: Start: 08-01-2020 Lipid panel LIPID PANEL (87657) [facility]; [facility] Work Phone: Start: 07-03-2019 Procedure Education Eprescribe d prescriptions (G8553) [facility]; [facility] Work Phone: Start: 07-03-2019 Provider Instruction s for Treatment [facility]; [facility] Work Phone: Start: 07-03-2019 Assay of blood/uric acid URIC ACID BLOOD (49495) [facility]; [facility] Work Phone: Start: 07-03-2019 Assay of thyroid stimulating hormone tsh TSH (37613) [facility]; [facility] Work Phone: Start: 07-03-2019 Urnls dip stick/tabl et reagent auto microscopy URINALYSIS, W/ MICRO (36098) [facility]; [facility] Work Phone: Start: 07-03-2019 Urine albumin quantitative MICROALBUMIN: CREATININE RATIO (52998) AND (67486) [facility]; [facility] Work Phone: Start: 07-03-2019 Comprehensive metabo lic panel METABOLIC PANEL, COMPREHENSIVE (15253) [facility]; [facility] Work Phone: Start: 07-03-2019 Lipid panel LIPID PANEL (28812) [facility]; [facility] Work Phone: Start: 07-03-2019 Blood count complete auto&auto difrntl wbc CBC W/AUTO DIFF WBC (80840) [facility]; [facility] Work Phone: Start: 08-18-2018 Procedure Education Eprescribe d prescriptions (G8553) [facility] Work Phone: Start: 08-18-2018 Provider Instruction s for Treatment Continue Current Prescription(s) [facility] Work Phone: Start: 08-18-2018 Sedimentation rate r bc non-automated ESR-F (SED RATE ERYTHROCYTE - MALE) (46004) [facility] Work Phone: Start: 05-30-2018 Provider Instruction s for Treatment Reviewed Lab [facility] Work Phone: Start: 05-30-2018 Protein mass conc NMR Profile (27063 ) [facility] Work Phone: Comment on above: do in 09/30 Start: 05-23-2018 Provider Instruction s for Treatment HTN/CAD Red Flags [facility] Work Phone: Start: 05-23-2018 Lipoprotein blood qu an numbers & subclasses NMR Profile (60564) [facility] Work Phone: Start: 05-23-2018 Protein mass conc NMR Profile (69295 ) [facility] Work Phone: Start: 05-23-2018 Thyrotropin Qn TSH (54251) [facility] Work Phone: Start: 05-23-2018 Urnls dip stick/tabl et reagent auto microscopy URINALYSIS, W/ MICRO (24769) [facility] Work Phone: Start: 05-23-2018 Urine albumin quantitative MICROALBUMIN: CREATININE RATIO (12143) AND (66664) [facility] Work Phone: Start: 05-23-2018 Comprehensive metabo lic panel METABOLIC PANEL, COMPREHENSIVE (80760) [facility] Work Phone: Start: 05-23-2018 Blood count complete auto&auto difrntl wbc CBC W/AUTO DIFF WBC (09297) [facility] Work Phone: Start: 04-29-2017 Procedure Education Eprescribe d prescriptions (G8553) [facility] Work Phone: Start: 04-29-2017 Provider Instruction s for Treatment [facility] Work Phone: Start: 05-07-2015 Provider Instruction s for Treatment Follow up in 2 days for TB test to be read and labs fasting. [facility] Work Phone: Start: 05-21-2014 Procedure Education Eprescribe d prescriptions (G8553) [facility] Work Phone: Start: 05-21-2014 Provider Instruction s for Treatment Follow up in 6 months [facility] Work Phone: Start: 05-01-2013 25 hydroxy includes fractions if performed CALCIFEDIOL (22946) [facility] Work Phone: Start: 05-01-2013 Assay of blood/uric acid URIC ACID BLOOD (60343) [facility] Work Phone: Start: 05-01-2013 Assay of thyroid stimulating hormone tsh TSH (18194) [facility]; [facility] Work Phone: Start: 05-01-2013 Thyrotropin Qn TSH (62367) [facility] Work Phone: Start: 05-01-2013 Urnls dip stick/tabl et rgnt non-auto w/o micrscp Urinalysis, Office (74035) [facility] Work Phone: Start: 05-01-2013 Urine albumin quantitative MICROALBUMIN: CREATININE RATIO (84237) AND (91823) [facility] Work Phone: Start: 05-01-2013 Lipid panel LIPID PANEL (09010) [facility] Work Phone: Start: 05-01-2013 Comprehensive metabo lic panel METABOLIC PANEL, COMPREHENSIVE (53241) [facility] Work Phone: Start: 05-01-2013 Lipoprotein blood qu an numbers & subclasses LIPOPROTEIN, BLD, BY NMR (49757) [facility]; [facility] Work Phone: Start: 05-01-2013 Protein mass conc LIPOPROTEIN, BLD, BY NMR (29135) [facility] Work Phone: Start: 05-01-2013 Blood count manual c ell count each CBC WITH MANUAL DIFF (58598) [facility] Work Phone: Start: 05-01-2013 Provider Instruction s for Treatment [facility] Work Phone: Start: 05-05-2012 Provider Instruction s for Treatment [facility] Work Phone: Start: 05-02-2012 Creatinine other source CREATI NINE, URINE (99580) [facility] Work Phone: Start: 05-02-2012 Lipid panel LIPID PANEL (24224) [facility] Work Phone: Start: 05-02-2012 Urine albumin quantitative MICROALBUMIN: CREATININE RATIO (76003) AND (56610) [facility] Work Phone: Start: 04-28-2011 Provider Instruction s for Treatment Follow up in 6 months [facility] Work Phone: Start: 10-29-2010 Provider Instruction s for Treatment [facility] Work Phone: Start: 05-16-2010 Provider Instruction s for Treatment [facility] Work Phone: Start: 07-17-2009 Assay of thyroid stimulating hormone tsh TSH (36890) [facility]; [facility] Work Phone: Start: 07-17-2009 Thyrotropin Qn TSH (67701) [facility] Work Phone: Start: 07-17-2009 Urine albumin quantitative MICROALBUMIN: CREATININE RATIO (38842) AND (24144) [facility] Work Phone: Start: 07-17-2009 Urnls dip stick/tabl et reagent auto microscopy URINALYSIS, W/ MICRO (14147) [facility] Work Phone: Start: 07-17-2009 Comprehensive metabo lic panel METABOLIC PANEL, COMPREHENSIVE (34764) [facility] Work Phone: Start: 07-17-2009 Lipid panel LIPID PANEL (23324) [facility] Work Phone: Start: 07-17-2009 Blood count manual c ell count each CBC WITH MANUAL DIFF (35092) [facility] Work Phone: Start: 01-04-2009 Provider Instruction s for Treatment [facility] Work Phone: Start: 06-29-2008 Provider Instruction s for Treatment [facility] Work Phone: Start: 12-29-2007 Glucose mass conc Glucose, PP/ 2 Hour (31887) [facility] Work Phone: Start: 12-29-2007 Glucose quantitative blood xcpt reagent strip Glucose, PP/2 Hour (48783) [facility]; [facility] Work Phone: Start: 12-29-2007 Provider Instruction s for Treatment [facility] Work Phone: Start: 1994 Hepatitis C screening Hepatitis C [facility] Start: 1976 HIV screening HIV Screening [facility] Start: 1976 Lipid panel Lipid Panel [facility] Start: 1976 Screening for malign ant neoplasm of colon [facility] Start: 1976 Yearly Adult Physical Yearly Adult [facility] Colonoscopy [facility] End: 01-15-2024 CT for calcium scoring WO contrast and CTA W contrast IV Heart and coronary arteries [facility] Service Area Work Phone: Comment on above: Once for 1 Occurrenc es starting 01/15/2024 until 01/15/2024 Patient referral [facility] Work Phone: [facility] Work Phone: [facility] Work Phone: [facility] Work Phone: [facility] Work Phone: [facility] Work Phone: [facility] Work Phone: [facility] Work Phone: [facility] Work Phone: [facility] Work Phone[facility] Work Phone: [facility] Work Phone: [facility] Work Phone[facility] Work Phone: [facility] Work Phone: [facility] Work Phone: [facility]; [facility] Work Phone: [facility]; [facility] Work Phone: [facility]; [facility] Work Phone: [facility]; [facility] Work Phone: Immunizations Immunization Date Immunization Notes Care Provider [facility] 12-05-2022 influenza virus vaccine, unspecified formulation [address] Work Phone: 11-15-2020 tetanus toxoid, reduced diphtheria toxoid, and acellular pertussis vaccine, adsorbed Shauna Yen DO Work Phone: [facility]; [facility] Work Phone: Comment on above: Site: Left Deltoid Lot: [id number]: [id number] Location: L deltoidroute: IMamount: pre filled radhaRANDY 06-24-2020 COVID-19 (Pfizer) Shauna spain DO Work Phone: [facility]; [facility] Work Phone: 06-03-2020 COVID-19 (Pfizer) Shauna spian DO Work Phone: [facility]; [facility] Work Phone: Payers Date Payer Category Payer Self-pay [id number] 2021 Blue Cross Blue Shie [facility] [id number] 2021 Unknown [id number] 2018 Private Health Insurance [id number] 1975 Unknown [id number] 1975 Unknown [id number] Private Health Insurance [employer] 2 [id number] Unknown Unknown [id number] Unknown [id number] Social History Date Type Detail Facility Alcohol Use [facility] Work Phone: Comment on above: Occasional alcohol u se 3 cups coffee qd Full-time,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, Lives alone Start: 12-15-2022 [facility] Start: 1975 Sex Assigned At Male [facility] Start: 1975 Sex assigned at Not on file [facility] Work Phone: Gender identity Not on file [facility] Work Phone: Start: 01-05-2024 End: 01-15-2024 Exposure to SARS-CoV-2 (event) Not sure [facility] Goals Date Patient Goal Desired Activity /State Functional Status Date Assessment Result Facility 10-06-2018 LP-IR Score LP-IR Score 54 [facility] Work Phone: Comment on above: INSULIN RESISTANCE Mark FIGUEROA <--Insulin Sensitive Insulin Resistant--> Percentile in Reference PopulationInsulin Resistance ScoreLP-IR Score Low 25th 50th 75th High <27 27 45 63 >63LP-IR Score is inaccurate if patient is non-fasting. .The LP-IR score is a laboratory developed index that has beenassociated with insulin resistance and diabetes risk and should beused as one component of a physician's clinical assessment. TheLP-IR score listed above has not been cleared by the [place] Food andDrug Administration. do in 09/30; PATIENT WAS FASTINGPERFORMED BY: [email or web address] [facility] [id number] 05-23-2018 LP-IR Score LP-IR Score 62 [facility] Work Phone: Comment on above: INSULIN RESISTANCE M HENRY <--Insulin Sensitive Insulin Resistant--> Percentile in Reference PopulationInsulin Resistance ScoreLP-IR Score Low 25th 50th 75th High <27 27 45 63 >63LP-IR Score is inaccurate if patient is non-fasting. .The LP-IR score is a laboratory developed index that has beenassociated with insulin resistance and diabetes risk and should beused as one component of a physician's clinical assessment. TheLP-IR score listed above has not been cleared by the [place] Food andDrug Administration. PATIENT WAS FASTINGP ERFORMED BY: [email or web address] [facility] [id number] BY: Mysterio [email or web address] [facility] [id number] 05-02-2012 LP-IR Score LP-IR Score 53 [facility] Work Phone: Comment on above: The LP-IR Score comb ivet information from lipoproteinparticle concentration and size to give improvedassessment of insulin resistance and diabetes risk.Small LDL-P, LDL Particle Size, HDL-Particle, andLP-IR Score have been validated by [employer]but not cleared by US FDA; the clinical utilityof these test results has not been fully established.INSULIN RESISTANCE MARKER <--Insulin Sensitive Insulin Resistant--> Percentile in Reference PopulationInsulin Resistance ScoreLP-IR Score Low 25th 50th 75th High <27 27 45 63 >63 PATIENT WAS FASTINGP ERFORMED BY: Uma [employer] [email or web address] [facility] [id number] BY: ZITA [facility] [id number] [place] [id number] Information: [id number] Mental Status Date Assessment Result Facility 12-17-2022 Cognitive function Voice/Name [facility] Work Phone: Clinical Notes 08-22-2021 to 12-17-2022 Note Date & Type Note Facility 12-17-2022 Procedure note [facility] 12-17-2022 Procedure note [facility] 08-22-2021 Instructions Name Patient Instructions Start: 2 Instruction Type:Provider Instructions for Treatment How to Access Health Information Online using Patient Portal and 3rd [employer] Apps Start: 2 Instruction Type:Patient Education Patient Instructions Start:15-Nov-2020 Instruction Type:Provider Instructions for Treatment How to Access Health Information Online using Patient Portal and 3rd [employer] Apps Start:15-Nov-2020 Instruction Type:Patient Education How to Access Health Information Online using Patient Portal and 3rd [employer] Apps Start: Instruction Type:Patient Education Patient Instructions Start: Instruction Type:Provider Instructions for Treatment How to access health information online Start: 0 Instruction Type:Patient Education How to access health information online - Detail Start: 0 Instruction Type:Patient Education Patient Instructions Start: 0 Instruction Type:Provider Instructions for Treatment How to access health information online Start:18-Aug-2018 Instruction Type:Patient Education How to access health information online - Detail Start:18-Aug-2018 Instruction Type:Patient Education Patient Instructions Start:18-Aug-2018 Instruction Type:Provider Instructions for Treatment How to access health information online Start: Instruction Type:Patient Education How to access health information online - Detail Start: Instruction Type:Patient Education Patient Instructions Start: 9 Instruction Type:Provider Instructions for Treatment How to access health information online Indication:BMI 31.0-31.9,adult Start: 9 Instruction Type:Patient Education How to access health information online - Detail Indication:BMI 31.0-31.9,adult Start: 9 Instruction Type:Patient Education Patient Instructions Indication:BMI 31.0-31.9,adult Start: 9 Instruction Type:Provider Instructions for Treatment How to access health information online Start: 8 Instruction Type:Patient Education How to access health information online - Detail Start: 8 Instruction Type:Patient Education Patient Instructions Start: 8 Instruction Type:Provider Instructions for Treatment How to access health information online Indication:Hypertension, benign Start:21-May-2014 Instruction Type:Patient Education How to access health information online - Detail Indication:Hypertension, benign Start:21-May-2014 Instruction Type:Patient Education Patient Instructions Indication:Hypertension, benign Start:21-May-2014 Instruction Type:Provider Instructions for Treatment Patient Instructions Indication:Gout Start: 4 Instruction Type:Provider Instructions for Treatment [facility]; [facility] Work Phone: Evaluation note* Diagnosis Onset Date Resolution Status Encounter for screening for malignant neoplasm of colo n acute [facility] Work Phone: Evaluation note* Diagnosis Pure hypercholesterolemia, unspecified documented in this encounter [facility] Work Phone: History and physical note Author Leobardo Bowens [facility] December 17, 2022 6:32am Note Date/Time December 17, 2022 6: 32am [facility] Medical Records Department [address] [place] [id number] History & Physical Exam 12/17/22 0631 MR#: [id number] Acct: [id number] Name: MHEDI MARK Rep #:[id number] : 1975 47 From: Leobardo Bowens DO PCP: Dr. Shauna Yen DO Status:[facility] Location: [place] [address] HPI - General General Date of Admission: 12/17/22 Date of Service: 12/17/22 Chief Complaint: Screening colonoscopy HPI Narrative MEHDI MARK, is a 47 M who presents today for screening colonoscopy. He has a family history of colon polyps in his mother and his sister. There is no familystill colon cancer. He he has a past medical history of mild hypertension and seasonal allergies. He has no chest pain no shortness of breath. He denies abdominal pain. Denies any cramping. Denies any change in bowel habits such aslower GI bleeding, constipation or diarrhea. PFSH Medical History Alcohol use Gout Heartburn HTN (hypertension) Hypercholesteremia Non-smoker Home Medications allopurinol 100 mg tablet 100 mg PO BID 10/15/22 [History Last Taken Unknown] lisinopril 20 mg tablet 20 mg PO BID 10/15/22 [History Last Taken 12/17/22 05:00] loratadine 10 mg tablet (Claritin) 10 mg PO DAILY 10/15/22 [History Last Taken Unknown] Allergy/AdvReac Type Severity Reaction Status Date / Time No Known Allergies Allergy Verified 12/17/22 05:42 Family History (Updated 10/15/22 @ 13:29 by Yesi Perales) Mother Colon polyps Sister Colon polyps Father Hypertension Gout Kidney stones Surgical History (Updated 12/15/22 @ 13:30 by Leora Blakely) Hx of adenoidectomy Social History (Updated 10/15/22 @ 13:30 by Yesi Perales) current occupational status: employed current occupation: [employer], Educator Smoking Status: Never smoker ROS Review of Systems ROS Unobtainable: other Constitutional Constitutional: Denies fatigue, fever(s), poor appetite, weight gain or weight loss ENT HEENT: Denies mouth lesions Cardiovascular Cardiovascular: Denies abdominal bloating, abdominal edema or abdominal pain Respiratory/Chest Respiratory/Chest: Denies change in mental status, change in phlegm color, chestcongestion or chest tightness Gastrointestinal Gastrointestinal: Denies belching, bloating, change in bowel habits, change in stool character, chewing difficulty, coffee ground emesis, constipation, cramping, diarrhea, dyspepsia, dysphagia, early satiety, excessive flatus, fecalincontinence, heartburn, hematemesis, hematochezia, hemorrhoids, loose stools, melena, nausea, odynophagia, rectal bleeding, tenesmus, vomiting or weight changes Genitourinary Genitourinary: Denies abdominal discomfort, burning urination or itching Musculoskeletal Musculoskeletal: Reports as per HPI; Denies muscle weakness or myalgias Integumentary Integumentary: Denies jaundice Neurologic Neurologic: Denies lack of coordination or weakness Psychiatric Psychiatric: Denies confusion, depression, memory loss, mood swings, paranoia orsuicidal ideation Endocrine Endocrinology: Denies systems reviewed and no addt'l complaints, except as documented Hematologic/Lymphatic Hematologic/Lymphatic: Denies anemia, easy bleeding, easy bruising or lymphadenopathy Allergic/Immunologic Allergic/Immunologic: Denies systems reviewed and no addt'l complaints, except as documented Vital Signs Vital Signs Vital Signs: 12/17/22 05:45 12/17/22 05:46 Temperature 97.4 F L Temperature Source Temporal Pulse Rate 83 Respiratory Rate 18 Respiratory Pattern Normal Blood Pressure 144/98 H Blood Pressure Mean 113 Blood Pressure Source Monitor Blood Pressure Position Semi-Fowlers Blood Pressure Location Left Arm Pulse Ox 98 Oxygen Delivery Method Room Air Weight Weight: 212 lb Body Mass Index (BMI) 32.2 Physical Exam Const alert General Appearance: cooperative Orientation / Consciousness: oriented to person HEENT hearing grossly normal bilaterally Head and Scalp: normal to inspection Face and Sinus: face symmetric Nose: external nose normal Mouth: oral and palatal mucosa normal Eyes conjunctivae normal General Eye: normal appearance of both eyes Neck full ROM General: normal visual inspection Lymph Lymphatic: no lymphadenopathy noted Chest inspection of chest normal and palpation of chest normal Chest: symmetrical chest wall rise Resp normal respiratory effort Effort and Inspection: able to speak in complete sentences Cardio regular rate GI non-distended Percussion: normal to percussion Rectal Exam: deferred Neuro Speech: speech normal Gait (Neuro): normal gait Assessment & Plan Assessment/Plan (1) Encounter for screening for malignant neoplasm of colon: PLAN: He was explained alternatives, risk, benefits including outstanding bleeding, infection, sepsis, perforation, need for discharge and . He willhave an ASA of 3. 12/17/22 0632 <Electronically signed by Leobardo Bowesn DO> Cosigner Signature (if applicable): CC: Dr. Shauna Yen DO; Leobardo Bowens DO~ Signed [facility] Work Phone: Instructions* Name Dates Details How to Access [place] tion Online using Patient Portal and 3rd [employer] Party Apps Indication:Non-smoker Start:01-Aug-2020 Instruction Type:Patient Education Patient Instructions Indication:Non-smoker Start:01-Aug-2020 Instruction Type:Provider Instructions for Treatment How to access health informa tion online Indication:Non-smoker Start:03-Jul-2019 Instruction Type:Patient Education How to access health informa tion online - Detail Indication:Non-smoker Start:03-Jul-2019 Instruction Type:Patient Education Patient Instructions Indication:Non-smoker Start:03-Jul-2019 Instruction Type:Provider Instructions for Treatment How to access health informa tion online Indication:Non-smoker Start:18-Aug-2018 Instruction Type:Patient Education How to access health informa tion online - Detail Indication:Non-smoker Start:18-Aug-2018 Instruction Type:Patient Education Patient Instructions Indication:Non-smoker Start:18-Aug-2018 Instruction Type:Provider Instructions for Treatment How to access health informa tion online Indication:Non-smoker Start:30-May-2018 Instruction Type:Patient Education How to access health informa tion online - Detail Indication:Non-smoker Start:30-May-2018 Instruction Type:Patient Education Patient Instructions Indication:Non-smoker Start:30-May-2018 Instruction Type:Provider Instructions for Treatment How to access health informa tion online Indication:BMI 31.0-31.9,adult Start:23-May-2018 Instruction Type:Patient Education How to access health informa tion online - Detail Indication:BMI 31.0-31.9,adult Start:23-May-2018 Instruction Type:Patient Education Patient Instructions Indication:BMI 31.0-31.9,adult Start:23-May-2018 Instruction Type:Provider Instructions for Treatment How to access health informa tion online Indication:Non-smoker Start:29-Apr-2017 Instruction Type:Patient Education How to access health informa tion online - Detail Indication:Non-smoker Start:29-Apr-2017 Instruction Type:Patient Education Patient Instructions Indication:Non-smoker Start:29-Apr-2017 Instruction Type:Provider Instructions for Treatment How to access health informa tion online Indication:Hypertension, benign Start:21-May-2014 Instruction Type:Patient Education How to access health informa tion online - Detail Indication:Hypertension, benign Start:21-May-2014 Instruction Type:Patient Education Patient Instructions Indication:Hypertension, benign Start:21-May-2014 Instruction Type:Provider Instructions for Treatment Patient Instructions Indication:Gout Start:01-May-2013 Instruction Type:Provider Instructions for Treatment [facility]; [facility] Work Phone: Instructions* Name Dates Details How to Access Health Informa tion Online using Patient Portal and [employer] Party Apps Indication:Non-smoker Start:01-Aug-2020 Instruction Type:Patient Education Patient Instructions Indication:Non-smoker Start:01-Aug-2020 Instruction Type:Provider Instructions for Treatment How to access health informa tion online Indication:Non-smoker Start:03-Jul-2019 Instruction Type:Patient Education How to access health informa tion online - Detail Indication:Non-smoker Start:03-Jul-2019 Instruction Type:Patient Education Patient Instructions Indication:Non-smoker Start:03-Jul-2019 Instruction Type:Provider Instructions for Treatment How to access health informa tion online Indication:Non-smoker Start:18-Aug-2018 Instruction Type:Patient Education How to access health informa tion online - Detail Indication:Non-smoker Start:18-Aug-2018 Instruction Type:Patient Education Patient Instructions Indication:Non-smoker Start:18-Aug-2018 Instruction Type:Provider Instructions for Treatment How to access health informa tion online Indication:Non-smoker Start:30-May-2018 Instruction Type:Patient Education How to access health informa tion online - Detail Indication:Non-smoker Start:30-May-2018 Instruction Type:Patient Education Patient Instructions Indication:Non-smoker Start:30-May-2018 Instruction Type:Provider Instructions for Treatment How to access health informa tion online Indication:BMI 31.0-31.9,adult Start:23-May-2018 Instruction Type:Patient Education How to access health informa tion online - Detail Indication:BMI 31.0-31.9,adult Start:23-May-2018 Instruction Type:Patient Education Patient Instructions Indication:BMI 31.0-31.9,adult Start:23-May-2018 Instruction Type:Provider Instructions for Treatment How to access health informa tion online Indication:Non-smoker Start:29-Apr-2017 Instruction Type:Patient Education How to access health informa tion online - Detail Indication:Non-smoker Start:29-Apr-2017 Instruction Type:Patient Education Patient Instructions Indication:Non-smoker Start:29-Apr-2017 Instruction Type:Provider Instructions for Treatment How to access health informa tion online Indication:Hypertension, benign Start:21-May-2014 Instruction Type:Patient Education How to access health informa tion online - Detail Indication:Hypertension, benign Start:21-May-2014 Instruction Type:Patient Education Patient Instructions Indication:Hypertension, benign Start:21-May-2014 Instruction Type:Provider Instructions for Treatment Patient Instructions Indication:Gout Start:01-May-2013 Instruction Type:Provider Instructions for Treatment [facility]; [facility] Work Phone: Instructions* Name Dates Details Patient Instructions Indication:Non-smoker Start:15-Nov-2020 Instruction Type:Provider Instructions for Treatment How to Access Health Informa tion Online using Patient Portal and [employer]rd [employer] Apps Indication:Non-smoker Start:15-Nov-2020 Instruction Type:Patient Education How to Access Health Informa tion Online using Patient Portal and [employer]rd [employer] Apps Indication:Non-smoker Start:01-Aug-2020 Instruction Type:Patient Education Patient Instructions Indication:Non-smoker Start:01-Aug-2020 Instruction Type:Provider Instructions for Treatment How to access health informa tion online Indication:Non-smoker Start:03-Jul-2019 Instruction Type:Patient Education How to access health informa tion online - Detail Indication:Non-smoker Start:03-Jul-2019 Instruction Type:Patient Education Patient Instructions Indication:Non-smoker Start:03-Jul-2019 Instruction Type:Provider Instructions for Treatment How to access health informa tion online Indication:Non-smoker Start:18-Aug-2018 Instruction Type:Patient Education How to access health informa tion online - Detail Indication:Non-smoker Start:18-Aug-2018 Instruction Type:Patient Education Patient Instructions Indication:Non-smoker Start:18-Aug-2018 Instruction Type:Provider Instructions for Treatment How to access health informa tion online Indication:Non-smoker Start:30-May-2018 Instruction Type:Patient Education How to access health informa tion online - Detail Indication:Non-smoker Start:30-May-2018 Instruction Type:Patient Education Patient Instructions Indication:Non-smoker Start:30-May-2018 Instruction Type:Provider Instructions for Treatment How to access health informa tion online Indication:BMI 31.0-31.9,adult Start:23-May-2018 Instruction Type:Patient Education How to access health informa tion online - Detail Indication:BMI 31.0-31.9,adult Start:23-May-2018 Instruction Type:Patient Education Patient Instructions Indication:BMI 31.0-31.9,adult Start:23-May-2018 Instruction Type:Provider Instructions for Treatment How to access health informa tion online Indication:Non-smoker Start:29-Apr-2017 Instruction Type:Patient Education How to access health informa tion online - Detail Indication:Non-smoker Start:29-Apr-2017 Instruction Type:Patient Education Patient Instructions Indication:Non-smoker Start:29-Apr-2017 Instruction Type:Provider Instructions for Treatment How to access health informa tion online Indication:Hypertension, benign Start:21-May-2014 Instruction Type:Patient Education How to access health informa tion online - Detail Indication:Hypertension, benign Start:21-May-2014 Instruction Type:Patient Education Patient Instructions Indication:Hypertension, benign Start:21-May-2014 Instruction Type:Provider Instructions for Treatment Patient Instructions Indication:Gout Start:01-May-2013 Instruction Type:Provider Instructions for Treatment [facility]; [facility] Work Phone: Instructions* Name Dates Details Patient Instructions Indication:Non-smoker Start:15-Nov-2020 Instruction Type:Provider Instructions for Treatment How to Access Health Informa tion Online using Patient Portal and [employer]rd [employer] Apps Indication:Non-smoker Start:15-Nov-2020 Instruction Type:Patient Education How to Access Health Informa tion Online using Patient Portal and [employer] Apps Indication:Non-smoker Start:01-Aug-2020 Instruction Type:Patient Education Patient Instructions Indication:Non-smoker Start:01-Aug-2020 Instruction Type:Provider Instructions for Treatment How to access health informa tion online Indication:Non-smoker Start:03-Jul-2019 Instruction Type:Patient Education How to access health informa tion online - Detail Indication:Non-smoker Start:03-Jul-2019 Instruction Type:Patient Education Patient Instructions Indication:Non-smoker Start:03-Jul-2019 Instruction Type:Provider Instructions for Treatment How to access health informa tion online Indication:Non-smoker Start:18-Aug-2018 Instruction Type:Patient Education How to access health informa tion online - Detail Indication:Non-smoker Start:18-Aug-2018 Instruction Type:Patient Education Patient Instructions Indication:Non-smoker Start:18-Aug-2018 Instruction Type:Provider Instructions for Treatment How to access health informa tion online Indication:Non-smoker Start:30-May-2018 Instruction Type:Patient Education How to access health informa tion online - Detail Indication:Non-smoker Start:30-May-2018 Instruction Type:Patient Education Patient Instructions Indication:Non-smoker Start:30-May-2018 Instruction Type:Provider Instructions for Treatment How to access health informa tion online Indication:BMI 31.0-31.9,adult Start:23-May-2018 Instruction Type:Patient Education How to access health informa tion online - Detail Indication:BMI 31.0-31.9,adult Start:23-May-2018 Instruction Type:Patient Education Patient Instructions Indication:BMI 31.0-31.9,adult Start:23-May-2018 Instruction Type:Provider Instructions for Treatment How to access health informa tion online Indication:Non-smoker Start:29-Apr-2017 Instruction Type:Patient Education How to access health informa tion online - Detail Indication:Non-smoker Start:29-Apr-2017 Instruction Type:Patient Education Patient Instructions Indication:Non-smoker Start:29-Apr-2017 Instruction Type:Provider Instructions for Treatment How to access health informa tion online Indication:Hypertension, benign Start:21-May-2014 Instruction Type:Patient Education How to access health informa tion online - Detail Indication:Hypertension, benign Start:21-May-2014 Instruction Type:Patient Education Patient Instructions Indication:Hypertension, benign Start:21-May-2014 Instruction Type:Provider Instructions for Treatment Patient Instructions Indication:Gout Start:01-May-2013 Instruction Type:Provider Instructions for Treatment [facility]; [facility] Work Phone: Instructions* Name Dates Details Patient Instructions Indication:Non-smoker Start:22-Aug-2021 Instruction Type:Provider Instructions for Treatment How to Access Health Informa tion Online using Patient Portal and [employer]rd [employer] Apps Indication:Non-smoker Start:22-Aug-2021 Instruction Type:Patient Education Patient Instructions Indication:Non-smoker Start:15-Nov-2020 Instruction Type:Provider Instructions for Treatment How to Access Health Informa tion Online using Patient Portal and [employer] Apps Indication:Non-smoker Start:15-Nov-2020 Instruction Type:Patient Education How to Access Health Informa tion Online using Patient Portal and [employer] Apps Indication:Non-smoker Start:01-Aug-2020 Instruction Type:Patient Education Patient Instructions Indication:Non-smoker Start:01-Aug-2020 Instruction Type:Provider Instructions for Treatment How to access health informa tion online Indication:Non-smoker Start:03-Jul-2019 Instruction Type:Patient Education How to access health informa tion online - Detail Indication:Non-smoker Start:03-Jul-2019 Instruction Type:Patient Education Patient Instructions Indication:Non-smoker Start:03-Jul-2019 Instruction Type:Provider Instructions for Treatment How to access health informa tion online Indication:Non-smoker Start:18-Aug-2018 Instruction Type:Patient Education How to access health informa tion online - Detail Indication:Non-smoker Start:18-Aug-2018 Instruction Type:Patient Education Patient Instructions Indication:Non-smoker Start:18-Aug-2018 Instruction Type:Provider Instructions for Treatment How to access health informa tion online Indication:Non-smoker Start:30-May-2018 Instruction Type:Patient Education How to access health informa tion online - Detail Indication:Non-smoker Start:30-May-2018 Instruction Type:Patient Education Patient Instructions Indication:Non-smoker Start:30-May-2018 Instruction Type:Provider Instructions for Treatment How to access health informa tion online Indication:BMI 31.0-31.9,adult Start:23-May-2018 Instruction Type:Patient Education How to access health informa tion online - Detail Indication:BMI 31.0-31.9,adult Start:23-May-2018 Instruction Type:Patient Education Patient Instructions Indication:BMI 31.0-31.9,adult Start:23-May-2018 Instruction Type:Provider Instructions for Treatment How to access health informa tion online Indication:Non-smoker Start:29-Apr-2017 Instruction Type:Patient Education How to access health informa tion online - Detail Indication:Non-smoker Start:29-Apr-2017 Instruction Type:Patient Education Patient Instructions Indication:Non-smoker Start:29-Apr-2017 Instruction Type:Provider Instructions for Treatment How to access health informa tion online Indication:Hypertension, benign Start:21-May-2014 Instruction Type:Patient Education How to access health informa tion online - Detail Indication:Hypertension, benign Start:21-May-2014 Instruction Type:Patient Education Patient Instructions Indication:Hypertension, benign Start:21-May-2014 Instruction Type:Provider Instructions for Treatment Patient Instructions Indication:Gout Start:01-May-2013 Instruction Type:Provider Instructions for Treatment [facility]; [facility] Work Phone: Instructions* Name Dates Details Patient Instructions Indication:Non-smoker Start:22-Aug-2021 Instruction Type:Provider Instructions for Treatment How to Access Health Informa tion Online using Patient Portal and [employer]rd [employer] Apps Indication:Non-smoker Start:22-Aug-2021 Instruction Type:Patient Education Patient Instructions Indication:Non-smoker Start:15-Nov-2020 Instruction Type:Provider Instructions for Treatment How to Access Health Informa tion Online using Patient Portal and [employer] Apps Indication:Non-smoker Start:15-Nov-2020 Instruction Type:Patient Education How to Access Health Informa tion Online using Patient Portal and [employer] Apps Indication:Non-smoker Start:01-Aug-2020 Instruction Type:Patient Education Patient Instructions Indication:Non-smoker Start:01-Aug-2020 Instruction Type:Provider Instructions for Treatment How to access health informa tion online Indication:Non-smoker Start:03-Jul-2019 Instruction Type:Patient Education How to access health informa tion online - Detail Indication:Non-smoker Start:03-Jul-2019 Instruction Type:Patient Education Patient Instructions Indication:Non-smoker Start:03-Jul-2019 Instruction Type:Provider Instructions for Treatment How to access health informa tion online Indication:Non-smoker Start:18-Aug-2018 Instruction Type:Patient Education How to access health informa tion online - Detail Indication:Non-smoker Start:18-Aug-2018 Instruction Type:Patient Education Patient Instructions Indication:Non-smoker Start:18-Aug-2018 Instruction Type:Provider Instructions for Treatment How to access health informa tion online Indication:Non-smoker Start:30-May-2018 Instruction Type:Patient Education How to access health informa tion online - Detail Indication:Non-smoker Start:30-May-2018 Instruction Type:Patient Education Patient Instructions Indication:Non-smoker Start:30-May-2018 Instruction Type:Provider Instructions for Treatment How to access health informa tion online Indication:BMI 31.0-31.9,adult Start:23-May-2018 Instruction Type:Patient Education How to access health informa tion online - Detail Indication:BMI 31.0-31.9,adult Start:23-May-2018 Instruction Type:Patient Education Patient Instructions Indication:BMI 31.0-31.9,adult Start:23-May-2018 Instruction Type:Provider Instructions for Treatment How to access health informa tion online Indication:Non-smoker Start:29-Apr-2017 Instruction Type:Patient Education How to access health informa tion online - Detail Indication:Non-smoker Start:29-Apr-2017 Instruction Type:Patient Education Patient Instructions Indication:Non-smoker Start:29-Apr-2017 Instruction Type:Provider Instructions for Treatment How to access health informa tion online Indication:Hypertension, benign Start:21-May-2014 Instruction Type:Patient Education How to access health informa tion online - Detail Indication:Hypertension, benign Start:21-May-2014 Instruction Type:Patient Education Patient Instructions Indication:Hypertension, benign Start:21-May-2014 Instruction Type:Provider Instructions for Treatment Patient Instructions Indication:Gout Start:01-May-2013 Instruction Type:Provider Instructions for Treatment [facility]; [facility] Work Phone: Instructions* Name Dates Details Patient Instructions Indication:Non-smoker Start:22-Aug-2021 Instruction Type:Provider Instructions for Treatment How to Access Health Informa tion Online using Patient Portal and [employer]rd [employer] Apps Indication:Non-smoker Start:22-Aug-2021 Instruction Type:Patient Education Patient Instructions Indication:Non-smoker Start:15-Nov-2020 Instruction Type:Provider Instructions for Treatment How to Access Health Informa tion Online using Patient Portal and [employer]rd [employer] Apps Indication:Non-smoker Start:15-Nov-2020 Instruction Type:Patient Education How to Access Health Informa tion Online using Patient Portal and [employer]rd [employer] Apps Indication:Non-smoker Start:01-Aug-2020 Instruction Type:Patient Education Patient Instructions Indication:Non-smoker Start:01-Aug-2020 Instruction Type:Provider Instructions for Treatment How to access health informa tion online Indication:Non-smoker Start:03-Jul-2019 Instruction Type:Patient Education How to access health informa tion online - Detail Indication:Non-smoker Start:03-Jul-2019 Instruction Type:Patient Education Patient Instructions Indication:Non-smoker Start:03-Jul-2019 Instruction Type:Provider Instructions for Treatment How to access health informa tion online Indication:Non-smoker Start:18-Aug-2018 Instruction Type:Patient Education How to access health informa tion online - Detail Indication:Non-smoker Start:18-Aug-2018 Instruction Type:Patient Education Patient Instructions Indication:Non-smoker Start:18-Aug-2018 Instruction Type:Provider Instructions for Treatment How to access health informa tion online Indication:Non-smoker Start:30-May-2018 Instruction Type:Patient Education How to access health informa tion online - Detail Indication:Non-smoker Start:30-May-2018 Instruction Type:Patient Education Patient Instructions Indication:Non-smoker Start:30-May-2018 Instruction Type:Provider Instructions for Treatment How to access health informa tion online Indication:BMI 31.0-31.9,adult Start:23-May-2018 Instruction Type:Patient Education How to access health informa tion online - Detail Indication:BMI 31.0-31.9,adult Start:23-May-2018 Instruction Type:Patient Education Patient Instructions Indication:BMI 31.0-31.9,adult Start:23-May-2018 Instruction Type:Provider Instructions for Treatment How to access health informa tion online Indication:Non-smoker Start:29-Apr-2017 Instruction Type:Patient Education How to access health informa tion online - Detail Indication:Non-smoker Start:29-Apr-2017 Instruction Type:Patient Education Patient Instructions Indication:Non-smoker Start:29-Apr-2017 Instruction Type:Provider Instructions for Treatment How to access health informa tion online Indication:Hypertension, benign Start:21-May-2014 Instruction Type:Patient Education How to access health informa tion online - Detail Indication:Hypertension, benign Start:21-May-2014 Instruction Type:Patient Education Patient Instructions Indication:Hypertension, benign Start:21-May-2014 Instruction Type:Provider Instructions for Treatment Patient Instructions Indication:Gout Start:01-May-2013 Instruction Type:Provider Instructions for Treatment [facility]; [facility] Work Phone: Instructions* Name Dates Details Patient Instructions Indication:Non-smoker Start:22-Aug-2021 Instruction Type:Provider Instructions for Treatment How to Access Health Informa tion Online using Patient Portal and [employer]rd [employer] Apps Indication:Non-smoker Start:22-Aug-2021 Instruction Type:Patient Education Patient Instructions Indication:Non-smoker Start:15-Nov-2020 Instruction Type:Provider Instructions for Treatment How to Access Health Informa tion Online using Patient Portal and [employer]rd [employer] Apps Indication:Non-smoker Start:15-Nov-2020 Instruction Type:Patient Education How to Access Health Informa tion Online using Patient Portal and [employer]rd [employer] Apps Indication:Non-smoker Start:01-Aug-2020 Instruction Type:Patient Education Patient Instructions Indication:Non-smoker Start:01-Aug-2020 Instruction Type:Provider Instructions for Treatment How to access health informa tion online Indication:Non-smoker Start:03-Jul-2019 Instruction Type:Patient Education How to access health informa tion online - Detail Indication:Non-smoker Start:03-Jul-2019 Instruction Type:Patient Education Patient Instructions Indication:Non-smoker Start:03-Jul-2019 Instruction Type:Provider Instructions for Treatment How to access health informa tion online Indication:Non-smoker Start:18-Aug-2018 Instruction Type:Patient Education How to access health informa tion online - Detail Indication:Non-smoker Start:18-Aug-2018 Instruction Type:Patient Education Patient Instructions Indication:Non-smoker Start:18-Aug-2018 Instruction Type:Provider Instructions for Treatment How to access health informa tion online Indication:Non-smoker Start:30-May-2018 Instruction Type:Patient Education How to access health informa tion online - Detail Indication:Non-smoker Start:30-May-2018 Instruction Type:Patient Education Patient Instructions Indication:Non-smoker Start:30-May-2018 Instruction Type:Provider Instructions for Treatment How to access health informa tion online Indication:BMI 31.0-31.9,adult Start:23-May-2018 Instruction Type:Patient Education How to access health informa tion online - Detail Indication:BMI 31.0-31.9,adult Start:23-May-2018 Instruction Type:Patient Education Patient Instructions Indication:BMI 31.0-31.9,adult Start:23-May-2018 Instruction Type:Provider Instructions for Treatment How to access health informa tion online Indication:Non-smoker Start:29-Apr-2017 Instruction Type:Patient Education How to access health informa tion online - Detail Indication:Non-smoker Start:29-Apr-2017 Instruction Type:Patient Education Patient Instructions Indication:Non-smoker Start:29-Apr-2017 Instruction Type:Provider Instructions for Treatment How to access health informa tion online Indication:Hypertension, benign Start:21-May-2014 Instruction Type:Patient Education How to access health informa tion online - Detail Indication:Hypertension, benign Start:21-May-2014 Instruction Type:Patient Education Patient Instructions Indication:Hypertension, benign Start:21-May-2014 Instruction Type:Provider Instructions for Treatment Patient Instructions Indication:Gout Start:01-May-2013 Instruction Type:Provider Instructions for Treatment [facility]; [facility] Work Phone: Instructions* Name Dates Details How to Access Health Informa tion Online using Patient Portal and [employer]rd [employer] Apps Indication:BMI 31.0-31.9,adult Start:14-Oct-2022 Instruction Type:Patient Education Patient Instructions Indication:BMI 31.0-31.9,adult Start:14-Oct-2022 Instruction Type:Provider Instructions for Treatment Patient Instructions Indication:Non-smoker Start:22-Aug-2021 Instruction Type:Provider Instructions for Treatment How to Access Health Informa tion Online using Patient Portal and [employer]rd [employer] Apps Indication:Non-smoker Start:22-Aug-2021 Instruction Type:Patient Education Patient Instructions Indication:Non-smoker Start:15-Nov-2020 Instruction Type:Provider Instructions for Treatment How to Access Health Informa tion Online using Patient Portal and [employer]rd [employer] Apps Indication:Non-smoker Start:15-Nov-2020 Instruction Type:Patient Education How to Access Health Informa tion Online using Patient Portal and [employer] Apps Indication:Non-smoker Start:01-Aug-2020 Instruction Type:Patient Education Patient Instructions Indication:Non-smoker Start:01-Aug-2020 Instruction Type:Provider Instructions for Treatment How to access health informa tion online Indication:Non-smoker Start:03-Jul-2019 Instruction Type:Patient Education How to access health informa tion online - Detail Indication:Non-smoker Start:03-Jul-2019 Instruction Type:Patient Education Patient Instructions Indication:Non-smoker Start:03-Jul-2019 Instruction Type:Provider Instructions for Treatment How to access health informa tion online Indication:Non-smoker Start:18-Aug-2018 Instruction Type:Patient Education How to access health informa tion online - Detail Indication:Non-smoker Start:18-Aug-2018 Instruction Type:Patient Education Patient Instructions Indication:Non-smoker Start:18-Aug-2018 Instruction Type:Provider Instructions for Treatment How to access health informa tion online Indication:Non-smoker Start:30-May-2018 Instruction Type:Patient Education How to access health informa tion online - Detail Indication:Non-smoker Start:30-May-2018 Instruction Type:Patient Education Patient Instructions Indication:Non-smoker Start:30-May-2018 Instruction Type:Provider Instructions for Treatment How to access health informa tion online Indication:BMI 31.0-31.9,adult Start:23-May-2018 Instruction Type:Patient Education How to access health informa tion online - Detail Indication:BMI 31.0-31.9,adult Start:23-May-2018 Instruction Type:Patient Education Patient Instructions Indication:BMI 31.0-31.9,adult Start:23-May-2018 Instruction Type:Provider Instructions for Treatment How to access health informa tion online Indication:Non-smoker Start:29-Apr-2017 Instruction Type:Patient Education How to access health informa tion online - Detail Indication:Non-smoker Start:29-Apr-2017 Instruction Type:Patient Education Patient Instructions Indication:Non-smoker Start:29-Apr-2017 Instruction Type:Provider Instructions for Treatment How to access health informa tion online Indication:Hypertension, benign Start:21-May-2014 Instruction Type:Patient Education How to access health informa tion online - Detail Indication:Hypertension, benign Start:21-May-2014 Instruction Type:Patient Education Patient Instructions Indication:Hypertension, benign Start:21-May-2014 Instruction Type:Provider Instructions for Treatment Patient Instructions Indication:Gout Start:01-May-2013 Instruction Type:Provider Instructions for Treatment [facility]; [facility] Work Phone: Instructions* Name Dates Details How to Access Health Informa tion Online using Patient Portal and [employer]rd [employer] Apps Indication:BMI 31.0-31.9,adult Start:14-Oct-2022 Instruction Type:Patient Education Patient Instructions Indication:BMI 31.0-31.9,adult Start:14-Oct-2022 Instruction Type:Provider Instructions for Treatment Patient Instructions Indication:Non-smoker Start:22-Aug-2021 Instruction Type:Provider Instructions for Treatment How to Access Health Informa tion Online using Patient Portal and [employer]rd [employer] Apps Indication:Non-smoker Start:22-Aug-2021 Instruction Type:Patient Education Patient Instructions Indication:Non-smoker Start:15-Nov-2020 Instruction Type:Provider Instructions for Treatment How to Access Health Informa tion Online using Patient Portal and [employer] Apps Indication:Non-smoker Start:15-Nov-2020 Instruction Type:Patient Education How to Access Health Informa tion Online using Patient Portal and [employer] Apps Indication:Non-smoker Start:01-Aug-2020 Instruction Type:Patient Education Patient Instructions Indication:Non-smoker Start:01-Aug-2020 Instruction Type:Provider Instructions for Treatment How to access health informa tion online Indication:Non-smoker Start:03-Jul-2019 Instruction Type:Patient Education How to access health informa tion online - Detail Indication:Non-smoker Start:03-Jul-2019 Instruction Type:Patient Education Patient Instructions Indication:Non-smoker Start:03-Jul-2019 Instruction Type:Provider Instructions for Treatment How to access health informa tion online Indication:Non-smoker Start:18-Aug-2018 Instruction Type:Patient Education How to access health informa tion online - Detail Indication:Non-smoker Start:18-Aug-2018 Instruction Type:Patient Education Patient Instructions Indication:Non-smoker Start:18-Aug-2018 Instruction Type:Provider Instructions for Treatment How to access health informa tion online Indication:Non-smoker Start:30-May-2018 Instruction Type:Patient Education How to access health informa tion online - Detail Indication:Non-smoker Start:30-May-2018 Instruction Type:Patient Education Patient Instructions Indication:Non-smoker Start:30-May-2018 Instruction Type:Provider Instructions for Treatment How to access health informa tion online Indication:BMI 31.0-31.9,adult Start:23-May-2018 Instruction Type:Patient Education How to access health informa tion online - Detail Indication:BMI 31.0-31.9,adult Start:23-May-2018 Instruction Type:Patient Education Patient Instructions Indication:BMI 31.0-31.9,adult Start:23-May-2018 Instruction Type:Provider Instructions for Treatment How to access health informa tion online Indication:Non-smoker Start:29-Apr-2017 Instruction Type:Patient Education How to access health informa tion online - Detail Indication:Non-smoker Start:29-Apr-2017 Instruction Type:Patient Education Patient Instructions Indication:Non-smoker Start:29-Apr-2017 Instruction Type:Provider Instructions for Treatment How to access health informa tion online Indication:Hypertension, benign Start:21-May-2014 Instruction Type:Patient Education How to access health informa tion online - Detail Indication:Hypertension, benign Start:21-May-2014 Instruction Type:Patient Education Patient Instructions Indication:Hypertension, benign Start:21-May-2014 Instruction Type:Provider Instructions for Treatment Patient Instructions Indication:Gout Start:01-May-2013 Instruction Type:Provider Instructions for Treatment [facility] Work Phone: Instructions* Name Dates Details How to Access Health Informa tion Online using Patient Portal and 3rd [employer] Apps Indication:BMI 31.0-31.9,adult Start:14-Oct-2022 Instruction Type:Patient Education Patient Instructions Indication:BMI 31.0-31.9,adult Start:14-Oct-2022 Instruction Type:Provider Instructions for Treatment Patient Instructions Indication:Non-smoker Start:22-Aug-2021 Instruction Type:Provider Instructions for Treatment How to Access Health Informa tion Online using Patient Portal and [employer]rd [employer] Apps Indication:Non-smoker Start:22-Aug-2021 Instruction Type:Patient Education Patient Instructions Indication:Non-smoker Start:15-Nov-2020 Instruction Type:Provider Instructions for Treatment How to Access Health Informa tion Online using Patient Portal and [employer]rd [employer] Apps Indication:Non-smoker Start:15-Nov-2020 Instruction Type:Patient Education How to Access Health Informa tion Online using Patient Portal and [employer]rd [employer] Apps Indication:Non-smoker Start:01-Aug-2020 Instruction Type:Patient Education Patient Instructions Indication:Non-smoker Start:01-Aug-2020 Instruction Type:Provider Instructions for Treatment How to access health informa tion online Indication:Non-smoker Start:03-Jul-2019 Instruction Type:Patient Education How to access health informa tion online - Detail Indication:Non-smoker Start:03-Jul-2019 Instruction Type:Patient Education Patient Instructions Indication:Non-smoker Start:03-Jul-2019 Instruction Type:Provider Instructions for Treatment How to access health informa tion online Indication:Non-smoker Start:18-Aug-2018 Instruction Type:Patient Education How to access health informa tion online - Detail Indication:Non-smoker Start:18-Aug-2018 Instruction Type:Patient Education Patient Instructions Indication:Non-smoker Start:18-Aug-2018 Instruction Type:Provider Instructions for Treatment How to access health informa tion online Indication:Non-smoker Start:30-May-2018 Instruction Type:Patient Education How to access health informa tion online - Detail Indication:Non-smoker Start:30-May-2018 Instruction Type:Patient Education Patient Instructions Indication:Non-smoker Start:30-May-2018 Instruction Type:Provider Instructions for Treatment How to access health informa tion online Indication:BMI 31.0-31.9,adult Start:23-May-2018 Instruction Type:Patient Education How to access health informa tion online - Detail Indication:BMI 31.0-31.9,adult Start:23-May-2018 Instruction Type:Patient Education Patient Instructions Indication:BMI 31.0-31.9,adult Start:23-May-2018 Instruction Type:Provider Instructions for Treatment How to access health informa tion online Indication:Non-smoker Start:29-Apr-2017 Instruction Type:Patient Education How to access health informa tion online - Detail Indication:Non-smoker Start:29-Apr-2017 Instruction Type:Patient Education Patient Instructions Indication:Non-smoker Start:29-Apr-2017 Instruction Type:Provider Instructions for Treatment How to access health informa tion online Indication:Hypertension, benign Start:21-May-2014 Instruction Type:Patient Education How to access health informa tion online - Detail Indication:Hypertension, benign Start:21-May-2014 Instruction Type:Patient Education Patient Instructions Indication:Hypertension, benign Start:21-May-2014 Instruction Type:Provider Instructions for Treatment Patient Instructions Indication:Gout Start:01-May-2013 Instruction Type:Provider Instructions for Treatment [facility] Work Phone: Instructions* Name Dates Details How to Access Health Informa tion Online using Patient Portal and [employer]rd [employer] Apps Indication:BMI 31.0-31.9,adult Start:14-Oct-2022 Instruction Type:Patient Education Patient Instructions Indication:BMI 31.0-31.9,adult Start:14-Oct-2022 Instruction Type:Provider Instructions for Treatment Patient Instructions Indication:Non-smoker Start:22-Aug-2021 Instruction Type:Provider Instructions for Treatment How to Access Health Informa tion Online using Patient Portal and [employer]rd [employer] Apps Indication:Non-smoker Start:22-Aug-2021 Instruction Type:Patient Education Patient Instructions Indication:Non-smoker Start:15-Nov-2020 Instruction Type:Provider Instructions for Treatment How to Access Health Informa tion Online using Patient Portal and [employer]rd [employer] Apps Indication:Non-smoker Start:15-Nov-2020 Instruction Type:Patient Education How to Access Health Informa tion Online using Patient Portal and [employer]rd [employer] Apps Indication:Non-smoker Start:01-Aug-2020 Instruction Type:Patient Education Patient Instructions Indication:Non-smoker Start:01-Aug-2020 Instruction Type:Provider Instructions for Treatment How to access health informa tion online Indication:Non-smoker Start:03-Jul-2019 Instruction Type:Patient Education How to access health informa tion online - Detail Indication:Non-smoker Start:03-Jul-2019 Instruction Type:Patient Education Patient Instructions Indication:Non-smoker Start:03-Jul-2019 Instruction Type:Provider Instructions for Treatment How to access health informa tion online Indication:Non-smoker Start:18-Aug-2018 Instruction Type:Patient Education How to access health informa tion online - Detail Indication:Non-smoker Start:18-Aug-2018 Instruction Type:Patient Education Patient Instructions Indication:Non-smoker Start:18-Aug-2018 Instruction Type:Provider Instructions for Treatment How to access health informa tion online Indication:Non-smoker Start:30-May-2018 Instruction Type:Patient Education How to access health informa tion online - Detail Indication:Non-smoker Start:30-May-2018 Instruction Type:Patient Education Patient Instructions Indication:Non-smoker Start:30-May-2018 Instruction Type:Provider Instructions for Treatment How to access health informa tion online Indication:BMI 31.0-31.9,adult Start:23-May-2018 Instruction Type:Patient Education How to access health informa tion online - Detail Indication:BMI 31.0-31.9,adult Start:23-May-2018 Instruction Type:Patient Education Patient Instructions Indication:BMI 31.0-31.9,adult Start:23-May-2018 Instruction Type:Provider Instructions for Treatment How to access health informa tion online Indication:Non-smoker Start:29-Apr-2017 Instruction Type:Patient Education How to access health informa tion online - Detail Indication:Non-smoker Start:29-Apr-2017 Instruction Type:Patient Education Patient Instructions Indication:Non-smoker Start:29-Apr-2017 Instruction Type:Provider Instructions for Treatment How to access health informa tion online Indication:Hypertension, benign Start:21-May-2014 Instruction Type:Patient Education How to access health informa tion online - Detail Indication:Hypertension, benign Start:21-May-2014 Instruction Type:Patient Education Patient Instructions Indication:Hypertension, benign Start:21-May-2014 Instruction Type:Provider Instructions for Treatment Patient Instructions Indication:Gout Start:01-May-2013 Instruction Type:Provider Instructions for Treatment [facility] Work Phone: reason for visit Narrative* Imaging (Routine) - Pending Review Specialty Diagnoses / Procedures Referred By Angelique vance Referred To Contact Radiology Diagnoses Pure hypercholesterolemia, unspecified Procedures CT cardiac scoring wo IV contrast Shauna Yen, [address] [facility] [address] [place] [address] Phone: tel: fax: Referral ID Status Reason Start Date Expiration Date Visits Requested Visits Authorized [id number] Pending Review Perform Procedure 4 12/22/2024 1 1 [facility] Work Phone: Instructions Name Dates Details Non-smoker : How to access h ealth information online Indication:Non-smoker Non-smoker : How to access h ealth information online - Detail Indication:Non-smoker Non-smoker : Patient Instruc tions Indication:Non-smoker Hypertension, benign : How t o access health information online Indication:Hypertension, benign Hypertension, benign : How t o access health information online - Detail Indication:Hypertension, benign Hypertension, benign : Patie nt Instructions Indication:Hypertension, benign Gout : Patient Instructions Indication:Gout Name Dates Details BMI 31.0-31.9,adult : How to access health information online Indication:BMI 31.0-31.9,adult BMI 31.0-31.9,adult : How to access health information online - Detail Indication:BMI 31.0-31.9,adult BMI 31.0-31.9,adult : Patien t Instructions Indication:BMI 31.0-31.9,adult Non-smoker : How to access h ealth information online Indication:Non-smoker Non-smoker : How to access h ealth information online - Detail Indication:Non-smoker Non-smoker : Patient Instruc tions Indication:Non-smoker Hypertension, benign : How t o access health information online Indication:Hypertension, benign Hypertension, benign : How t o access health information online - Detail Indication:Hypertension, benign Hypertension, benign : Patie nt Instructions Indication:Hypertension, benign Gout : Patient Instructions Indication:Gout Name Dates Details BMI 31.0-31.9,adult : How to access health information online Indication:BMI 31.0-31.9,adult BMI 31.0-31.9,adult : How to access health information online - Detail Indication:BMI 31.0-31.9,adult BMI 31.0-31.9,adult : Patien t Instructions Indication:BMI 31.0-31.9,adult Non-smoker : How to access h ealth information online Indication:Non-smoker Non-smoker : How to access h ealth information online - Detail Indication:Non-smoker Non-smoker : Patient Instruc tions Indication:Non-smoker Hypertension, benign : How t o access health information online Indication:Hypertension, benign Hypertension, benign : How t o access health information online - Detail Indication:Hypertension, benign Hypertension, benign : Patie nt Instructions Indication:Hypertension, benign Gout : Patient Instructions Indication:Gout Name Dates Details Non-smoker : How to access h ealth information online Indication:Non-smoker Non-smoker : How to access h ealth information online - Detail Indication:Non-smoker Non-smoker : Patient Instruc tions Indication:Non-smoker BMI 31.0-31.9,adult : How to access health information online Indication:BMI 31.0-31.9,adult BMI 31.0-31.9,adult : How to access health information online - Detail Indication:BMI 31.0-31.9,adult BMI 31.0-31.9,adult : Patien t Instructions Indication:BMI 31.0-31.9,adult Hypertension, benign : How t o access health information online Indication:Hypertension, benign Hypertension, benign : How t o access health information online - Detail Indication:Hypertension, benign Hypertension, benign : Patie nt Instructions Indication:Hypertension, benign Gout : Patient Instructions Indication:Gout Name Dates Details Non-smoker : How to access h ealth information online Indication:Non-smoker Non-smoker : How to access h ealth information online - Detail Indication:Non-smoker Non-smoker : Patient Instruc tions Indication:Non-smoker BMI 31.0-31.9,adult : How to access health information online Indication:BMI 31.0-31.9,adult BMI 31.0-31.9,adult : How to access health information online - Detail Indication:BMI 31.0-31.9,adult BMI 31.0-31.9,adult : Patien t Instructions Indication:BMI 31.0-31.9,adult Hypertension, benign : How t o access health information online Indication:Hypertension, benign Hypertension, benign : How t o access health information online - Detail Indication:Hypertension, benign Hypertension, benign : Patie nt Instructions Indication:Hypertension, benign Gout : Patient Instructions Indication:Gout Name Dates Details How to access health informa tion online Indication:Non-smoker Start:30-May-2018 Instruction Type:Patient Education How to access health informa tion online - Detail Indication:Non-smoker Start:30-May-2018 Instruction Type:Patient Education Patient Instructions Indication:Non-smoker Start:30-May-2018 Instruction Type:Provider Instructions for Treatment How to access health informa tion online Indication:BMI 31.0-31.9,adult Start:23-May-2018 Instruction Type:Patient Education How to access health informa tion online - Detail Indication:BMI 31.0-31.9,adult Start:23-May-2018 Instruction Type:Patient Education Patient Instructions Indication:BMI 31.0-31.9,adult Start:23-May-2018 Instruction Type:Provider Instructions for Treatment How to access health informa tion online Indication:Non-smoker Start:29-Apr-2017 Instruction Type:Patient Education How to access health informa tion online - Detail Indication:Non-smoker Start:29-Apr-2017 Instruction Type:Patient Education Patient Instructions Indication:Non-smoker Start:29-Apr-2017 Instruction Type:Provider Instructions for Treatment How to access health informa tion online Indication:Hypertension, benign Start:21-May-2014 Instruction Type:Patient Education How to access health informa tion online - Detail Indication:Hypertension, benign Start:21-May-2014 Instruction Type:Patient Education Patient Instructions Indication:Hypertension, benign Start:21-May-2014 Instruction Type:Provider Instructions for Treatment Patient Instructions Indication:Gout Start:01-May-2013 Instruction Type:Provider Instructions for Treatment Name Dates Details How to access health informa tion online Indication:Non-smoker Start:18-Aug-2018 Instruction Type:Patient Education How to access health informa tion online - Detail Indication:Non-smoker Start:18-Aug-2018 Instruction Type:Patient Education Patient Instructions Indication:Non-smoker Start:18-Aug-2018 Instruction Type:Provider Instructions for Treatment How to access health informa tion online Indication:Non-smoker Start:30-May-2018 Instruction Type:Patient Education How to access health informa tion online - Detail Indication:Non-smoker Start:30-May-2018 Instruction Type:Patient Education Patient Instructions Indication:Non-smoker Start:30-May-2018 Instruction Type:Provider Instructions for Treatment How to access health informa tion online Indication:BMI 31.0-31.9,adult Start:23-May-2018 Instruction Type:Patient Education How to access health informa tion online - Detail Indication:BMI 31.0-31.9,adult Start:23-May-2018 Instruction Type:Patient Education Patient Instructions Indication:BMI 31.0-31.9,adult Start:23-May-2018 Instruction Type:Provider Instructions for Treatment How to access health informa tion online Indication:Non-smoker Start:29-Apr-2017 Instruction Type:Patient Education How to access health informa tion online - Detail Indication:Non-smoker Start:29-Apr-2017 Instruction Type:Patient Education Patient Instructions Indication:Non-smoker Start:29-Apr-2017 Instruction Type:Provider Instructions for Treatment How to access health informa tion online Indication:Hypertension, benign Start:21-May-2014 Instruction Type:Patient Education How to access health informa tion online - Detail Indication:Hypertension, benign Start:21-May-2014 Instruction Type:Patient Education Patient Instructions Indication:Hypertension, benign Start:21-May-2014 Instruction Type:Provider Instructions for Treatment Patient Instructions Indication:Gout Start:01-May-2013 Instruction Type:Provider Instructions for Treatment Name Dates Details How to access health informa tion online Indication:Non-smoker Start:18-Aug-2018 Instruction Type:Patient Education How to access health informa tion online - Detail Indication:Non-smoker Start:18-Aug-2018 Instruction Type:Patient Education Patient Instructions Indication:Non-smoker Start:18-Aug-2018 Instruction Type:Provider Instructions for Treatment How to access health informa tion online Indication:Non-smoker Start:30-May-2018 Instruction Type:Patient Education How to access health informa tion online - Detail Indication:Non-smoker Start:30-May-2018 Instruction Type:Patient Education Patient Instructions Indication:Non-smoker Start:30-May-2018 Instruction Type:Provider Instructions for Treatment How to access health informa tion online Indication:BMI 31.0-31.9,adult Start:23-May-2018 Instruction Type:Patient Education How to access health informa tion online - Detail Indication:BMI 31.0-31.9,adult Start:23-May-2018 Instruction Type:Patient Education Patient Instructions Indication:BMI 31.0-31.9,adult Start:23-May-2018 Instruction Type:Provider Instructions for Treatment How to access health informa tion online Indication:Non-smoker Start:29-Apr-2017 Instruction Type:Patient Education How to access health informa tion online - Detail Indication:Non-smoker Start:29-Apr-2017 Instruction Type:Patient Education Patient Instructions Indication:Non-smoker Start:29-Apr-2017 Instruction Type:Provider Instructions for Treatment How to access health informa tion online Indication:Hypertension, benign Start:21-May-2014 Instruction Type:Patient Education How to access health informa tion online - Detail Indication:Hypertension, benign Start:21-May-2014 Instruction Type:Patient Education Patient Instructions Indication:Hypertension, benign Start:21-May-2014 Instruction Type:Provider Instructions for Treatment Patient Instructions Indication:Gout Start:01-May-2013 Instruction Type:Provider Instructions for Treatment Name Dates Details How to access health informa tion online Indication:Non-smoker Start:18-Aug-2018 Instruction Type:Patient Education How to access health informa tion online - Detail Indication:Non-smoker Start:18-Aug-2018 Instruction Type:Patient Education Patient Instructions Indication:Non-smoker Start:18-Aug-2018 Instruction Type:Provider Instructions for Treatment How to access health informa tion online Indication:Non-smoker Start:30-May-2018 Instruction Type:Patient Education How to access health informa tion online - Detail Indication:Non-smoker Start:30-May-2018 Instruction Type:Patient Education Patient Instructions Indication:Non-smoker Start:30-May-2018 Instruction Type:Provider Instructions for Treatment How to access health informa tion online Indication:BMI 31.0-31.9,adult Start:23-May-2018 Instruction Type:Patient Education How to access health informa tion online - Detail Indication:BMI 31.0-31.9,adult Start:23-May-2018 Instruction Type:Patient Education Patient Instructions Indication:BMI 31.0-31.9,adult Start:23-May-2018 Instruction Type:Provider Instructions for Treatment How to access health informa tion online Indication:Non-smoker Start:29-Apr-2017 Instruction Type:Patient Education How to access health informa tion online - Detail Indication:Non-smoker Start:29-Apr-2017 Instruction Type:Patient Education Patient Instructions Indication:Non-smoker Start:29-Apr-2017 Instruction Type:Provider Instructions for Treatment How to access health informa tion online Indication:Hypertension, benign Start:21-May-2014 Instruction Type:Patient Education How to access health informa tion online - Detail Indication:Hypertension, benign Start:21-May-2014 Instruction Type:Patient Education Patient Instructions Indication:Hypertension, benign Start:21-May-2014 Instruction Type:Provider Instructions for Treatment Patient Instructions Indication:Gout Start:01-May-2013 Instruction Type:Provider Instructions for Treatment Name Dates Details How to access health informa tion online Indication:Non-smoker Start:18-Aug-2018 Instruction Type:Patient Education How to access health informa tion online - Detail Indication:Non-smoker Start:18-Aug-2018 Instruction Type:Patient Education Patient Instructions Indication:Non-smoker Start:18-Aug-2018 Instruction Type:Provider Instructions for Treatment How to access health informa tion online Indication:Non-smoker Start:30-May-2018 Instruction Type:Patient Education How to access health informa tion online - Detail Indication:Non-smoker Start:30-May-2018 Instruction Type:Patient Education Patient Instructions Indication:Non-smoker Start:30-May-2018 Instruction Type:Provider Instructions for Treatment How to access health informa tion online Indication:BMI 31.0-31.9,adult Start:23-May-2018 Instruction Type:Patient Education How to access health informa tion online - Detail Indication:BMI 31.0-31.9,adult Start:23-May-2018 Instruction Type:Patient Education Patient Instructions Indication:BMI 31.0-31.9,adult Start:23-May-2018 Instruction Type:Provider Instructions for Treatment How to access health informa tion online Indication:Non-smoker Start:29-Apr-2017 Instruction Type:Patient Education How to access health informa tion online - Detail Indication:Non-smoker Start:29-Apr-2017 Instruction Type:Patient Education Patient Instructions Indication:Non-smoker Start:29-Apr-2017 Instruction Type:Provider Instructions for Treatment How to access health informa tion online Indication:Hypertension, benign Start:21-May-2014 Instruction Type:Patient Education How to access health informa tion online - Detail Indication:Hypertension, benign Start:21-May-2014 Instruction Type:Patient Education Patient Instructions Indication:Hypertension, benign Start:21-May-2014 Instruction Type:Provider Instructions for Treatment Patient Instructions Indication:Gout Start:01-May-2013 Instruction Type:Provider Instructions for Treatment Summary Purpose Family History Relationship Condition Age at Onset Recorded Date/T kassandra mother Polyp of colon Unknown sister Polyp of colon Unknown father Hypertension Unknown Gout Unknown Calculus of kidney Unknown No Family History Records Found Advance Directives No Advanced Directives Records Found Name Dates Details Immunization Registry [place] - Effective on 08/01/2020. Expiration date unspecified Effective:01-Aug-2020 Name Dates Details Immunization Registry [place] - Effective on 08/01/2020. Expiration date unspecified Effective:01-Aug-2020 Name Dates Details Immunization Registry [place] - Effective on 08/01/2020. Expiration date unspecified Effective:01-Aug-2020 Name Dates Details Immunization Registry [place] - Effective on 08/01/2020. Expiration date unspecified Effective:01-Aug-2020 Name Dates Details Immunization Registry [place] - Effective on 08/01/2020. Expiration date unspecified Effective:01-Aug-2020 Name Dates Details Immunization Registry [place] - Effective on 08/01/2020. Expiration date unspecified Effective:01-Aug-2020 Name Dates Details Immunization Registry [place] - Effective on 08/01/2020. Expiration date unspecified Effective:01-Aug-2020 Name Dates Details Immunization Registry [place] - Effective on 08/01/2020. Expiration date unspecified Effective:01-Aug-2020 Name Dates Details Immunization Registry [place] - Effective on 08/01/2020. Expiration date unspecified Effective:01-Aug-2020 Name Dates Details Immunization Registry [place] - Effective on 08/01/2020. Expiration date unspecified Effective:01-Aug-2020 Name Dates Details Immunization Registry [place] - Effective on 08/01/2020. Expiration date unspecified Effective:01-Aug-2020 Advance Directive Response Recorded Date/ Time Living Will No December 15 3 1:24pm Power of Nylon Machine Operator No December 15 023 1:24pm Name Dates Details Immunization Registry [place] - Effective on 08/01/2020. Expiration date unspecified Effective:01-Aug-2020 Chief Complaint and Reason for Visit Chief Complaint Amb Documentation Reason for Visit Encounter for screen ing for malignant neoplasm of colon Additional Source Comments (unrecognized sect ion and content) No Status Records FoundNo Status Records FoundNo Status Records FoundNo Status Records Found INFORMATION SOURCE (unrecogn ized section and content) DATE CREATED [facility] DATE CREATED AUTHOR AUTHOR'S ORGANIZ ATION 01/24/2019 [facility] DATE CREATED AUTHOR AUTHOR'S ORGANIZ ATION 01/23/2024 [facility] DATE CREATED AUTHOR AUTHOR'S ORGANIZ ATION 05/04/2024 [facility] Care Teams (unrecognized sec tion and content) Team Status: Active Member Role Status Dates Dr. Shauna Yen DO Family Provider Active Dr. Shauna Yen DO Primary Care Provider Active Team Status: Active Member Role Status Dates Dr. Shauna Yen DO Primary Care Provider Active [facility] Attending Provider Active Team Status: Active Member Role Status Dates Dr. Shauna Yen DO Primary Care Provider, Referr ing Provider Active Dr. Leobardo Bowens DO Attending Provider, Other Prov ider Active Team Status: Inactive Member Role Status Dates Dr. Shauna Yen DO Primary Care Provider, Referr ing Provider Active Dr. Leobardo Bowens DO Attending Provider Active [employer] Relationship Specialty Start Date End Date Shauna Yen DO [address] [id number] PCP - General Internal Medicine 01/15/24 FOR RECORDS PERTAINING TO PATIENTS WHO ARE OR HAVE BEEN ENROLLED IN A CHEMICAL DEPENDENCY/SUBSTANCEABUSE PROGRAM, SOME INFORMATION MAY BE OMITTED. This clinical summary was aggregated from multiple sources. Caution should be exercised in using it in the provision of clinical care. This summary normalizes information from multiple sources, and as a consequence, information in this document may materially change the coding, format and clinical context of patient data. In addition, data may be omitted in some cases. CLINICAL DECISIONS SHOULD BE BASED ON THE PRIMARY CLINICAL RECORDS. [facility] [employer] [facility]. provides no warranty or guarantee of the accuracy or completeness of information in this document.
[2025-02-22 10:56] LABS: Color, Urine Yellow (Yellow); Glucose, Dipstick Normal (Normal); Ketone-Dipstick Negative (Negative); Leukocyte Esterase-Dipstick Negative /ul (Negative); Nitrite-Dipstick Negative (Negative); Occult Blood-Urine Negative /ul (Negative); Protein-Dipstick 15 mg/dl (Negative); Specific Gravity, Urine 1.010 (1.002-1.030); Urine Bilirubin Dipstick Negative (Negative)
[2025-02-22 11:17] LABS: AST(SGOT) 90 U/L (<=37); Alanine Aminotransfer ALT/SGPT 66 U/L (<=46); Albumin, Serum 4.4 g/dL (3.5-5.0); Alkaline Phosphatase 71 U/L (40-129); Bilirubin, Direct 0.32 mg/dL (0.00-0.30); Cholesterol 193 mg/dL (<=200); Globulin 2.9 g/dL (2.2-4.2); Low Density Lipoprotein Calc. 116 mg/dL; Triglycerides 116 mg/dL; Very Low Density Lipoprotein 23 mg/dL (5-40); Vitamin D,25 Hydroxy 52.0 ng/mL (30-100); cholesterol:hdl ratio screen 3.41
[2025-02-23 16:39] LABS: BUN 14 mg/dL (4-19); Calcium 9.4 mg/dL (7.6-11.0); Carbon Dioxide 24.6 mmol/L (21.0-32.0); Chloride 103 mmol/L (98-108); Glucose 100 mg/dL (70-99); Potassium 4.5 mmol/L (3.3-5.1)
== END | disposition home or self-care (01) ==
LOC: CIMLAB 07:19
PROVIDERS: PCP Internal Medicine; Referring Provider Internal Medicine; Visit Provider Internal Medicine
DX: E78.00 Pure hypercholesterolemia, unspecified (principal); R79.89 Other specified abnormal findings of blood chemistry; E55.9 Vitamin D deficiency, unspecified; I10 Essential (primary) hypertension
CPT/HCPCS: 36415; 80061; 80076; 81001; 82306; 82310; 82374; 82435; 82565; 82947; 84132; 84295; 84520